=== PATIENT | female | born 1950 | race Caucasian/White ===

== ENCOUNTER 2023-10-10 12:36 | Outpatient (OUT) | payer OTHER, SELFPAY ==
[2023-10-10 15:50] LABS: Bilirubin Urine NEGATIVE (NEGATIVE); Blood Urine TRACE-I (NEGATIVE); Clarity Urine SL CLOUDY (CLEAR); Color Urine LT. YELLOW (YELLOW); Glucose Urine UA NEGATIVE (NEGATIVE); Ketones Urine NEGATIVE (NEGATIVE); Leukocyte Esterase Urine LARGE (NEGATIVE); Nitrite Urine NEGATIVE (NEGATIVE); Protein Urine NEGATIVE (NEG/TRACE); Urobilinogen Urine 0.2 EU/dL (0.2-1.0)
[2023-10-10 16:05] LABS: Bacteria Urine LARGE #/HPF (NONE SEEN); RBC Urine 0-2 #/HPF (0-2); WBC Urine >100 #/HPF (NONE SEEN)
[2023-10-10 16:06] LABS: Cast Seen? NONE SEEN #/LPF (NONE SEEN); Crystals Seen? None Seen #/HPF (None Seen); Mucus Urine NONE SEEN (NONE SEEN); Squamous Epithelial Cell Urine MODERATE #/LPF (NONE/RARE); Urine Culture Indicated ALREADY ORDERED
== END 2023-10-10 12:37 | disposition home or self-care (01) ==
LOC: LAB 12:44
PROVIDERS: PCP Nurse Practitioner Family; Visit Provider Nurse Practitioner Family
DX: R35.0 Frequency of micturition (principal)
CPT/HCPCS: 81001; 87086; 87150; 87186

== ENCOUNTER 2023-10-24 09:47 | Outpatient (OUT) | payer OTHER, SELFPAY ==
--- OUTSIDE RECORDS SUMMARY | 2023-10-24 10:01 | XMS_ITS | CCD ---
Author Organization [facility] Care Team Providers Care Funeral Home Attendant Name Role Phone RAYNA WEAVER Attending Unavailable OWEN, RAYNA Primary Care Unavailable DR ORTEGA HAHN Consulting Unavailable OWEN, RAYNA Admitting Unavailable OWEN, RAYNA Consulting Unavailable OWEN, RAYNA Admitting Unavailable OWEN, RAYNA Attending Unavailable DR ALEXANDRA MARIA V Consulting Unavailable OWEN, RAYNA Primary Care Unavailable OWEN, RAYNA Consulting Unavailable OWEN, RAYNA Attending Unavailable OWEN, RAYNA Consulting Unavailable OWEN, RAYNA Primary Care Unavailable OWEN, RAYNA Admitting Unavailable OWEN, RAYNA Attending Unavailable OWEN, RAYNA Consulting Unavailable OWEN, RAYNA Primary Care Unavailable OWEN, RAYNA Admitting Unavailable OWEN, RAYNA Attending Unavailable OWEN, RAYNA Consulting Unavailable OWEN, RAYNA Primary Care Unavailable OWEN, RAYNA Admitting Unavailable Yary Valladares Unavailable GERTRUDE Valladares Attending Provider Wyatt Mann Primary Care Unavailable Yary Valladares Admitting Unavailable Yary Valladares Attending Unavailable Rayna Muñoz Admitting Unavailable Rayna Muñoz Attending Unavailable Wyatt Mann Primary Care Unavailable Medications Current Medications Medication Drug Class(es) Dates Sig (Normalized) Sig (Original) alendronic acid 70 mg oral tablet (2 sources) Bisphosphonate Alendronate Sodium 70 MG 1 tablet 30 minutes before the first food, beverage or medicine of the day with plain water Orally once a week Active cephalexin 500 mg oral capsule (2 sources) Cephalosporin Antibacterial Start: 01-19-2023 take 1 capsule by mouth every eight hours Cephalexin 500 MG 1 capsule Orally every 8 hrs for 7 Jan, Active cetirizine hydrochloride 10 mg oral tablet (2 sources) Histamine-1 Receptor Antagonist Start: 01-19-2023 take 1 tablet by mouth every twenty-four hours Cetirizine HCl 10 MG 1 tablet Orally Once a day for 14 days Jan, Active diclofenac sodium 75 mg delayed release oral tablet (2 sources) Nonsteroidal Anti-inflammatory Drug take 1 tablet by mouth every twelve hours Diclofenac Sodium 75 MG 1 tablet as needed Orally Twice a day Active fluticasone propionate 0.05 mg/actuat metered dose nasal spray (2 sources) Corticosteroid Start: 01-19-2023 take 1 spray(s) nasal route once daily Flonase Allergy Relief 50 MCG/ACT 1 spray in each nostril Nasally Once a day for 14 day(s) Jan, Active pantoprazole 40 mg delayed release oral tablet (2 sources) Proton Pump Inhibitor take 1 tablet by mouth every twenty-four hours Pantoprazole Sodium 40 MG 1 tablet Orally Once a day Active sertraline 100 mg oral tablet (2 sources) Serotonin Reuptake Inhibitor take 1 tablet by mouth every twenty-four hours Sertraline HCl 100 MG 1 tablet Orally Once a day Active Completed/Discontinued Medications Medication Drug Class(es) Dates Sig (Normalized) Sig (Original) Ketorolac (2 sources) Nonsteroidal Anti-inflammatory Drug, Cyclooxygenase Inhibitor Start: 04-25-2019 Toradol per 15 mg Apr, 30 mg Triamcinolone (2 sources) Corticosteroid Start: 04-25-2019 KENALOG - 10 mg Apr, 40 mg Problems Active Problems Problem Classification Problem Date Documented Da te Episodic/Chronic Deficiency and other anemia (1 source) Anemia, unspecified; Translations: [ANEMIA UNSPECIFIED] Onset: 06-08-2022 Episodic Diabetes mellitus without complication (1 source) Other abnormal glucose; Translations: [OTHER ABNORMAL GLUCOSE] Onset: 06-08-2022 Episodic Disorders of lipid metabolism (4 sources) Hyperlipidemia, unspecified; Translations: [HYPERLIPIDEMIA UNSPECIFIED] Onset: 06-04-2022 Chronic Menopausal disorders (4 sources) Other primary ovarian failure; Translations: [OTHER PRIMARY OVARIAN FAILURE] Onset: 06-14-2022 Chronic Other bone disease and musculoskeletal deformities (1 source) Other specified disorders of bone density and structure, unspecified site; Translations: [OTH D/O BONE DEN STRUCT UNS SITE] Onset: 06-21-2022 Episodic Other nutritional; endocrine; and metabolic disorders (1 source) Overweight; Translations: [OVERWEIGHT] Onset: 06-08-2022 Episodic Other upper respiratory disease (2 sources) Allergic rhinitis due to pollen; Translations: [Allergic rhinitis due to pollen] Chronic Other upper respiratory disease (1 source) Allergic rhinitis due to pollen Chronic Other upper respiratory infections (1 source) Acute pharyngitis, unspecified Episodic Spondylosis; intervertebral disc disorders; other back problems (2 sources) Sciatica; Translations: [Sciatica, left side] Episodic Unclassified (1 source) COUGH, UNSPECIFIED; Translations: [COUGH, UNSPECIFIED] Onset: 12-02-2021 Viral infection (4 sources) COVID-19; Translations: [COVID-19] Onset: 11-27-2021 Past or Other Problems Problem Classification Problem Date Documented Da te Episodic/Chronic Genitourinary symptoms and ill-defined conditions (6 sources) Dysuria; Translations: [Dysuria] Onset: 01-10-2022 Episodic Other lower respiratory disease (1 source) Shortness of breath; Translations: [SHORTNESS OF BREATH] Onset: 12-02-2021 Episodic Urinary tract infections (4 sources) Urinary tract infection, site not specified; Translations: [UTI SITE NOT SPECIFIED] Onset: 12-24-2021 Episodic Results Test Name Value Interpretation Reference Range Facility Urine Cultureon 05-18-2023 Bacteria identified Cx Nom (U) ORGANISM: Escherichia coli (O:ESCCOL) Shelby Count >100,000 Aerobic NESHA Charge (NMIC56) ------ SUSCEPTIBILITY ----- ORGANISM: O:ESCCOL ANTIBIOTIC INTERPRETATION NESHA Amikacin S <16 Amoxacillin/K Clavulanate S <8 Ampicillin S <8 Ampicillin/Sulbacta m S <4 Aztreonam S <4 Cefazolin S <2 Cefepime S <2 Ceftazidime S <1 Ceftazidime/Avibact am S <4 Ceftolozane/Tazobac reyes S <2 Ceftriaxone S <1 Cefuroxime S <4 Ciprofloxacin R >2 Ertapenem S <0.5 Gentamicin S <2 Levofloxacin R >4 Meropenem S <1 Meropenem/Vaborbact am S <2 Nitrofurantoin S <32 Piperacillin/Tazoba ctam S <8 Tetracycline S <4 Tigecycline S <2 Tobramycin S <2 Trimethoprim/Sulfam ethoxazole S <0.5 S = SUSCEPTIBLE I = INTERMEDIATE R = RESISTANT BLANK = DATA NOT AVAILABLE, OR DRUG NOT ADVISABLE OR TESTED R* = RESISTANCE DUE TO EXTENDED SPECTRUM BETA-LACTAMASES ESBL = EXTENDED SPECTRUM BETA-LACTAMASE TFG = THYMIDINE-DEPENDENT STRAIN FLACO = BETA-LACTAMASE POSITIVE IB = INDUCIBLE BETA-LACTAMASE. APPEARS IN PLACE OF 'S' WITH SPECIES KNOWN TO POSSESS INDUCIBLE BETA-LACTAMASES. POTENTIALLY THEY MAY BECOME RESISTANT TO ALL B-LACTAM DRUGS. PERFORMED BY: [place] [address] PATHOLOGIST TERRY CLOTH CUTTER HAND DEYANIRA ARCE M.D. Normal [facility] Comment on above: Performed By: #### C UU #### [address] Quick [place] 01-19-2023 S. pyogenes Org specific cx Ql (Throat) Negative in2nite Other Urinalysis - AUTOMATEDon Appearance (U) CLEAR UTILICASE Other Bilirubin Ql (U) Negative [employer] Other Color (U) YELLOW in2nite Other Glucose Ql (U) Negative UTILICASE Other Hemoglobin Ql (U) Negative [employer] Other Ketones Ql (U) Negative UTILICASE Other Leukocyte esterase Test strip Ql (U) SMALL in2nite Other Nitrite Ql (U) Negative UTILICASE Other pH (U) 5.0 [pH] in2nite Other Protein Ql (U) TRACE UTILICASE Other Specific gravity (U) [Rel density] >=1.030 in2nite Other Urobilinogen (U) [Mass/Vol] 0.2 mg/dL in2nite Other Urinalysis - AUTOMATED in2nite Other Urine Cultureon 01-19-2023 Urine Culture >100,000 in2nite Other Bacteria identified Cx Nom (U) ORGANISM: Escherichia coli (O:ESCCOL) [place] Count >100,000 Aerobic NESHA Charge (NMIC56) ------ SUSCEPTIBILITY ----- ORGANISM: O:ESCCOL ANTIBIOTIC INTERPRETATION NESHA Amikacin S <16 Amoxacillin/K Clavulanate S <8 Ampicillin S <8 Ampicillin/Sulbacta m S <4 Aztreonam S <4 Cefazolin S <2 Cefepime S <2 Ceftazidime S <1 Ceftazidime/Avibact am S <4 Ceftolozane/Tazobac reyes S <2 Ceftriaxone S <1 Cefuroxime S <4 Ciprofloxacin R >2 Ertapenem S <0.5 Gentamicin S <2 Levofloxacin R >4 Meropenem S <1 Meropenem/Vaborbact am S <2 Nitrofurantoin S <32 Piperacillin/Tazoba ctam S <8 Tetracycline S <4 Tigecycline S <2 Tobramycin S <2 Trimethoprim/Sulfam ethoxazole S <0.5 S = SUSCEPTIBLE I = INTERMEDIATE R = RESISTANT BLANK = DATA NOT AVAILABLE, OR DRUG NOT ADVISABLE OR TESTED R* = RESISTANCE DUE TO EXTENDED SPECTRUM BETA-LACTAMASES ESBL = EXTENDED SPECTRUM BETA-LACTAMASE TFG = THYMIDINE-DEPENDENT STRAIN FLACO = BETA-LACTAMASE POSITIVE IB = INDUCIBLE BETA-LACTAMASE. APPEARS IN PLACE OF 'S' WITH SPECIES KNOWN TO POSSESS INDUCIBLE BETA-LACTAMASES. POTENTIALLY THEY MAY BECOME RESISTANT TO ALL B-LACTAM DRUGS. PERFORMED BY: [address] [place] [address] PATHOLOGIST TERRY CLOTH CUTTER HAND DEYANIRA ARCE M.D. Normal [facility] Comment on above: Performed By: #### C UU #### [facility] [address] XR DEXA BONE DENSITYon 06-14 XR DEXA BONE DENSITY EXAMINATION: XR DEXA BONE DENSITY, 06/14/2022 9:38 AM EDT HISTORY: Bone density finding COMPARISON: None. TECHNIQUE: Dual-energy X-ray absorptiometry (DEXA) bone density study performed for the axial skeleton. FINDINGS: Bone mineral density AP spine L1-L4 measures 1.143 g/sq cm. T score -0.3. WHO classification: Normal Lowest bone mineral density right femoral neck measures 0.772 g/sq cm. T score -1.9. WHO classification: Osteopenia IMPRESSION: Osteopenia. Moderate fracture risk Electronically authenticated by: ALEXANDRA MARIA Date: 2022-06-14 15:17 Normal [facility] INSULINon 06-05-2022 Insulin 13.1 uIU/mL Normal 2.6-24.9 [facility] Comment on above: Performed By: #### I NSULIN #### [facility] [address] [place] [address] Dr. Stephon Breaux CBC AUTO DIFFon 06-04-2022 BASO # 0.1 103/ul Normal 0.0-0.1 [facility] Comment on above: Performed By: #### C BC #### [facility] [address] [place] [address] Dr. Stephon Breaux Basophils/100 WBC (Bld) 1.3 % Normal 0.2-2.0 [facility] Comment on above: Performed By: #### C BC #### [facility] [address] [place] [address] Dr. Stephon Breaux EO # 0.2 103/ul Normal 0.0-0.7 [facility] Comment on above: Performed By: #### C BC #### [facility] [address] [place] [address] Dr. Stephon Breaux Eosinophils/100 WBC (Bld) 4.4 % Normal 0.9-7.0 [facility] Comment on above: Performed By: #### C BC #### [facility] [address] [place] [address] Dr. Stephon Breaux Erythrocyte distribution width (RBC) [Ratio] 13.3 % Normal 11.0-15.0 [facility] Comment on above: Performed By: #### C BC #### [facility] [address] [place] [address] Dr. Stephon Breaux Hematocrit (Bld) [Volume fraction] 37.9 % Normal 36.0-48.0 [facility] Comment on above: Performed By: #### C BC #### [facility] [address] [place] [address] Dr. Stephon Breaux Hemoglobin (Bld) [Mass/Vol] 12.5 g/dL Normal 12.0-16.0 [facility] Comment on above: Performed By: #### C BC #### [facility] [address] [place] [address] Dr. Stephon Breaux IG # 0.00 10e3/ul Normal 0.00-0.03 [facility] Comment on above: Performed By: #### C BC #### [facility] [address] [place] [address] Dr. Stephon Breaux IG % 0.0 % Normal 0.0-0.5 [facility] Comment on above: Performed By: #### C BC #### [facility] [address] [place] [address] Dr. Stephon Breaux LYMPH # 1.9 103/ul Normal 1.2-3.8 [facility] Comment on above: Performed By: #### C BC #### [facility] [address] [place] [address] Dr. Stephon Breaux Lymphocytes/100 WBC (Bld) 38.6 % Normal 20.5-60.0 [facility] Comment on above: Performed By: #### C BC #### [facility] [address] [place] [address] Dr. Stephon Breaux MANUAL DIFF REQ NO Normal [facility] Comment on above: Performed By: #### C BC #### [facility] [address] [place] [address] Dr. Stephon Breaux MCH (RBC) [Entitic mass] 31.7 pg Normal 26.7-34.0 [facility] Comment on above: Performed By: #### C BC #### [facility] [address] [place] [address] Dr. Stephon Breaux MCHC (RBC) [Mass/Vol] 33.0 g/dL Normal 29.9-35.2 [facility] Comment on above: Performed By: #### C BC #### [facility] [address] [place] [address] Dr. Stephon Breaux MCV (RBC) [Entitic vol] 96.2 fL Normal 81.0-99.0 [facility] Comment on above: Performed By: #### C BC #### [facility] [address] [place] [address] Dr. Stephon Breaux MONO # 0.4 103/ul Normal 0.3-0.8 [facility] Comment on above: Performed By: #### C BC #### [facility] [address] [place] [address] Dr. Stephon Breaux Monocytes/100 WBC (Bld) 7.5 % Normal 1.7-12.0 [facility] Comment on above: Performed By: #### C BC #### [facility] [address] [place] [address] Dr. Stephon Breaux NEUT # 2.3 103/ul Normal 1.4-6.5 [facility] Comment on above: Performed By: #### C BC #### [facility] [address] [place] [address] Dr. Stephon Breaux Neutrophils/100 WBC (Bld) 48.2 % Normal 43.0-75.0 [facility] Comment on above: Performed By: #### C BC #### [facility] [address] [place] [address] Dr. Stephon Breaux Platelet mean volume (Bld) [Entitic vol] 9.4 fL Critically low 9.5-13.5 [facility] Comment on above: Performed By: #### C BC #### [facility] [address] [place] [address] Dr. Stephon Breaux PLT 230 103/ul Normal 150-450 [facility] Comment on above: Performed By: #### C BC #### [facility] [address] [place] [address] Dr. Stephon Breaux RBC 3.94 106/ul Critically low 4.20-5.40 [facility] Comment on above: Performed By: #### C BC #### [facility] [address] [address] [address] Stephon Breaux WBC 4.8 103/ul Normal 4.0-11.0 [facility] Comment on above: Performed By: #### C BC #### [facility] [address] [place] [address] Dr. Stephon Breaux FREE THYROXINE INDEX T7on FTI 2.94 Normal 1.30-4.50 [facility] Comment on above: Performed By: #### T SH, LIPID, T7, CMP #### [facility] [address] [place] [address] Dr. Stephon Breaux T3U 35.0 % Normal 30.0-39.0 [facility] Comment on above: Performed By: #### T SH, LIPID, T7, CMP #### [facility] [address] [place] [address] Dr. Stephon Breaux T4 [Mass/Vol] 8.40 ug/dL Normal 4.80-13.[address] [facility] Comment on above: Performed By: #### T SH, LIPID, T7, CMP #### [facility] [address] [place] [address] Dr. Stephon Breaux GLYCOHEMOGLOBIN A1Con 2022 ADA RECOMMENDATION SEE BELOW Normal [facility] Comment on above: Result Comment: ADA RECOMMENDED LIMIT 4.0 - 6.0 ADA THERAPEUTIC TARGET < 7.0 ACTION SUGGESTED > 7.0 Performed By: #### A 1C #### [facility] [address] [place] [address] Dr. Stephon Breaux Glucose [Mass/Vol] 100 mg/dL Normal [facility] Comment on above: Performed By: #### A 1C #### [facility] [address] [place] [address] Dr. Stephon Breaux HbA1c (Bld) [Mass fraction] 5.1 % Normal 4.5-6.2 [facility] Comment on above: Performed By: #### A 1C #### [facility] [address] [place] [address] Dr. Stephon Breaux IRONon 06-04-2022 Iron [Mass/Vol] 89.0 ug/dL Normal 50.0-170.0 [facility] Comment on above: Performed By: #### I FANG #### [facility] [address] [place] [address] Dr. Stephon Breaux LIPID PROFILEon 06-04-2022 CHOL-HDL RATIO NORM SEE BELOW Normal [facility] Comment on above: Result Comment: 3.3 - 4.4 LOW RISK 4.4 - 7.1 AVERAGE RISK 7.1 - 11.0 MODERATE RISK >11.0 HIGH RISK Performed By: #### C BC #### [facility] [address] [place] [address] Dr. Stephon Breaux Cholesterol [Mass/Vol] 203 mg/dL Critically high <=200 [facility] Comment on above: Performed By: #### C BC #### [facility] [address] [place] [address] Dr. Stephon Breaux Cholesterol in HDL [Mass/Vol] 65 mg/dL Critically high 40-60 [facility] Comment on above: Performed By: #### C BC #### [facility] [address] [place] [address] Dr. Stephon Breaux Cholesterol in LDL [Mass/Vol] 112.6 mg/dL Normal [facility] Comment on above: Performed By: #### C BC #### [facility] [address] [place] [address] Dr. Stephon Breaux Cholesterol.total/Ch olesterol in HDL [Mass ratio] 3.1 {ratio} Normal [facility] Comment on above: Performed By: #### C BC #### [facility] [address] [place] [address] Dr. Stephon Breaux HDL NORMAL > or = 60 mg/dl - LOW CARDIOVASCULAR RISK <40 mg/dl - HIGH CARDIOVASCULAR RISK Normal [facility] Comment on above: Performed By: #### C BC #### [facility] [address] [place] [address] Dr. Stephon Breaux LDL CALC NORMAL SEE BELOW Normal [facility] Comment on above: Result Comment: <100 mg/dl OPTIMAL 100 - 129 mg/dl NEAR OR ABOVE OPTIMAL 130 - 159 mg/dl BORDERLINE HIGH 160 - 189 mg/dl HIGH >190 mg/dl VERY HIGH Performed By: #### C BC #### [facility] [address] [place] [address] Dr. Stephon Breaux Triglyceride [Mass/Vol] 127 mg/dL Normal <=150 [facility] Comment on above: Performed By: #### C BC #### [facility] [address] [place] [address] Dr. Stephon Breaux VLDL CALC 25.4 mg/dL Normal [facility] Comment on above: Performed By: #### C BC #### [facility] [address] [place] [address] Dr. Stephon Breaux PROF 14(COMP METB)on 023 Albumin [Mass/Vol] 3.4 g/dL Normal 3.4-5.0 [facility] Comment on above: Performed By: #### C BC #### [facility] [address] [place] [address] Dr. Stephon Breaux Albumin/Globulin [Mass ratio] 1.0 {ratio} Normal [facility] Comment on above: Performed By: #### C BC #### [facility] [address] [place] [address] Dr. Stephon Breaux ALP [Catalytic activity/Vol] 66 U/L Normal 46-116 [facility] Comment on above: Performed By: #### C BC #### [facility] [address] [place] [address] Dr. Stephon Breaux ALT [Catalytic activity/Vol] 17 U/L Normal 14-59 [facility] Comment on above: Performed By: #### C BC #### [facility] [address] [address] [address] Stephon Breaux Anion gap [Moles/Vol] 9.2 mmol/L Normal [facility] Comment on above: Performed By: #### C BC #### [facility] [address] [place] [address] Dr. Stephon Breaux AST [Catalytic activity/Vol] 17 U/L Normal 15-37 [facility] Comment on above: Performed By: #### C BC #### [facility] [address] [address] [address] Stephon Breaux Bilirubin [Mass/Vol] 0.4 mg/dL Normal 0.2-1.0 [facility] Comment on above: Performed By: #### C BC #### [facility] [address] [place] [address] Dr. Stephon Breaux Calcium [Mass/Vol] 9.1 mg/dL Normal 8.5-10.1 [facility] Comment on above: Performed By: #### C BC #### [facility] [address] [place] [address] Dr. Stephon Braeux Chloride [Moles/Vol] 108 mmol/L Critically high 98-107 [facility] Comment on above: Performed By: #### C BC #### [facility] [address] [place] [address] Dr. Stephon Breaux CO2 [Moles/Vol] 29.2 mmol/L Normal 21.0-32.0 [facility] Comment on above: Performed By: #### C BC #### [facility] [address] [place] [address] Dr. Stephon Breaux Creatinine [Mass/Vol] 0.84 mg/dL Normal 0.55-1.02 [facility] Comment on above: Performed By: #### C BC #### [facility] [address] [place] [address] Dr. Stephon Breaux EGFR-AF SERBIAN >60 Normal >=60 [facility] Comment on above: Performed By: #### C BC #### [facility] [address] [place] [address] Dr. Stephon Breaux EGFR-NON AF SERBIAN >60 Normal >=60 [facility] Comment on above: Performed By: #### C BC #### [facility] [address] [place] [address] Dr. Stephon Breaux Globulin (S) [Mass/Vol] 3.4 g/dL Normal [facility] Comment on above: Performed By: #### C BC #### [facility] [address] [address] [address] Stephon Breaux Glucose [Mass/Vol] 90 mg/dL Normal 74-106 [facility] Comment on above: Performed By: #### C BC #### [facility] [address] [place] [address] Dr. Stephon Breaux Potassium [Moles/Vol] 4.4 mmol/L Normal 3.5-5.1 [facility] Comment on above: Performed By: #### C BC #### [facility] [address] [place] [address] Dr. Stephon Breaux Protein [Mass/Vol] 6.8 g/dL Normal 6.4-8.2 [facility] Comment on above: Performed By: #### C BC #### [facility] [address] [place] [address] Dr. Stephon Braeux Sodium [Moles/Vol] 142 mmol/L Normal 136-145 [facility] Comment on above: Performed By: #### C BC #### [facility] [address] [place] [address] Dr. Stephon Breaux Urea nitrogen [Mass/Vol] 16.0 mg/dL Normal 7.0-18.0 [facility] Comment on above: Performed By: #### C BC #### [facility] [address] [place] [address] Dr. Stephon Breaux Urea nitrogen/Creatinine [Mass ratio] 19.0 mg/mg Normal [facility] Comment on above: Performed By: #### C BC #### [facility] [address] [place] [address] Dr. Stephon Breaux TSHon 06-04-2022 TSH 0.923 uIU/mL Normal 0.358-3.740 [facility] Comment on above: Performed By: #### C BC #### [facility] [address] [place] [address] Dr. Stephon Breaux CULTURE URINEon 01-10-2022 CULTURE URINE Culture Observations: LIGHT GROWTH OF MIXED GENITAL TIFFANIE. NO POTENTIAL PATHOGENS SEEN. Normal [facility] Comment on above: Performed By: #### U RCX #### [facility] [address] [place] [address] Dr. Stephon Breaux UA RANDOM W/MICROSCOPICon BACTERIA TRACE Abnormal NONE SEEN [facility] Comment on above: Performed By: #### U AMIC #### [facility] [address] [place] [address] Dr. Stephon Breaux Bilirubin Ql (U) Negative Normal NEGATIVE [facility] Comment on above: Performed By: #### U AMIC #### [facility] [address] [place] [address] Dr. Stephon Breaux CAST NONE SEEN Normal NONE SEEN [facility] Comment on above: Performed By: #### U AMIC #### [facility] [address] [place] [address] Dr. Stephon Breaux Clarity (U) CLEAR Normal CLEAR [facility] Comment on above: Performed By: #### U AMIC #### [facility] [address] [place] [address] Dr. Stephon Breaux Color (U) YELLOW Normal YELLOW [facility] Comment on above: Performed By: #### U AMIC #### [facility] [address] [place] [address] Dr. Stephon Breaux Crystals LM Nom (Urine sed) NONE SEEN Normal NONE SEEN [facility] Comment on above: Performed By: #### U AMIC #### [facility] [facility] [address] [place] [address] Dr. Stephon Breaux Epithelial cells LM Ql (Urine sed) FEW Abnormal NONE SEEN /RARE [facility] Comment on above: Performed By: #### U AMIC #### [facility] [address] [place] [address] Dr. Stephon Breaux Glucose Ql (U) Negative Normal NEGATIVE The [facility] Comment on above: Performed By: #### U AMIC #### [facility] [address] [address] [address] Stephon Breaux Hemoglobin Ql (U) Negative Normal NEGATIVE The [facility] Comment on above: Performed By: #### U AMIC #### [facility] [address] [address] [address] Stephon Breaux Ketones Ql (U) Negative Normal NEGATIVE [facility] Comment on above: Performed By: #### U AMIC #### [facility] [address] [address] [address] Stephon Breaux LEUKOCYTES TRACE Abnormal NEGATIVE [facility] Comment on above: Performed By: #### U AMIC #### [facility] [address] [address] [address] Stephon Breaux MUCOUS NONE SEEN Normal NONE SEEN [facility] Comment on above: Performed By: #### U AMIC #### [facility] [address] [address] [address] Stephon Breaux Nitrite Ql (U) Negative Normal NEGATIVE [facility] Comment on above: Performed By: #### U AMIC #### [facility] [address] [address] [address] Stephon Breaux pH (U) 5.5 [pH] Normal 5-9 [facility] Comment on above: Performed By: #### U AMIC #### [facility] [address] [address] [address] Stephon Breaux RBC NONE SEEN Abnormal 0-2 [facility] Comment on above: Performed By: #### U AMIC #### [facility] [address] [address] [address] Stephon Breaux SPEC GRAVITY >=1.030 Abnormal 1.005-<=1.025 The [facility] Comment on above: Performed By: #### U AMIC #### [facility] [address] [address] [address] Stephon Breaux UA PROTEIN Negative Normal NEGATIVE/ TRACE [facility] Comment on above: Performed By: #### U AMIC #### [facility] [address] [address] [address] Stephon Breaux Urobilinogen Qn (U) 0.2 {Billy'U}/dL Normal 0.2 - 1. 0 [facility] Comment on above: Performed By: #### U AMIC #### [facility] [address] [place] [address] Dr. Stephon Breaux WBC 2-5 Abnormal NONE SEEN [facility] Comment on above: Performed By: #### U AMIC #### [facility] [address] [place] [address] Dr. Stephon Breaux CULTURE URINEon 12-26-2021 CULTURE URINE Isolate 1 Escherichia coli 25,000 cfu/mL of ORGANISM 1 Escherichia coli ANTIBIOTIC M.I.C RX STATUS Ampicillin >=32 R F Ampicillin/Sulbacta m 4 S F Piperacillin/Tazoba ctam <=4 S F Cefazolin <=4 S F Ceftazidime <=1 S F Ceftriaxone <=1 S F Ertapenem <=0.5 S F Imipenem <=0.25 S F Amikacin <=2 S F Gentamicin <=1 S F Tobramycin <=1 S F Ciprofloxacin <=0.25 S F Levofloxacin 0.5 S F Nitrofurantoin <=16 S F Trimethoprim/Sulfam ethoxazole <=20 S F Normal [facility] Comment on above: Performed By: #### C BC #### [facility] [address] [place] [address] Dr. Stephon Breaux UA RANDOM W/MICROSCOPICon BACTERIA TRACE Abnormal NONE SEEN [facility] Comment on above: Performed By: #### U AMIC #### [facility] [address] [place] [address] Dr. Stephon Breaux Bilirubin Ql (U) Negative Normal NEGATIVE The [facility] Comment on above: Performed By: #### U AMIC #### [facility] [address] [place] [address] Dr. Stephon Breaux CAST NONE SEEN Normal NONE SEEN [facility] Comment on above: Performed By: #### U AMIC #### [facility] [address] [address] [address] Stephon Breaux Clarity (U) CLEAR Normal CLEAR [facility] Comment on above: Performed By: #### U AMIC #### [facility] [address] [address] [address] Stephon Breaux Color (U) DK. ORANGE Abnormal YELLOW [facility] Comment on above: Performed By: #### U AMIC #### [facility] [address] [address] [address] Stephon Breaux Crystals LM Nom (Urine sed) NONE SEEN Normal NONE SEEN [facility] Comment on above: Performed By: #### U AMIC #### [facility] [address] [place] [address] Dr. Stephon Breaux Epithelial cells LM Ql (Urine sed) FEW Abnormal NONE SEEN /RARE [facility] Comment on above: Performed By: #### U AMIC #### [facility] [address] [place] [address] Dr. Stephon Breaux Glucose Ql (U) Negative Normal NEGATIVE [facility] Comment on above: Performed By: #### U AMIC #### [facility] [address] [address] [address] Stephon Breaux Hemoglobin Ql (U) SMALL Abnormal NEGATIVE [facility] Comment on above: Performed By: #### U AMIC #### [facility] [address] [place] [address] Dr. Stephon Breaux Ketones Ql (U) Negative Normal NEGATIVE [facility] Comment on above: Performed By: #### U AMIC #### [facility] [address] [address] [address] Stephon Breaux LEUKOCYTES MODERATE Abnormal NEGATIVE [facility] Comment on above: Performed By: #### U AMIC #### [facility] [address] [address] [address] Stephon Breaux MUCOUS NONE SEEN Normal NONE SEEN [facility] Comment on above: Performed By: #### U AMIC #### [facility] [address] [place] [address] Dr. Stephon Breaux Nitrite Ql (U) Negative Normal NEGATIVE [facility] Comment on above: Performed By: #### U AMIC #### [facility] [address] [address] [address] Stephon Breaux pH (U) 6.0 [pH] Normal 5-9 [facility] Comment on above: Performed By: #### U AMIC #### [facility] [address] [address] [address] Stephon Breaux RBC 2-5 Abnormal 0-2 [facility] Comment on above: Performed By: #### U AMIC #### [facility] [address] [address] [address] Stephon Breaux SPEC GRAVITY >=1.030 Abnormal 1.005-<=1.025 [facility] Comment on above: Performed By: #### U AMIC #### [facility] [address] [place] [address] Dr. Stephon Breaux UA PROTEIN TRACE Normal NEGATIVE/ TRACE [facility] Comment on above: Performed By: #### U AMIC #### [facility] [address] [address] [address] Stephon Breaux Urobilinogen Qn (U) 0.2 {Billy'U}/dL Normal 0.2 - 1. 0 [facility] Comment on above: Performed By: #### U AMIC #### [facility] [address] [place] [address] Dr. Stephon Breaux WBC 20-50 Abnormal NONE SEEN [facility] Comment on above: Performed By: #### U AMIC #### [facility] [address] [place] [address] Dr. Stephon Breaux Physician Orderon 02-04-2020 Physician Order [id number] Normal [facility] Coding Summary.on 12-15-2019 Coding Summary. CODING DATE: 12/15/2019 FINAL [facility] STATUS: Home (Routine DC) PAYOR: Medicare ADMIT DX: REASON FOR VISIT DX: Z20.828 Contact with and (suspected) exposure to other viral communicable diseases FINAL DX: PRINCIPAL: Z20.828 Contact with and (suspected) exposure to other viral communicable diseases SECONDARY: PYMT PROC APC STAT DESCRIPTION DOCTOR NAME DATE NOTE: The code number assigned matches the documented diagnosis and / or procedure in the patient's chart. However, the narrative phrase printed from the coding software may appear abbreviated, or result in slightly different terminology. Coded By: Sim August Date Saved: 12/15/2019 04:59 pm Normal [facility] COVID-19 ([facility])on 11-19-2019 COVID FT Intrl QC Pass Normal Pass [facility] Comment on above: Performed By: #### 2 [id number] #### [facility] [address] [place] [address] COVID-19 ([facility]) Not Detected Normal Not Detected [facility] Comment on above: Result Comment: This test result should be correlated with clinical presentations and medical history by a healthcare provider to determine its clinical significance. This assay was performed by a reverse transcriptase real-time polymerase chain reaction (rt PCR) method on the [employer] system. This test has been authorized only for the detection of nucleic acid from SARS-CoV-2, not for any other viruses or pathogens. This test has not been FDA cleared or approved. This test has been authorized by FDA under an Emergency Use Authorization (EUA). This test is only authorized for the duration of time the declaration on that circumstances exist justifying the authorization emergency use of in vitro diagnostic tests for detection and/or diagnosis of COVID-19 infection under section 564 (b) (1) of the Act, 21 U.S.C. 360 bbb-3 (b) (1), unless authorization is terminated or revoked sooner. Performed By: #### 2 [id number] #### [facility] [address] [id number] Specimen source Nom (Unsp spec) Nasal Normal [facility] Comment on above: Performed By: #### 2 [id number] #### [facility] [address] [place] [address] Employed in Healthcare YES Normal [facility] Comment on above: Performed By: #### 2 [id number] #### [facility] [address] [place] [address] First Test Unknown Normal [facility] Comment on above: Performed By: #### 2 [id number] #### [facility] [address] [place] [address] Hospitalized? NO Normal [facility] Comment on above: Performed By: #### 2 [id number] #### [facility] [address] [place] [address] ICU NO Normal [facility] Comment on above: Performed By: #### 2 [id number] #### [facility] [address] [place] [address] ? NO Normal [facility] Comment on above: Performed By: #### 2 [id number] #### [facility] [address] [place] [address] Resides in a [facility] Care Setting NO Normal [facility] Comment on above: Performed By: #### 2 [id number] #### [facility] [address] [place] [address] Sympt[address] as defined by [facility] Unknown Normal [facility] Comment on above: Performed By: #### 2 [id number] #### [facility] [address] [place] [address] Vital Signs Date Time Vital Sign Value Performing Clinician Facility 01-19-2023 10:50-0500 Body height 170.18 cm Yary Valladares Other [facility] [employer] Other 01-19-2023 10:50-0500 Body mass index (BMI) [Ratio] 30.1 kg/m2 Yary Valladares Other [employer] Other 01-19-2023 10:50-0500 Body temperature 97.4 [degF] Yary Valladares Other [employer] Other 01-19-2023 10:50-0500 Body weight 87.18 kg Yary Valladares Other [employer] Other 01-19-2023 10:50-0500 Respiratory rate 18 /min Yary Valladares Other [employer] Other 01-19-2023 10:50-0500 SaO2% (BldA) [Mass fraction] 95 % Yary Valladares Other [employer] Other Encounters Encounter Date Encounter Type Care Provider Facility Start: 05-18-2023 End: 05-18-2023 ambulatory Rayna Muñoz Facility:[facility] Start: 01-23-2023 End: 01-23-2023 ambulatory Yary Valladares Other [employer] Other Start: 01-23-2023 Telephone encounter Yary Valladares [facility] [address] Start: 01-19-2023 Office outpatient vi sit 25 minutes Yary Valladares [facility] Start: 01-19-2023 End: 01-19-2023 ambulatory Wyatt Mann [facility] Work Phone: Start: 01-19-2023 End: 01-19-2023 Departed [employer] Yary Valladares Work Phone: [facility] [address] [place] Work Phone: Start: 06-14-2022 End: 06-15-2022 ambulatory RAYNA OWEN Facility:[facility] Start: 06-04-2022 End: 06-05-2022 ambulatory RAYNA OWEN Facility:[facility] Start: 01-10-2022 End: 01-11-2022 ambulatory RAYNA OWEN Facility:[facility] Start: 12-24-2021 End: 12-25-2021 ambulatory RAYNA OWEN Facility:[facility] Start: 11-27-2021 End: 11-28-2021 ambulatory RAYNACONRAD WEAVER Facility:[facility] Plan of Treatment Date Care Activity Detail Author Start: 01-19-2023 Bacteria identified in Urine by Culture Urine Culture [facility] Payers Date Payer Category Payer Unknown [id number] 2023 Self-pay [id number] 1957 Unknown [id number] 1950 Unknown [id number] 2.16.84 [id number] 1950 Unknown [id number] 2.16.84 [id number] 1950 Unknown [id number] 2.16.84 [id number] 1950 Unknown [id number] 2.16.84 [id number] 1950 Unknown [id number] 2.16.84 [id number] Unknown [id number] Unknown [id number] 2.16.8 [id number] Unknown [id number] 2.16.8 [id number] Social History Date Type Detail Facility Unknown if ever smoked [facility] Work Phone: Sex Assigned At Sex Assigned At [facility] [employer] Other Start: 1950 Sex Assigned At Female F [facility] Evaluation note 01-19-2023 Note Date & Type Note Facility 01-19-2023 Evaluation note Encounter Date Diagnosis Assessment Notes Jan, Dysuria (ICD-10 - R30.0) Discussed diagnosis and dipstick findings with patient. Will treat patient for UTI. Instructed patient to take antibiotic as prescribed, take with food, complete entire course of therapy even if feeling better. Allergies and recent antibiotic use were reviewed with patient. Advised patient culture was sent today and we will call with her results in 2-5 days. Patient instructed to push fluids. Patient symptoms should improve in the next 48 hours, if symptoms persist follow up with PCP or UC. Immediate eval by ER if back or flank pain, fever, chills, N/V, or any other concerning symptoms arise. Patient verbalizes understanding and is agreeable to treatment plan. Jan, Seasonal allergic rhinitis due to pollen (ICD-10 - J30.1) Advised patient that rapid Strep test was negative today in office. Discussed diagnosis with patient. Advised that physical exam is consistent with allergic rhinitis. Encouraged supportive care as directed, increase fluids and rest, Tylenol/Motrin as directed, rx of Cetirizine and Flonase, cool mist humidifier, throat lozenges. Patient to follow up with PCP if symptoms persist or worsen despite treatment. Immediate eval for SOB, difficulty breathing, chest pain, fevers that do not break with antipyretic or any other concerning symptoms as reviewed on patient education handout. Patient verbalizes understanding and is agreeable to treatment plan. Patient left in stable condition Jan, Sore throat (ICD-10 - J02.9) [employer] Other Clinical Note 11-27-2021 Note Date & Type Note Facility 11-27-2021 Note EXAMINATION: XR CHES T 2 V HISTORY: COVID-19 , cough, shortness of breath with exertion COMPARISON: No relevant comparison available. FINDINGS: LUNGS: No significant pulmonary parenchymal abnormalities. VASCULATURE: No increased pulmonary vasculature. PLEURA: No pneumothorax, effusion, or pleural thickening. CARDIAC: No cardiomegaly or cardiac silhouette abnormality. MEDIASTINUM: Large hiatal hernia. BONES: No fracture or visible bone lesion. OTHER: Negative. IMPRESSION: 1. No acute cardiopulmonary process. 2. Large hiatal hernia. Electronically authenticated by: ORTEGA HAHN Date: 2021-11-27 15:40 [facility] Evaluation note Note Date & Type Note Facility Evaluation note No assessment information [facility] Work Phone: Evaluation note Note Date & Type Note Facility Evaluation note No Information [facility] [employer] Other History general Narrative - Reported Note Date & Type Note Facility History general Narrative - Reported Type Medical History Depression Medical History Glaucoma Medical History Arthritis Medical History osteoporosis Surgical History vaginal [employer] Other Summary Purpose Family History No Family History Records FoundNo Family History Records FoundNo Family History Records Found Advance Directives No Advanced Directives Records Found Advance Directive Response Recorded Date/ Time Advance Directives No January 10:42am Additional Source Comments INFORMATION SOURCE (unrecogn ized section and content) DATE CREATED AUTHOR 02/05/2020 [facility] DATE CREATED AUTHOR AUTHOR'S ORGANIZ ATION 06/22/2022 [facility] DATE CREATED AUTHOR AUTHOR'S ORGANIZ ATION 05/22/2023 [facility] REASON FOR VISIT (unrecogniz ed section and content) DYSURIA, SORE THROATNo Infor mation Care Teams (unrecognized sec tion and content) Team Status: Inactive Member Role Status Dates Yary Valladares APRN Attending Provider Active Goals (unrecognized section and content) Goals may be documented in a n alternate section FOR RECORDS PERTAINING TO PATIENTS WHO ARE OR HAVE BEEN ENROLLED IN A CHEMICAL DEPENDENCY/SUBSTANCEABUSE PROGRAM, SOME INFORMATION MAY BE OMITTED. This clinical summary was aggregated from multiple sources. Caution should be exercised in using it in the provision of clinical care. This summary normalizes information from multiple sources, and as a consequence, information in this document may materially change the coding, format and clinical context of patient data. In addition, data may be omitted in some cases. CLINICAL DECISIONS SHOULD BE BASED ON THE PRIMARY CLINICAL RECORDS. [facility] [employer] provides no warranty or guarantee of the accuracy or completeness of information in this document.
[2023-10-24 10:18] LABS: Basophils Percent Auto 0.4 % (0.2-2.0); Eosinophils Absolute Auto 0.2 10^3/uL (0.0-0.7); Eosinophils Percent Auto 3.1 % (0.9-7.0); Hematocrit 36.9 % (36.0-48.0); Immature Granulocytes Abs Auto 0.02 10^3/uL (0.00-0.03); Immature Granulocytes Pct Auto 0.3 % (0.0-0.5); Lymphocytes Absolute Auto 1.6 10^3/uL (1.2-3.8); Lymphocytes Percent Auto 21.6 % (20.5-60.0); Mean Corpuscular HGB Conc 32.5 g/dL (29.9-35.2); Mean Corpuscular Hemoglobin 32.5 pg (26.7-34.0); Mean Platelet Volume 9.3 fL (9.5-13.5); Monocytes Absolute Auto 0.5 10^3/uL (0.3-0.8); Monocytes Percent Auto 6.3 % (1.7-12.0); Neutrophils Percent Auto 68.3 % (43.0-75.0); Platelet Count 176 10^3/uL (150-450); Red Blood Count 3.69 10^6/uL (4.20-5.40); Red Cell Distribution Width 13.3 % (11.0-15.0); White Blood Count 7.3 10^3/uL (4.0-11.0)
[2023-10-24 11:16] LABS: Estimated Average Glucose 108 mg/dL; Glycohemoglobin A1C 5.4 % (4.5-6.2)
[2023-10-24 11:51] LABS: Alanine Aminotransferase 23 U/L (14-59); Albumin Globulin Ratio 0.8; Alkaline Phosphatase 50 U/L (46-116); Anion Gap 10.8; Aspartate Amino Transferase 14 U/L (15-37); BUN Creatinine Ratio 17.9; Bilirubin Total 0.5 mg/dL (0.2-1.0); Calcium 9.4 mg/dL (8.5-10.1); Carbon Dioxide 29.5 mmol/L (21.0-32.0); Chloride 105 mmol/L (98-107); Chol HDL Ratio 3.1; Cholesterol 221 mg/dL (<=200); Estimated GFR (African America 58 (>=60); Estimated GFR (Non-African Ame 48 (>=60); Free T3 2.22 pg/mL (2.18-3.98); Globulin 3.7 g/dL; Glucose 89 mg/dL (74-106); HDL Cholesterol 71 mg/dL (40-60); Potassium 4.3 mmol/L (3.5-5.1); Sodium 141 mmol/L (136-145); Total Protein 6.7 g/dL (6.4-8.2); Triglycerides 109 mg/dL (<=150); VLDL CHOLESTEROL 21.8 mg/dL
[2023-10-26 12:07] LABS: Insulin 11.6 uIU/mL (2.6-24.9)
== END 2023-10-24 09:48 | disposition home or self-care (01) ==
LOC: LAB 09:50
PROVIDERS: PCP Nurse Practitioner Family; Visit Provider Nurse Practitioner Family
DX: K57.90 Diverticulosis of intestine, part unspecified, without perforation or abscess without bleeding (principal)
CPT/HCPCS: 36415; 80053; 80061; 83036; 83525; 84436; 84443; 84481; 85025

== ENCOUNTER 2023-11-03 11:12 | Outpatient (OUT) | payer OTHER, SELFPAY ==
[2023-11-03 12:47] LABS: Alanine Aminotransferase 19 U/L (14-59); Albumin Globulin Ratio 0.9; Alkaline Phosphatase 51 U/L (46-116); Anion Gap 10.8; Aspartate Amino Transferase 18 U/L (15-37); BUN Creatinine Ratio 12.7; Bilirubin Total 0.3 mg/dL (0.2-1.0); Calcium 8.9 mg/dL (8.5-10.1); Carbon Dioxide 27.5 mmol/L (21.0-32.0); Chloride 102 mmol/L (98-107); Estimated GFR (African America 59 (>=60); Estimated GFR (Non-African Ame 49 (>=60); Globulin 3.5 g/dL; Glucose 84 mg/dL (74-106); Potassium 4.3 mmol/L (3.5-5.1); Sodium 136 mmol/L (136-145); Total Protein 6.5 g/dL (6.4-8.2)
== END 2023-11-03 11:13 | disposition home or self-care (01) ==
LOC: LAB 11:15
PROVIDERS: PCP Nurse Practitioner Family; Visit Provider Nurse Practitioner Family
DX: R94.4 Abnormal results of kidney function studies (principal)
CPT/HCPCS: 36415; 80053

== ENCOUNTER 2023-11-07 10:02 | Outpatient (OUT) | payer OTHER, SELFPAY ==
[2023-11-07 12:13] LABS: Bilirubin Urine NEGATIVE (NEGATIVE); Blood Urine LARGE (NEGATIVE); Clarity Urine SL CLOUDY (CLEAR); Color Urine LT. YELLOW (YELLOW); Glucose Urine UA NEGATIVE (NEGATIVE); Ketones Urine NEGATIVE (NEGATIVE); Leukocyte Esterase Urine TRACE (NEGATIVE); Nitrite Urine NEGATIVE (NEGATIVE); Protein Urine NEGATIVE (NEG/TRACE); Urobilinogen Urine 0.2 EU/dL (0.2-1.0); pH Urine 6.5 (5.0-9.0)
[2023-11-07 13:31] LABS: Bacteria Urine LARGE #/HPF (NONE SEEN); Cast Seen? NONE SEEN #/LPF (NONE SEEN); Crystals Seen? None Seen #/HPF (None Seen); Mucus Urine NONE SEEN (NONE SEEN); RBC Urine 0-2 #/HPF (0-2); Squamous Epithelial Cell Urine FEW #/LPF (NONE/RARE); Transitional Epi Cells Urine RARE #/LPF (NONE SEEN); Urine Culture Indicated ALREADY ORDERED
== END 2023-11-07 10:03 | disposition home or self-care (01) ==
LOC: LAB 10:02
PROVIDERS: PCP Nurse Practitioner Family; Visit Provider Nurse Practitioner Family
DX: R30.0 Dysuria (principal)
CPT/HCPCS: 81001; 87086; 87186

== ENCOUNTER 2024-02-02 10:35 | Outpatient (OUT) | payer OTHER, SELFPAY ==
--- OUTSIDE RECORDS SUMMARY | 2024-02-02 10:53 | XMS_ITS | CCD ---
Author Organization [facility] Care Team Providers Care Rental Manager Name Role Phone RAYNA WEAVER Attending Unavailable [...] Yary Valladares Unavailable GERTRUDE Valladares Attending Provider [phone] [facility] Unavailable Yary Valladares [...] Cx Nom (U) ORGANISM: Escherichia coli (O:ESCCOL) [place] Count >100,000 Aerobic NESHA Charge (NMIC56) ------ [...] RESISTANT TO ALL B-LACTAM DRUGS. PERFORMED BY: [place] [address] PATHOLOGIST PROFESSOR OF PSYCHOLOGY DEYANIRA ARCE M.D. Normal [facility] Comment on above: Performed By: #### C UU #### [address] Quick Strepon 01-19-2023 S. pyogenes Org specific cx Ql (Throat) Negative PolySpot Other Urinalysis - AUTOMATEDon Appearance (U) CLEAR Cortrium Other Bilirubin Ql (U) Negative Atlas Powered Other Color (U) YELLOW [facility]Spot Other Glucose Ql (U) Negative Cortrium Other Hemoglobin Ql (U) Negative Greenlots Other Ketones Ql (U) Negative Cortrium Other Leukocyte esterase Test strip Ql (U) SMALL PolySpot Other Nitrite Ql (U) Negative Cortrium Other pH (U) 5.0 [pH] PolySpot Other Protein Ql (U) TRACE Cortrium Other Specific gravity (U) [Rel density] >=1.030 PolySpot Other Urobilinogen (U) [Mass/Vol] 0.2 mg/dL [facility]Spot Other Urinalysis - AUTOMATED PolySpot Other Urine Cultureon 01-19-2023 Urine Culture >100,000 [facility] Other Bacteria identified Cx Nom (U) ORGANISM: Escherichia coli (O:ESCCOL) [place] Count >100,000 Aerobic NESHA Charge (NMIC56) ------ [...] RESISTANT TO ALL B-LACTAM DRUGS. PERFORMED BY: [address] [place] [address] PATHOLOGIST PROFESSOR OF PSYCHOLOGY DEYANIRA ARCE M.D. Normal [facility] Comment on above: Performed By: #### C UU #### [facility] [address] XR DEXA BONE DENSITYon 06-14 XR [...] ALEXANDRA MARIA Date: 2022-06-14 15:17 Normal [facility] INSULINon 06-05-2022 Insulin 13.1 uIU/mL Normal 2.6-24.9 [facility] Comment on above: Performed By: #### I NSULIN #### [facility] [address] [place] [address] Dr. Stephon Breaux CBC AUTO DIFFon 06-04-2022 BASO # 0.1 103/ul Normal 0.0-0.1 [facility] Comment on above: Performed By: #### C BC #### [facility] [address] [place] [address] Dr. Stephon Breaux Basophils/100 WBC (Bld) 1.3 % Normal 0.2-2.0 [facility] Comment on above: Performed By: #### C BC #### [facility] [address] [place] [address] Dr. Stephon Breaux EO # 0.2 103/ul Normal 0.0-0.7 [facility] Comment on above: Performed By: #### C BC #### [facility] [address] [place] [address] Dr. Stephon Breaux Eosinophils/100 WBC (Bld) 4.4 % Normal 0.9-7.0 [facility] Comment on above: Performed By: #### C BC #### [facility] [address] [place] [address] Dr. Stephon Breaux Erythrocyte distribution width (RBC) [Ratio] 13.3 % Normal 11.0-15.0 [facility] Comment on above: Performed By: #### C BC #### [facility] [address] [place] [address] Dr. Stephon Breaux Hematocrit (Bld) [Volume fraction] 37.9 % Normal 36.0-48.0 [facility] Comment on above: Performed By: #### C BC #### [facility] [address] [place] [address] Dr. Stephon Breaux Hemoglobin (Bld) [Mass/Vol] 12.5 g/dL Normal 12.0-16.0 [facility] Comment on above: Performed By: #### C BC #### [facility] [address] [place] [address] Dr. Stephon Breaux IG # 0.00 10e3/ul Normal 0.00-0.03 [facility] Comment on above: Performed By: #### C BC #### [facility] [address] [place] [address] Dr. Stephon Breaux IG % 0.0 % Normal 0.0-0.5 [facility] Comment on above: Performed By: #### C BC #### [facility] [address] [place] [address] Dr. Stephon Breaux LYMPH # 1.9 103/ul Normal 1.2-3.8 [facility] Comment on above: Performed By: #### C BC #### [facility] [address] [place] [address] Dr. Stephon Breaux Lymphocytes/100 WBC (Bld) 38.6 % Normal 20.5-60.0 [facility] Comment on above: Performed By: #### C BC #### [facility] [address] [place] [address] Dr. Stephon Breaux MANUAL DIFF REQ NO Normal [facility] Comment on above: Performed By: #### C BC #### [facility] [address] [place] [address] Dr. Stephon Breaux MCH (RBC) [Entitic mass] 31.7 pg Normal 26.7-34.0 [facility] Comment on above: Performed By: #### C BC #### [facility] [address] [place] [address] Dr. Stephon Breaux MCHC (RBC) [Mass/Vol] 33.0 g/dL Normal 29.9-35.2 [facility] Comment on above: Performed By: #### C BC #### [facility] [address] [place] [address] Dr. Stephon Breaux MCV (RBC) [Entitic vol] 96.2 fL Normal 81.0-99.0 [facility] Comment on above: Performed By: #### C BC #### [facility] [address] [place] [address] Dr. Stephon Breaux MONO # 0.4 103/ul Normal 0.3-0.8 [facility] Comment on above: Performed By: #### C BC #### [facility] [address] [place] [address] Dr. Stephon Breaux Monocytes/100 WBC (Bld) 7.5 % Normal 1.7-12.0 [facility] Comment on above: Performed By: #### C BC #### [facility] [address] [place] [address] Dr. Stephon Breaux NEUT # 2.3 103/ul Normal 1.4-6.5 [facility] Comment on above: Performed By: #### C BC #### [facility] [address] [place] [address] Dr. Stephon Breaux Neutrophils/100 WBC (Bld) 48.2 % Normal 43.0-75.0 [facility] Comment on above: Performed By: #### C BC #### [facility] [address] [place] [address] Dr. Stephon Breaux Platelet mean volume (Bld) [Entitic vol] 9.4 fL Critically low 9.5-13.5 [facility] Comment on above: Performed By: #### C BC #### [facility] [address] [place] [address] Dr. Stehpon Breaux PLT 230 103/ul Normal 150-450 [facility] Comment on above: Performed By: #### C BC #### [facility] [address] [place] [address] Dr. Stephon Breaux RBC 3.94 106/ul Critically low 4.20-5.40 [facility] Comment on above: Performed By: #### C BC #### [facility] [address] [address] [address] Stephon Breaux WBC 4.8 103/ul Normal 4.0-11.0 [facility] Comment on above: Performed By: #### C BC #### [facility] [address] [place] [address] Dr. Stephon Breaux FREE THYROXINE INDEX T7on FTI 2.94 Normal 1.30-4.50 [facility] Comment on above: Performed By: #### T SH, LIPID, T7, CMP #### [facility] [address] [place] [address] Dr. Stephon Breaux T3U 35.0 % Normal 30.0-39.0 [facility] Comment on above: Performed By: #### T SH, LIPID, T7, CMP #### [facility] [address] [place] [address] Dr. Stephon Breaux T4 [Mass/Vol] 8.40 ug/dL Normal 4.80-13.90 [facility] Comment on above: Performed By: #### T SH, LIPID, T7, CMP #### [facility] [address] [place] [address] Dr. Stephon Breaux GLYCOHEMOGLOBIN A1Con 2022 ADA RECOMMENDATION SEE BELOW Normal [facility] Comment on above: Result Comment: ADA RECOMMENDED LIMIT 4.0 - 6.0 ADA THERAPEUTIC TARGET < 7.0 ACTION SUGGESTED > 7.0 Performed By: #### A 1C #### [facility] [address] [place] [address] Dr. Stephon Breaux Glucose [Mass/Vol] 100 mg/dL Normal [facility] Comment on above: Performed By: #### A 1C #### [facility] [address] [place] [address] Dr. Stephon Breaux HbA1c (Bld) [Mass fraction] 5.1 % Normal 4.5-6.2 [facility] Comment on above: Performed By: #### A 1C #### [facility] [address] [place] [address] Dr. Stephon Breaux IRONon 06-04-2022 Iron [Mass/Vol] 89.0 ug/dL Normal 50.0-170.0 [facility] Comment on above: Performed By: #### I FANG #### [facility] [address] [place] [address] Dr. Stephon Breaux LIPID PROFILEon 06-04-2022 CHOL-HDL RATIO NORM SEE BELOW Normal [facility] Comment on above: Result Comment: 3.3 - 4.4 LOW RISK 4.4 - 7.1 AVERAGE RISK 7.1 - 11.0 MODERATE RISK >11.0 HIGH RISK Performed By: #### C BC #### [facility] [address] [place] [address] Dr. Stephon Breaux Cholesterol [Mass/Vol] 203 mg/dL Critically high <=200 [facility] Comment on above: Performed By: #### C BC #### [facility] [address] [place] [address] Dr. Stephon Breaux Cholesterol in HDL [Mass/Vol] 65 mg/dL Critically high 40-60 [facility] Comment on above: Performed By: #### C BC #### [facility] [address] [place] [address] Dr. Stephon Breaux Cholesterol in LDL [Mass/Vol] 112.6 mg/dL Normal [facility] Comment on above: Performed By: #### C BC #### [facility] [address] [place] [address] Dr. Stephon Breaux Cholesterol.total/Ch olesterol in HDL [Mass ratio] 3.1 {ratio} Normal [facility] Comment on above: Performed By: #### C BC #### [facility] [address] [place] [address] Dr. Stephon Breaux HDL NORMAL > or = 60 mg/dl - LOW CARDIOVASCULAR RISK <40 mg/dl - HIGH CARDIOVASCULAR RISK Normal [facility] Comment on above: Performed By: #### C BC #### [facility] [address] [place] [address] Dr. Stephon Breaux LDL CALC NORMAL SEE BELOW Normal [facility] Comment on above: Result Comment: <100 mg/dl OPTIMAL 100 - 129 mg/dl NEAR OR ABOVE OPTIMAL 130 - 159 mg/dl BORDERLINE HIGH 160 - 189 mg/dl HIGH >190 mg/dl VERY HIGH Performed By: #### C BC #### [facility] [address] [place] [address] Dr. Stephon Breaux Triglyceride [Mass/Vol] 127 mg/dL Normal <=150 [facility] Comment on above: Performed By: #### C BC #### [facility] [address] [place] [address] Dr. Stephon Breaux VLDL CALC 25.4 mg/dL Normal [facility] Comment on above: Performed By: #### C BC #### [facility] [address] [place] [address] Dr. Stephon Breaux PROF 14(COMP METB)on 023 Albumin [Mass/Vol] 3.4 g/dL Normal 3.4-5.0 [facility] Comment on above: Performed By: #### C BC #### [facility] [address] [place] [address] Dr. Stephon Breaux Albumin/Globulin [Mass ratio] 1.0 {ratio} Normal [facility] Comment on above: Performed By: #### C BC #### [facility] [address] [place] [address] Dr. Stephon Breaux ALP [Catalytic activity/Vol] 66 U/L Normal 46-116 [facility] Comment on above: Performed By: #### C BC #### [facility] [address] [place] [address] Dr. Stephon Breaux ALT [Catalytic activity/Vol] 17 U/L Normal 14-59 [facility] Comment on above: Performed By: #### C BC #### [facility] [address] [address] [address] Stephon Breaux Anion gap [Moles/Vol] 9.2 mmol/L Normal [facility] Comment on above: Performed By: #### C BC #### [facility] [address] [place] [address] Dr. Stephon Breaux AST [Catalytic activity/Vol] 17 U/L Normal 15-37 [facility] Comment on above: Performed By: #### C BC #### [facility] [address] [address] [address] Stephon Breaux Bilirubin [Mass/Vol] 0.4 mg/dL Normal 0.2-1.0 [facility] Comment on above: Performed By: #### C BC #### [facility] [address] [place] [address] Dr. Stephon Breaux Calcium [Mass/Vol] 9.1 mg/dL Normal 8.5-10.1 [facility] Comment on above: Performed By: #### C BC #### [facility] [address] [place] [address] Dr. Stephon Breaux Chloride [Moles/Vol] 108 mmol/L Critically high 98-107 [facility] Comment on above: Performed By: #### C BC #### [facility] [address] [place] [address] Dr. Stephon Breaux CO2 [Moles/Vol] 29.2 mmol/L Normal 21.0-32.0 [facility] Comment on above: Performed By: #### C BC #### [facility] [address] [place] [address] Dr. Stephon Breaux Creatinine [Mass/Vol] 0.84 mg/dL Normal 0.55-1.02 [facility] Comment on above: Performed By: #### C BC #### [facility] [address] [place] [address] Dr. Stephon Breaux EGFR-AF GERMAN >60 Normal >=60 [facility] Comment on above: Performed By: #### C BC #### [facility] [address] [place] [address] Dr. Stephon Breaux EGFR-NON AF GERMAN >60 Normal >=60 [facility] Comment on above: Performed By: #### C BC #### [facility] [address] [place] [address] Dr. Stephon Breaux Globulin (S) [Mass/Vol] 3.4 g/dL Normal [facility] Comment on above: Performed By: #### C BC #### [facility] [address] [address] [address] Stephon Breaux Glucose [Mass/Vol] 90 mg/dL Normal 74-106 [facility] Comment on above: Performed By: #### C BC #### [facility] [address] [place] [address] Dr. Stephon Breaux Potassium [Moles/Vol] 4.4 mmol/L Normal 3.5-5.1 [facility] Comment on above: Performed By: #### C BC #### [facility] [address] [place] [address] Dr. Stephon Breaux Protein [Mass/Vol] 6.8 g/dL Normal 6.4-8.2 [facility] Comment on above: Performed By: #### C BC #### [facility] [address] [place] [address] Dr. Stephon Breaux Sodium [Moles/Vol] 142 mmol/L Normal 136-145 [facility] Comment on above: Performed By: #### C BC #### [facility] [address] [place] [address] Dr. Stephon Breaux Urea nitrogen [Mass/Vol] 16.0 mg/dL Normal 7.0-18.0 [facility] Comment on above: Performed By: #### C BC #### [facility] [address] [place] [address] Dr. Stephon Breaux Urea nitrogen/Creatinine [Mass ratio] 19.0 mg/mg Normal [facility] Comment on above: Performed By: #### C BC #### [facility] [address] [place] [address] Dr. Stephon Breaux TSHon 06-04-2022 TSH 0.923 uIU/mL Normal 0.358-3.740 [facility] Comment on above: Performed By: #### C BC #### [facility] [address] [place] [address] Dr. Stephon Breaux CULTURE URINEon 01-10-2022 CULTURE URINE Culture Observations: LIGHT GROWTH OF MIXED GENITAL TIFFANIE. NO POTENTIAL PATHOGENS SEEN. Normal [facility] Comment on above: Performed By: #### U RCX #### [facility] [address] [place] [address] Dr. Stephno Breaux UA RANDOM W/MICROSCOPICon BACTERIA TRACE Abnormal NONE SEEN [facility] Comment on above: Performed By: #### U AMIC #### [facility] [address] [place] [address] Dr. Stephon Breaux Bilirubin Ql (U) Negative Normal NEGATIVE [facility] Comment on above: Performed By: #### U AMIC #### [facility] [address] [place] [address] Dr. Stephon Breaux CAST NONE SEEN Normal NONE SEEN [facility] Comment on above: Performed By: #### U AMIC #### [facility] [address] [place] [address] Dr. Stephon Breaux Clarity (U) CLEAR Normal CLEAR [facility] Comment on above: Performed By: #### U AMIC #### [facility] [address] [place] [address] Dr. Stephon Breaux Color (U) YELLOW Normal YELLOW [facility] Comment on above: Performed By: #### U AMIC #### [facility] [address] [place] [address] Dr. Stephon Breaux Crystals LM Nom (Urine sed) NONE SEEN Normal NONE SEEN [facility] Comment on above: Performed By: #### U AMIC #### [facility] [address] [place] [address] Dr. Stephon Breaux Epithelial cells LM Ql (Urine sed) FEW Abnormal NONE SEEN /RARE [facility] Comment on above: Performed By: #### U AMIC #### [facility] [address] [place] [address] Dr. Stephon Breaux Glucose Ql (U) Negative Normal NEGATIVE [facility] Comment on above: Performed By: #### U AMIC #### [facility] [address] [address] [address] Stephon Breaux Hemoglobin Ql (U) Negative Normal NEGATIVE [facility] Comment on above: Performed By: #### U AMIC #### [facility] [address] [address] [address] Stephon Breaux Ketones Ql (U) Negative Normal NEGATIVE [facility] Comment on above: Performed By: #### U AMIC #### [facility] [address] [address] [address] Stephon Breaux LEUKOCYTES TRACE Abnormal NEGATIVE [facility] Comment on above: Performed By: #### U AMIC #### [facility] [address] [address] [address] Stephon Breaux MUCOUS NONE SEEN Normal NONE SEEN [facility] Comment on above: Performed By: #### U AMIC #### [facility] [address] [address] [address] Stephon Breaux Nitrite Ql (U) Negative Normal NEGATIVE [facility] Comment on above: Performed By: #### U AMIC #### [facility] [address] [address] [address] Stephon Breaux pH (U) 5.5 [pH] Normal 5-9 [facility] Comment on above: Performed By: #### U AMIC #### [facility] [address] [address] [address] Stephon Breaux RBC NONE SEEN Abnormal 0-2 [facility] Comment on above: Performed By: #### U AMIC #### [facility] [address] [address] [address] Stephon Breaux SPEC GRAVITY >=1.030 Abnormal 1.005-<=1.025 [facility] Comment on above: Performed By: #### U AMIC #### [facility] [address] [address] [address] Stephon Breaux UA PROTEIN Negative Normal NEGATIVE/ TRACE [facility] Comment on above: Performed By: #### U AMIC #### [facility] [address] [address] [address] Stephon Breaux Urobilinogen Qn (U) 0.2 {Billy'U}/dL Normal 0.2 - 1. 0 [facility] Comment on above: Performed By: #### U AMIC #### [facility] [address] [place] [address] Dr. Stephon Breaux WBC 2-5 Abnormal NONE SEEN [facility] Comment on above: Performed By: #### U AMIC #### [facility] [address] [place] [address] Dr. Stephon Breaux CULTURE URINEon 12-26-2021 CULTURE [...] Trimethoprim/Sulfam ethoxazole <=20 S F Normal [facility] Comment on above: Performed By: #### C BC #### [facility] [address] [place] [address] Dr. Stephon Breaux UA RANDOM W/MICROSCOPICon BACTERIA TRACE Abnormal NONE SEEN [facility] Comment on above: Performed By: #### U AMIC #### [facility] [address] [place] [address] Dr. Stephon Breaux Bilirubin Ql (U) Negative Normal NEGATIVE [facility] Comment on above: Performed By: #### U AMIC #### [facility] [facility] [address] [place] [address] Dr. Stephon Breaux CAST NONE SEEN Normal NONE SEEN [facility] Comment on above: Performed By: #### U AMIC #### [facility] [address] [address] [address] Stephon Breaux Clarity (U) CLEAR Normal CLEAR [facility] Comment on above: Performed By: #### U AMIC #### [facility] [address] [address] [address] Stephon Breaux Color (U) DK. ORANGE Abnormal YELLOW [facility] Comment on above: Performed By: #### U AMIC #### [facility] [address] [address] [address] Stephon Breaux Crystals LM Nom (Urine sed) NONE SEEN Normal NONE SEEN [facility] Comment on above: Performed By: #### U AMIC #### [facility] [address] [place] [address] Dr. Stephon Breaux Epithelial cells LM Ql (Urine sed) FEW Abnormal NONE SEEN /RARE [facility] Comment on above: Performed By: #### U AMIC #### [facility] [address] [place] [address] Dr. Stephon Breaux Glucose Ql (U) Negative Normal NEGATIVE [facility] Comment on above: Performed By: #### U AMIC #### [facility] [address] [address] [address] Stephon Breaux Hemoglobin Ql (U) SMALL Abnormal NEGATIVE The [facility] Comment on above: Performed By: #### U AMIC #### [facility] [address] [place] [address] Dr. Stephon Breaux Ketones Ql (U) Negative Normal NEGATIVE [facility] Comment on above: Performed By: #### U AMIC #### [facility] [address] [address] [address] Stephon Breaux LEUKOCYTES MODERATE Abnormal NEGATIVE [facility] Comment on above: Performed By: #### U AMIC #### [facility] [address] [address] [address] Stephon Breaux MUCOUS NONE SEEN Normal NONE SEEN [facility] Comment on above: Performed By: #### U AMIC #### [facility] [address] [place] [address] Dr. Stephon Breaux Nitrite Ql (U) Negative Normal NEGATIVE [facility] Comment on above: Performed By: #### U AMIC #### [facility] [address] [address] [address] Stephon Breaux pH (U) 6.0 [pH] Normal 5-9 [facility] Comment on above: Performed By: #### U AMIC #### [facility] [address] [address] [address] Stephon Breaux RBC 2-5 Abnormal 0-2 [facility] Comment on above: Performed By: #### U AMIC #### [facility] [address] [address] [address] Stephon Breaux SPEC GRAVITY >=1.030 Abnormal 1.005-<=1.025 [facility] Comment on above: Performed By: #### U AMIC #### [facility] [address] [place] [address] Dr. Stephon Breaux UA PROTEIN TRACE Normal NEGATIVE/ TRACE [facility] Comment on above: Performed By: #### U AMIC #### [facility] [address] [address] [address] Stephon Breaux Urobilinogen Qn (U) 0.2 {Billy'U}/dL Normal 0.2 - 1. 0 [facility] Comment on above: Performed By: #### U AMIC #### [facility] [address] [place] [address] Dr. Stephon Breaux WBC 20-50 Abnormal NONE SEEN [facility] Comment on above: Performed By: #### U AMIC #### [facility] [address] [place] [address] Dr. Stephon Breaux Physician Orderon 02-04-2020 Physician Order [id number] Normal [facility] Coding Summary.on 12-15-2019 Coding Summary. CODING DATE: 12/15/2019 FINAL [facility] STATUS: Home (Routine DC) PAYOR: Medicare ADMIT [...] August Date Saved: 12/15/2019 04:59 pm Normal [facility] COVID-19 ([facility])on 11-19-2019 COVID FT Intrl QC Pass Normal Pass [facility] Comment on above: Performed By: #### 2 [id number] #### [facility] [address] [place] [address] COVID-19 ([facility]) Not Detected Normal Not Detected [facility] Comment on above: Result Comment: This test result should be correlated with clinical presentations and medical history by a healthcare provider to determine its clinical significance. This assay was performed by a reverse transcriptase real-time polymerase chain reaction (rt PCR) method on the Made[employer] system. This test has been authorized only [...] or revoked sooner. Performed By: #### 2 [id number] #### [facility] [address] [id number] Specimen source Nom (Unsp spec) Nasal Normal [facility] Comment on above: Performed By: #### 2 [id number] #### [facility] [address] [place] [address] Employed in Healthcare YES Normal [facility] Comment on above: Performed By: #### 2 [id number] #### [facility] [address] [place] [address] First Test Unknown Normal [facility] Comment on above: Performed By: #### 2 [id number] #### [facility] [address] [place] [address] Hospitalized? NO Normal [facility] Comment on above: Performed By: #### 2 [id number] #### [facility] [address] [place] [address] ICU NO Normal [facility] Comment on above: Performed By: #### 2 [id number] #### [facility] [address] [place] [address] ? NO Normal [facility] Comment on above: Performed By: #### 2 [id number] #### [facility] [address] [place] [address] Resides in a [facility] Setting NO Normal [facility] Comment on above: Performed By: #### 2 [id number] #### [facility] [address] [place] [address] Symptomatic as defined by [facility] Unknown Normal [facility] Comment on above: Performed By: #### 2 [id number] #### [facility] [address] [place] [address] Vital Signs Date Time Vital Sign Value Performing Clinician Facility 01-19-2023 10:50-0500 Body height 170.18 cm Yary Valladares Other [facility] Other 01-19-2023 10:50-0500 Body mass index (BMI) [Ratio] 30.1 kg/m2 Yary Valladares Other [facility] Other 01-19-2023 10:50-0500 Body temperature 97.4 [degF] Yary Valladares Other [facility] Other 01-19-2023 10:50-0500 Body weight 87.18 kg Yary Valladares Other [facility] Other 01-19-2023 10:50-0500 Respiratory rate 18 /min Yary Valladares Other [facility] Other 01-19-2023 10:50-0500 SaO2% (BldA) [Mass fraction] 95 % Yary Valladares Other [facility] Other Encounters Encounter Date Encounter Type Care Provider Facility Start: 05-18-2023 End: 05-18-2023 ambulatory Rayna Muñoz Facility:[facility] Start: 01-23-2023 End: 01-23-2023 ambulatory Yary Valladares Other [facility] Other Start: 01-23-2023 Telephone encounter Yary Valladares [facility] [address] Start: 01-19-2023 Office outpatient vi sit 25 minutes Yary Valladares [facility] Start: 01-19-2023 End: 01-19-2023 ambulatory Wyatt Mann [facility] Work Phone: Start: 01-19-2023 End: 01-19-2023 Departed Referred [employer]ISH[employer] Yary Valladares Work Phone: [facility] [place] Work Phone: Start: 06-14-2022 End: 06-15-2022 ambulatory RAYNA OWEN Facility:[facility] Start: 06-04-2022 End: 06-05-2022 ambulatory RAYNA OWEN Facility:[facility] Start: 01-10-2022 End: 01-11-2022 ambulatory RAYNA OWEN Facility:[facility] Start: 12-24-2021 End: 12-25-2021 ambulatory RAYNA OWEN Facility:[facility] Start: 11-27-2021 End: 11-28-2021 ambulatory RAYNACONRAD WEAVER Facility:[facility] Plan of Treatment Date Care Activity Detail Author Start: 01-19-2023 Bacteria identified in Urine by Culture Urine Culture [facility] Payers Date Payer Category Payer Unknown [id number] 2023 Self-pay [id number] 1959 Unknown [id number] 1950 Unknown [id number] 2.16.84 [id number] 1950 Unknown [id number] 2.16.84 [id number] 1950 Unknown [id number] 2.16.84 [id number] 1950 Unknown [id number] 2.16.84 [id number] 1950 Unknown [id number] 2.16.84 [id number] Unknown [id number] Unknown [id number] 2.16.8 [id number] Unknown [id number] 2.16.8 [id number] Social History Date Type Detail Facility Unknown if ever smoked [facility] Work Phone: Sex Assigned At Sex Assigned At [facility] Other Start: 1950 Sex Assigned At Female F [facility] Evaluation note 01-19-2023 Note Date & Type [...] condition Jan, Sore throat (ICD-10 - J02.9) [facility] Other Clinical Note 11-27-2021 Note Date & [...] by: ORTEGA HAHN Date: 2021-11-27 15:40 [facility] Evaluation note Note Date & Type Note Facility Evaluation note No assessment information [facility] Work Phone: Evaluation note Note Date & Type Note Facility Evaluation note No Information [facility] [employer] Other History general Narrative - Reported Note Date & Type Note Facility History general Narrative - Reported Type Medical History Depression Medical History Glaucoma Medical History Arthritis Medical History osteoporosis Surgical History vaginal Floored Other Summary Purpose Family History No Family History Records FoundNo Family History Records FoundNo Family History Records Found Advance Directives No Advanced Directives Records Found Advance Directive Response Recorded Date/ Time Advance Directives No January 10:42am Additional Source Comments INFORMATION SOURCE (unrecogn ized section and content) DATE CREATED AUTHOR 02/05/2020 [facility] DATE CREATED AUTHOR AUTHOR'S ORGANIZ ATION 06/22/2022 [facility] DATE CREATED AUTHOR AUTHOR'S ORGANIZ ATION 05/22/2023 [facility] REASON FOR VISIT (unrecogniz ed section and [...] BE BASED ON THE PRIMARY CLINICAL RECORDS. [facility] [employer] [facility]. provides no warranty or guarantee of the accuracy or completeness of information in this document.
[2024-02-02 11:35] LABS: Alanine Aminotransferase 19 U/L (14-59); Albumin Globulin Ratio 0.9; Albumin Level 3.2 g/dL (3.4-5.0); Alkaline Phosphatase 53 U/L (46-116); Anion Gap 11.9; Aspartate Amino Transferase 15 U/L (15-37); BUN Creatinine Ratio 11.4; Bilirubin Total 0.3 mg/dL (0.2-1.0); Calcium 8.4 mg/dL (8.5-10.1); Carbon Dioxide 28.4 mmol/L (21.0-32.0); Chloride 107 mmol/L (98-107); Estimated GFR (African America 52 (>=60 mL/min/1.73m^2); Estimated GFR (Non-African Ame 43 (>=60 mL/min/1.73m^2); Globulin 3.4 g/dL; Glucose 83 mg/dL (74-106); Potassium 4.3 mmol/L (3.5-5.1); Sodium 143 mmol/L (136-145); Total Protein 6.6 g/dL (6.4-8.2)
== END 2024-02-02 10:36 | disposition home or self-care (01) ==
LOC: LAB 10:35
PROVIDERS: PCP Nurse Practitioner Family; Visit Provider Nurse Practitioner Family
DX: R94.4 Abnormal results of kidney function studies (principal)
CPT/HCPCS: 36415; 80053

== ENCOUNTER 2024-10-07 09:13 | Outpatient (OUT) | payer OTHER, SELFPAY ==
--- OUTSIDE RECORDS SUMMARY | 2024-10-04 06:19 | XMS_ITS ---
Author Organization [facility] [place] Address [address] [place] [address] Care Team Providers Care Motor Polarizer Name Role Phone Rayna Vasquez Primary Care Provider [phone] REASON FOR VISIT dexa scan Problems Problem Type SNOMED Code ICD Code Onset Dates Problem Status W/U Status Risk Notes Problem Senile osteoporosis (84936220) Senile osteoporosis (M81.0) Active confirmed Encounters Encounter Location Date Provider Diagnosis [facility] [address] [place] [address] 10/04/2024 Rayna Vasquez Senile osteoporosis M81.0 Assessments Encounter Date Diagnosis (ICD Code) Assessment Notes Treatment Notes Treatment Clinical Notes Section Notes 10/04/2024 Senile osteoporosis (ICD-10 - M81.0) Plan Of Treatment Pending Test Test Name Order Date XR DEXA BONE DENSITY 10/04/2024 Next Appt Details Provider Name:Rayna monroe, 10/12/2024 09:30:00 AM, [address] [place], [address], Progress Notes * Rochelle MONTANEZ SDOB:1950 (73 yo F)Acc No.[id number]:10/04/2024 Patient: [facility]LL[facility] Rochelle Augustina :1950 A ge:73 Y S ex:Female Address:[address], [place] [address] Subjective: * Chief Complaints: * D exa scan * Medical History: * Surgical History: * Hospitalization/Major Diagno stic Procedure: * Medications: Objective: * Vitals: * Physical Examination: Assessment: * Assessment: 1. S enze osteoporosis - M81.0 (Primary) Plan: * Treatment: * Procedure Codes: * true * Date: Generated for Mary Lou ackerman/Kim/Tova on: 0 10/07/2024 09:17 AM EDT
--- OUTSIDE RECORDS SUMMARY | 2024-10-04 10:09 | XMS_ITS ---
Author Organization [facility] in [place] Address [address] [place] [address] Care Team Providers Care Us Administrative Law Judge Name Role Phone Rayna Vasquez Primary Care Provider [phone] REASON FOR VISIT yearly labs Encounters Encounter Location Date Provider Diagnosis [facility] [address] [place] [address] 10/04/2024 Rayna Vasquez Wellness examination Z01.89 Assessments Encounter Date Diagnosis (ICD Code) Assessment Notes Treatment Notes Treatment Clinical Notes Section Notes 10/04/2024 Wellness examination (ICD-10 - Z01.89) Plan Of Treatment Pending Test Test Name Order Date FECAL OCCULT BLOOD 10/04/2024 CMP - Comprehensive Metabolic Panel 09/15 CBC AUTO DIFF 10/04/2024 GLYCOHEMOGLOBIN A1C 10/04/2024 LIPID PROFILE 10/04/2024 THYROID PANEL (T4/TSH/FREE T3) Next Appt Details Provider Name:Rayna monroe, 10/12/2024 09:30:00 AM, [address] [place], [address], Progress Notes * Rochelel MONTANEZ SDOB:1950 (73 yo F)Acc No.[id number]:10/04/2024 Patient: Rochelle CLINTON :1950 A ge:73 Y S ex:Female Address:[address] [place] [address] Subjective: * Chief Complaints: * Y early labs * Medical History: * Surgical History: * Hospitalization/Major Diagno stic Procedure: * Medications: Objective: * Vitals: * Physical Examination: Assessment: * Assessment: 1. W [facility] examination - Z01.89 (Primary) Plan: * Treatment: * Procedure Codes: * true * Date: Generated for Mary Lou ackerman/Kim/Tova on: 0 10/07/2024 09:18 AM EDT
--- OUTSIDE RECORDS SUMMARY | 2024-10-04 16:39 | XMS_ITS ---
Author Organization [facility] [place] Address [address] [place] [address] Care Team Providers Care Lime Spreader Name Role Phone Rayna Vasquez Primary Care Provider Encounters Encounter Location Date Provider Diagnosis [facility] [address] [place] [address] 10/04/2024 Rayna Vasquez Plan Of Treatment Next Appt Details Provider Name:Rayna monroe, 10/12/2024 09:30:00 AM, [address] [place], [address], Progress Notes * Rochelle MONTANEZ SDOB:1950 (74 yo F)Acc No.[id number]:10/04/2024 UNLOCKED PROGRESS NOTE Patient: Patrick CLINTONaneaaron Jackman :1950 A ge:73 Y S ex:Female Address[address] [place] [address] * * Date:
--- OUTSIDE RECORDS SUMMARY | 2024-10-07 09:02 | XMS_ITS | Clinical Summary ---
Author Organization [facility] Address [id number] [address] [place] [address] Care Team Providers Care User Interface Designer Name Role Phone Unavailable Primary Care Provider Unavailabl e Social History Tobacco Use Types Packs/Day Years Used Date Smoking Tobacco: Never Assessed Childcare Answer Date Recorded Childcare Unknown 08/24/2018 Employment Answer Date Recorded Employment Unknown 08/24/2018 Comments Unknown Sex and Gender Information Value Date Recorded Sex Assigned at Not on file Legal Sex Female 12:01 PM EDT Gender Identity Not on file Sexual Orientation Not on file Plan of Treatment Not on file Medical Devices Not on file
--- OUTSIDE RECORDS SUMMARY | 2024-10-07 09:02 | XMS_ITS | Clinical Summary ---
Author Organization [facility] Address [address], [address] [place] [address] Care Team Providers Care Pipelayer Name Role Phone Wyatt Mann MD Primary Care Provider [phone] Allergies No known active allergies Medications latanoprost (XALATAN) 0.005 % ophthalmic solution INSTILL 1 DROP INTO BOTH EYES EVERY DAY 03/03/2020 Active pantoprazole (PROTONIX) 40 MG tablet 01/13/2020 Active sertraline (ZOLOFT) 100 MG tablet 01/13/2020 Active diclofenac (VOLTAREN) 75 MG EC tablet TAKE 1 TABLET BY MOUTH TWICE A DAY 03/13/2020 Active alendronate (FOSAMAX) 70 MG tablet TAKE 1 TABLET BY MOUTH WEEKLY 02/25/2020 Active Family History Medical History Relation Name Comments Arthritis Father Heart Disease Father Arthritis Mother Stroke Mother Relation Name Status Comments Father Mother Social History Tobacco Use Types Packs/Day Years Used Date Smoking Tobacco: Never Smokeless Tobacco: Never Alcohol Use Standard Drinks/Week Comments Not Currently 0 (1 standard drink = 0.6 oz pur e alcohol) Comments Unknown Sex and Gender Information Value Date Recorded Sex Assigned at Not on file Legal Sex Female 5:49 PM EST Gender Identity Not on file Sexual Orientation Not on file Last Filed Vital Signs Vital Sign Reading Time Taken Comments Blood Pressure - - Pulse - - Temperature 36.1 C (96.9 F) 05/05/2020 11:13 AM EST Respiratory Rate - - Oxygen Saturation - - Inhaled Oxygen Concentration - - Weight 90.7 kg (200 lb) 05/05/2020 11:13 AM EST Height 162.6 cm (5' 4 ) 05/05/2020 11:13 AM EST Body Mass Index 34.33 05/05/2020 11:13 AM EST Plan of Treatment Not on file Insurance [facility] MEDICARE Care Teams Pipelayer Relationship Specialty Start Date End Date Wyatt Mann MD [address] [place] [address] PCP - General Family Medicine 03/31/20
--- OUTSIDE RECORDS SUMMARY | 2024-10-07 09:18 | XMS_ITS | Patient Health Record ---
Author Organization [facility] Address [address] [place] [address] Care Team Providers Care Senior Loan Officer Name Role Phone Rayna Vasquez Primary Care Provider Allergies No Known Allergies Results Component Value Reference Range Notes UA RANDOM W or MICROSCOPIC Reviewed date:10/14/2023 01:11:10 PM Interpretation: Performing Lab: Notes/Report: [facility] , Color Urine LT. YELLOW YELLOW Clarity Urine SL CLOUDY CLEAR Specific [place] Urine 1.010 1.005-1.025 pH Urine 6.0 5.0-9.0 Protein Urine NEGATIVE NEG/TRACE mg/dL Glucose Urine UA NEGATIVE NEGATIVE mg/dL Bilirubin Urine NEGATIVE NEGATIVE Ketones Urine NEGATIVE NEGATIVE mg/dL Blood Urine TRACE-I NEGATIVE Nitrite Urine NEGATIVE NEGATIVE Urobilinogen Urine 0.2 0.2-1.0 EU/dL Leukocyte Esterase Urine LARGE NEGATIVE WBC Urine >100 NONE SEEN #/HPF RBC Urine 0-2 0-2 #/HPF Bacteria Urine LARGE NONE SEEN #/HPF Mucus Urine NONE SEEN NONE SEEN Squamous Epithelial Cell Urine MODERATE NONE/RARE #/LPF Crystals Seen? None Seen None Seen #/HPF Cast Seen? NONE SEEN NONE SEEN #/LPF Urine Culture Indicated ALREADY ORDERED Performing Lab: see note ML - [facility] LB INSULIN Reviewed date:10/27/2023 04:07:58 PM Interpretation: Performing Lab: Notes/Report: [facility] , Insulin 11.6 2.6-24.9 uIU/mL Performed at: - [facility] [address] [id number] Dulser: Chalino Cristina PhD, Phone: [phone] Performing Lab: see note LC - [facility] LB PROF 14(COMP METB) Reviewed date:11/04/2023 02:29:36 PM Interpretation: Performing Lab: Notes/Report: [facility] , Sodium 136 136-145 mmol/L Potassium 4.3 3.5-5.1 mmol/L Chloride 102 98-107 mmol/L Carbon Dioxide 27.5 21.0-32.0 mmol/L Anion Gap 10.8 Glucose 84 74-106 mg/dL Blood Urea Nitrogen 14.0 7.0-18.0 mg/dL Creatinine 1.10 0.55-1.02 mg/dL Estimated GFR ( Tiffanie 59 >=60 Estimated GFR (Non- Leandra 49 >=60 BUN Creatinine Ratio 12.7 Calcium 8.9 8.5-10.1 mg/dL Bilirubin Total 0.3 0.2-1.0 mg/dL Aspartate Amino Transferase 18 15-37 U/L Alanine Aminotransferase 19 14-59 U/L Alkaline Phosphatase 51 46-116 U/L Total Protein 6.5 6.4-8.2 g/dL Albumin Level 3.0 3.4-5.0 g/dL Globulin 3.5 Albumin Globulin Ratio 0.9 Performing Lab: see note ML - [facility] LB PROF 14(COMP METB) Reviewed date:02/04/2024 12:11:10 PM Interpretation: Performing Lab: Notes/Report: [facility] , Sodium 143 136-145 mmol/L Potassium 4.3 3.5-5.1 mmol/L Chloride 107 98-107 mmol/L Carbon Dioxide 28.4 21.0-32.0 mmol/L Anion Gap 11.9 Glucose 83 74-106 mg/dL Blood Urea Nitrogen 14.0 7.0-18.0 mg/dL Creatinine 1.23 0.55-1.02 mg/dL Estimated GFR ( Tiffanie 52 >=60 mL/min/1.73m 2 Estimated GFR (Non- Leandra 43 >=60 mL/min/1.73m 2 BUN Creatinine Ratio 11.4 Calcium 8.4 8.5-10.1 mg/dL Bilirubin Total 0.3 0.2-1.0 mg/dL Aspartate Amino Transferase 15 15-37 U/L Alanine Aminotransferase 19 14-59 U/L Alkaline Phosphatase 53 46-116 U/L Total Protein 6.6 6.4-8.2 g/dL Albumin Level 3.2 3.4-5.0 g/dL Globulin 3.4 Albumin Globulin Ratio 0.9 Performing Lab: see note ML - [facility] LB TSH Reviewed date:10/24/2023 01:39:40 PM Interpretation: Performing Lab: Notes/Report: [facility] , Thyroid Stimulating Hormone 0.570 0.358-3.740 uIU/mL Performing Lab: see note ML - [facility] LB T4 Reviewed date:10/24/2023 01:39:40 PM Interpretation: Performing Lab: Notes/Report: [facility] , T4 Thyroxine 7.00 4.80-13.90 ug/dL Performing Lab: see note ML - [facility] LB PROF 14(COMP METB) Reviewed date:10/24/2023 01:39:40 PM Interpretation: Performing Lab: Notes/Report: [facility] , Sodium 141 136-145 mmol/L Potassium 4.3 3.5-5.1 mmol/L Chloride 105 98-107 mmol/L Carbon Dioxide 29.5 21.0-32.0 mmol/L Anion Gap 10.8 Glucose 89 74-106 mg/dL Blood Urea Nitrogen 20.0 7.0-18.0 mg/dL Creatinine 1.12 0.55-1.02 mg/dL Estimated GFR ( Tiffanie 58 >=60 Estimated GFR (Non- Leandra 48 >=60 BUN Creatinine Ratio 17.9 Calcium 9.4 8.5-10.1 mg/dL Bilirubin Total 0.5 0.2-1.0 mg/dL Aspartate Amino Transferase 14 15-37 U/L Alanine Aminotransferase 23 14-59 U/L Alkaline Phosphatase 50 46-116 U/L Total Protein 6.7 6.4-8.2 g/dL Albumin Level 3.0 3.4-5.0 g/dL Globulin 3.7 Albumin Globulin Ratio 0.8 Performing Lab: see note ML - [facility] LB LIPID PROFILE Reviewed date:10/24/2023 01:39:40 PM Interpretation: Performing Lab: Notes/Report: [facility] , Triglycerides 109 <=150 mg/dL Cholesterol 221 <=200 mg/dL HDL Cholesterol 71 40-60 mg/dL > or =60 mg/dl - LOW CARDIOVASCULAR RISK <40 mg/dl - HIGH CARDIOVASCULAR RISK LDL Cholesterol Calculated 129.0 <100 mg/dl OPTIMAL 100-129 mg/dl NEAR OR ABOVE OPTIMAL 130-159 mg/dl BORDERLINE HIGH 160-189 mg/dl HIGH >190 mg/dl VERY HIGH VLDL CHOLESTEROL 21.8 Chol HDL Ratio 3.1 3.3 - 4.4 LOW RISK 4.4 - 7.1 AVERAGE RISK 7.1 - 11.0 MODERATE RISK >11.0 HIGH RISK Performing Lab: see note - [facility] LB GLYCOHEMOGLOBIN A1C Reviewed date:10/24/2023 01:39:40 PM Interpretation: Performing Lab: Notes/Report: [facility] , Glycohemoglobin A1C 5.4 4.5-6.2 % ADA RECOMMENDED LIMIT 4.0 - 6.0 ADA THERAPEUTIC TARGET < 7.0 ACTION SUGGESTED > 7.0 Estimated Average Glucose 108 Performing Lab: see note [facility] LB FREE T3 Reviewed date:10/24/2023 01:39:40 PM Interpretation: Performing Lab: Notes/Report: [facility] , Free T3 2.22 2.18-3.98 pg/mL Performing Lab: see note - [facility] LB CBC AUTO DIFF Reviewed date:10/24/2023 01:39:40 PM Interpretation: Performing Lab: Notes/Report: [facility] , White Blood Count 7.3 4.0-11.0 10 3/uL Red Blood Count 3.69 4.20-5.40 10 6/uL Hemoglobin 12.0 12.0-16.0 g/dL Hematocrit 36.9 36.0-48.0 % Mean Corpuscular Volume 100.0 81.0-99.0 fL Mean Corpuscular Hemoglobin 32.5 26.7-34.0 pg Mean Corpuscular HGB Conc 32.5 29.9-35.2 g/dL Red Cell Distribution Width 13.3 11.0-15.0 % Platelet Count 176 150-450 10 3/uL Mean Platelet Volume 9.3 9.5-13.5 fL Neutrophils Percent Auto 68.3 43.0-75.0 % Lymphocytes Percent Auto 21.6 20.5-60.0 % Monocytes Percent Auto 6.3 1.7-12.0 % Eosinophils Percent Auto 3.1 0.9-7.0 % Basophils Percent Auto 0.4 0.2-2.0 % Immature Granulocytes Pct Auto 0.3 0.0-0.5 % Neutrophils Absolute Auto 5.0 1.4-6.5 10 3/uL Lymphocytes Absolute Auto 1.6 1.2-3.8 10 3/uL Monocytes Absolute Auto 0.5 0.3-0.8 10 3/uL Eosinophils Absolute Auto 0.2 0.0-0.7 10 3/uL Basophils Absolute Auto 0.0 0.0-0.1 10 3/uL Immature Granulocytes Abs Auto 0.02 0.00-0.03 10 3/uL Performing Lab: see note ML - [facility] Urine Culture, Routine Reviewed date:10/14/2023 01:09:15 PM Interpretation: Performing Lab: Notes/Report: [facility] , Urine Culture, Routine See Below For Report Urine Culture, Routine Organism: Gram negative piotr : O:ESCCOL Isolated O:GNR Isolated Organism: 1.1 Antibiotic Interpretation NESHA Status Urine Culture, Routine *ABNORMAL* Urine Culture, Routine Organism: Gram negative piotr : O:ESCCOL Isolated O:GNR Isolated Organism: 1.1 Antibiotic Interpretation NESHA Status Urine Culture, Routine Greater than 100, 000 colony forming units per mL Urine Culture, Routine Organism: Gram negative piotr : O:ESCCOL Isolated O:GNR Isolated Organism: 1.1 Antibiotic Interpretation NESHA Status Urine Culture, Routine Gram negative piotr Urine Culture, Routine Organism: Gram negative piotr : O:ESCCOL Isolated O:GNR Isolated Organism: 1.1 Antibiotic Interpretation NESHA Status Urine Culture, Routine Organism: Escheri vick coli : Urine Culture, Routine Organism: Gram negative piotr : O:ESCCOL Isolated O:GNR Isolated Organism: 1.1 Antibiotic Interpretation NESHA Status Urine Culture, Routine *ABNORMAL* Urine Culture, Routine Organism: Gram negative piotr : O:ESCCOL Isolated O:GNR Isolated Organism: 1.1 Antibiotic Interpretation NESHA Status Urine Culture, Routine Identified by an automated biochemical system. Urine Culture, Routine Organism: Gram negative piotr : O:ESCCOL Isolated O:GNR Isolated Organism: 1.1 Antibiotic Interpretation NESHA Status Urine Culture, Routine Greater than 100, 000 colony forming units per mL Urine Culture, Routine Organism: Gram negative piotr : O:ESCCOL Isolated O:GNR Isolated Organism: 1.1 Antibiotic Interpretation NESHA Status Urine Culture, Routine Cefazolin <=4 ug/mL Urine Culture, Routine Organism: Gram negative piotr : O:ESCCOL Isolated O:GNR Isolated Organism: 1.1 Antibiotic Interpretation NESHA Status Urine Culture, Routine Cefazolin with an NESHA <=16 predicts susceptibility Urine Culture, Routine Organism: Gram negative piotr : O:ESCCOL Isolated O:GNR Isolated Organism: 1.1 Antibiotic Interpretation NESHA Status Urine Culture, Routine to the oral agent s cefaclor, cefdinir, cefpodoxime, Urine Culture, Routine Organism: Gram negative piotr : O:ESCCOL Isolated O:GNR Isolated Organism: 1.1 Antibiotic Interpretation NESHA Status Urine Culture, Routine cefprozil, cefuro naya, cephalexin, and loracarbef when Urine Culture, Routine Organism: Gram negative piotr : O:ESCCOL Isolated O:GNR Isolated Organism: 1.1 Antibiotic Interpretation NESHA Status Urine Culture, Routine used for therapy of uncomplicated urinary tract Urine Culture, Routine Organism: Gram negative piotr : O:ESCCOL Isolated O:GNR Isolated Organism: 1.1 Antibiotic Interpretation NESHA Status Urine Culture, Routine infections due to E. coli, Klebsiella pneumoniae, and Urine Culture, Routine Organism: Gram negative piotr : O:ESCCOL Isolated O:GNR Isolated Organism: 1.1 Antibiotic Interpretation NESHA Status Urine Culture, Routine Proteus mirabilis. Urine Culture, Routine Organism: Gram negative piotr : O:ESCCOL Isolated O:GNR Isolated Organism: 1.1 Antibiotic Interpretation NESHA Status Urine Culture, Routine Escherichia coli Urine Culture, Routine Organism: Gram negative piotr : O:ESCCOL Isolated O:GNR Isolated Organism: 1.1 Antibiotic Interpretation NESHA Status Urine Culture, Routine See Below For Report Urine Culture, Routine Organism: Gram negative piotr : O:ESCCOL Isolated O:GNR Isolated Organism: 1.1 Antibiotic Interpretation NESHA Status Urine Culture, Routine See Below For Report Urine Culture, Routine Organism: Gram negative piotr : O:ESCCOL Isolated O:GNR Isolated Organism: 1.1 Antibiotic Interpretation NESHA Status Urine Culture, Routine Performed at: [facility] Urine Culture, Routine Organism: Gram negative piotr : O:ESCCOL Isolated O:GNR Isolated Organism: 1.1 Antibiotic Interpretation NESHA Status Urine Culture, Routine [address], [place] [id number] Urine Culture, Routine Organism: Gram negative piotr : O:ESCCOL Isolated O:GNR Isolated Organism: 1.1 Antibiotic Interpretation NESHA Status Urine Culture, Routine Dulser: Rafat Cristina PhD, Phone: [phone] Urine Culture, Routine Organism: Gram negative piotr : O:ESCCOL Isolated O:GNR Isolated Organism: 1.1 Antibiotic Interpretation NESHA Status Urine Culture, Routine See Below For Report Urine Culture, Routine Organism: Gram negative piotr : O:ESCCOL Isolated O:GNR Isolated Organism: 1.1 Antibiotic Interpretation NESHA Status Urine Culture, Routine AMOXICILLIN/CLAVU LANIC ACID S F Urine Culture, Routine Organism: Gram negative piotr : O:ESCCOL Isolated O:GNR Isolated Organism: 1.1 Antibiotic Interpretation NESHA Status Urine Culture, Routine Ampicillin S F Urine Culture, Routine Organism: Gram negative piotr : O:ESCCOL Isolated O:GNR Isolated Organism: 1.1 Antibiotic Interpretation NESHA Status Urine Culture, Routine Cefepime S F Urine Culture, Routine Organism: Gram negative piotr : O:ESCCOL Isolated O:GNR Isolated Organism: 1.1 Antibiotic Interpretation NESHA Status Urine Culture, Routine Ceftriaxone S F Urine Culture, Routine Organism: Gram negative piotr : O:ESCCOL Isolated O:GNR Isolated Organism: 1.1 Antibiotic Interpretation NESHA Status Urine Culture, Routine Cefuroxime S F Urine Culture, Routine Organism: Gram negative piotr : O:ESCCOL Isolated O:GNR Isolated Organism: 1.1 Antibiotic Interpretation NESHA Status Urine Culture, Routine Ciprofloxacin R F Urine Culture, Routine Organism: Gram negative piotr : O:ESCCOL Isolated O:GNR Isolated Organism: 1.1 Antibiotic Interpretation NESHA Status Urine Culture, Routine Ertapenem S F Urine Culture, Routine Organism: Gram negative piotr : O:ESCCOL Isolated O:GNR Isolated Organism: 1.1 Antibiotic Interpretation NESHA Status Urine Culture, Routine Gentamicin S F Urine Culture, Routine Organism: Gram negative piotr : O:ESCCOL Isolated O:GNR Isolated Organism: 1.1 Antibiotic Interpretation NESHA Status Urine Culture, Routine Imipenem S F Urine Culture, Routine Organism: Gram negative piotr : O:ESCCOL Isolated O:GNR Isolated Organism: 1.1 Antibiotic Interpretation NESHA Status Urine Culture, Routine Levofloxacin R F Urine Culture, Routine Organism: Gram negative piotr : O:ESCCOL Isolated O:GNR Isolated Organism: 1.1 Antibiotic Interpretation NESHA Status Urine Culture, Routine Meropenem S F Urine Culture, Routine Organism: Gram negative piotr : O:ESCCOL Isolated O:GNR Isolated Organism: 1.1 Antibiotic Interpretation NESHA Status Urine Culture, Routine Nitrofurantoin S F Urine Culture, Routine Organism: Gram negative piotr : O:ESCCOL Isolated O:GNR Isolated Organism: 1.1 Antibiotic Interpretation NESHA Status Urine Culture, Routine Tetracycline S F Urine Culture, Routine Organism: Gram negative piotr : O:ESCCOL Isolated O:GNR Isolated Organism: 1.1 Antibiotic Interpretation NESHA Status Urine Culture, Routine Tobramycin S F Urine Culture, Routine Organism: Gram negative piotr : O:ESCCOL Isolated O:GNR Isolated Organism: 1.1 Antibiotic Interpretation NESHA Status Urine Culture, Routine Trimethoprim/Sulf ameth oxazole S F Urine Culture, Routine Organism: Gram negative piotr : O:ESCCOL Isolated O:GNR Isolated Organism: 1.1 Antibiotic Interpretation NESHA Status Urine Culture, Routine Piperacillin/Tazo bacta m S F Urine Culture, Routine Organism: Gram negative piotr : O:ESCCOL Isolated O:GNR Isolated Organism: 1.1 Antibiotic Interpretation NESHA Status Performing Lab: see note LC - [facility] LB SEE REPORT - Framing Mechanic Id information not found for OBX-specific interactive producer legend Urine Culture, Routine Reviewed date:11/14/2023 01:31:38 PM Interpretation: Performing Lab: Notes/Report: [facility] , Urine Culture, Routine See Below For Report Urine Culture, Routine Organism: Gram negative piotr : O:ESCCOL Isolated O:GNR Isolated Organism: 1.1 Antibiotic Interpretation NESHA Status Urine Culture, Routine *ABNORMAL* Urine Culture, Routine Organism: Gram negative piotr : O:ESCCOL Isolated O:GNR Isolated Organism: 1.1 Antibiotic Interpretation NESHA Status Urine Culture, Routine 10,000-25,000 col oscar forming units per mL Urine Culture, Routine Organism: Gram negative piotr : O:ESCCOL Isolated O:GNR Isolated Organism: 1.1 Antibiotic Interpretation NESHA Status Urine Culture, Routine Gram negative piotr Urine Culture, Routine Organism: Gram negative piotr : O:ESCCOL Isolated O:GNR Isolated Organism: 1.1 Antibiotic Interpretation NESHA Status Urine Culture, Routine Organism: Escheri vick coli : Urine Culture, Routine Organism: Gram negative piotr : O:ESCCOL Isolated O:GNR Isolated Organism: 1.1 Antibiotic Interpretation NESHA Status Urine Culture, Routine *ABNORMAL* Urine Culture, Routine Organism: Gram negative piotr : O:ESCCOL Isolated O:GNR Isolated Organism: 1.1 Antibiotic Interpretation NESHA Status Urine Culture, Routine Identified by an automated biochemical system. Urine Culture, Routine Organism: Gram negative piotr : O:ESCCOL Isolated O:GNR Isolated Organism: 1.1 Antibiotic Interpretation NESHA Status Urine Culture, Routine 10,000-25,000 col oscar forming units per mL Urine Culture, Routine Organism: Gram negative piotr : O:ESCCOL Isolated O:GNR Isolated Organism: 1.1 Antibiotic Interpretation NESHA Status Urine Culture, Routine Cefazolin <=4 ug/mL Urine Culture, Routine Organism: Gram negative piotr : O:ESCCOL Isolated O:GNR Isolated Organism: 1.1 Antibiotic Interpretation NESHA Status Urine Culture, Routine Cefazolin with an NESHA <=16 predicts susceptibility Urine Culture, Routine Organism: Gram negative piotr : O:ESCCOL Isolated O:GNR Isolated Organism: 1.1 Antibiotic Interpretation NESHA Status Urine Culture, Routine to the oral agent s cefaclor, cefdinir, cefpodoxime, Urine Culture, Routine Organism: Gram negative piotr : O:ESCCOL Isolated O:GNR Isolated Organism: 1.1 Antibiotic Interpretation NESHA Status Urine Culture, Routine cefprozil, cefuro naya, cephalexin, and loracarbef when Urine Culture, Routine Organism: Gram negative piotr : O:ESCCOL Isolated O:GNR Isolated Organism: 1.1 Antibiotic Interpretation NESHA Status Urine Culture, Routine used for therapy of uncomplicated urinary tract Urine Culture, Routine Organism: Gram negative piotr : O:ESCCOL Isolated O:GNR Isolated Organism: 1.1 Antibiotic Interpretation NESHA Status Urine Culture, Routine infections due to E. coli, Klebsiella pneumoniae, and Urine Culture, Routine Organism: Gram negative piotr : O:ESCCOL Isolated O:GNR Isolated Organism: 1.1 Antibiotic Interpretation NESHA Status Urine Culture, Routine Proteus mirabilis. Urine Culture, Routine Organism: Gram negative piotr : O:ESCCOL Isolated O:GNR Isolated Organism: 1.1 Antibiotic Interpretation NESHA Status Urine Culture, Routine Escherichia coli Urine Culture, Routine Organism: Gram negative piotr : O:ESCCOL Isolated O:GNR Isolated Organism: 1.1 Antibiotic Interpretation NESHA Status Urine Culture, Routine See Below For Report Urine Culture, Routine Organism: Gram negative piotr : O:ESCCOL Isolated O:GNR Isolated Organism: 1.1 Antibiotic Interpretation NESHA Status Urine Culture, Routine See Below For Report Urine Culture, Routine Organism: Gram negative piotr : O:ESCCOL Isolated O:GNR Isolated Organism: 1.1 Antibiotic Interpretation NESHA Status Urine Culture, Routine [facility], Routine Organism: Gram negative piotr : O:ESCCOL Isolated O:GNR Isolated Organism: 1.1 Antibiotic Interpretation NESHA Status Urine Culture, Routine [address], [place] [id number] Urine Culture, Routine Organism: Gram negative piotr : O:ESCCOL Isolated O:GNR Isolated Organism: 1.1 Antibiotic Interpretation NESHA Status Urine Culture, Routine Dulser: Rafat Cristina PhD, Phone: [phone] Urine Culture, Routine Organism: Gram negative piotr : O:ESCCOL Isolated O:GNR Isolated Organism: 1.1 Antibiotic Interpretation NESHA Status Urine Culture, Routine See Below For Report Urine Culture, Routine Organism: Gram negative piotr : O:ESCCOL Isolated O:GNR Isolated Organism: 1.1 Antibiotic Interpretation NESHA Status Urine Culture, Routine AMOXICILLIN/CLAVU LANIC ACID S F Urine Culture, Routine Organism: Gram negative piotr : O:ESCCOL Isolated O:GNR Isolated Organism: 1.1 Antibiotic Interpretation NESHA Status Urine Culture, Routine Ampicillin S F Urine Culture, Routine Organism: Gram negative piotr : O:ESCCOL Isolated O:GNR Isolated Organism: 1.1 Antibiotic Interpretation NESHA Status Urine Culture, Routine Cefepime S F Urine Culture, Routine Organism: Gram negative piotr : O:ESCCOL Isolated O:GNR Isolated Organism: 1.1 Antibiotic Interpretation NESHA Status Urine Culture, Routine Ceftriaxone S F Urine Culture, Routine Organism: Gram negative piotr : O:ESCCOL Isolated O:GNR Isolated Organism: 1.1 Antibiotic Interpretation NESHA Status Urine Culture, Routine Cefuroxime S F Urine Culture, Routine Organism: Gram negative piotr : O:ESCCOL Isolated O:GNR Isolated Organism: 1.1 Antibiotic Interpretation NESHA Status Urine Culture, Routine Ciprofloxacin R F Urine Culture, Routine Organism: Gram negative piotr : O:ESCCOL Isolated O:GNR Isolated Organism: 1.1 Antibiotic Interpretation NESHA Status Urine Culture, Routine Ertapenem S F Urine Culture, Routine Organism: Gram negative piotr : O:ESCCOL Isolated O:GNR Isolated Organism: 1.1 Antibiotic Interpretation NESHA Status Urine Culture, Routine Gentamicin S F Urine Culture, Routine Organism: Gram negative piotr : O:ESCCOL Isolated O:GNR Isolated Organism: 1.1 Antibiotic Interpretation NESHA Status Urine Culture, Routine Imipenem S F Urine Culture, Routine Organism: Gram negative piotr : O:ESCCOL Isolated O:GNR Isolated Organism: 1.1 Antibiotic Interpretation NESHA Status Urine Culture, Routine Levofloxacin R F Urine Culture, Routine Organism: Gram negative piotr : O:ESCCOL Isolated O:GNR Isolated Organism: 1.1 Antibiotic Interpretation NESHA Status Urine Culture, Routine Meropenem S F Urine Culture, Routine Organism: Gram negative piotr : O:ESCCOL Isolated O:GNR Isolated Organism: 1.1 Antibiotic Interpretation NESHA Status Urine Culture, Routine Nitrofurantoin S F Urine Culture, Routine Organism: Gram negative piotr : O:ESCCOL Isolated O:GNR Isolated Organism: 1.1 Antibiotic Interpretation NESHA Status Urine Culture, Routine Tetracycline S F Urine Culture, Routine Organism: Gram negative piotr : O:ESCCOL Isolated O:GNR Isolated Organism: 1.1 Antibiotic Interpretation NESHA Status Urine Culture, Routine Tobramycin S F Urine Culture, Routine Organism: Gram negative piotr : O:ESCCOL Isolated O:GNR Isolated Organism: 1.1 Antibiotic Interpretation NESHA Status Urine Culture, Routine Trimethoprim/Sulf ameth oxazole S F Urine Culture, Routine Organism: Gram negative piotr : O:ESCCOL Isolated O:GNR Isolated Organism: 1.1 Antibiotic Interpretation NESHA Status Urine Culture, Routine Piperacillin/Tazo bacta m S F Urine Culture, Routine Organism: Gram negative piotr : O:ESCCOL Isolated O:GNR Isolated Organism: 1.1 Antibiotic Interpretation NESHA Status Performing Lab: see note LC - [facility] LB SEE REPORT - Framing Mechanic Id information not found for OBX-specific interactive producer legend UA RANDOM W or MICROSCOPIC Reviewed date:11/10/2023 01:43:42 PM Interpretation: Performing Lab: Notes/Report: [facility] , Color Urine LT. YELLOW YELLOW Clarity Urine SL CLOUDY CLEAR Specific [place] Urine 1.010 1.005-1.025 pH Urine 6.5 5.0-9.0 Protein Urine NEGATIVE NEG/TRACE mg/dL Glucose Urine UA NEGATIVE NEGATIVE mg/dL Bilirubin Urine NEGATIVE NEGATIVE Ketones Urine NEGATIVE NEGATIVE mg/dL Blood Urine LARGE NEGATIVE Nitrite Urine NEGATIVE NEGATIVE Urobilinogen Urine 0.2 0.2-1.0 EU/dL Leukocyte Esterase Urine TRACE NEGATIVE WBC Urine 2-5 NONE SEEN #/HPF RBC Urine 0-2 0-2 #/HPF Bacteria Urine LARGE NONE SEEN #/HPF Mucus Urine NONE SEEN NONE SEEN Squamous Epithelial Cell Urine FEW NONE/RARE #/LPF Transitional Epi Cells Urine RARE NONE SEEN #/LPF Crystals Seen? None Seen None Seen #/HPF Cast Seen? NONE SEEN NONE SEEN #/LPF Urine Culture Indicated ALREADY ORDERED Performing Lab: see note ML - [facility] Reason For Referral No Information Medications Medication SIG (Take, Route, Frequency, Duration) Notes Start Date End Date Status Alendronate Sodium 70 MG 1 TAB ORALLY ON CE A WEEK 30 MIN. BEFORE FIRST FOOD, DRINK OR MEDICINE OF DAY WITH WATER FOR 90 DAYS for 84 Active Cyclobenzaprine HCl 5 MG TAKE 1 TO 2 TAB LETS BY MOUTH EVERY DAY AT BEDTIME NEEDED FOR 30 DAYS for 30 Active Diclofenac Sodium 75 MG TAKE 1 TABLET BY MOUTH TWICE A DAY for 30 days Active Sertraline HCl 100 MG TAKE 1 TABLET BY M OUTH EVERY DAY FOR 90 DAYS for 90 Active Cefdinir 300 MG one capsule Orally B ID for 10 days 11/14/2023 Active Pantoprazole Sodium 40 MG TAKE 1 TABLET BY MOUTH EVERY DAY FOR 90 DAYS for 90 Active Social History Tobacco Use: Social History Observation Description Date Details (start date - stop date) Never Smoker NA - NA Tobacco Control (Standard) Question Answer Notes Tobacco use: Nonsmoker AUDIT-C (Standard) Question Answer Notes Did you have a drink containing alcohol in the p ast year? No Points 0 Interpretation Negative Problems Problem Type SNOMED Code ICD Code Onset Dates Problem Status W/U Status Risk Notes Problem Senile osteoporosis (04943245) Senile osteoporosis (M81.0) Active confirmed Problem Anxiety (60389669) Anxiety (F41.9) Active confirmed Problem Chronic kidney disease (433514384) CKD (chronic kidney disease) (N18.9) Active confirmed Problem Sciatica (29686647) Sciatica (M54.30) Active confirmed Problem Diverticular disease (441975297) Diverticular disease (K57.90) Active confirmed Vital Signs Blood pressure diastolic 72 mm Hg 11/07/2023 Height 66 in 11/07/2023 Blood pressure systolic 118 mm Hg 11/07/2023 Weight 211 lbs 11/07/2023 BMI 34.05 kg/m2 11/07/2023 Encounters Encounter Location Date Provider Diagnosis [facility] [address] [place] [address] 10/04/2024 Rayna Vasquez [facility] [address] [place] [address] 10/04/2024 Rayna Vasquez Wellness examination Z01.89 [facility] [address] [facility] [place] [address] 10/14/2023 Rayna Vasquez [facility] [address] [facility] [place] [address] 10/24/2023 Rayna Vasquez Kidney function test abnormal R94.4 [facility] [address] [place] [address] 11/04/2023 Rayna Vasquez Abnormal renal function N28.9 [facility] [address] [facility] [place] [address] 11/10/2023 Rayna Vasquez [facility] [address] [facility] [place] [address] 02/04/2024 Rayna Vasquez CKD (chronic kidney disease) N18.9 [facility] [address] [facility] [place] [address] 10/04/2024 Rayna Vasquez Senile osteoporosis M81.0 [facility] [address] [facility] [place] [address] 10/10/2023 Rayna Vasquez Sciatica M54.30 and Urinary frequency R35.0 [facility] [address] [facility] [place] [address] 10/13/2023 Rayna Vasquez [facility] [address] [place] [address] 11/07/2023 Rayna Vasquez Dysuria R30.0 and Decreased GFR R94.4 Assessments Encounter Date Diagnosis (ICD Code) Assessment Notes Treatment Notes Treatment Clinical Notes Section Notes 11/07/2023 Dysuria (ICD-10 - R30.0) US next step? fu urology? 11/07/2023 Decreased GFR (ICD-10 - R94.4) discussed CKD diclofenac is new over last few years takes daily hold , try tylenol repeat cmp 3 months defers renal referral at this time 10/10/2023 Sciatica (ICD-10 - M54.30) 10/24/2023 Kidney function test abnormal (ICD-10 - R94.4) 11/04/2023 Abnormal renal function (ICD-10 - N28.9) 02/04/2024 CKD (chronic kidney disease) (ICD-10 - N18.9) 10/04/2024 Senile osteoporosis (ICD-10 - M81.0) 10/04/2024 Wellness examination (ICD-10 - Z01.89) 10/10/2023 Urinary frequency (ICD-10 - R35.0) Plan Of Treatment Pending Test Test Name Order Date CMP (COMPLETE METABOLIC PANEL) CMP (COMPLETE METABOLIC PANEL) UA (URINALYSIS, COMPLETE) 11/07/2023 UA (URINALYSIS, COMPLETE) 10/10/2023 HEMOGLOBIN A1C (GLYCO) 09/29/2023 INSULIN, TOTAL 09/29/2023 LIPID PANEL (CHOL/TRIG/HDL/LDL) 09/29/19 CBC WITH DIFF 09/29/2023 Urine Culture 11/07/2023 FECAL OCCULT BLOOD 10/04/2024 CMP - Comprehensive Metabolic Panel 01/16 CMP - Comprehensive Metabolic Panel 09/15 CMP 10/24/2023 CBC AUTO DIFF 10/04/2024 GLYCOHEMOGLOBIN A1C 10/04/2024 LIPID PROFILE 10/04/2024 XR DEXA BONE DENSITY 10/04/2024 THYROID PANEL (T4/TSH/FREE T3) THYROID PANEL (T4/TSH/FREE T3) Next Appt Details Provider Name:Rayna monroe, 10/12/2024 09:30:00 AM, [address] [place], [address], Insurance Providers Payer Name Payer Address Payer Phone Subscriber Number Group Number Insured Name Patient Relationship to Insured Coverage Start Date Coverage End Date [employer] [address] [place] [phone] [id number] Rochelle Montanez Self - patient is the insured Medical (General) History Medical History History ICD Code Plantar fasciitis M72.2 Hiatal hernia K44.9 COVID-19 U07.1 Osteopenia M85.80 Urinary retention R33.9 Anxiety F41.9 Diverticular disease K57.90 Internal hemorrhoids K64.8
--- OUTSIDE RECORDS SUMMARY | 2024-10-07 09:18 | XMS_ITS | Clinical Summary ---
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 Social History Tobacco Use Types Packs/Day Years Used Date Smoking Tobacco: Never Tobacco Cessation:Counseling Given: Not Answered Comments Unknown Sex and Gender Information Value Date Recorded Sex Assigned at Not on file Legal Sex Female 8:33 PM EDT Gender Identity Not on file Sexual Orientation Not on file Last Filed Vital Signs Vital Sign Reading Time Taken Comments Blood Pressure 122/68 06/07/2022 12:00 PM EDT Pulse - - Temperature - - Respiratory Rate - - Oxygen Saturation - - Inhaled Oxygen Concentration - - Weight 90.7 kg (200 lb) 06/07/2022 12:00 PM EDT Height 170.2 cm (5' 7 ) 06/07/2022 12:00 PM EDT Body Mass Index 31.32 06/07/2022 12:00 PM EDT Plan of Treatment Health Maintenance Due Date Last Done Comments CT Colonography 1952 Colonoscopy 1952 Colorectal Cancer Screening 1952 FIT-DNA 1952 FIT 1952 FOBT 1952 Sigmoidoscopy 1952 Mammogram 1992 Influenza Vaccine (#1) 2024 2, 01/27/2021, 12/28/2020 Pneumococcal Vaccine: 65+ Years Completed 2, 08/26/2019 Insurance [facility]
--- OUTSIDE RECORDS SUMMARY | 2024-10-07 09:21 | XMS_ITS | CCD ---
Author Organization [facility] Care Team Providers Care Disposal Man Name Role Phone RAYNA WEAVER Attending Unavailable [...] Valladares Admitting Unavailable Yary Valladares Attending Unavailable Wanda Rayna Admitting Unavailable Rayna Muñoz Attending Unavailable Wyatt Mann Primary Care Unavailable RAYNA WEAVER Primary Care Physician YANE GUAMAN Attending Unavailable Ji GAGNON Referring Unavailable YANE GUAMAN Attending Unavailable YANE GUAMAN Attending Unavailable Ji GAGNON Referring Unavailable Ji GAGNON R Admitting Unavailable Ji GAGNON Attending Unavailable YANE GUAMAN Admitting Unavailable DENIZ, YANE Zepeda Attending Unavailable YANE GUAMAN Admitting Unavailable DENIZ, YANE E Attending Unavailable Allergies Allergy Classification Reported Allergen(s) Allergy Type Date of Onset Reaction(s) Facility (1 source) No Known Medication Allergies; Translations: [No Known Medication Allergies] Propensity to adverse reactions (disorder) [facility] Repository Medications Current Medications Medication Drug Class(es) Dates Sig (Normalized) Sig (Original) alendronic acid 70 mg oral tablet (6 sources) Bisphosphonate Start: 03-16-2024 take 1 tablet by mouth every week alendronate 70 mg Tab 70 mg = 1 tab(s), Oral, qWeek Start Date: 03/16/24 Status: Ordered Repeat number: 1 Alendronate Sodi um 70 MG 1 tablet 30 minutes before the first food, beverage or medicine of the day with plain water Orally once a week Active ascorbic acid 1000 mg oral tablet (4 sources) Vitamin C Start: 03-16-2024 take 1000 mg by mouth once daily Vitamin C 1,000 mg, Oral, Daily Start Date: 03/16/24 Status: Ordered Repeat number: 1 Calcium and Magnesium oral tablet (4 sources) Start: 10-29-2018 take 1 tablet by mouth once daily Calcium and Magnesium oral tablet 1 tab(s), Oral, Daily Start Date: 10/29/18 Status: Ordered Repeat number: 1 Start: 10-29-2018 take 1 tablet by vera th once daily Calcium and Magnesium oral tablet 1 tab(s), Oral, Daily Start Date: 10/29/18 Status: Ordered cephalexin 500 mg oral capsule (2 sources) [...] a day for 14 days Jan, Active ciprofloxacin 500 mg oral tablet (3 sources) Quinolone Antimicrobial Start: 03-16-2024 Cipro 500 mg Tab See Instructions, 1 tab po night prior to cysto. 1 tab po following cysto., # 2 tab(s), Refills(s) 0, Pharmacy: [facility]/pharmacy #[id number], 164, cm, 03/16/24 8:48:00 EST, Height/Length Dosing, 97.3, kg, 03/16/24 8:48:00 EST, Weight Dosing Start Date: 03/16/24 Status: Ordered Quantity: 2.0 Unit: tab(s) Repeat number: 1 Indications: Unspecified urethral stricture, female; Urinary tract infection, site not specified; D3 (4 sources) Start: 03-16-2024 take 25 ug by mouth once daily D3 25 mcg, Oral, Daily Start Date: 03/16/24 Status: Ordered Repeat number: 1 Start: 03-16-2024 take 25 ug by mouth once daily D3 25 mcg, Oral, Daily Start Date: 03/16/24 Status: Ordered diazePAM 5 mg oral tablet (4 sources) Benzodiazepine Start: 03-16-2024 take 1 tablet by mouth every hour Valium 5 mg Tab 5 mg = 1 tab(s), Oral, Once, 1 hr prior to procedure, # 1 tab(s), Refills(s) 0, Pharmacy: [facility]/pharmacy #[id number], 164, cm, 03/16/24 8:48:00 EST, Height/Length Dosing, 97.3, kg, 03/16/24 8:48:00 EST, Weight Dosing Start Date: 03/16/24 Status: Ordered Quantity: 1.0 Unit: tab(s) Repeat number: 1 Indications: Unspecified urethral stricture, female; Urinary tract infection, site not specified; diclofenac sodium 75 mg delayed release oral tablet (6 sources) Nonsteroidal Anti-inflammatory Drug Start: 03-16-2024 take 1 tablet by mouth once daily diclofenac sodium 75 mg Oral EC Tab 75 mg = 1 tab(s), Oral, Daily Start Date: 03/16/24 Status: Ordered Repeat number: 1 take 1 tablet by vera th every twelve hours Diclofenac Sodium 75 MG 1 tablet as need ed Orally Twice a day Active estradiol 0.1 mg/ml vaginal cream (4 sources) Estrogen Start: 03-16-2024 Estrace 0.1 mg /g Cream See Instructions, 42.5 gm, Refill(s) 6, apply a pea-sized amount vaginally and around the urethra nightly x 3 weeks, then 3x per week thereafter, [facility]/pharmacy #[id number], 164, cm, 03/16/24 8:48:00 EST, Height/Length Dosing, 97.3, kg, 03/16/24 8:48:00 EST, Weight Dosing Start Date: 03/16/24 Status: Ordered Quantity: 42.5 Unit: g Repeat number: 7 Indications: Unspecified urethral stricture, female; Urinary tract infection, site not specified; Eye Vitamin (4 sources) Start: 10-29-2018 Eye Vitamin Re fill(s) 0 Start Date: 10/29/18 Status: Ordered Repeat number: 1 Start: 10-29-2018 Eye Vitamin Re fill(s) 0 Start Date: 10/29/18 Status: Ordered fluticasone propionate 0.05 mg/actuat metered dose nasal spray (2 sources) Corticosteroid Start: 01-19-2023 take 1 spray(s) nasal route once daily Flonase Allergy Relief 50 MCG/ACT 1 spray in each nostril Nasally Once a day for 14 day(s) Jan, Active Multi Vitamin+ (4 sources) Start: 10-29-2018 Multi Vitamin+ Start Date: 10/29/18 Status: Ordered Repeat number: 1 Start: 10-29-2018 Multi Vitamin+ Start Date: 10/29/18 Status: Ordered pantoprazole 40 mg delayed release oral tablet (6 sources) Proton Pump Inhibitor Start: 10-29-2018 take 1 tablet by mouth once daily Pantoprazole [address] Tab 40 mg = 1 tab(s), Oral, Daily Start Date: 10/29/18 Status: Ordered Repeat number: 1 sertraline 100 mg oral tablet (6 sources) Serotonin Reuptake Inhibitor Start: 10-29-2018 take 1 mg by mouth once daily sertraline 100 mg Tab mg tab(s), Oral, Daily Start Date: 10/29/18 Status: Ordered Repeat number: 1 Completed/Discontinued Medications Medication Drug Class(es) Dates Sig (Normalized) Sig (Original) Ketorolac (2 sources) Nonsteroidal Anti-inflammatory Drug, Cyclooxygenase Inhibitor Start: 04-25-2019 Toradol per 15 mg Apr, 30 mg Triamcinolone (2 sources) Corticosteroid Start: 04-25-2019 KENALOG - 10 mg Apr, 40 mg Problems Active Problems Problem Classification Problem Date Documented Da te Episodic/Chronic Anxiety disorders (4 sources) Anxiety 10-29-2018 Chronic Deficiency and other anemia (1 source) Anemia, unspecified; Translations: [ANEMIA UNSPECIFIED] Onset: 06-08-2022 Episodic Diabetes mellitus without complication (1 source) Other abnormal glucose; Translations: [OTHER ABNORMAL GLUCOSE] Onset: 06-08-2022 Episodic Disorders of lipid metabolism (4 sources) Hyperlipidemia, unspecified; Translations: [HYPERLIPIDEMIA UNSPECIFIED] Onset: 06-04-2022 Chronic Glaucoma (4 sources) Glaucoma 10-29-2018 Chronic Menopausal disorders (4 sources) Other primary ovarian failure; Translations: [OTHER PRIMARY OVARIAN FAILURE] Onset: 06-14-2022 Chronic Mood disorders (4 sources) Depressive disorder 10-29-2018 Chronic Osteoarthritis (4 sources) Arthritis 10-29-2018 Chronic Other bone disease and musculoskeletal deformities (1 source) Other specified disorders of bone density and structure, unspecified site; Translations: [OTH D/O BONE DEN STRUCT UNS SITE] Onset: 06-21-2022 Episodic Other diseases of bladder and urethra (5 sources) Urethral stricture; Translations: [Unspecified urethral stricture, female] Onset: 03-16-2024 Episodic Other nutritional; endocrine; and metabolic disorders [...] COUGH, UNSPECIFIED; Translations: [COUGH, UNSPECIFIED] Onset: 12-02-2021 Urinary tract infections (10 sources) Urinary tract infection, site not specified; Translations: [Urinary tract infectious disease] Onset: 12-24-2021 Episodic Viral infection (4 sources) COVID-19; Translations: [COVID-19] Onset: 11-27-2021 Past or Other Problems Problem Classification Problem Date Documented Da te Episodic/Chronic Genitourinary symptoms and ill-defined conditions (6 sources) Dysuria; Translations: [Dysuria] Onset: 01-10-2022 Episodic Other lower respiratory disease (1 source) Shortness of breath; Translations: [SHORTNESS OF BREATH] Onset: 12-02-2021 Episodic Results Test Name Value Interpretation Reference Range Facility C Urineon 09-29-2024 Bacteria identified Cx Nom (U) Microbiology PROCEDURE: Urine Culture [R1] SOURCE: U CleanCatch BODY SITE: COLLECTED DATE/TIME: 09/27/2024 11:49 EDT RECEIVED DATE/TIME: 09/27/2024 17:27 EDT START DATE/TIME: 09/27/2024 17:27 EDT FREE TEXT SOURCE: DENIZ PATEL, YANE GUAMAN PA-C, YANE Zepeda FINAL REPORTS Final Report [] Verified Date/Time: 09/29/2024 08:45 EDT 15,000 cfu/ml Klebsiella pneumoniae SUSCEPTIBILITY RESULTS LEGEND: S=Susceptible, N/R=Not Reported, Blank=Data not available, or drug not advisable or tested, I=Intermediate, ESBL=Extended spectrum beta-lactamase, R=Resistant, TFG=Thymidine-depend ent strain, FLACO=Beta-lactamase positive, NESHA=mcg/m;(mg/L), S*=Predicted susceptible interp, R*=Predicted resistant interp Klepne Antibiotic NESHA Dilutn NESHA Interp Ampicillin >16 R Ampicillin/ <=8/4 S Sulbactam Cefazolin <=2 S Cefepime <=2 S Ceftazidime/ <=8 S Avibactam Ceftriaxone <=1 S Cefuroxime <=4 S Ciprofloxacin <=0.25 S Ertapenem <=0.5 S Gentamicin <=2 S Levofloxacin <=0.5 S Meropenem <=1 S Nitrofurantoin <=32 S Piperacillin/ <=8 S Tazobactam Tetracycline <=4 S Tobramycin <=2 S Trimethoprim/ <=2/38 S Sulfa Performing Locations R1: This test was performed at: [facility], [address] [place] [address], [phone] , [place], Normal [facility] Comment on above: Performed By: #### [id number] #### [facility] [address] [place] [id number] Ambulatory Visit Summaryon 0 09-27-2024 Ambulatory Visit Summary Ambulatory Visit Summary GAVI SANTOS :1950 Visit Date:09/27/2024 Ambulatory Visit Instructions Your Diagnosis Recurrent UTI Your Care Team Attending Physician - YANE GUAMAN PA-C Primary Care Physician - RAYNA WEAVER CNP This Is Your Medications List alendronate (alendronate 70 mg Tab) ascorbic acid (Vitamin C) cholecalciferol (D3) diazepam (Valium 5 mg Tab) diclofenac (diclofenac sodium 75 mg Oral EC Tab) estradiol topical (Estrace 0.1 mg/g Cream) multivitamin (Multi Vitamin+) multivitamin with minerals (Calcium and Magnesium oral tablet) multivitamin with minerals (Eye Vitamin) pantoprazole (Pantoprazole [address] Tab) sertraline (sertraline 100 mg Tab) Procedures Performed Colonoscopy, Laser on Cervix. Discharge Vitals Heart Rate (Peripheral) 80 Respiratory Rate 18 Blood Pressure 126/78 Height 164 cm Height 65 in Weight 100.4 kg Weight 221.344 lb BMI 37.33 Medications What How Much When Why Instructions Unchanged alendronate (alendronate 70 mg Tab) 1 Tablets By Mouth Every week Unchanged ascorbic acid (Vitamin C) 1,000 Milligram By Mouth Every day Unchanged cholecalciferol (D3) 25 Microgram By Mouth Every day Unchanged diazepam (Valium 5 mg Tab) 1 Tablets By Mouth Once Recurrent UTI Stricture of female urethra 1 hr prior to procedure Unchanged diclofenac (diclofenac sodium 75 mg Oral EC Tab) 1 Tablets By Mouth Every day Unchanged estradiol topical (Estrace 0.1 mg/ g Cream) See instructions Recurrent UTI Stricture of female urethra apply a pea-sized amount vaginally and around the urethra nightly x 3 weeks, then 3x per week thereafter Unchanged multivitamin (Multi Vitamin+) Unchanged multivitamin with minerals (Calcium and Magnesium oral tablet) 1 Tablets By Mouth Every day Unchanged multivitamin with minerals (Eye Vitamin) Unchanged pantoprazole (Pantoprazole [address] Tab) 1 Tablets By Mouth Every day Unchanged sertraline (sertraline 100 mg Tab) By Mouth Every day Allergies No Known Medication Allergies Problems Ongoing - Any problem that you are currently receiving treatment for. Anxiety Arthritis Depression Glaucoma Recurrent UTI Stricture of female urethra Patient Survey You may receive a survey via text or e-mail asking about your office visit. Please share your experience with us by completing your survey. We appreciate your feedback and thank you for choosing us for your care. Patient Portal You may access all of your results and other medical record information on our secure patient portal. If you are not signed up for this yet, please contact [employer] at [phone] to get signed up today. Language Information Language assistance services are available as needed. [facility] Urology Office/Clinic Noteon 09-27-2024 Urology Office/Clinic Note Urology Office/Clinic Note Chief Complaint Pt here with UIT symptoms HPI Staff pt is a 73 year old female here for with UTI symptoms Pt reports that she has taken OTC AZO with relief pt reports burning with urgency and burning since yesterday denies visible blood denies flank pain BBSQ:16 Review of Systems PHQ Score Initial Depression Screen Score: 0 SCORE No fever, chills, malaise, myalgia. No abdominal pain, flank pain, gross hematuria. Physical Exam Vitals & Measurements HR: 80(Peripheral) RR: 18 BP: 126/78 HT: 65 in HT: 164 cm WT: 100.4 kg WT: 221.344 lb BMI: 37.33 General: nontoxic, NAD Mouth: moist mucosa Lungs: normal respiratory effort Cardio: regular rate, good distal perfusion Abdomen: nondistended Neurologic: Grossly normal Skin: No rashes or suspicious lesions Assessment/Plan 1. Recurrent UTI (N39.0: Urinary tract infection, site not specified) Using estrogen cream. Cysto 05/04/24 showed tight urethra and mod AV. Dil to 30fr. Pt is non-toxic appearing, good vitals, tolerating fluids po, afebrile. Ok for outpt eval/tx. UA shows sm leuks only. +Sx. No empiric abx. If + will tx. If - will need repeat cysto to see if stricture has recurred already. Ordered: ciprofloxacin, See Instructions, 1 tab po night prior to cysto. 1 tab po following cysto., # 2 tab(s), Refills(s) 0, Pharmacy: [facility]/pharmacy #[id number], 164, cm, 03/16/24 8:48:00 EST, Height/Length Dosing, 97.3, kg, 03/16/24 8:48:00 EST, Weight Dosing Body Mass Index (BMI) documented 3008F Current tobacco non-user 1036F Depression Screening Negative 3352F E&M of Est. Patient Low 20-29 Min 04942 Influenza immunization status assessed 1030F Medication list documented in medical record 1159F Most recent diastolic blood pressure <80 mm Hg 3078F Patient screen for fall risk: no falls in last year or 1 fall with no injury in last year 1101F Review of all meds by a prescribing practitioner or clinical pharmacist documented in EHR 1160F Systolic BP <130 mm Hg (Most Recent) 3074F Urine Culture Urnls Dip Stick Auto w/o Microscopy POC [id number] Follow-up With When Contact Information YANE GUAMAN PA-C, URL [address] [facility] [place] [address] [facility] (1) Additional Instructions: pending results of imaging/testing, will call with next steps Patient Education Antibiotic Medicine, Adult Problem List/Past Medical History Ongoing Anxiety Arthritis Depression Glaucoma Recurrent UTI Stricture of female urethra Historical No qualifying data Procedure/Surgical History Colonoscopy, Laser on Cervix. Medications alendronate 70 mg Tab, 70 mg= 1 tab(s), Oral, qWeek Calcium and Magnesium oral tablet, 1 tab(s), Oral, Daily D3, 25 mcg, Oral, Daily diclofenac sodium 75 mg Oral EC Tab, 75 mg= 1 tab(s), Oral, Daily Estrace 0.1 mg/g Cream, See Instructions, 6 refills Eye Vitamin Multi Vitamin+ Pantoprazole [address] Tab, 40 mg= 1 tab(s), Oral, Daily sertraline 100 mg Tab, Oral, Daily Valium 5 mg Tab, 5 mg= 1 tab(s), Oral, Once Vitamin C, 1000 mg, Oral, Daily Allergies No Known Medication Allergies Social History Alcohol Current. 1-2 times per year., 03/16/2024 Substance Abuse Never., 03/16/2024 Tobacco Never (less than 100 in lifetime) Tobacco Use:. Never Smokeless Tobacco Use:., 09/27/2024 Family History Kidney stones: Father. Pancreatic cancer: Brother. Stroke: Mother. Immunizations Vaccine Date Status Comments influenza virus vaccine, inactivated 01/15/2023 Recorded influenza virus vaccine, inactivated 01/30/2022 Recorded pneumococcal 23-valent vaccine 05/10/2021 Recorded influenza, unspecified formulation 01/27/2021 Recorded SARS-CoV-2 (COVID-19) mRNA BNT-162b2 vax 01/27/2021 Recorded 2024-09-27: [id number] influenza virus vaccine, inactivated 12/28/2020 Recorded SARS-CoV-2 (COVID-19) mRNA BNT-162b2 vax 06/06/2020 Recorded SARS-CoV-2 (COVID-19) mRNA BNT-162b2 vax 05/15/2020 Recorded pneumococcal 13-valent vaccine 08/26/2019 Recorded Lab Results Ambulatory Point of Care Results Bilirubin Urine Dipstick: Negative (09/27/24 11:23:00) Blood Urine Dipstick: Negative (09/27/24 11:23:00) Glucose Urine Dipstick: Negative (09/27/24 11:23:00) Ketones Urine Dipstick: Negative (09/27/24 11:23:00) Leukocytes Urine Dipstick: 1+ Small (09/27/24 11:23:00) Nitrite Urine Dipstick: Negative (09/27/24 11:23:00) Protein Urine Dipstick: Negative (09/27/24 11:23:00) Urine Appearance Urine Dipstick: Clear (09/27/24 11:23:00) Urine Color Urine Dipstick: Light yellow (09/27/24 11:23:00) Urobilinogen Urine Dipstick: Normal 0.2-1 EU/dl (09/27/24 11:23:00) pH Urine Dipstick: 5.5 (09/27/24 11:23:00) Normal [facility] Comment on above: Result Comment: Elec tronically Signed By: YANE GUAMAN PA-C\.br\Date and Time Signed: 09/27/24 11:56 EDT Main OR Intraoperative Recor don 05-04-2024 Main OR Intraoperative Record Main OR Intraoperative Record IntraOp Document Type FTURO Summary Primary Physician: Ji GAGNON MD Finalized Date/Time: 05/04/24 10:52:00 Pt. Name: GAVI SANTOS Augustina Walker/Sex: 1950 Female Med Rec #: [id number] Physician: Ji GAGNON MD Financial #: [id number] Pt. Type: O Room/Bed: / Admit/Disch: 05/04/24 09:47:05 - Institution: Case Times FTURO Entry 1 Patient Times In Room 05/04/24 10:41:00 Out Room 05/04/24 10:51:00 Procedure Times Start 05/04/24 10:43:00 Stop 05/04/24 10:47:00 Anesthesia Times Last Modified By: Zoila Siddiqui 05/04/24 10:51:52 Case Attendance FTURO Entry 1 Entry 2 Entry 3 Case Attendee Ji GAGNON MD, Kelsie E Troike, Kendall R Role Performed Surgeon - Primary Bin Packer - Primary Scrub - Primary Time In 05/04/24 10:41:00 05/04/24 10:41:00 05/04/24 10:41:00 Time Out 05/04/24 10:51:00 05/04/24 10:51:00 05/04/24 10:51:00 Procedure CYSTOSCOPY LOCAL WITH CYSTOSCOPY LOCAL WITH CYSTOSCOPY LOCAL WITH URETHRAL DILATION(.) URETHRAL DILATION(.) URETHRAL DILATION(.) Comments Last Modified By: Zoila Siddiqui Kelsie E Burgderfer, Kelsie E 05/04/24 10:51:53 05/04/24 10:51:53 05/04/24 10:51:53 Surgical Procedures FTURO Entry 1 Procedure Description Procedure CYSTOSCOPY LOCAL WITH Modifiers . URETHRAL DILATION Surgeon Description CYSTOSCOPY LOCAL WITH URETHRAL DILATION Primary Procedure Yes Primary Surgeon Ji GAGNON MD Start 05/04/24 10:43:00 Stop 05/04/24 10:47:00 Anesthesia Type Local Surgical Service Urology Wound Class 2 - Clean-Contaminated Last Modified By: Zoila Siddiqui 05/04/24 10:47:46 General Case Data FTURO Pre-Care Text: Classifies surgical wound, implements aseptic technique, initiates traffic control Entry 1 Case Information OR URO 1 FT Case Level None Wound Class 2 - Clean-Contaminated Specialty Urology Preop Diagnosis RECURRENT UTI, URETHRAL Postop Same As Preop Yes STRICTURES Postop Diagnosis RECURRENT UTI, URETHRAL Outcomes Met? Yes STRICTURES Last Modified By: Zoila Siddiqui 05/04/24 10:43:24 Post-Care Text: The patient is free from signs and symptoms of infection EU IntraOp - FTURO Pre-Care Text: Implements protective measures prior to operative or invasive procedure, confirms identity before the operative or invasive procedure, verifies operative procedure, surgical site, and laterality Entry 1 EU Perioperative Protocols Procedure(s) CYSTOSCOPY LOCAL WITH Patient Identity Birthday, ID Band URETHRAL DILATION(.) Verified (select at Check, Patient least 2): Participation Consents / H and P H&P, Surgery/Procedure Operative Site N/A Verified Consent Marking Verified Surgical Site Yes Laterality Verified n/a Verified Procedure Verified Yes Correct Patient Yes Position Verified Availability Equipment, Medication Time Out CHELSI FUCHS, Ji Crian, Verified (If Participants Zoila Siddiqui, Applicable) Edilberto Pena Time Out Complete 05/04/24 10:42:00 Allergies Reviewed? Yes Allergies Reviewed Self/Patient With Body Position Frog Legged Prep Area DORY AREA Prep Agents Betadine Solution Skin. Condition Unable to Visualize Description N/A Additional None Specimens Comment N/A Specimens Collected Vitals - EU Blood Pressure 138/79 Pulse 72 bpm Respirations 18 br/min SPO2 97 % EBL 0 I&O - EU Total Intake 0 mL Total Output 0 mL Outcomes Met? Yes Last Modified By: Zoila Siddiqui 05/04/24 10:46:42 Post-Care Text: The patient is free from signs and symptoms of injury caused by extraneous objects Sign Out FTURO Entry 1 Before Patient Leaves OR Nurse verbally Yes Nurse verbally n/a confirms with the confirms with the team the name of team that the procedure(s) instrument, sponge, recorded and needle counts are correct (or N/A) Nurse verbally n/a Nurse verbally Yes confirms with the confirms with the team how the team whether there specimen is labeled are any equipment (including patient problems to be name), if applicable addressed Sign Out Complete 05/04/24 10:47:00 Last Modified By: Zoila Siddiqui 05/04/24 10:47:45 Case Comments Finalized By: Zoila Siddiqui Document Signatures Signed By: Zoila Siddiqui 05/04/24 10:51 Zoila Siddiqui 05/04/24 10:51 Zoila Siddiqui 05/04/24 10:52 Normal [facility] Main OR Preoperative Recordo n 05-04-2024 Main OR Preoperative Record Main OR Preoperative Record Holding Area Document Type FTURO Summary Primary Physician: Ji GAGNON MD Finalized Date/Time: 05/04/24 10:43:46 Pt. Name: GAVI SANTOS./Sex: 1950 Female Med Rec #: [id number] Physician: Ji GAGNON MD Financial #: [id number] Pt. Type: O Room/Bed: / Admit/Disch: 05/04/24 09:47:05 - Institution: Case Times Holding FTURO Pre-Care Text: Verifies consent for planned procedure, identifies individual values and wishes concerning care, includes family members in perioperative teaching Secures patient's records' belongings, and valuables, maintains patient's dignity and privacy, and maintains patient confidentiality Entry 1 In Holding 05/04/24 10:20:00 Outcomes Met? Yes Last Modified By: Oralia Mejia LPN 05/04/24 10:20:53 Post-Care Text: The patient participates in decisions affecting his or her perioperative plan of care The patient's right to privacy is maintained Surgery Checklist FTURO Entry 1 Patient Birthday, ID Band Procedure History and Physical, Identification: Check, Patient Verification: Surgical Consent, With Participation Patient NPO after Midnight: n/a Personal Items: Glasses, Jewelry Limitations: up ad ashley Complaints of Pain: No Skin Integrity Intact, [place], Warm, & Dry Vitals - EU Blood Pressure 138/79 Pulse 72 bpm Respirations 18 br/min SPO2 97 % Additional None RN Reviewed Yes Specimens Collected Last Modified By: Zoila Siddiqui 05/04/24 10:43:45 Finalized By: Zoila Siddiqui Document Signatures Signed By: Roberto MURDOCKOralia Tatum 05/04/24 10:24 Zoila Siddiqui 05/04/24 10:43 Normal [facility] Operative Reporton Operative Report Operative Report Patient: GAVI SANTOS Age: 73 years Sex: Female : 1950 Associated Diagnoses: None Author: Ji GAGNON MD Procedure Operative Information Details: Date/ Time: 05/04/2024 10:51:00. Pre-Op Dx: Hx of UTI's - Z87.440, Urethral Stricture - Other Post Infective Female - N35.12. Post-Op Dx: Same. Anesthesia Type: Local. Procedure: Local Cystoscopy with Urethral Dilation. Complications: None. Risks/Benefits/Infor med Consent: Surgical risks, benefits, details of the procedure have been explained to the patient, Full informed consent has been obtained. Intraoperative Information Prepped: Patient is brought back to the endoscopy suite, Patient is placed in modified dorso/lithotomy position, Patient prepped in the usual fashion with Betadine solution, 2% Xylocaine Jelly is placed per Urethra, After waiting several minutes the Cystoscope is introduced. The Urethra is: Tight. The Bladder is: Normal, No bladder tumors. No stress incontinence. Moderate atrophic vaginitis. No prolapse.. The ureteral orifices: Show efflux of clear urine. The Urethra was dilated to: 30 Estonian w/ sounds. Devices Implanted: None. Removal: Cystoscope is removed, The patient tolerated it well. Postoperative Information Discharge: Patient is discharged home with antibiotic coverage, Follow up arranged. She is strongly encouraged to be compliant with her estradiol cream.. Normal [facility] Comment on above: Result Comment: Elec tronically Signed By: Ji GAGNON MD\.br\Date and Time Signed: 05/04/24 10:53 EST Ambulatory Visit Summaryon 1 Ambulatory Visit Summary Ambulatory Visit Summary GAVI SANTOS :1950 Visit Date:03/16/2024 Ambulatory Visit Instructions Your Diagnosis Recurrent UTI Stricture of female urethra Your Care Team Attending Physician - YANE GUAMAN PA-C Primary Care Physician - RAYNA WEAVER CNP This Is Your Medications List ciprofloxacin (Cipro 500 mg Tab) diazepam (Valium 5 mg Tab) estradiol topical (Estrace 0.1 mg/g Cream) Contact prescribing physician if questions or concerns alendronate (alendronate 70 mg Tab) ascorbic acid (Vitamin C) cholecalciferol (D3) diclofenac (diclofenac sodium 75 mg Oral EC Tab) multivitamin (Multi Vitamin+) multivitamin with minerals (Calcium and Magnesium oral tablet) multivitamin with minerals (Eye Vitamin) pantoprazole (Pantoprazole [address] Tab) sertraline (sertraline 100 mg Tab) Procedures Performed Colonoscopy, Laser on Cervix. Discharge Vitals Temperature (Oral) 37 ???C Heart Rate (Peripheral) 87 Blood Pressure 122/82 Height 164 cm Height 65 in Weight 97.3 kg Weight 214.51 lb BMI 36.18 What to do next Scheduled Follow-Up Appointments Friday 11:00 AM EST Where: [facility] Friday 10:15 AM EST Where: [facility] You Need to Schedule the Following Appointments Follow Up with [facility] When: Comments: For procedure as scheduled. Where: Medications What How Much When Why Instructions New ciprofloxacin (Cipro 500 mg Tab) See instructions Recurrent UTI Stricture of female urethra 1 tab po night prior to cysto. 1 tab po following cysto. Pickup at [facility]/pharmacy #[id number] New diazepam (Valium 5 mg Tab) 1 Tablets By Mouth Once Recurrent UTI Stricture of female urethra 1 hr prior to procedure Pickup at [facility]/pharmacy #[id number] New estradiol topical (Estrace 0.1 mg/ g Cream) See instructions Recurrent UTI Stricture of female urethra Refills: 6 apply a pea-sized amount vaginally and around the urethra nightly x 3 weeks, then 3x per week thereafter Pickup at [facility]/pharmacy #[id number] Unchanged alendronate (alendronate 70 mg Tab) 1 Tablets By Mouth Every week Contact prescribing physician if questions or concerns Unchanged ascorbic acid (Vitamin C) 1,000 Milligram By Mouth Every day Contact prescribing physician if questions or concerns Unchanged cholecalciferol (D3) 25 Microgram By Mouth Every day Contact prescribing physician if questions or concerns Unchanged diclofenac (diclofenac sodium 75 mg Oral EC Tab) 1 Tablets By Mouth Every day Contact prescribing physician if questions or concerns Unchanged multivitamin (Multi Vitamin+) Contact prescribing physician if questions or concerns Unchanged multivitamin with minerals (Calcium and Magnesium oral tablet) 1 Tablets By Mouth Every day Contact prescribing physician if questions or concerns Unchanged multivitamin with minerals (Eye Vitamin) Contact prescribing physician if questions or concerns Unchanged pantoprazole (Pantoprazole [address] Tab) 1 Tablets By Mouth Every day Contact prescribing physician if questions or concerns Unchanged sertraline (sertraline 100 mg Tab) By Mouth Every day Contact prescribing physician if questions or concerns Pharmacy Information [facility]/pharmacy #[id number]: [address], [place] [id number] [phone] Allergies No Known Medication Allergies Problems Ongoing - Any problem that you are currently receiving treatment for. Anxiety Arthritis Depression Glaucoma Recurrent UTI Stricture of female urethra Patient Survey You may receive a survey via text or e-mail asking about your office visit. Please share your experience with us by completing your survey. We appreciate your feedback and thank you for choosing us for your care. Education Materials Urethral Stricture Urethral stricture is when the tube that drains pee (urine) from the bladder out of the body (urethra) becomes too narrow. The urethra can become narrow because of scar tissue, infection, surgery, or an injury. This can make it difficult to pee (urinate). In females, the urethra opens above the vaginal opening. In males, the urethra opens at the tip of the penis, and the urethra is much longer than it is in females. Because of the length of the male urethra, urethral stricture is much more common in males. What are the causes? In males and females, common causes of urethral stricture include: ??? Urinary tract infection (UTI). ??? Sexually transmitted infection (STI). ??? Using a soft tube in the urethra to drain pee from the bladder (urinary catheter). ??? Urinary tract surgery. In males, common causes of urethral stricture include: ??? A severe injury to the pelvis. ??? Prostate surgery. ??? Injury to the penis. In many cases, the cause of urethral stricture is not known. What increases the risk? (more content not included)... Normal [facility] Urology Office/Clinic Noteon 03-16-2024 Urology Office/Clinic Note Urology Office/Clinic Note Chief Complaint UTI HPI Staff 73yr old new pt here for chronic uti. Last OV in [address] Mera s/p Cysto/UD done 11/12/18 Previous Dx: Stricture of female urethra, UTI, Urinary retention, Nocturia, Urinary frequency, Urinary urgency Pt states has been having kidney testing every 6 months. Dysuria: denies Incomplete bladder emptying: not always, pt states stops and goes Hematuria: denies visual blood Frequency: every 4-5 hours a day Urgency: sometimes Nocturia: 1-2 x Stream: weak Leaking: denies Post void dripping:sometimes Wearing pads/ Depends: denies Urge incontinence: denies Stress incontinence: denies Incontinence without Sensory Awareness: denies Abdominal pain: left groin area pain that is intermittent but doesn't last long Flank pain: denies Sexual complaints: denies Pt did well for a few years after last UD. Was having no UTIs. Then in 2022 she had about 2-3 UTIs. This year she had about 5 (see below cx and she also had several treated empirically). 05/18/23 - 100k E Coli, reis-S 10/10/23 - 100k E Coli, R-FQ 11/11/23 - 10-25k E Coli, R-FQ 10/24/23 - A1c 5.4 02/02/24 - Installations Inspector 1.23 BUN 14 GFR 43 Review of Systems PHQ Score Initial Depression Screen Score: 0 SCORE no fever, chills, malaise, myalgia. no rash/lesions. no chest pain, palpitations, or SOB. no abdominal pain, nausea, vomiting. Physical Exam Vitals & Measurements T: 37 ???C(Oral) HR: 87(Peripheral) BP: 122/82 HT: 65 in HT: 164 cm WT: 97.3 kg WT: 214.51 lb BMI: 36.18 General: nontoxic, NAD Mouth: moist mucosa Lungs: normal respiratory effort Cardio: regular rate, good distal perfusion Abdomen: nondistended, no suprapubic distention or tenderness, no CVA tenderness Neurologic: Grossly normal Skin: No rashes or suspicious lesions Assessment/Plan 1. 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 Likely secondary to stricture. Pt has tried OTC preventives without success. Today we discussed the following methods to decrease frequency of UTIs: 1) Increase fluids. Aim for at least 2L daily. 2) We will start pt on topical estrogen cream. Reasoning, side effects, risks/benefits discussed. Rx sent to pharmacy. Pt advised to contact our office w all future UTI sx so we can monitor urine cx results, treat appropriately (may require extended course abx), and monitor frequency of infections. Pt advised if develops fever, severe flank pain, vomiting - needs to go to ER. Ordered: ciprofloxacin, See Instructions, 1 tab po night prior to cysto. 1 tab po following cysto., # 2 tab(s), Refills(s) 0, Pharmacy: [facility]/pharmacy #[id number], 164, cm, 03/16/24 8:48:00 EST, Height/Length Dosing, 97.3, kg, 03/16/24 8:48:00 EST, Weight Dosing diazepam, 5 mg = 1 tab(s), Oral, Once, 1 hr prior to procedure, # 1 tab(s), Refills(s) 0, Pharmacy: [facility]/pharmacy #[id number], 164, cm, 03/16/24 8:48:00 EST, Height/Length Dosing, 97.3, kg, 03/16/24 8:48:00 EST, Weight Dosing estradiol topical, See Instructions, 42.5 gm, Refill(s) 6, apply a pea-sized amount vaginally and around the urethra nightly x 3 weeks, then 3x per week thereafter, [facility]/pharmacy #[id number], 164, cm, 03/16/24 8:48:00 EST, Height/Length Dosing, 97.3, kg, 03/16/24 8:48:00 EST,... 10681 Measure Post Void residual urine and/or bladder capacity by US- non-imaging Body Mass Index (BMI) documented 3008F Current tobacco non-user 1036F Depression Screening Negative 3352F Influenza immunization status assessed 1030F Medication list documented in medical record 1159F Most recent diastolic blood pressure 80-89 mm Hg 3079F Patient screen for fall risk: no falls in last year or 1 fall with no injury in last year 1101F Review of all meds by a prescribing practitioner or clinical pharmacist documented in EHR 1160F Systolic BP <130 mm Hg (Most Recent) 3074F Urnls Dip Stick Auto w/o Microscopy POC 67758 2. Stricture of female urethra (N35.92: Unspecified urethral stricture, female) Sp cysto/UD w DLS in 2018. Marked improvement in urinary sx and UTI frequency until 2022. Will start estrogen cream and schedule cysto UD. Pt states last time was painful. Offered pre-procedure Valium. Risks/benefits discussed. Pt would like to do this. 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 The procedure risks, benefits, details, and treatment alternatives have been discussed with the patient. These include bleeding, infection, recurrent scar in over 50%, need for repeat dilation or other procedures, no sy (more content not included)... Normal [facility] Comment on above: Result Comment: Elec tronically Signed By: YANE GUAMAN PA-C\.robert\Date and Time Signed: 03/16/24 09:25 EST Urine Cultureon 05-18-2023 Bacteria identified Cx Nom (U) ORGANISM: Escherichia coli (O:ESCCOL) [place] Count >100,000 Aerobic NESHA Charge (NMIC56) ----- SUSCEPTIBILITY ---- ORGANISM: O:ESCCOL ANTIBIOTIC INTERPRETATION NESHA Amikacin S <16 Amoxacillin/K Clavulanate S <8 Ampicillin S <8 Ampicillin/Sulbactam S <4 Aztreonam S <4 Cefazolin S <2 Cefepime S <2 Ceftazidime S <1 Ceftazidime/Avibacta m S <4 Ceftolozane/Tazobact am S <2 Ceftriaxone S <1 Cefuroxime S <4 Ciprofloxacin R >2 Ertapenem S <0.5 Gentamicin S <2 Levofloxacin R >4 Meropenem S <1 Meropenem/Vaborbacta m S <2 Nitrofurantoin S <32 Piperacillin/Tazobac reyes S <8 Tetracycline S <4 Tigecycline S <2 Tobramycin S <2 Trimethoprim/Sulfame thoxazole S <0.5 S = SUSCEPTIBLE I = [...] RESISTANT TO ALL B-LACTAM DRUGS. PERFORMED BY: [place] [address] PATHOLOGIST NON DESTRUCTIVE EVALUATION TECHNICIAN DEYANIRA ARCE M.D. Normal [facility] Comment on above: Performed By: #### C UU #### [facility] [address] [place] [address] Quick Strepon 01-19-2023 S. pyogenes Org specific cx Ql (Throat) Negative [employer] Other Urinalysis - AUTOMATEDon Appearance (U) CLEAR [employer] Other Bilirubin Ql (U) Negative [employer] Other Color (U) YELLOW [employer] Other Glucose Ql (U) Negative [employer] Other Hemoglobin Ql (U) Negative [employer] Other Ketones Ql (U) Negative [employer] Other Leukocyte esterase Test strip Ql (U) SMALL [employer] Other Nitrite Ql (U) Negative [employer] Other pH (U) 5.0 [pH] [employer] Other Protein Ql (U) TRACE [place] [employer] Other Specific gravity (U) [Rel density] >=1.030 [employer] Other Urobilinogen (U) [Mass/Vol] 0.2 mg/dL [employer] Other Urinalysis - AUTOMATED [employer] Other Urine Cultureon 01-19-2023 Urine Culture >100,000 [employer] Other Bacteria identified Cx Nom (U) ORGANISM: Escherichia coli (O:ESCCOL) [place] Count >100,000 Aerobic NESHA Charge (NMIC56) ----- SUSCEPTIBILITY ---- ORGANISM: O:ESCCOL ANTIBIOTIC INTERPRETATION NESHA Amikacin S <16 Amoxacillin/K Clavulanate S <8 Ampicillin S <8 Ampicillin/Sulbactam S <4 Aztreonam S <4 Cefazolin S <2 Cefepime S <2 Ceftazidime S <1 Ceftazidime/Avibacta m S <4 Ceftolozane/Tazobact am S <2 Ceftriaxone S <1 Cefuroxime S <4 Ciprofloxacin R >2 Ertapenem S <0.5 Gentamicin S <2 Levofloxacin R >4 Meropenem S <1 Meropenem/Vaborbacta m S <2 Nitrofurantoin S <32 Piperacillin/Tazobac reyes S <8 Tetracycline S <4 Tigecycline S <2 Tobramycin S <2 Trimethoprim/Sulfame thoxazole S <0.5 S = SUSCEPTIBLE I = [...] RESISTANT TO ALL B-LACTAM DRUGS. PERFORMED BY: [place] [address] PATHOLOGIST NON DESTRUCTIVE EVALUATION TECHNICIAN DEYANIRA ARCE M.D. Normal [facility] Comment on above: Performed By: #### C UU #### [address] XR DEXA BONE DENSITYon 06-14 XR DEXA BONE DENSITY EXAMINATION: XR DEX A BONE DENSITY, 06/14/2022 9:38 AM EDT HISTORY: [...] ALEXANDRA MARIA Date: 2022-06-14 15:17 Normal [facility] INSULINon 06-05-2022 Insulin 13.1 uIU/mL Normal 2.6-24.9 [facility] Comment on above: Performed By: #### I NSULIN #### [facility] [address] [place] [address] Dr. Stephon Breaux CBC AUTO DIFFon 06-04-2022 BASO # 0.1 103/ul Normal 0.0-0.1 [facility] Comment on above: Performed By: #### C BC #### [facility] [address] [place] [address] Dr. Stephon Breaux Basophils/100 WBC (Bld) 1.3 % Normal 0.2-2.0 [facility] Comment on above: Performed By: #### C BC #### [facility] [address] [place] [address] Dr. Stephon Breaux EO # 0.2 103/ul Normal 0.0-0.7 [facility] Comment on above: Performed By: #### C BC #### [facility] [address] [place] [address] Dr. Stephon Breaux Eosinophils/100 WBC (Bld) 4.4 % Normal 0.9-7.0 [facility] Comment on above: Performed By: #### C BC #### [facility] [address] [place] [address] Dr. Stephon Breaux Erythrocyte distribution width (RBC) [Ratio] 13.3 % Normal 11.0-15.0 [facility] Comment on above: Performed By: #### C BC #### [facility] [address] [place] [address] Dr. Stephon Breaux Hematocrit (Bld) [Volume fraction] 37.9 % Normal 36.0-48.0 [facility] Comment on above: Performed By: #### C BC #### [facility] [address] [place] [address] Dr. Stephon Breaux Hemoglobin (Bld) [Mass/Vol] 12.5 g/dL Normal 12.0-16.0 [facility] Comment on above: Performed By: #### C BC #### [facility] [address] [place] [address] Dr. Stephon Breaux IG # 0.00 10e3/ul Normal 0.00-0.03 [facility] Comment on above: Performed By: #### C BC #### [facility] [address] [place] [address] Dr. Stephon Breaux IG % 0.0 % Normal 0.0-0.5 [facility] Comment on above: Performed By: #### C BC #### [facility] [address] [place] [address] Dr. Stephon Breaux LYMPH # 1.9 103/ul Normal 1.2-3.8 [facility] Comment on above: Performed By: #### C BC #### [facility] [address] [place] [address] Dr. Stephon Breaux Lymphocytes/100 WBC (Bld) 38.6 % Normal 20.5-60.0 [facility] Comment on above: Performed By: #### C BC #### [facility] [address] [place] [address] Dr. Stephon Breaux MANUAL DIFF REQ NO Normal [facility] Comment on above: Performed By: #### C BC #### [facility] [address] [place] [address] Dr. Stephon Breaux MCH (RBC) [Entitic mass] 31.7 pg Normal 26.7-34.0 [facility] Comment on above: Performed By: #### C BC #### [facility] [address] [place] [address] Dr. Stephon Breaux MCHC (RBC) [Mass/Vol] 33.0 g/dL Normal 29.9-35.2 [facility] Comment on above: Performed By: #### C BC #### [facility] [address] [place] [address] Dr. Stephon Breaux MCV (RBC) [Entitic vol] 96.2 fL Normal 81.0-99.0 [facility] Comment on above: Performed By: #### C BC #### [facility] [address] [place] [address] Dr. Stephon Breaux MONO # 0.4 103/ul Normal 0.3-0.8 [facility] Comment on above: Performed By: #### C BC #### [facility] [address] [place] [address] Dr. Stephon Breaux Monocytes/100 WBC (Bld) 7.5 % Normal 1.7-12.0 [facility] Comment on above: Performed By: #### C BC #### [facility] [address] [place] [address] Dr. Stephon Breaux NEUT # 2.3 103/ul Normal 1.4-6.5 [facility] Comment on above: Performed By: #### C BC #### [facility] [address] [place] [address] Dr. Stephon Breaux Neutrophils/100 WBC (Bld) 48.2 % Normal 43.0-75.0 [facility] Comment on above: Performed By: #### C BC #### [facility] [address] [address] [address] Stephon Breaux Platelet mean volume (Bld) [Entitic vol] 9.4 fL Critically low 9.5-13.5 [facility] Comment on above: Performed By: #### C BC #### [facility] [address] [address] [address] Stephon Breaux PLT 230 103/ul Normal 150-450 [facility] Comment on above: Performed By: #### C BC #### [facility] [address] [address] [address] Stephon Breaux RBC 3.94 106/ul Critically low 4.20-5.40 [facility] Comment on above: Performed By: #### C BC #### [facility] [address] [address] [address] Stephon Breaux WBC 4.8 103/ul Normal 4.0-11.0 [facility] Comment on above: Performed By: #### C BC #### [facility] [address] [address] [address] Stephon Breaux FREE THYROXINE INDEX T7on FTI 2.94 Normal 1.30-4.50 [facility] Comment on above: Performed By: #### T SH, LIPID, T7, CMP #### [facility] [address] [place] [address] Dr. Stephon Breaux T3U 35.0 % Normal 30.0-39.0 [facility] Comment on above: Performed By: #### T SH, LIPID, T7, CMP #### [facility] [address] [place] [address] Dr. Stephon Breaux T4 [Mass/Vol] 8.40 ug/dL Normal 4.80-13.90 [facility] Comment on above: Performed By: #### T SH, LIPID, T7, CMP #### [facility] [address] [place] [address] Dr. Stephon Breaux GLYCOHEMOGLOBIN A1Con 2022 ADA RECOMMENDATION SEE BELOW Normal [facility] Comment on above: Result Comment: ADA RECOMMENDED LIMIT 4.0 - 6.0 ADA THERAPEUTIC TARGET < 7.0 ACTION SUGGESTED > 7.0 Performed By: #### A 1C #### [facility] [address] [place] [address] Dr. Stephon Breaux Glucose [Mass/Vol] 100 mg/dL Normal [facility] Comment on above: Performed By: #### A 1C #### [facility] [address] [place] [address] Dr. Stephon Breaux HbA1c (Bld) [Mass fraction] 5.1 % Normal 4.5-6.2 [facility] Comment on above: Performed By: #### A 1C #### [facility] [address] [place] [address] Dr. Stephon Breaux IRONon 06-04-2022 Iron [Mass/Vol] 89.0 ug/dL Normal 50.0-170.0 [facility] Comment on above: Performed By: #### I FANG #### [facility] [address] [place] [address] Dr. Stephon Breaux LIPID PROFILEon 06-04-2022 CHOL-HDL RATIO NORM SEE BELOW Normal [facility] Comment on above: Result Comment: 3.3 - 4.4 LOW RISK 4.4 - 7.1 AVERAGE RISK 7.1 - 11.0 MODERATE RISK >11.0 HIGH RISK Performed By: #### C BC #### [facility] [address] [place] [address] Dr. Stephon Breaux Cholesterol [Mass/Vol] 203 mg/dL Critically high <=200 [facility] Comment on above: Performed By: #### C BC #### [facility] [address] [place] [address] Dr. Stephon Breaux Cholesterol in HDL [Mass/Vol] 65 mg/dL Critically high 40-60 [facility] Comment on above: Performed By: #### C BC #### [facility] [address] [place] [address] Dr. Stephon Breaux Cholesterol in LDL [Mass/Vol] 112.6 mg/dL Normal [facility] Comment on above: Performed By: #### C BC #### [facility] [address] [place] [address] Dr. Stephon Breaux Cholesterol.total/Ch olesterol in HDL [Mass ratio] 3.1 {ratio} Normal [facility] Comment on above: Performed By: #### C BC #### [facility] [address] [address] [address] Stephon Breaux HDL NORMAL > or = 60 mg/dl - LOW CARDIOVASCULAR RISK <40 mg/dl - HIGH CARDIOVASCULAR RISK Normal [facility] Comment on above: Performed By: #### C BC #### [facility] [address] [address] [address] Stephon Breaux LDL CALC NORMAL SEE BELOW Normal [facility] Comment on above: Result Comment: <100 mg/dl OPTIMAL 100 - 129 mg/dl NEAR OR ABOVE OPTIMAL 130 - 159 mg/dl BORDERLINE HIGH 160 - 189 mg/dl HIGH >190 mg/dl VERY HIGH Performed By: #### C BC #### [facility] [address] [address] [address] Stephon Breaux Triglyceride [Mass/Vol] 127 mg/dL Normal <=150 [facility] Comment on above: Performed By: #### C BC #### [facility] [address] [address] [address] Stephon Breaux VLDL CALC 25.4 mg/dL Normal [facility] Comment on above: Performed By: #### C BC #### [facility] [address] [address] [address] Stephon Breaux PROF 14(COMP METB)on 023 Albumin [Mass/Vol] 3.4 g/dL Normal 3.4-5.0 [facility] Comment on above: Performed By: #### C BC #### [facility] [address] [address] [address] Stephon Breaux Albumin/Globulin [Mass ratio] 1.0 {ratio} Normal [facility] Comment on above: Performed By: #### C BC #### [facility] [address] [address] [address] Stephon Breaux ALP [Catalytic activity/Vol] 66 U/L Normal 46-116 [facility] Comment on above: Performed By: #### C BC #### [facility] [address] [address] [address] Stephon Breaux ALT [Catalytic activity/Vol] 17 U/L Normal 14-59 [facility] Comment on above: Performed By: #### C BC #### [facility] [address] [address] [address] Stephon Breaux Anion gap [Moles/Vol] 9.2 mmol/L Normal [facility] Comment on above: Performed By: #### C BC #### [facility] [address] [address] [address] Stephon Breaux AST [Catalytic activity/Vol] 17 U/L Normal 15-37 [facility] Comment on above: Performed By: #### C BC #### [facility] [address] [place] [address] Dr. Stephon Breaux Bilirubin [Mass/Vol] 0.4 mg/dL Normal 0.2-1.0 [facility] Comment on above: Performed By: #### C BC #### [facility] [address] [place] [address] Dr. Stephon Breaux Calcium [Mass/Vol] 9.1 mg/dL Normal 8.5-10.1 [facility] Comment on above: Performed By: #### C BC #### [facility] [address] [place] [address] Dr. Stephon Breaux Chloride [Moles/Vol] 108 mmol/L Critically high 98-107 [facility] Comment on above: Performed By: #### C BC #### [facility] [address] [place] [address] Dr. Stephon Breaux CO2 [Moles/Vol] 29.2 mmol/L Normal 21.0-32.0 [facility] Comment on above: Performed By: #### C BC #### [facility] [address] [place] [address] Dr. Stephon Breaux Creatinine [Mass/Vol] 0.84 mg/dL Normal 0.55-1.02 [facility] Comment on above: Performed By: #### C BC #### [facility] [address] [address] [address] Stephon Breaux EGFR-AF SAMOAN >60 Normal >=60 [facility] Comment on above: Performed By: #### C BC #### [facility] [id number] Stephon Breaux EGFR-NON AF SAMOAN >60 Normal >=60 [facility] Comment on above: Performed By: #### C BC #### [facility] [address] [address] [address] Stephon Breaux Globulin (S) [Mass/Vol] 3.4 g/dL Normal [facility] Comment on above: Performed By: #### C BC #### [facility] [address] [address] [address] Stephon Breaux Glucose [Mass/Vol] 90 mg/dL Normal 74-106 [facility] Comment on above: Performed By: #### C BC #### [facility] [address] [address] [address] Stephon Breaux Potassium [Moles/Vol] 4.4 mmol/L Normal 3.5-5.1 [facility] Comment on above: Performed By: #### C BC #### [facility] [address] [place] [address] Dr. Stephon Breaux Protein [Mass/Vol] 6.8 g/dL Normal 6.4-8.2 [facility] Comment on above: Performed By: #### C BC #### [facility] [address] [address] [address] Stephon Breaux Sodium [Moles/Vol] 142 mmol/L Normal 136-145 [facility] Comment on above: Performed By: #### C BC #### [facility] [address] [place] [address] Dr. Stephon Breaux Urea nitrogen [Mass/Vol] 16.0 mg/dL Normal 7.0-18.0 [facility] Comment on above: Performed By: #### C BC #### [facility] [address] [place] [address] Dr. Stephon Breaux Urea nitrogen/Creatinine [Mass ratio] 19.0 mg/mg Normal [facility] Comment on above: Performed By: #### C BC #### [facility] [address] [place] [address] Dr. Stephon Breaux TSHon 06-04-2022 TSH 0.923 uIU/mL Normal 0.358-3.740 [facility] Comment on above: Performed By: #### C BC #### [facility] [address] [place] [address] Dr. Stephon Breaux CULTURE URINEon 01-10-2022 CULTURE URINE Culture Observations: LIGHT GROWTH OF MIXED GENITAL TIFFANIE. NO POTENTIAL PATHOGENS SEEN. Normal [facility] Comment on above: Performed By: #### U RCX #### [facility] [address] [place] [address] Dr. Stephon Breaux UA RANDOM W/MICROSCOPICon BACTERIA TRACE Abnormal NONE SEEN [facility] Comment on above: Performed By: #### U AMIC #### [facility] [address] [place] [address] Dr. Stephon Breaux Bilirubin Ql (U) Negative Normal NEGATIVE [facility] Comment on above: Performed By: #### U AMIC #### [facility] [address] [place] [address] Dr. Stephon Breaux CAST NONE SEEN Normal NONE SEEN [facility] Comment on above: Performed By: #### U AMIC #### [facility] [address] [place] [address] Dr. Stephon Breaux Clarity (U) CLEAR Normal CLEAR [facility] Comment on above: Performed By: #### U AMIC #### [facility] [address] [place] [address] Dr. Stephon Breaux Color (U) YELLOW Normal YELLOW [facility] Comment on above: Performed By: #### U AMIC #### [facility] [address] [place] [address] Dr. Stephon Breaux Crystals LM Nom (Urine sed) NONE SEEN Normal NONE SEEN [facility] Comment on above: Performed By: #### U AMIC #### [facility] [address] [address] [address] Stephon Breaux Epithelial cells LM Ql (Urine sed) FEW Abnormal NONE SEEN /RARE [facility] Comment on above: Performed By: #### U AMIC #### [facility] [address] [place] [address] Dr. Stephon Breaux Glucose Ql (U) Negative Normal NEGATIVE [facility] Comment on above: Performed By: #### U AMIC #### [facility] [address] [place] [address] Dr. Stephon Breaux Hemoglobin Ql (U) Negative Normal NEGATIVE [facility] Comment on above: Performed By: #### U AMIC #### [facility] [address] [place] [address] Dr. Stephon Breaux Ketones Ql (U) Negative Normal NEGATIVE [facility] Comment on above: Performed By: #### U AMIC #### [facility] [address] [place] [address] Dr. Stephon Breaux LEUKOCYTES TRACE Abnormal NEGATIVE [facility] Comment on above: Performed By: #### U AMIC #### [facility] [address] [place] [address] Dr. Stephon Breaux MUCOUS NONE SEEN Normal NONE SEEN [facility] Comment on above: Performed By: #### U AMIC #### [facility] [address] [place] [address] Dr. Stephon Breaux Nitrite Ql (U) Negative Normal NEGATIVE [facility] Comment on above: Performed By: #### U AMIC #### [facility] [address] [place] [address] Dr. Stephon Breaux pH (U) 5.5 [pH] Normal 5-9 [facility] Comment on above: Performed By: #### U AMIC #### [facility] [address] [place] [address] Dr. Stephon Breaux RBC NONE SEEN Abnormal 0-2 [facility] Comment on above: Performed By: #### U AMIC #### [facility] [address] [place] [address] Dr. Stephon Breaux SPEC GRAVITY >=1.030 Abnormal 1.005-<=1.025 [facility] Comment on above: Performed By: #### U AMIC #### [facility] [address] [place] [address] Dr. Stephon Breaux UA PROTEIN Negative Normal NEGATIVE/ TRACE [facility] Comment on above: Performed By: #### U AMIC #### [facility] [address] [place] [address] Dr. Stephon Breaux Urobilinogen Qn (U) 0.2 {Billy'U}/dL Normal 0.2 - 1. 0 [facility] Comment on above: Performed By: #### U AMIC #### [facility] [address] [place] [address] Dr. Stephon Breaux WBC 2-5 Abnormal NONE SEEN [facility] Comment on above: Performed By: #### U AMIC #### [facility] [address] [place] [address] Dr. Stephon Breaux CULTURE URINEon 12-26-2021 CULTURE URINE Isolate 1 Escherichia coli 25,000 cfu/mL of ORGANISM 1 Escherichia coli ANTIBIOTIC M.I.C RX STATUS Ampicillin >=32 R F Ampicillin/Sulbactam 4 S F Piperacillin/Tazobac reyes <=4 S F Cefazolin <=4 S F Ceftazidime <=1 S F Ceftriaxone <=1 S F Ertapenem <=0.5 S F Imipenem <=0.25 S F Amikacin <=2 S F Gentamicin <=1 S F Tobramycin <=1 S F Ciprofloxacin <=0.25 S F Levofloxacin 0.5 S F Nitrofurantoin <=16 S F Trimethoprim/Sulfame thoxazole <=20 S F Normal [facility] Comment on above: Performed By: #### C BC #### [facility] [address] [place] [address] Dr. Stephon Breaux UA RANDOM W/MICROSCOPICon BACTERIA TRACE Abnormal NONE SEEN [facility] Comment on above: Performed By: #### U AMIC #### [facility] [address] [place] [address] Dr. Stephon Breaux Bilirubin Ql (U) Negative Normal NEGATIVE [facility] Comment on above: Performed By: #### U AMIC #### [facility] [address] [address] [address] Stephon Breaux CAST NONE SEEN Normal NONE SEEN [facility] Comment on above: Performed By: #### U AMIC #### [facility] [address] [address] [address] Stephon Breaux Clarity (U) CLEAR Normal CLEAR [facility] Comment on above: Performed By: #### U AMIC #### [facility] [address] [address] [address] Stephon Breaux Color (U) DK. ORANGE Abnormal YELLOW [facility] Comment on above: Performed By: #### U AMIC #### [facility] [address] [address] [address] Stephon Breaux Crystals LM Nom (Urine sed) NONE SEEN Normal NONE SEEN [facility] Comment on above: Performed By: #### U AMIC #### [facility] [address] [address] [address] Stephon Breaux Epithelial cells LM Ql (Urine sed) FEW Abnormal NONE SEEN /RARE [facility] Comment on above: Performed By: #### U AMIC #### [facility] [address] [address] [address] Stephon Breaux Glucose Ql (U) Negative Normal NEGATIVE [facility] Comment on above: Performed By: #### U AMIC #### [facility] [address] [address] [address] Stephon Breaux Hemoglobin Ql (U) SMALL Abnormal NEGATIVE [facility] Comment on above: Performed By: #### U AMIC #### [facility] [address] [address] [address] Stephon Breaux Ketones Ql (U) Negative Normal NEGATIVE [facility] Comment on above: Performed By: #### U AMIC #### [facility] [address] [address] [address] Stephon Breaux LEUKOCYTES MODERATE Abnormal NEGATIVE [facility] Comment on above: Performed By: #### U AMIC #### [facility] [address] [address] [address] Stephon Breaux MUCOUS NONE SEEN Normal NONE SEEN [facility] Comment on above: Performed By: #### U AMIC #### [facility] [address] [address] [address] Stephon Breaux Nitrite Ql (U) Negative Normal NEGATIVE [facility] Comment on above: Performed By: #### U AMIC #### [facility] [address] [address] [address] Stephon Breaux pH (U) 6.0 [pH] Normal 5-9 [facility] Comment on above: Performed By: #### U AMIC #### [facility] [address] [place] [address] Dr. Stephon Breaux RBC 2-5 Abnormal 0-2 [facility] Comment on above: Performed By: #### U AMIC #### [facility] [address] [place] [address] Dr. Stephon Breaux SPEC GRAVITY >=1.030 Abnormal 1.005-<=1.025 [facility] Comment on above: Performed By: #### U AMIC #### [facility] [address] [address] [address] Stephon Breaux UA PROTEIN TRACE Normal NEGATIVE/ TRACE [facility] Comment on above: Performed By: #### U AMIC #### [facility] [address] [place] [address] Dr. Stephon Breaux Urobilinogen Qn (U) 0.2 {Billy'U}/dL Normal 0.2 - 1. 0 [facility] Comment on above: Performed By: #### U AMIC #### [facility] [address] [address] [address] Stephon Breaux WBC 20-50 Abnormal NONE SEEN [facility] Comment on above: Performed By: #### U AMIC #### [facility] [address] [place] [address] Dr. Stephon Breaux Vital Signs Date Time Vital Sign Value Performing Clinician Facility 03-16-2024 08:40-0500 Blood Pressure Location YANETERESA GUAMAN [facility] 03-16-2024 08:40-0500 Body temperature 98.6 [degF] YANE GUAMAN [facility] 03-16-2024 08:40-0500 Diastolic blood pressure 82 mm[Hg] YANE DENIZ [facility] 03-16-2024 08:40-0500 Heart rate 87 /min YANE GUAMAN [facility] 03-16-2024 08:40-0500 Systolic blood pressure 122 mm[Hg] YANE GUAMAN [facility] 01-19-2023 10:50-0500 Body height 170.18 cm Yary Valladares Other [facility] Other 01-19-2023 10:50-0500 Body mass index (BMI) [Ratio] 30.1 kg/m2 Yary Valladares Other [facility] Other 01-19-2023 10:50-0500 Body temperature 97.4 [degF] Yary Valladares Other [facility] Other 01-19-2023 10:50-0500 Body weight 87.18 kg Yary Valladares Other [facility] Other 01-19-2023 10:50-0500 Respiratory rate 18 /min Yary Valladares Other [facility] Other 01-19-2023 10:50-0500 SaO2% (BldA) [Mass fraction] 95 % Yary Valladares Other [facility] Other Encounters Encounter Date Encounter Type Care Provider Facility Start: 09-27-2024 End: 09-27-2024 ambulatory YANE GUAMAN Facility:[facility] Start: 09-27-2024 End: 09-27-2024 Patient encounter procedure YANE GUAMAN [facility] Start: 08-30-2024 End: 08-30-2024 ambulatory YANE GUAMAN Facility:[facility] Start: 08-30-2024 End: 08-30-2024 Patient encounter procedure YANE GUAMAN [facility] Start: 05-04-2024 End: 05-04-2024 ambulatory Ji GAGNON Facility:[facility] Start: 05-04-2024 End: 05-04-2024 Patient encounter procedure Ji R CHELSI [facility] Start: 03-16-2024 End: 03-16-2024 ambulatory YANE GUAMAN Facility:[facility] Start: 03-16-2024 End: 03-16-2024 Patient encounter procedure YANE GUAMAN [facility] Start: 05-18-2023 End: 05-18-2023 ambulatory Rayna Muñoz Facility:[facility] Start: 01-23-2023 End: 01-23-2023 ambulatory Yary Valladares Other [facility] Other Start: 01-23-2023 Telephone encounter Yary Valladares [facility] Start: 01-19-2023 Office outpatient vi sit 25 minutes Yary Valladares [facility] Start: 01-19-2023 End: 01-19-2023 ambulatory Wyatt Mann [facility] Work Phone: Start: 01-19-2023 End: 01-19-2023 Departed Referred [employer] Yary Valladares Work Phone: [facility] Work Phone: Start: 06-14-2022 End: 06-15-2022 ambulatory RAYNACONRAD NAJERAMER Facility:[facility] Start: 06-04-2022 End: 06-05-2022 ambulatory RAYNA OWEN Facility:[facility] Start: 01-10-2022 End: 01-11-2022 ambulatory RAYNA OWEN Facility:[facility] Start: 12-24-2021 End: 12-25-2021 ambulatory RAYNA OWEN Facility:[facility] Start: 11-27-2021 End: 11-28-2021 ambulatory RAYNACONRAD NAJERAMER Facility:[facility] Procedures Date Procedure Procedure Detail Performing Clinician Colonoscopy YANE GUAMAN Laser on Cervix YANE HAGEN Plan of Treatment Date Care Activity Detail Author Start: 01-19-2023 Bacteria identified in Urine by Culture Urine Culture [facility] Immunizations Immunization Date Immunization Notes Care Provider Fa gena 01-15-2023 influenza virus vacc ine, unspecified formulation YANE GUAMAN [facility] 01-30-2022 influenza virus vacc ine, unspecified formulation YANE GUAMAN [facility] 05-10-2021 pneumococcal polysaccharide vaccine, 23 valent YANE GUAMAN [facility] 01-27-2021 influenza, unspecifi ed formulation YANE GUAMAN [facility] 01-27-2021 SARS-CoV-2 (COVID-19 ) mRNA BNT-162b2 vax YANE GUAMAN [facility] Comment on above: Result Comment: 2024: [id number] 12-28-2020 influenza virus vacc ine, unspecified formulation YANE GUAMAN [facility] 06-06-2020 SARS-CoV-2 (COVID-19 ) mRNA BNT-162b2 vax YANE GUMAAN [facility] 05-15-2020 SARS-CoV-2 (COVID-19 ) mRNA BNT-162b2 vax YANE GUAMAN [facility] 08-26-2019 pneumococcal conjuga te vaccine, 13 valent YANE GUAMAN [facility] Payers Date Payer Category Payer Medicare [id number] 2023 Unknown [id number] 2023 Self-pay [id number] 1959 Unknown [id number] 1950 Unknown [id number] 2.16.84 [id number] 1950 Unknown [id number] 2.16.84 [id number] 1950 Unknown [id number] 2.16.84 [id number] 1952 Unknown [id number] 2.16.84 [id number] 1952 Unknown [id number] 2.16.84 [id number] 1950 Unknown [id number] 2.16.8 [id number] 1950 Unknown [id number] 2.16.8 [id number] 1952 Unknown [id number] 2.16.8 [id number] 1952 Unknown [id number] 2.16.8 [id number] 1952 Unknown [id number] 2.16.8 [id number] 1952 Unknown [id number] 2.16.8 [id number] Unknown [id number] Unknown [id number] 2.16.8 [id number] Unknown [id number] 2.16.8 [id number] Social History Date Type Detail Facility Unknown if ever smoked [facility] Work Phone: Sex Assigned At [facility] Start: 1950 Sex Assigned At Female F [facility] Start: 03-16-2024 End: 09-27-2024 Tobacco smoking status Never smoked tobacco (finding) [facility] Tobacco smoking status Never [facility] Sexual Orientation [facility] Start: 10-15-2013 Sex Female (finding) [facility] Functional Status Date Assessment Result Facility 05-04-2024 Functional Status N/A [facility] 03-16-2024 Functional Status N/A [facility] Clinical Notes 11-27-2021 to 09-27-2024 Note Date & Type Note Facility 09-27-2024 Hospital Discharg e instructions Patient Education 09/27/2024 11:55:28 Antibiotic Medicine, Adult Antibiotic Medicine, Adult Antibiotic medicines are used to treat infections caused by bacteria. These medicines do not work for illnesses caused by viruses. Antibiotics work by killing the bacteria that are making you sick, but they can also have serious side effects. Antibiotics must be used safely and only when needed. When do I need to take antibiotics? You may need antibiotics for: A urinary tract infection (UTI). Strep throat. Bacterial sinus infection. Meningitis. Serious lung infections. Your health care provider may start you on antibiotics while you are waiting for test results. Tests may include a culture of the throat, urine, blood, or mucus. Your health care provider may change or stop your antibiotic depending on your test results. When are antibiotics not needed? You do not need antibiotics for most common illnesses. These illnesses may be caused by a virus, not by bacteria. You do not need antibiotics for: The common cold. The flu (influenza). Sore throat. Discolored mucus. Bronchitis. Antibiotics are not always needed for all infections caused by bacteria. Many of these infections clear up on their own. Do not take antibiotics when they are not needed. How long should I take my antibiotic? You must take the entire amount prescribed to you. Take your antibiotics as told by your health care provider. Do not stop taking your antibiotics even if you start to feel better. If you stop taking them too soon: You may feel sick again. Your infection may get harder to treat. Each course of antibiotics needs a different length of time to work. The length of time may vary from a few days to a few weeks. What if I miss a dose? Try not to miss any doses of medicine. If you miss a dose, call your health care provider or pharmacist for help. Sometimes, it is okay to take the missed dose as soon as possible. Do not take double or extra doses. What are the risks of taking antibiotics? Antibiotics can cause: Allergic reactions. Nausea. Yeast infections. Liver problems. Antibiotics can also cause an infection called Clostridioides difficile (C. difficile or C. diff), which causes severe diarrhea. This infection happens when the antibiotics kill the healthy bacteria in your intestines. This allows C. diff to grow. C. diff needs to be treated right away. Let your health care provider know if: You have diarrhea while taking an antibiotic. You have diarrhea after you stop taking an antibiotic. C. diff infection can start weeks after stopping the antibiotic. Taking an antibiotic also puts you at risk for getting sick in the future with bacteria that do not respond to medicine (antibiotic-resistant infection). Antibiotics can cause bacteria to change so that if the antibiotic is taken again, the medicine cannot kill the bacteria. These infections can be more serious because they are hard, or sometimes impossible, to treat. Do antibiotics affect control? control pills may not work while you are taking antibiotics. If you are taking control pills: Keep taking them as usual. Use a second form of control, such as a condom, to avoid unwanted . Do this for as long as told by your health care provider. What else should I know about taking antibiotics? Take antibiotics exactly as told. Take the correct amount of medicine at the same time each day. Ask your health care provider: ?How long to wait between doses. ?If you should take your antibiotic with food or water. ?If you should avoid certain foods, drinks, or medicines while taking your antibiotics. ?If you need to watch for any side effects. Use only the antibiotics prescribed to you by your health care provider. Do not use antibiotics prescribed for someone else. Drink a large glass of water when taking your antibiotics unless told otherwise. Drink enough fluid to keep your urine pale yellow. Ask your pharmacist for a dosage syringe, cup, or spoon that correctly measures your antibiotics. Ask your pharmacist or health care provider how to safely get rid of leftover medicine. Follow these instructions at home: Take your antibiotics as told by your health care provider. Do not stop taking your antibiotics even if you start to feel better. Return to your normal activities as told by your health care provider. Ask your health care provider what activities are safe for you. Contact a health care provider if: Your symptoms get worse. You have new joint pain or muscle aches that begin after starting your antibiotic. You have side effects from your antibiotic, such as: ?Stomach pain. ?Diarrhea. ?Nausea. ?White patches in your mouth or throat. Get help right away if: You have signs of a severe allergic reaction to antibiotics. If you have any of these signs, stop taking the antibiotic right away. Signs may include: ?Raised, itchy, red bumps on your skin (hives). ?Skin rash. ?Trouble breathing. ?High-pitched whistling sounds when you breathe, most often when you breathe out (wheezing). ?Swelling anywhere on your body. ?Feeling dizzy. ?Vomiting. You have signs of liver problems, such as: ?Dark or blood-colored urine. ?Yellow color to your skin. ?Bruising or bleeding easily. You have severe diarrhea, bloody diarrhea, or stomach cramps. You have a severe headache. These symptoms may be an emergency. Get help right away. Call 911. Do not wait to see if the symptoms will go away. Do not drive yourself to the hospital. This information is not intended to replace advice given to you by your health care provider. Make sure you discuss any questions you have with your health care provider. Document Revised: 10/01/2022 Document Reviewed: 10/01/2022 [employer] Patient Education 2023 [employer]. Follow Up Care 09/27/2024 10:39:38 With:DENIZ PATEL, YANE Zepeda, URL Address: [address] [place] [address] [facility] [place] [address] Business (1) When: Unknown Comments:pending results of imaging/testing, will call with next steps [facility] 09-27-2024 Note Patient Education Caregiving Antibiotic Medicine, Adult Antibiotic medicines are used to treat infections caused by bacteria. These medicines do not work for illnesses caused by viruses. Antibiotics work by killing the bacteria that are making you sick, but they can also have serious side effects. Antibiotics must be used safely and only when needed. When do I need to take antibiotics? You may need antibiotics for: ??? A urinary tract infection (UTI). ??? Strep throat. ??? Bacterial sinus infection. ??? Meningitis. ??? Serious lung infections. Your health care provider may start you on antibiotics while you are waiting for test results. Tests may include a culture of the throat, urine, blood, or mucus. Your health care provider may change or stop your antibiotic depending on your test results. When are antibiotics not needed? You do not need antibiotics for most common illnesses. These illnesses may be caused by a virus, not by bacteria. You do not need antibiotics for: ??? The common cold. ??? The flu (influenza). ??? Sore throat. ??? Discolored mucus. ??? Bronchitis. Antibiotics are not always needed for all infections caused by bacteria. Many of these infections clear up on their own. Do not take antibiotics when they are not needed. How long should I take my antibiotic? You must take the entire amount prescribed to you. Take your antibiotics as told by your health care provider. Do not stop taking your antibiotics even if you start to feel better. If you stop taking them too soon: ??? You may feel sick again. ??? Your infection may get harder to treat. Each course of antibiotics needs a different length of time to work. The length of time may vary from a few days to a few weeks. What if I miss a dose? Try not to miss any doses of medicine. If you miss a dose, call your health care provider or pharmacist for help. Sometimes, it is okay to take the missed dose as soon as possible. Do not take double or extra doses. What are the risks of taking antibiotics? Antibiotics can cause: ??? Allergic reactions. ??? Nausea. ??? Yeast infections. ??? Liver problems. Antibiotics can also cause an infection called Clostridioides difficile (C. difficile or C. diff), which causes severe diarrhea. This infection happens when the antibiotics kill the healthy bacteria in your intestines. This allows C. diff to grow. C. diff needs to be treated right away. Let your health care provider know if: ??? You have diarrhea while taking an antibiotic. ??? You have diarrhea after you stop taking an antibiotic. C. diff infection can start weeks after stopping the antibiotic. Taking an antibiotic also puts you at risk for getting sick in the future with bacteria that do not respond to medicine (antibiotic-resistant infection). Antibiotics can cause bacteria to change so that if the antibiotic is taken again, the medicine cannot kill the bacteria. These infections can be more serious because they are hard, or sometimes impossible, to treat. Do antibiotics affect control? control pills may not work while you are taking antibiotics. If you are taking control pills: ??? Keep taking them as usual. ??? Use a second form of control, such as a condom, to avoid unwanted . Do this for as long as told by your health care provider. What else should I know about taking antibiotics? Take antibiotics exactly as told. ??? Take the correct amount of medicine at the same time each day. ??? Ask your health care provider: ? How long to wait between doses. ? If you should take your antibiotic with food or water. ? If you should avoid certain foods, drinks, or medicines while taking your antibiotics. ? If you need to watch for any side effects. ??? Use only the antibiotics prescribed to you by your health care provider. Do not use antibiotics prescribed for someone else. ??? Drink a large glass of water when taking your antibiotics unless told otherwise. Drink enough fluid to keep your urine pale yellow. ??? Ask your pharmacist for a dosage syringe, cup, or spoon that correctly measures your antibiotics. ??? Ask your pharmacist or health care provider how to safely get rid of leftover medicine. Follow these instructions at home: ??? Take your antibiotics as told by your health care provider. Do not stop taking your antibiotics even if you start to feel better. ??? Return to your normal activities as told by your health care provider. Ask your health care provider what activities are safe for you. Contact a health care provider if: ??? Your symptoms get worse. ??? You have new joint pain or muscle aches that begin after starting your antibiotic. ??? You have side effects from your antibiotic, such as: ? Stomach pain. ? Diarrhea. ? Nausea. ? White patches in your mouth or throat. Get help right away if: ??? You have sig (more content not included)... [facility] 05-04-2024 Hospital Discharg e instructions Patient Education 05/04/2024 10:49:35 EU - Cystoscopy with Urethral Dilation Discharge Instructions (CUSTOM) Cystoscopy with Urethral Dilation Voiding after the procedure: there may be some pain, urethral bleeding, burning, urgency, frequency and blood tinged urine following the procedure. These symptoms usually resolve within 2-5 days. Drink the amount of fluid it takes to keep the urine pink to yellow or clear in color. Drinking enough water and fluids will help to ease any discomfort after your procedure. If you are having problems that seem out of the ordinary, please call. If unable to contact your physician and you feel it is an emergency, go to the nearest emergency room or call 911 Diet you may resume your normal diet. Activity you may resume your normal activities Call if you have a fever over 100 degrees [facility] 03/16/2024 09:32:57 With:Ji CHELSI Address: [address] [place] [id number] Business (1) When:09/01/2024 10:49:14 Comments:With Lurdes Guaman [facility] 05-04-2024 Note Patient Education Custom Cystoscopy with Urethral Dilation ??? Voiding after the procedure: there may be some pain, urethral bleeding, burning, urgency, frequency and blood tinged urine following the procedure. These symptoms usually resolve within 2-5 days. Drink the amount of fluid it takes to keep the urine pink to yellow or clear in color. Drinking enough water and fluids will help to ease any discomfort after your procedure. ??? If you are having problems that seem out of the ordinary, please call. ??? If unable to contact your physician and you feel it is an emergency, go to the nearest emergency room or call 911 ??? Diet ??? you may resume your normal diet. ??? Activity ??? you may resume your normal activities ??? Call if you have a fever over 100 degrees [facility] 03-16-2024 Hospital Discharg e instructions Patient Education 03/16/2024 09:24:13 Urethral Stricture Urethral Stricture Urethral stricture is when the tube that drains pee (urine) from the bladder out of the body (urethra) becomes too narrow. The urethra can become narrow because of scar tissue, infection, surgery, or an injury. This can make it difficult to pee (urinate). In females, the urethra opens above the vaginal opening. In males, the urethra opens at the tip of the penis, and the urethra is much longer than it is in females. Because of the length of the male urethra, urethral stricture is much more common in males. What are the causes? In males and females, common causes of urethral stricture include: Urinary tract infection (UTI). Sexually transmitted infection (STI). Using a soft tube in the urethra to drain pee from the bladder (urinary catheter). Urinary tract surgery. In males, common causes of urethral stricture include: A severe injury to the pelvis. Prostate surgery. Injury to the penis. In many cases, the cause of urethral stricture is not known. What increases the risk? You are more likely to develop this condition if you: Are male. Males who have had prostate surgery are at risk of developing this condition. Use a urinary catheter. Have had urinary tract surgery. What are the signs or symptoms? The main symptom of this condition is trouble peeing. This may cause decreased pee flow, dribbling, or spraying of pee. Other symptom of this condition may include: Frequent UTIs. Blood in the pee. Pain when peeing. Swelling of the penis in males. Not being able to pee. How is this diagnosed? This condition may be diagnosed based on: Your medical history and a physical exam. Tests of your pee to check for infection or bleeding. X-rays. Ultrasound. Retrograde urethrogram. With this test, a dye is injected into the urethra and then an X-ray is taken. Urethroscopy. This is when a thin tube with a light and camera on the end (urethroscope) is used to look at the urethra. A CT scan or MRI. How is this treated? This condition is treated with surgery or other procedures. The type of surgery that you have depends on the severity of your condition. You may have: Urethral dilation. In this procedure, the narrow part of the urethra is stretched open (dilated) with dilating instruments or a small balloon. Urethrotomy. In this procedure, a urethroscope is placed into the urethra, and the narrow part of the urethra is cut open with a surgical blade or laser inserted through the urethroscope. Urethroplasty. In this procedure, an incision is made in the urethra and the narrow part is removed. Then, the urethra is reconstructed. Follow these instructions at home: Take etpv-cnw-wekayru and prescription medicines only as told by your health care provider. If you were prescribed antibiotics, take them as told by your provider. Do not stop using the antibiotic even if you start to feel better. Drink enough fluid to keep your pee pale yellow. Keep all follow-up visits. Your provider will check your healing and adjust your treatment plan as needed. Contact a health care provider if: You have frequent peeing or you are only peeing small amounts often. You feel the need to pee urgently. You have pain or burning when you pee. Your pee smells bad or unusual. Your pee is bloody or cloudy. You have pain in your lower abdomen or back. Your genital area is swollen, bruised, or discolored. This includes: ?The penis, scrotum, and inner thighs for males. ?The outer genital organs (vulva) and inner thighs for females. You have a fever. You develop swelling in your legs. Get help right away if: You cannot pee. You have trouble breathing. These symptoms may be an emergency. Get help right away. Call 911. Do not wait to see if the symptoms will go away. Do not drive yourself to the hospital. This information is not intended to replace advice given to you by your health care provider. Make sure you discuss any questions you have with your health care provider. Document Revised: 12/26/2022 Document Reviewed: 12/26/2022 [employer] Patient Education 2023 [employer]. [facility] 02/17/2024 09:52:45 With:[facility] Address: When: Unknown Comments:For procedure as scheduled. [facility] [place] 03-16-2024 Note Patient Education Urology Urethral Stricture Urethral stricture is when the tube that drains pee (urine) from the bladder out of the body (urethra) becomes too narrow. The urethra can become narrow because of scar tissue, infection, surgery, or an injury. This can make it difficult to pee (urinate). In females, the urethra opens above the vaginal opening. In males, the urethra opens at the tip of the penis, and the urethra is much longer than it is in females. Because of the length of the male urethra, urethral stricture is much more common in males. What are the causes? In males and females, common causes of urethral stricture include: ??? Urinary tract infection (UTI). ??? Sexually transmitted infection (STI). ??? Using a soft tube in the urethra to drain pee from the bladder (urinary catheter). ??? Urinary tract surgery. In males, common causes of urethral stricture include: ??? A severe injury to the pelvis. ??? Prostate surgery. ??? Injury to the penis. In many cases, the cause of urethral stricture is not known. What increases the risk? You are more likely to develop this condition if you: ??? Are male. Males who have had prostate surgery are at risk of developing this condition. ??? Use a urinary catheter. ??? Have had urinary tract surgery. What are the signs or symptoms? The main symptom of this condition is trouble peeing. This may cause decreased pee flow, dribbling, or spraying of pee. Other symptom of this condition may include: ??? Frequent UTIs. ??? Blood in the pee. ??? Pain when peeing. ??? Swelling of the penis in males. ??? Not being able to pee. How is this diagnosed? This condition may be diagnosed based on: ??? Your medical history and a physical exam. ??? Tests of your pee to check for infection or bleeding. ??? X-rays. ??? Ultrasound. ??? Retrograde urethrogram. With this test, a dye is injected into the urethra and then an X-ray is taken. ??? Urethroscopy. This is when a thin tube with a light and camera on the end (urethroscope) is used to look at the urethra. ??? A CT scan or MRI. How is this treated? This condition is treated with surgery or other procedures. The type of surgery that you have depends on the severity of your condition. You may have: ??? Urethral dilation. In this procedure, the narrow part of the urethra is stretched open (dilated) with dilating instruments or a small balloon. ??? Urethrotomy. In this procedure, a urethroscope is placed into the urethra, and the narrow part of the urethra is cut open with a surgical blade or laser inserted through the urethroscope. ??? Urethroplasty. In this procedure, an incision is made in the urethra and the narrow part is removed. Then, the urethra is reconstructed. Follow these instructions at home: ??? Take dcev-vvf-vwcvzfy and prescription medicines only as told by your health care provider. ??? If you were prescribed antibiotics, take them as told by your provider. Do not stop using the antibiotic even if you start to feel better. ??? Drink enough fluid to keep your pee pale yellow. ??? Keep all follow-up visits. Your provider will check your healing and adjust your treatment plan as needed. Contact a health care provider if: ??? You have frequent peeing or you are only peeing small amounts often. ??? You feel the need to pee urgently. ??? You have pain or burning when you pee. ??? Your pee smells bad or unusual. ??? Your pee is bloody or cloudy. ??? You have pain in your lower abdomen or back. ??? Your genital area is swollen, bruised, or discolored. This includes: ? The penis, scrotum, and inner thighs for males. ? The outer genital organs (vulva) and inner thighs for females. ??? You have a fever. ??? You develop swelling in your legs. Get help right away if: ??? You cannot pee. ??? You have trouble breathing. These symptoms may be an emergency. Get help right away. Call 911. ??? Do not wait to see if the symptoms will go away. ??? Do not drive yourself to the hospital. This information is not intended to replace advice given to you by your health care provider. Make sure you discuss any questions you have with your health care provider. Document Revised: 12/26/2022 Document Reviewed: 12/26/2022 [employer] Patient Education ? 2023 [employer]. [facility] 01-19-2023 Evaluation note Encounter Date Diagnosis Assessment [...] condition Jan, Sore throat (ICD-10 - J02.9) [facility] Other 09-13-2022 NoteEXAMINATION: XR CHEST 2 V HISTORY: COVID-19 , cough, shortness [...] Electronically authenticated by: ORTEGA HAHN Date: 2021-11-27 [facility] Appointment Date:05/03/2024 11:00:00 AM Scheduled Provider: Location:[facility] Appointment Type:Urology CALL PAT FT Appointment Date:05/04/2024 10:15:00 AM Scheduled Provider: Location:[facility] Appointment Type:Urology FT [facility] evaluation + Plan note Future Appointments Appointment Date:08/30/2024 09:40:00 AM Scheduled Provider:YANE GUAMAN PA-C Location:[facility] Appointment Type:URO Office Visit [facility] Evaluation noteNo assessment information available [facility] Work Phone: [facility]ha noteNo InformationNortDepartment of [facility] Other History general Narrative - Reported* Type Description Date Medical History Depression Medical History Glaucoma Medical History Arthritis Medical History osteoporosis [facility] Hospital course Narrative No data available for this section [facility] Hospital Discharge instructions No data available for this section [facility] progress note No data available for this section [facility] Summary Purpose Family History No Family History Records FoundNo Family History Records Found No data available for this section No data available for this section No data available for this section No data available for this section No Family History Records FoundNo Family History Records FoundNo Family History Records Found Advance Directives No Advanced Directives Records Found Advance Directive Response Recorded Date/ Time Advance Directives No January 10:42am Additional Source Comments INFORMATION SOURCE (unrecogn ized section and content) DATE CREATED AUTHOR 06/22/2022 [facility] DATE CREATED AUTHOR AUTHOR'S ORGANIZ ATION 05/22/2023 [facility] DATE CREATED AUTHOR AUTHOR'S ORGANIZ ATION 10/03/2024 [facility] DATE CREATED AUTHOR AUTHOR'S ORGANIZ ATION 10/07/2024 [facility] REASON FOR VISIT (unrecogniz ed section and [...] BE BASED ON THE PRIMARY CLINICAL RECORDS. [facility] [employer] [facility]. provides no warranty or guarantee of the accuracy or completeness of information in this document.
[2024-10-07 09:53] LABS: Alanine Aminotransferase 27 U/L (14-59); Albumin Globulin Ratio 0.8; Albumin Level 3.3 g/dL (3.4-5.0); Alkaline Phosphatase 68 U/L (46-116); Anion Gap 12.8; Aspartate Amino Transferase 17 U/L (15-37); Blood Urea Nitrogen 35.0 mg/dL (7.0-18.0); Calcium 9.2 mg/dL (8.5-10.1); Carbon Dioxide 29.7 mmol/L (21.0-32.0); Chloride 103 mmol/L (98-107); Estimated GFR (African America 48 (>=60 mL/min/1.73m^2); Estimated GFR (Non-African Ame 40 (>=60 mL/min/1.73m^2); Globulin 4.1 g/dL; Glucose 89 mg/dL (74-106); Potassium 4.5 mmol/L (3.5-5.1); Sodium 141 mmol/L (136-145); Total Protein 7.4 g/dL (6.4-8.2)
== END 2024-10-07 09:14 | disposition home or self-care (01) ==
LOC: RAD 09:13 → LAB 09:16
PROVIDERS: PCP Nurse Practitioner Family; Visit Provider Nurse Practitioner Family
DX: M81.0 Age-related osteoporosis without current pathological fracture (principal); N18.9 Chronic kidney disease, unspecified
CPT/HCPCS: 36415; 80053

== ENCOUNTER 2024-10-08 11:00 | Outpatient (OUT) | payer OTHER, SELFPAY ==
--- OUTSIDE RECORDS SUMMARY | 2024-10-08 11:03 | XMS_ITS | CCD ---
Author Organization [facility] Care Team Providers Care Film Loader Name Role Phone RAYNA WEAVER Attending Unavailable [...] Medication Allergies] Propensity to adverse reactions (disorder) [facility] Repository Medications Current Medications Medication Drug Class(es) [...] cysto., # 2 tab(s), Refills(s) 0, Pharmacy: [facility]/pharmacy #[id number], 164, cm, 03/16/24 8:48:00 EST, [...] procedure, # 1 tab(s), Refills(s) 0, Pharmacy: [facility]/pharmacy #[id number], 164, cm, 03/16/24 8:48:00 EST, [...] 3 weeks, then 3x per week thereafter, [facility]/pharmacy #[id number], 164, cm, 03/16/24 8:48:00 EST, [...] Locations R1: This test was performed at: [facility], [address] [place] [address], [phone] , [place], Normal [facility] Comment on above: Performed By: #### 2 [id number] #### [facility] [address] [place] [id number] Ambulatory Visit Summaryon 0 09-27-2024 Ambulatory Visit [...] signed up for this yet, please contact [employer] at [phone] to get signed up today. Language Information Language assistance services are available as needed. Normal [facility] Urology Office/Clinic Noteon 09-27-2024 Urology Office/Clinic Note [...] cysto., # 2 tab(s), Refills(s) 0, Pharmacy: [facility]/pharmacy #[id number], 164, cm, 03/16/24 8:48:00 EST, Height/Length Dosing, 97.3, kg, 03/16/24 8:48:00 EST, Weight Dosing Body Mass Index (BMI) documented 3008F Current tobacco non-user 1036F Depression Screening Negative 3352F E&M of Est. Patient Low 20-29 Min 48000 Influenza immunization status assessed 1030F Medication list [...] Urnls Dip Stick Auto w/o Microscopy POC 45377 Follow-up With When Contact Information YANE GUAMAN PA-C, URL [address] [facility] [address] [facility] (1) Additional Instructions: pending results of [...] pH Urine Dipstick: 5.5 (09/27/24 11:23:00) Normal [facility] Comment on above: Result Comment: Elec tronically Signed By: YANE GUAMAN PA-C\.br\Date and Time Signed: 09/27/24 11:56 EDT Main OR Intraoperative Recor don 05-04-2024 Main OR Intraoperative Record Main OR Intraoperative Record IntraOp Document Type FTURO Summary Primary Physician: Ji GAGNON MD Finalized Date/Time: 05/04/24 10:52:00 Pt. Name: GAVI SANTOS Augustina Walker/Sex: 1950 Female Med Rec #: [id number] Physician: Ji GAGNON MD Financial #: [id number] Pt. Type: O Room/Bed: / Admit/Disch: 05/04/24 [...] Kendall R Role Performed Surgeon - Primary Posting Machine Operator - Primary Scrub - Primary Time In [...] Equipment, Medication Time Out CHELSI FUCHS, Ji Crain, Verified (If Participants Zoila Siddiqui, Applicable) Edilberto [...] 05/04/24 10:51 Zoila Siddiqui 05/04/24 10:52 Normal [facility] Main OR Preoperative Recordo n 05-04-2024 Main OR Preoperative Record Main OR Preoperative Record Holding Area Document Type FTURO Summary Primary Physician: Ji GAGNON MD Finalized Date/Time: 05/04/24 10:43:46 Pt. Name: GAVI SANTOS./Sex: 1950 Female Med Rec #: [id number] Physician: Ji GAGNON MD Financial #: [id number] Pt. Type: O Room/Bed: / Admit/Disch: 05/04/24 [...] Complaints of Pain: No Skin Integrity Intact, [place], Warm, & Dry Vitals - EU Blood Pressure 138/79 Pulse 72 bpm Respirations 18 br/min SPO2 97 % Additional None RN Reviewed Yes Specimens Collected Last Modified By: Zoila Siddiqui 05/04/24 10:43:45 Finalized By: Zoila Siddiqui Document Signatures Signed By: Roberto MURDOCKOralia Tatum 05/04/24 10:24 Zoila Siddiqui 05/04/24 10:43 Normal [facility] Operative Reporton Operative Report Operative Report Patient: [...] urine. The Urethra was dilated to: 30 Tristanian w/ sounds. Devices Implanted: None. Removal: Cystoscope is removed, The patient tolerated it well. Postoperative Information Discharge: Patient is discharged home with antibiotic coverage, Follow up arranged. She is strongly encouraged to be compliant with her estradiol cream.. Normal [facility] Comment on above: Result Comment: Elec tronically [...] Follow-Up Appointments Friday 11:00 AM EST Where: [facility] Friday 10:15 AM EST Where: [facility] You Need to Schedule the Following Appointments Follow Up with [facility] When: Comments: For procedure as scheduled. Where: Medications What How Much When Why Instructions New ciprofloxacin (Cipro 500 mg Tab) See instructions Recurrent UTI Stricture of female urethra 1 tab po night prior to cysto. 1 tab po following cysto. 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 (more content not included)... Normal [facility] Urology Office/Clinic Noteon 03-16-2024 Urology Office/Clinic Note [...] R-FQ 10/24/23 - A1c 5.4 02/02/24 - Mesh Cutter 1.23 BUN 14 GFR 43 Review of [...] yes; avoids baths/hot tubs: yes; avoids scented LINE ERECTOR products: yes PVR 0ml. Likely secondary to [...] cysto., # 2 tab(s), Refills(s) 0, Pharmacy: [facility]/pharmacy #[id number], 164, cm, 03/16/24 8:48:00 EST, Height/Length Dosing, 97.3, kg, 03/16/24 8:48:00 EST, Weight Dosing diazepam, 5 mg = 1 tab(s), Oral, Once, 1 hr prior to procedure, # 1 tab(s), Refills(s) 0, Pharmacy: [facility]/pharmacy #[id number], 164, cm, 03/16/24 8:48:00 EST, Height/Length Dosing, 97.3, kg, 03/16/24 8:48:00 EST, Weight Dosing estradiol topical, See Instructions, 42.5 gm, Refill(s) 6, apply a pea-sized amount vaginally and around the urethra nightly x 3 weeks, then 3x per week thereafter, [facility]/pharmacy #[id number], 164, cm, 03/16/24 8:48:00 EST, Height/Length Dosing, 97.3, kg, 03/16/24 8:48:00 EST,... [address] Measure Post Void residual urine and/or bladder [...] Urnls Dip Stick Auto w/o Microscopy POC 19436 2. Stricture of female urethra (N35.92: Unspecified urethral stricture, female) Sp cysto/UD w DLS in 2018. Marked improvement in urinary sx and UTI frequency until 2022. Will start estrogen cream and schedule cysto UD. Pt states last time was painful. Offered pre-procedure Valium. Risks/benefits discussed. Pt would like to do this. 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 The procedure risks, benefits, details, and treatment alternatives have been discussed with the patient. These include bleeding, infection, recurrent scar in over 50%, need for repeat dilation or other procedures, no sy (more content not included)... Normal [facility] Comment on above: Result Comment: Elec tronically Signed By: YANE GUAMAN PA-C\.robert\Date and Time Signed: 03/16/24 09:25 EST Urine Cultureon 05-18-2023 Bacteria identified Cx Nom (U) ORGANISM: Escherichia coli (O:ESCCOL) [place] Count >100,000 Aerobic NESHA Charge (NMIC56) ----- [...] RESISTANT TO ALL B-LACTAM DRUGS. PERFORMED BY: [place] [address] PATHOLOGIST FIELD COLLECTOR DEYANIRA ARCE M.D. Normal [facility] Comment on above: Performed By: #### C UU #### [facility] [address] [place] [address] Quick Strepon 01-19-2023 S. pyogenes Org specific cx Ql (Throat) Negative [employer] Other Urinalysis - AUTOMATEDon Appearance (U) CLEAR [employer] Other Bilirubin Ql (U) Negative [employer] Other Color (U) YELLOW [employer] Other Glucose Ql (U) Negative [employer] Other Hemoglobin Ql (U) Negative DA [employer] Other Ketones Ql (U) Negative [employer] Other Leukocyte esterase Test strip Ql (U) SMALL [employer] Other Nitrite Ql (U) Negative [employer] Other pH (U) 5.0 [pH] [employer] Other Protein Ql (U) TRACE [place] [employer] Other Specific gravity (U) [Rel density] >=1.030 [employer] Other Urobilinogen (U) [Mass/Vol] 0.2 mg/dL [employer] Other Urinalysis - AUTOMATED [employer] Other Urine Cultureon 01-19-2023 Urine Culture >100,000 [employer] Other Bacteria identified Cx Nom (U) ORGANISM: Escherichia coli (O:ESCCOL) [place] Count >100,000 Aerobic NESHA Charge (NMIC56) ----- [...] RESISTANT TO ALL B-LACTAM DRUGS. PERFORMED BY: [place] [address] PATHOLOGIST FIELD COLLECTOR DEYANIRA ARCE M.D. Normal [facility] Comment on above: Performed By: #### C UU #### [address] XR DEXA BONE DENSITYon 06-14 XR [...] ALEXANDRA MARIA Date: 2022-06-14 15:17 Normal [facility] INSULINon 06-05-2022 Insulin 13.1 uIU/mL Normal 2.6-24.9 [facility] Comment on above: Performed By: #### I NSULIN #### [facility] [address] [place] [address] Dr. Stephon Breaux CBC AUTO DIFFon 06-04-2022 BASO # 0.1 103/ul Normal 0.0-0.1 [facility] Comment on above: Performed By: #### C BC #### [facility] [address] [place] [address] Dr. Stephon Breaux Basophils/100 WBC (Bld) 1.3 % Normal 0.2-2.0 [facility] Comment on above: Performed By: #### C BC #### [facility] [address] [place] [address] Dr. Stephon Breaux EO # 0.2 103/ul Normal 0.0-0.7 [facility] Comment on above: Performed By: #### C BC #### [facility] [address] [place] [address] Dr. Stephon Breaux Eosinophils/100 WBC (Bld) 4.4 % Normal 0.9-7.0 [facility] Comment on above: Performed By: #### C BC #### [facility] [address] [place] [address] Dr. Stephon Breaux Erythrocyte distribution width (RBC) [Ratio] 13.3 % Normal 11.0-15.0 [facility] Comment on above: Performed By: #### C BC #### [facility] [address] [place] [address] Dr. Stephon Breaux Hematocrit (Bld) [Volume fraction] 37.9 % Normal 36.0-48.0 [facility] Comment on above: Performed By: #### C BC #### [facility] [address] [place] [address] Dr. Stephon Breaux Hemoglobin (Bld) [Mass/Vol] 12.5 g/dL Normal 12.0-16.0 [facility] Comment on above: Performed By: #### C BC #### [facility] [address] [place] [address] Dr. Stephon Breaux IG # 0.00 10e3/ul Normal 0.00-0.03 [facility] Comment on above: Performed By: #### C BC #### [facility] [address] [place] [address] Dr. Stephon Breaux IG % 0.0 % Normal 0.0-0.5 [facility] Comment on above: Performed By: #### C BC #### [facility] [address] [place] [address] Dr. Stephon Breaux LYMPH # 1.9 103/ul Normal 1.2-3.8 [facility] Comment on above: Performed By: #### C BC #### [facility] [address] [place] [address] Dr. Stephon Breaux Lymphocytes/100 WBC (Bld) 38.6 % Normal 20.5-60.0 [facility] Comment on above: Performed By: #### C BC #### [facility] [address] [place] [address] Dr. Stephon Breaux MANUAL DIFF REQ NO Normal [facility] Comment on above: Performed By: #### C BC #### [facility] [address] [place] [address] Dr. Stephon Breaux MCH (RBC) [Entitic mass] 31.7 pg Normal 26.7-34.0 [facility] Comment on above: Performed By: #### C BC #### [facility] [address] [place] [address] Dr. Stephon Breaux MCHC (RBC) [Mass/Vol] 33.0 g/dL Normal 29.9-35.2 [facility] Comment on above: Performed By: #### C BC #### [facility] [address] [place] [address] Dr. Stephon Breaux MCV (RBC) [Entitic vol] 96.2 fL Normal 81.0-99.0 [facility] Comment on above: Performed By: #### C BC #### [facility] [address] [place] [address] Dr. Stephon Breaux MONO # 0.4 103/ul Normal 0.3-0.8 [facility] Comment on above: Performed By: #### C BC #### [facility] [address] [place] [address] Dr. Stephon Breaux Monocytes/100 WBC (Bld) 7.5 % Normal 1.7-12.0 [facility] Comment on above: Performed By: #### C BC #### [facility] [address] [place] [address] Dr. Stephon Breaux NEUT # 2.3 103/ul Normal 1.4-6.5 [facility] Comment on above: Performed By: #### C BC #### [facility] [address] [place] [address] Dr. Stephon Breaux Neutrophils/100 WBC (Bld) 48.2 % Normal 43.0-75.0 [facility] Comment on above: Performed By: #### C BC #### [facility] [address] [address] [address] Stephon Breaux Platelet mean volume (Bld) [Entitic vol] 9.4 fL Critically low 9.5-13.5 [facility] Comment on above: Performed By: #### C BC #### [facility] [address] [address] [address] Stephon Breaux PLT 230 103/ul Normal 150-450 [facility] Comment on above: Performed By: #### C BC #### [facility] [address] [address] [address] Stephon Breaux RBC 3.94 106/ul Critically low 4.20-5.40 [facility] Comment on above: Performed By: #### C BC #### [facility] [address] [address] [address] Stephon Breaux WBC 4.8 103/ul Normal 4.0-11.0 [facility] Comment on above: Performed By: #### C BC #### [facility] [address] [address] [address] Stephon Breaux FREE THYROXINE INDEX T7on FTI 2.94 Normal 1.30-4.50 [facility] Comment on above: Performed By: #### T SH, LIPID, T7, CMP #### [facility] [address] [place] [address] Dr. Stephon Breaux T3U 35.0 % Normal 30.0-39.0 [facility] Comment on above: Performed By: #### T SH, LIPID, T7, CMP #### [facility] [address] [place] [address] Dr. Stephon Breaux T4 [Mass/Vol] 8.40 ug/dL Normal 4.80-13.90 [facility] Comment on above: Performed By: #### T SH, LIPID, T7, CMP #### [facility] [address] [place] [address] Dr. Stephon Breaux GLYCOHEMOGLOBIN A1Con 2022 ADA RECOMMENDATION SEE BELOW Normal [facility] Comment on above: Result Comment: ADA RECOMMENDED LIMIT 4.0 - 6.0 ADA THERAPEUTIC TARGET < 7.0 ACTION SUGGESTED > 7.0 Performed By: #### A 1C #### [facility] [address] [place] [address] Dr. Stephon Breaux Glucose [Mass/Vol] 100 mg/dL Normal [facility] Comment on above: Performed By: #### A 1C #### [facility] [address] [place] [address] Dr. Stephon Breaux HbA1c (Bld) [Mass fraction] 5.1 % Normal 4.5-6.2 [facility] Comment on above: Performed By: #### A 1C #### [facility] [address] [place] [address] Dr. Stephon Breaux IRONon 06-04-2022 Iron [Mass/Vol] 89.0 ug/dL Normal 50.0-170.0 [facility] Comment on above: Performed By: #### I FANG #### [facility] [address] [place] [address] Dr. Stephon Breaux LIPID PROFILEon 06-04-2022 CHOL-HDL RATIO NORM SEE BELOW Normal [facility] Comment on above: Result Comment: 3.3 - 4.4 LOW RISK 4.4 - 7.1 AVERAGE RISK 7.1 - 11.0 MODERATE RISK >11.0 HIGH RISK Performed By: #### C BC #### [facility] [address] [place] [address] Dr. Stephon Breaux Cholesterol [Mass/Vol] 203 mg/dL Critically high <=200 [facility] Comment on above: Performed By: #### C BC #### [facility] [address] [place] [address] Dr. Stephon Breaux Cholesterol in HDL [Mass/Vol] 65 mg/dL Critically high 40-60 [facility] Comment on above: Performed By: #### C BC #### [facility] [address] [place] [address] Dr. Stephon Breaux Cholesterol in LDL [Mass/Vol] 112.6 mg/dL Normal [facility] Comment on above: Performed By: #### C BC #### [facility] [address] [place] [address] Dr. Stephon Breaux Cholesterol.total/Ch olesterol in HDL [Mass ratio] 3.1 {ratio} Normal [facility] Comment on above: Performed By: #### C BC #### [facility] [address] [address] [address] Stephon Breaux HDL NORMAL > or = 60 mg/dl - LOW CARDIOVASCULAR RISK <40 mg/dl - HIGH CARDIOVASCULAR RISK Normal [facility] Comment on above: Performed By: #### C BC #### [facility] [address] [address] [address] Stephon Breaux LDL CALC NORMAL SEE BELOW Normal [facility] Comment on above: Result Comment: <100 mg/dl OPTIMAL 100 - 129 mg/dl NEAR OR ABOVE OPTIMAL 130 - 159 mg/dl BORDERLINE HIGH 160 - 189 mg/dl HIGH >190 mg/dl VERY HIGH Performed By: #### C BC #### [facility] [address] [address] [address] Stephon Breaux Triglyceride [Mass/Vol] 127 mg/dL Normal <=150 [facility] Comment on above: Performed By: #### C BC #### [facility] [address] [address] [address] Stephon Breaux VLDL CALC 25.4 mg/dL Normal [facility] Comment on above: Performed By: #### C BC #### [facility] [address] [address] [address] Stephon Breaux PROF 14(COMP METB)on 023 Albumin [Mass/Vol] 3.4 g/dL Normal 3.4-5.0 [facility] Comment on above: Performed By: #### C BC #### [facility] [address] [address] [address] Stephon Breaux Albumin/Globulin [Mass ratio] 1.0 {ratio} Normal [facility] Comment on above: Performed By: #### C BC #### [facility] [address] [address] [address] Stephon Breaux ALP [Catalytic activity/Vol] 66 U/L Normal 46-116 [facility] Comment on above: Performed By: #### C BC #### [facility] [address] [address] [address] Stephon Breaux ALT [Catalytic activity/Vol] 17 U/L Normal 14-59 [facility] Comment on above: Performed By: #### C BC #### [facility] [address] [address] [address] Stephon Breaux Anion gap [Moles/Vol] 9.2 mmol/L Normal [facility] Comment on above: Performed By: #### C BC #### [facility] [address] [address] [address] Stephon Breaux AST [Catalytic activity/Vol] 17 U/L Normal 15-37 [facility] Comment on above: Performed By: #### C BC #### [facility] [address] [place] [address] Dr. Stephon Breaux Bilirubin [Mass/Vol] 0.4 mg/dL Normal 0.2-1.0 [facility] Comment on above: Performed By: #### C BC #### [facility] [address] [place] [address] Dr. Stephon Breaux Calcium [Mass/Vol] 9.1 mg/dL Normal 8.5-10.1 [facility] Comment on above: Performed By: #### C BC #### [facility] [address] [place] [address] Dr. Stephon Breaux Chloride [Moles/Vol] 108 mmol/L Critically high 98-107 [facility] Comment on above: Performed By: #### C BC #### [facility] [address] [place] [address] Dr. Stephon Breaux CO2 [Moles/Vol] 29.2 mmol/L Normal 21.0-32.0 [facility] Comment on above: Performed By: #### C BC #### [facility] [address] [place] [address] Dr. Stephon Breaux Creatinine [Mass/Vol] 0.84 mg/dL Normal 0.55-1.02 [facility] Comment on above: Performed By: #### C BC #### [facility] [address] [address] [address] Stephon Breaux EGFR-AF STATELESS >60 Normal >=60 [facility] Comment on above: Performed By: #### C BC #### [facility] [address] [id number] Stephon Breaux EGFR-NON AF STATELESS >60 Normal >=60 [facility] Comment on above: Performed By: #### C BC #### [facility] [address] [address] [address] Stephon Breaux Globulin (S) [Mass/Vol] 3.4 g/dL Normal [facility] Comment on above: Performed By: #### C BC #### [facility] [address] [address] [address] Stephon Breaux Glucose [Mass/Vol] 90 mg/dL Normal 74-106 [facility] Comment on above: Performed By: #### C BC #### [facility] [address] [address] [address] Stephon Breaux Potassium [Moles/Vol] 4.4 mmol/L Normal 3.5-5.1 [facility] Comment on above: Performed By: #### C BC #### [facility] [address] [place] [address] Dr. Stephon Breaux Protein [Mass/Vol] 6.8 g/dL Normal 6.4-8.2 [facility] Comment on above: Performed By: #### C BC #### [facility] [address] [address] [address] Stephon Breaux Sodium [Moles/Vol] 142 mmol/L Normal 136-145 [facility] Comment on above: Performed By: #### C BC #### [facility] [address] [place] [address] Dr. Stephon Breaux Urea nitrogen [Mass/Vol] 16.0 mg/dL Normal 7.0-18.0 [facility] Comment on above: Performed By: #### C BC #### [facility] [address] [place] [address] Dr. Stephno Breaux Urea nitrogen/Creatinine [Mass ratio] 19.0 mg/mg Normal [facility] Comment on above: Performed By: #### C BC #### [facility] [address] [place] [address] Dr. Stephon Breaux TSHon 06-04-2022 TSH 0.923 uIU/mL Normal 0.358-3.740 [facility] Comment on above: Performed By: #### C BC #### [facility] [address] [place] [address] Dr. Stephon Breaux CULTURE URINEon 01-10-2022 CULTURE URINE Culture Observations: LIGHT GROWTH OF MIXED GENITAL TIFFANIE. NO POTENTIAL PATHOGENS SEEN. Normal [facility] Comment on above: Performed By: #### U RCX #### [facility] [address] [place] [address] Dr. Stephon Breaux UA RANDOM W/MICROSCOPICon BACTERIA TRACE Abnormal NONE SEEN [facility] Comment on above: Performed By: #### U AMIC #### [facility] [address] [place] [address] Dr. Stephon Breaux Bilirubin Ql (U) Negative Normal NEGATIVE [facility] Comment on above: Performed By: #### U AMIC #### [facility] [address] [place] [address] Dr. Stephon Breaux CAST NONE SEEN Normal NONE SEEN [facility] Comment on above: Performed By: #### U AMIC #### [facility] [address] [place] [address] Dr. Stephon Breaux Clarity (U) CLEAR Normal CLEAR [facility] Comment on above: Performed By: #### U AMIC #### [facility] [address] [place] [address] Dr. Stephon Breaux Color (U) YELLOW Normal YELLOW [facility] Comment on above: Performed By: #### U AMIC #### [facility] [address] [place] [address] Dr. Stephon Breaux Crystals LM Nom (Urine sed) NONE SEEN Normal NONE SEEN [facility] Comment on above: Performed By: #### U AMIC #### [facility] [address] [address] [address] Stephon Breaux Epithelial cells LM Ql (Urine sed) FEW Abnormal NONE SEEN /RARE [facility] Comment on above: Performed By: #### U AMIC #### [facility] [address] [place] [address] Dr. Stephon Breaux Glucose Ql (U) Negative Normal NEGATIVE The [facility] Comment on above: Performed By: #### U AMIC #### [facility] [address] [place] [address] Dr. Stephon Breaux Hemoglobin Ql (U) Negative Normal NEGATIVE The [facility] Comment on above: Performed By: #### U AMIC #### [facility] [address] [place] [address] Dr. Stephon Breaux Ketones Ql (U) Negative Normal NEGATIVE The [facility] Comment on above: Performed By: #### U AMIC #### [facility] [address] [place] [address] Dr. Stephon Breaux LEUKOCYTES TRACE Abnormal NEGATIVE [facility] Comment on above: Performed By: #### U AMIC #### [facility] [address] [place] [address] Dr. Stephon Breaux MUCOUS NONE SEEN Normal NONE SEEN [facility] Comment on above: Performed By: #### U AMIC #### [facility] [address] [place] [address] Dr. Stephon Breaux Nitrite Ql (U) Negative Normal NEGATIVE The [facility] Comment on above: Performed By: #### U AMIC #### [facility] [address] [place] [address] Dr. Stephon Breaux pH (U) 5.5 [pH] Normal 5-9 [facility] Comment on above: Performed By: #### U AMIC #### [facility] [address] [place] [address] Dr. Stephon Breaux RBC NONE SEEN Abnormal 0-2 [facility] Comment on above: Performed By: #### U AMIC #### [facility] [address] [place] [address] Dr. Stephon Breaux SPEC GRAVITY >=1.030 Abnormal 1.005-<=1.025 The [facility] Comment on above: Performed By: #### U AMIC #### [facility] [address] [place] [address] Dr. Stephon Breaux UA PROTEIN Negative Normal NEGATIVE/ TRACE [facility] Comment on above: Performed By: #### U AMIC #### [facility] [address] [place] [address] Dr. Stephon Breaux Urobilinogen Qn (U) 0.2 {Billy'U}/dL Normal 0.2 - 1. 0 [facility] Comment on above: Performed By: #### U AMIC #### [facility] [address] [place] [address] Dr. Stephon Breaux WBC 2-5 Abnormal NONE SEEN [facility] Comment on above: Performed By: #### U AMIC #### [facility] [address] [place] [address] Dr. Stephon Breaux CULTURE URINEon 12-26-2021 CULTURE [...] Trimethoprim/Sulfame thoxazole <=20 S F Normal [facility] Comment on above: Performed By: #### C BC #### [facility] [address] [place] [address] Dr. Stephon Breaux UA RANDOM W/MICROSCOPICon BACTERIA TRACE Abnormal NONE SEEN [facility] Comment on above: Performed By: #### U AMIC #### [facility] [address] [place] [address] Dr. Stephon Breaux Bilirubin Ql (U) Negative Normal NEGATIVE [facility] Comment on above: Performed By: #### U AMIC #### [facility] [address] [address] [address] Stephon Breaux CAST NONE SEEN Normal NONE SEEN [facility] Comment on above: Performed By: #### U AMIC #### [facility] [address] [address] [address] Stephon Breaux Clarity (U) CLEAR Normal CLEAR [facility] Comment on above: Performed By: #### U AMIC #### [facility] [address] [address] [address] Stephon Breaux Color (U) DK. ORANGE Abnormal YELLOW [facility] Comment on above: Performed By: #### U AMIC #### [facility] [address] [address] [address] Stephon Breaux Crystals LM Nom (Urine sed) NONE SEEN Normal NONE SEEN [facility] Comment on above: Performed By: #### U AMIC #### [facility] [address] [address] [address] Stephon Breaux Epithelial cells LM Ql (Urine sed) FEW Abnormal NONE SEEN /RARE [facility] Comment on above: Performed By: #### U AMIC #### [facility] [address] [address] [address] Stephon Breaux Glucose Ql (U) Negative Normal NEGATIVE [facility] Comment on above: Performed By: #### U AMIC #### [facility] [address] [address] [address] Stephon Breaux Hemoglobin Ql (U) SMALL Abnormal NEGATIVE [facility] Comment on above: Performed By: #### U AMIC #### [facility] [address] [address] [address] Stephon Breaux Ketones Ql (U) Negative Normal NEGATIVE [facility] Comment on above: Performed By: #### U AMIC #### [facility] [address] [address] [address] Stephon Breaux LEUKOCYTES MODERATE Abnormal NEGATIVE [facility] Comment on above: Performed By: #### U AMIC #### [facility] [address] [address] [address] Stephon Breaux MUCOUS NONE SEEN Normal NONE SEEN [facility] Comment on above: Performed By: #### U AMIC #### [facility] [address] [address] [address] Stephon Breaux Nitrite Ql (U) Negative Normal NEGATIVE [facility] Comment on above: Performed By: #### U AMIC #### [facility] [address] [address] [address] Stephon Breaux pH (U) 6.0 [pH] Normal 5-9 [facility] Comment on above: Performed By: #### U AMIC #### [facility] [address] [place] [address] Dr. Stephon Breaux RBC 2-5 Abnormal 0-2 [facility] Comment on above: Performed By: #### U AMIC #### [facility] [address] [place] [address] Dr. Stephon Breaux SPEC GRAVITY >=1.030 Abnormal 1.005-<=1.025 [facility] Comment on above: Performed By: #### U AMIC #### [facility] [address] [address] [address] Stephon Breaux UA PROTEIN TRACE Normal NEGATIVE/ TRACE [facility] Comment on above: Performed By: #### U AMIC #### [facility] [address] [place] [address] Dr. Stephon Breaux Urobilinogen Qn (U) 0.2 {Billy'U}/dL Normal 0.2 - 1. 0 [facility] Comment on above: Performed By: #### U AMIC #### [facility] [address] [address] [address] Stephon Breaxu WBC 20-50 Abnormal NONE SEEN [facility] Comment on above: Performed By: #### U AMIC #### [facility] [address] [place] [address] Dr. Stephon Breaux Vital Signs Date Time Vital Sign Value Performing Clinician Facility 03-16-2024 08:40-0500 Blood Pressure Location YANETERESA GUAMAN [facility] 03-16-2024 08:40-0500 Body temperature 98.6 [degF] YANE GUAMAN [facility] 03-16-2024 08:40-0500 Diastolic blood pressure 82 mm[Hg] YANE DENIZ [facility] 03-16-2024 08:40-0500 Heart rate 87 /min YANE GUAMAN [facility] 03-16-2024 08:40-0500 Systolic blood pressure 122 mm[Hg] YANE GUAMAN [facility] 01-19-2023 10:50-0500 Body height 170.18 cm aYry Valladares Other [employer] Other 01-19-2023 10:50-0500 Body mass index (BMI) [Ratio] 30.1 kg/m2 Yary Valladares Other [employer] Other 01-19-2023 10:50-0500 Body temperature 97.4 [degF] Yary Valladares Other [employer] Other 01-19-2023 10:50-0500 Body weight 87.18 kg Yary Valladares Other [employer] Other 01-19-2023 10:50-0500 Respiratory rate 18 /min Yary Valladares Other [employer] Other 01-19-2023 10:50-0500 SaO2% (BldA) [Mass fraction] 95 % Yary Valladares Other [employer] Other Encounters Encounter Date Encounter Type Care Provider Facility Start: 09-27-2024 End: 09-27-2024 ambulatory YANE GUAMAN [place] Start: 09-27-2024 End: 09-27-2024 Patient encounter procedure YANE GUAMAN [facility] Start: 08-30-2024 End: 08-30-2024 ambulatory YANE GUAMAN Facility:[facility] Start: 08-30-2024 End: 08-30-2024 Patient encounter procedure YANE GUAMAN [facility] Start: 05-04-2024 End: 05-04-2024 ambulatory Ji GAGNON Facility[place] Start: 05-04-2024 End: 05-04-2024 Patient encounter procedure Ji R CHELSI [facility] Start: 03-16-2024 End: 03-16-2024 ambulatory YANE GUAMAN Facility:[facility] Start: 03-16-2024 End: 03-16-2024 Patient encounter procedure YANE GUAMAN [facility] Start: 05-18-2023 End: 05-18-2023 ambulatory Rayna Muñoz Facility:[facility] Start: 01-23-2023 End: 01-23-2023 ambulatory Yary Valladares Other [employer] Other Start: 01-23-2023 Telephone encounter Yary Valladares [facility] [address] Start: 01-19-2023 Office outpatient vi sit 25 minutes Yary Valladares [facility] Start: 01-19-2023 End: 01-19-2023 ambulatory Wyatt Mann [facility] Work Phone: Start: 01-19-2023 End: 01-19-2023 Departed [employer]ISS[employer] Yary Valladares Work Phone: [facility] [place] Work Phone: Start: 06-14-2022 End: 06-15-2022 ambulatory [...] identified in Urine by Culture Urine Culture [facility] Immunizations Immunization Date Immunization Notes Care Provider Fa gena 01-15-2023 influenza virus vacc ine, unspecified formulation YANE GUAMAN [facility] 01-30-2022 influenza virus vacc ine, unspecified formulation YANE GUAMAN [facility] 05-10-2021 pneumococcal polysaccharide vaccine, 23 valent YANE GUAMAN [facility] 01-27-2021 influenza, unspecifi ed formulation YANE GUAMAN [facility] 01-27-2021 SARS-CoV-2 (COVID-19 ) mRNA BNT-162b2 vax YANE GUAMAN [facility] Comment on above: Result Comment: 2024: [id number] 12-28-2020 influenza virus vacc ine, unspecified formulation YANE GUAMAN [facility] 06-06-2020 SARS-CoV-2 (COVID-19 ) mRNA BNT-162b2 vax YANE GUAMAN [facility] 05-15-2020 SARS-CoV-2 (COVID-19 ) mRNA BNT-162b2 vax YANE GUAMAN [facility] 08-26-2019 pneumococcal conjuga te vaccine, 13 valent YANE GUAMAN [facility] Payers Date Payer Category Payer Medicare [id number] 2023 Unknown [id number] 2023 Self-pay [id number] 1959 Unknown [id number] 1950 Unknown [id number] 2.16.84 [id number] 1950 Unknown [id number] 2.16.84 0.1.450825.3.579.2.593 1950 Unknown [id number] 2.16.84 0.1.474259.3.579.2.593 1950 Unknown [id number] 2.16.84 0.1.290375.3.579.2.593 1950 Unknown [id number] 2.16.84 0.1.210373.3.579.2.593 1950 Unknown [id number] 2.16.8 40.1.163992.3.579.2.727 1950 Unknown [id number] 2.16.8 40.1.017568.3.579.2.727 1950 Unknown [id number] 2.16.8 40.1.123807.3.579.2.727 1950 Unknown [id number] 2.16.8 40.1.410570.3.579.2.727 1950 Unknown [id number] 2.16.8 40.1.202167.3.579.2.727 1950 Unknown [id number] 2.16.8 40.1.405023.3.579.2.727 Unknown [id number] Unknown [id number] 2.16.8 40.1.382216.3.579.2.531 Unknown [id number] 2.16.8 40.1.367735.3.579.2.531 Social History Date Type Detail Facility Unknown if ever smoked [facility] Work Phone: Sex Assigned At [facility] Start: 1950 Sex Assigned At Female F [facility] Start: 03-16-2024 End: 09-27-2024 Tobacco smoking status Never smoked tobacco (finding) [facility] Tobacco smoking status Never [facility] Sexual Orientation [facility] Start: 10-15-2013 Sex Female (finding) [facility] Functional Status Date Assessment Result Facility 05-04-2024 Functional Status N/A [facility] 03-16-2024 Functional Status N/A [facility] Clinical Notes 11-27-2021 to 09-27-2024 Note Date [...] provider. Document Revised: 10/01/2022 Document Reviewed: 10/01/2022 [employer] Patient Education 2023 [employer]. Follow Up Care 09/27/2024 10:39:38 With:DENIZ PATEL, YANE Zepeda, URL Address: [address] [place] [address] [facility] [address] Business (1) When: Unknown Comments:pending results of imaging/testing, will call with next steps [facility] 09-27-2024 Note Patient Education Caregiving Antibiotic Medicine, [...] You have sig (more content not included)... [facility] 05-04-2024 Hospital Discharg e instructions Patient Education [...] Up Care 03/16/2024 09:32:57 With:Ji CHELSI Address: [address] [place] [id number] Business (1) When:09/01/2024 10:49:14 Comments:With Lurdes Guaman [facility] 05-04-2024 Note Patient Education Custom Cystoscopy with [...] you have a fever over 100 degrees [facility] 03-16-2024 Hospital Discharg e instructions Patient Education [...] reconstructed. Follow these instructions at home: Take hlwb-jrl-zjxcjvi and prescription medicines only as told by [...] provider. Document Revised: 12/26/2022 Document Reviewed: 12/26/2022 [employer] Patient Education 2023 [employer]. Follow Up Care 02/17/2024 09:52:45 With:[facility] Address: When: Unknown Comments:For procedure as scheduled. [facility] 03-16-2024 Note Patient Education Urology Urethral Stricture [...] Follow these instructions at home: ??? Take ktgg-fgx-lvfgkrc and prescription medicines only as told by [...] provider. Document Revised: 12/26/2022 Document Reviewed: 12/26/2022 [employer] Patient Education ? 2023 [employer]. [facility] 01-19-2023 Evaluation note Encounter Date Diagnosis Assessment [...] condition Jan, Sore throat (ICD-10 - J02.9) [place] [employer] Other 09-13-2022 NoteEXAMINATION: XR CHEST 2 V [...] authenticated by: ORTEGA HAHN Date: 2021-11-27 15:40[facility] Future Appointments Appointment Date:05/03/2024 11:00:00 AM Scheduled Provider: Location:[facility] Appointment Type:Urology CALL PAT FT Appointment Date:05/04/2024 10:15:00 AM Scheduled Provider: Location:[facility] Appointment Type:Urology FT [facility] evaluation + Plan note Future Appointments Appointment Date:08/30/2024 09:40:00 AM Scheduled Provider:YANE GUAMAN PA-C Location:[facility] Appointment Type:URO Office Visit [facility] Evaluation noteNo assessment information available [facility] Work Phone: Evaluvihio noteNo InformationNortWay[facility] [employer]-[facility] - [employer] Other History general Narrative - Reported* Type Description Date Medical History Depression Medical History Glaucoma Medical History Arthritis Medical History osteoporosis Surgical History [facility] [employer] Other Hospital course Narrative No data available for this section [facility] Hospital Discharge instructions No data available for this section [facility] progress note No data available for this section [facility] Summary Purpose Family History No Family History [...] and content) DATE CREATED AUTHOR 06/22/[address] [facility] DATE CREATED AUTHOR AUTHOR'S ORGANIZ ATION 05/22/2023 [facility] DATE CREATED AUTHOR AUTHOR'S ORGANIZ ATION 10/03/2024 [facility] DATE CREATED AUTHOR AUTHOR'S ORGANIZ ATION 10/07/2024 [facility] REASON FOR VISIT (unrecogniz ed [...] PRIMARY CLINICAL RECORDS. [facility] [employer] [facility]. provides no warranty or guarantee of the accuracy or completeness of information in this document.
== END 2024-10-08 11:01 | disposition home or self-care (01) ==
LOC: RAD 11:00
PROVIDERS: PCP Nurse Practitioner Family; Visit Provider Nurse Practitioner Family
DX: M85.80 Other specified disorders of bone density and structure, unspecified site (principal); M81.0 Age-related osteoporosis without current pathological fracture
CPT/HCPCS: 77080

== ENCOUNTER 2024-10-19 14:21 | Emergency (ER) | payer OTHER, SELFPAY ==
--- OUTSIDE RECORDS SUMMARY | 2024-10-14 10:06 | XMS_ITS ---
Author Organization The [facility] in [place] Address [address] [place] [address] Care Team Providers Care Animal Services Officer Name Role Phone Rayna Vasquez Primary Care Provider [phone] REASON FOR VISIT duplicate message Encounters Encounter Location Date Provider Diagnosis [facility] [address] [facility] [place] [address] 10/14/2024 Rayna Vasquez Plan Of Treatment No Information Progress Notes * Rochelle MONTANEZ SDOB:1950 (74 yo F)Acc No.[id number]:10/14/2024 Patient: Madison CARRILLO Rochelle Augustina :1950 A ge:74 Y S ex:Female Address:[place] [address] * true * Date: Generated for Mary Lou ackerman/Kim/eTransmitting on: 0 10/19/2024 02:32 PM EDT
--- OUTSIDE RECORDS SUMMARY | 2024-10-17 16:54 | XMS_ITS ---
Author Organization The [facility] in [place] Address [address] [place] [address] Care Team Providers Care Tile Edger Name Role Phone Rayna Vasquez Primary Care Provider [phone] Uriah Mann [phone] REASON FOR VISIT dexa Encounters Encounter Location Date Provider Diagnosis [facility] [address] [facility] [place] [address] 10/17/2024 Uriah Mann Plan Of Treatment No Information Progress Notes * Rochelle MONTANEZ SDOB:1950 (74 yo F)Acc No.[id number]:10/17/2024 Patient: Rochelle CLINTON :1950 A ge:74 Y S ex:Female Address:[place] [address] Subjective: * Chief Complaints: * D exa * Medical History: * Surgical History: * Hospitalization/Major Diagno stic Procedure: * Medications: Objective: * Vitals: * Physical Examination: Assessment: Plan: * Treatment: * Procedure Codes: * true * Date: Generated for Printi ng/Faxing/eTransmitting on: 0 10/19/2024 02:32 PM EDT
--- OUTSIDE RECORDS SUMMARY | 2024-10-19 14:32 | XMS_ITS | Clinical Summary ---
Author Organization [facility] Address [address], [address] [place] [address] Care Team Providers Care Lime Burner Name Role Phone Wyatt Mann MD Primary Care Provider [phone] Allergies No known active allergies Medications latanoprost [...] Plan of Treatment Not on file Insurance [facility] MEDICARE Care Teams Lime Burner Relationship Specialty Start Date End Date Wyatt Mann MD [address] [place] [address] PCP - General Family Medicine 03/31/20
--- OUTSIDE RECORDS SUMMARY | 2024-10-19 14:32 | XMS_ITS | Clinical Summary ---
[facility] Address [id number] [address] [place] [address] Care Team Providers Care Access Control Officer Name Role Phone Unavailable Primary Care Provider [...]
--- OUTSIDE RECORDS SUMMARY | 2024-10-19 14:32 | XMS_ITS | Patient Health Record ---
Author Organization [facility] in [place] Address [address] [place] [address] Care Team Providers Care Willower Name Role Phone Rayna Vasquez Primary Care Provider Waldemarward Uriah Unavailable [phone] Allergies No Known Allergies Results Component Value Reference Range Notes FREE T3 Reviewed date:10/24/2023 01:39:40 PM Interpretation: Performing Lab: Notes/Report: [facility] , Free T3 2.22 2.18-3.98 pg/mL Performing Lab: see note ML - [facility] LB GLYCOHEMOGLOBIN A1C Reviewed date:10/24/2023 01:39:40 PM Interpretation: Performing Lab: Notes/Report: [facility] , Glycohemoglobin A1C 5.4 4.5-6.2 % ADA RECOMMENDED LIMIT 4.0 - 6.0 > 7.0 ADA THERAPEUTIC TARGET < 7.0 ACTION SUGGESTED Estimated Average Glucose 108 Performing Lab: see note ML - [facility] LB LIPID PROFILE Reviewed date:10/24/2023 01:39:40 PM Interpretation: Performing Lab: Notes/Report: [facility] , Triglycerides 109 <=150 mg/dL Cholesterol 221 <=200 mg/dL HDL Cholesterol 71 40-60 mg/dL > or =60 mg/dl - LOW CARDIOVASCULAR RISK <40 mg/dl - HIGH CARDIOVASCULAR RISK LDL Cholesterol Calculated 129.0 >190 mg/dl VERY HIGH <100 mg/dl OPTIMAL 160-189 mg/dl HIGH 100-129 mg/dl NEAR OR ABOVE OPTIMAL 130-159 mg/dl BORDERLINE HIGH VLDL CHOLESTEROL 21.8 Chol HDL Ratio 3.1 >11.0 HIGH RISK 3.3 - 4.4 LOW RISK 4.4 - 7.1 AVERAGE RISK 7.1 - 11.0 MODERATE RISK Performing Lab: see note ML - [facility] LB PROF 14(COMP METB) Reviewed date:10/24/2023 01:39:40 PM Interpretation: Performing Lab: Notes/Report: [facility] , Sodium 141 136-145 mmol/L Potassium 4.3 [...] 0.8 Performing Lab: see note ML - [facility] LB T4 Reviewed date:10/24/2023 01:39:40 PM Interpretation: Performing Lab: Notes/Report: [facility] , T4 Thyroxine 7.00 4.80-13.90 ug/dL Performing Lab: see note ML - [facility] LB TSH Reviewed date:10/24/2023 01:39:40 PM Interpretation: Performing Lab: Notes/Report: [facility] , Thyroid Stimulating Hormone 0.570 0.358-3.740 uIU/mL Performing Lab: see note ML - [facility] LB PROF 14(COMP METB) Reviewed date:11/04/2023 02:29:36 PM Interpretation: Performing Lab: Notes/Report: [facility] , Sodium 136 136-145 mmol/L Potassium 4.3 [...] 0.9 Performing Lab: see note ML - [facility] LB UA RANDOM W or MICROSCOPIC Reviewed date:11/10/2023 01:43:42 PM Interpretation: Performing Lab: Notes/Report: [facility] , Color Urine LT. YELLOW YELLOW Clarity Urine SL CLOUDY CLEAR Specific Gilbert Urine 1.010 1.005-1.025 pH Urine 6.5 5.0-9.0 [...] ORDERED Performing Lab: see note ML - [facility] LB PROF 14(COMP METB) Reviewed date:10/08/2024 01:35:15 PM Interpretation: Performing Lab: Notes/Report: [facility] , Sodium 141 136-145 mmol/L Potassium 4.5 3.5-5.1 mmol/L Chloride 103 98-107 mmol/L Carbon Dioxide 29.7 21.0-32.0 mmol/L Anion Gap 12.8 Glucose 89 74-106 mg/dL Blood Urea Nitrogen 35.0 7.0-18.0 mg/dL Creatinine 1.31 0.55-1.02 mg/dL Estimated GFR ( Tiffanie 48 >=60 mL/min/1.73m 2 Estimated GFR (Non- Leandra 40 >=60 mL/min/1.73m 2 BUN Creatinine Ratio 26.7 Calcium 9.2 8.5-10.1 mg/dL Bilirubin Total 0.4 0.2-1.0 mg/dL Aspartate Amino Transferase 17 15-37 U/L Alanine Aminotransferase 27 14-59 U/L Alkaline Phosphatase 68 46-116 U/L Total Protein 7.4 6.4-8.2 g/dL Albumin Level 3.3 3.4-5.0 g/dL Globulin 4.1 Albumin Globulin Ratio 0.8 Performing Lab: see note ML - [facility] LB CBC AUTO DIFF Reviewed date:10/24/2023 01:39:40 PM Interpretation: Performing Lab: Notes/Report: [facility] , White Blood Count 7.3 4.0-11.0 10 [...] 0.00-0.03 10 3/uL Performing Lab: see note - [facility] LB PROF 14(COMP METB) Reviewed date:02/04/2024 12:11:10 PM Interpretation: Performing Lab: Notes/Report: [facility] , Sodium 143 136-145 mmol/L Potassium 4.3 [...] 0.9 Performing Lab: see note ML - [facility] Urine Culture, Routine Reviewed date:11/14/2023 01:31:38 PM Interpretation: Performing Lab: Notes/Report: [facility] , Urine Culture, Routine See Below For Report Isolated Organism: Gram negative piotr : Antibiotic Interpretation NESHA Status Isolated O:ESCCOL O:GNR Urine Culture, Routine Organism: 1.1 Urine Culture, Routine *ABNORMAL* Isolated Organism: Gram negative piotr : Antibiotic Interpretation NESHA Status Isolated O:ESCCOL O:GNR Urine Culture, Routine Organism: 1.1 Urine Culture, Routine 10,000-25,000 col oscar forming units per mL Isolated Organism: Gram negative piotr : Antibiotic Interpretation NESHA Status Isolated O:ESCCOL O:GNR Urine Culture, Routine Organism: 1.1 Urine Culture, Routine Gram negative piotr Isolated Organism: Gram negative piotr : Antibiotic Interpretation NESHA Status Isolated O:ESCCOL O:GNR Urine Culture, Routine Organism: 1.1 Urine Culture, Routine Organism: Escheri vick coli : Isolated Organism: Gram negative piotr : Antibiotic Interpretation NESHA Status Isolated O:ESCCOL O:GNR Urine Culture, Routine Organism: 1.1 Urine Culture, Routine *ABNORMAL* Isolated Organism: Gram negative piotr : Antibiotic Interpretation NESHA Status Isolated O:ESCCOL O:GNR Urine Culture, Routine Organism: 1.1 Urine Culture, Routine Identified by an automated biochemical system. Isolated Organism: Gram negative piotr : Antibiotic Interpretation NESHA Status Isolated O:ESCCOL O:GNR Urine Culture, Routine Organism: 1.1 Urine Culture, Routine 10,000-25,000 col oscar forming units per mL Isolated Organism: Gram negative piotr : Antibiotic Interpretation NESHA Status Isolated O:ESCCOL O:GNR Urine Culture, Routine Organism: 1.1 Urine Culture, Routine Cefazolin <=4 ug/mL Isolated Organism: Gram negative piotr : Antibiotic Interpretation NESHA Status Isolated O:ESCCOL O:GNR Urine Culture, Routine Organism: 1.1 Urine Culture, Routine Cefazolin with an NESHA <=16 predicts susceptibility Isolated Organism: Gram negative piotr : Antibiotic Interpretation NESHA Status Isolated O:ESCCOL O:GNR Urine Culture, Routine Organism: 1.1 Urine Culture, Routine to the oral agent s cefaclor, cefdinir, cefpodoxime, Isolated Organism: Gram negative piotr : Antibiotic Interpretation NESHA Status Isolated O:ESCCOL O:GNR Urine Culture, Routine Organism: 1.1 Urine Culture, Routine cefprozil, cefuro naya, cephalexin, and loracarbef when Isolated Organism: Gram negative piotr : Antibiotic Interpretation NESHA Status Isolated O:ESCCOL O:GNR Urine Culture, Routine Organism: 1.1 Urine Culture, Routine used for therapy of uncomplicated urinary tract Isolated Organism: Gram negative piotr : Antibiotic Interpretation NESHA Status Isolated O:ESCCOL O:GNR Urine Culture, Routine Organism: 1.1 Urine Culture, Routine infections due to E. coli, Klebsiella pneumoniae, and Isolated Organism: Gram negative piotr : Antibiotic Interpretation NESHA Status Isolated O:ESCCOL O:GNR Urine Culture, Routine Organism: 1.1 Urine Culture, Routine Proteus mirabilis. Isolated Organism: Gram negative piotr : Antibiotic Interpretation NESHA Status Isolated O:ESCCOL O:GNR Urine Culture, Routine Organism: 1.1 Urine Culture, Routine Escherichia coli Isolated Organism: Gram negative piotr : Antibiotic Interpretation NESHA Status Isolated O:ESCCOL O:GNR Urine Culture, Routine Organism: 1.1 Urine Culture, Routine See Below For Report Isolated Organism: Gram negative piotr : Antibiotic Interpretation NESHA Status Isolated O:ESCCOL O:GNR Urine Culture, Routine Organism: 1.1 Urine Culture, Routine See Below For Report Isolated Organism: Gram negative piotr : Antibiotic Interpretation NESHA Status Isolated O:ESCCOL O:GNR Urine Culture, Routine Organism: 1.1 Urine Culture, Routine Performed at: [facility] Isolated Organism: Gram negative piotr : Antibiotic Interpretation NESHA Status Isolated O:ESCCOL O:GNR Urine Culture, Routine Organism: 1.1 Urine Culture, Routine [address], [place] [id number] Isolated Organism: Gram negative piotr : Antibiotic Interpretation NESHA Status Isolated O:ESCCOL O:GNR Urine Culture, Routine Organism: 1.1 Urine Culture, Routine Manager Vehicle: Rafat Cristina PhD, Phone: [phone] Isolated Organism: Gram negative piotr : Antibiotic Interpretation ENSHA Status Isolated O:ESCCOL O:GNR Urine Culture, Routine Organism: 1.1 Urine Culture, Routine See Below For Report Isolated Organism: Gram negative piotr : Antibiotic Interpretation NESHA Status Isolated O:ESCCOL O:GNR Urine Culture, Routine Organism: 1.1 Urine Culture, Routine AMOXICILLIN/CLAVU LANIC ACID S F Isolated Organism: Gram negative piotr : Antibiotic Interpretation NESHA Status Isolated O:ESCCOL O:GNR Urine Culture, Routine Organism: 1.1 Urine Culture, Routine Ampicillin S F Isolated Organism: Gram negative piotr : Antibiotic Interpretation NESHA Status Isolated O:ESCCOL O:GNR Urine Culture, Routine Organism: 1.1 Urine Culture, Routine Cefepime S F Isolated Organism: Gram negative piotr : Antibiotic Interpretation NESHA Status Isolated O:ESCCOL O:GNR Urine Culture, Routine Organism: 1.1 Urine Culture, Routine Ceftriaxone S F Isolated Organism: Gram negative piotr : Antibiotic Interpretation NESHA Status Isolated O:ESCCOL O:GNR Urine Culture, Routine Organism: 1.1 Urine Culture, Routine Cefuroxime S F Isolated Organism: Gram negative piotr : Antibiotic Interpretation NESHA Status Isolated O:ESCCOL O:GNR Urine Culture, Routine Organism: 1.1 Urine Culture, Routine Ciprofloxacin R F Isolated Organism: Gram negative piotr : Antibiotic Interpretation NESHA Status Isolated O:ESCCOL O:GNR Urine Culture, Routine Organism: 1.1 Urine Culture, Routine Ertapenem S F Isolated Organism: Gram negative piotr : Antibiotic Interpretation NESHA Status Isolated O:ESCCOL O:GNR Urine Culture, Routine Organism: 1.1 Urine Culture, Routine Gentamicin S F Isolated Organism: Gram negative piotr : Antibiotic Interpretation NESHA Status Isolated O:ESCCOL O:GNR Urine Culture, Routine Organism: 1.1 Urine Culture, Routine Imipenem S F Isolated Organism: Gram negative piotr : Antibiotic Interpretation NESHA Status Isolated O:ESCCOL O:GNR Urine Culture, Routine Organism: 1.1 Urine Culture, Routine Levofloxacin R F Isolated Organism: Gram negative piotr : Antibiotic Interpretation NESHA Status Isolated O:ESCCOL O:GNR Urine Culture, Routine Organism: 1.1 Urine Culture, Routine Meropenem S F Isolated Organism: Gram negative piotr : Antibiotic Interpretation NESHA Status Isolated O:ESCCOL O:GNR Urine Culture, Routine Organism: 1.1 Urine Culture, Routine Nitrofurantoin S F Isolated Organism: Gram negative piotr : Antibiotic Interpretation NESHA Status Isolated O:ESCCOL O:GNR Urine Culture, Routine Organism: 1.1 Urine Culture, Routine Tetracycline S F Isolated Organism: Gram negative piotr : Antibiotic Interpretation NESHA Status Isolated O:ESCCOL O:GNR Urine Culture, Routine Organism: 1.1 Urine Culture, Routine Tobramycin S F Isolated Organism: Gram negative piotr : Antibiotic Interpretation NESHA Status Isolated O:ESCCOL O:GNR Urine Culture, Routine Organism: 1.1 Urine Culture, Routine Trimethoprim/Sulf ameth oxazole S F Isolated Organism: Gram negative piotr : Antibiotic Interpretation NESHA Status Isolated O:ESCCOL O:GNR Urine Culture, Routine Organism: 1.1 Urine Culture, Routine Piperacillin/Tazo bacta m S F Isolated Organism: Gram negative piotr : Antibiotic Interpretation NESHA Status Isolated O:ESCCOL O:GNR Urine Culture, Routine Organism: 1.1 Performing Lab: see note - [facility] LB SEE REPORT - Manager Workers Compensation Id information 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 found 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 INSULIN Reviewed date:10/27/2023 04:07:58 PM Interpretation: Performing Lab: Notes/Report: [facility] , Insulin 11.6 2.6-24.9 uIU/mL [address], [place] [id number] Performed at: [facility] Director: Chalino Cristina PhD, Phone: [phone] Performing Lab: see note LC - [facility] LB Reason For Referral Diagnosis 1 CKD (chronic kidney disease) (N18.9) Referral Organization [facility] Referring Provider First Name Rayna Referring Provider Last Name hCristina [facility] Referred Provider Tomeka Friedman Referred Provider Specialty Nephrology Referral Priority Routine Medications Medication SIG (Take, Route, Frequency, Duration) Notes Start Date End Date Status Cyclobenzaprine HCl 5 MG TAKE 1 TO 2 TAB LETS BY MOUTH EVERY DAY AT BEDTIME NEEDED FOR 30 DAYS for 30 Active Calcium & Magnesium Carbonates Active Alendronate Sodium 70 MG 1 TAB ORALLY ON CE A WEEK 30 MIN. BEFORE FIRST FOOD, DRINK OR MEDICINE OF DAY WITH WATER FOR 90 DAYS for 84 Active Potassium 99 MG 1 tablet Orally Once a day Active Pantoprazole Sodium 40 MG TAKE 1 TABLET BY MOUTH EVERY DAY for 90 Active Multi Vitamin Active Diclofenac Sodium 75 MG 1 tablet Orally daily for 30 days Active Sertraline HCl 100 MG TAKE 1 TABLET BY M OUTH EVERY DAY for 90 Active Vitamin D3 50 MCG (1999) 1 capsule Or ally Once a day Active Social History Tobacco Use: Social History [...] W/U Status Risk Notes Problem Senile osteoporosis (M81.0) Active confirmed Problem Anxiety (88316419) Anxiety (F41.9) Active confirmed Problem Chronic kidney disease (587944957) CKD (chronic kidney disease) (N18.9) Active confirmed Problem Sciatica (68800399) Sciatica (M54.30) Active confirmed Problem Diverticular disease (454430664) Diverticular disease (K57.90) Active confirmed Vital Signs Blood pressure diastolic 72 mm Hg 10/12/2024 Height 66 in 10/12/2024 Blood pressure systolic 128 mm Hg 10/12/2024 Weight 220 lbs 10/12/2024 BMI 35.51 kg/m2 10/12/2024 Encounters Encounter Location Date Provider Diagnosis [facility] [address] [place] [address] 11/07/2023 Rayna Vasquez Dysuria R30.[address].4 [facility] [address] [place] [address] 10/12/2024 Rayna Vasquez Sciatica M54.30 ; CK D (chronic kidney disease) N18.9 and Senile osteoporosis M81.0 [facility] [address] [place] [address] 10/24/2023 Rayna Vasquez Kidney function test abnormal R94.4 [facility] [address] [place] [address] 11/04/2023 Rayna Vasquez Abnormal renal function N28.9 [facility] [address] [place] [address] 11/10/[address] [facility] [address] [place] [address] 02/04/2024 Rayna Vasquez CKD (chronic kidney disease) N18.9 [facility] [address] [place] [address] 10/04/2024 Rayna Vasquez Senile osteoporosis M81.0 [facility] [address] [place] [address] 10/04/2024 Rayna Vasquez Wellness examination Z01.89 [facility] [address] [place] [address] 10/04/[address] [facility] [address] [place] [address] 10/08/[address] [facility] [address] [place] [address] 10/12/[address] [facility] [address] [place] [place] [address] 10/12/2024 Rayna Vasquez CKD (chronic kidney disease) N18.9 [facility] [address] [place] [address] 10/14/2024 Rayna Vasquez [facility] [address] [place] [address] 10/17/2024 Uriah Mann Assessments Encounter Date Diagnosis (ICD Code) Assessment Notes Treatment Notes Treatment Clinical Notes Section Notes 11/07/2023 Dysuria (ICD-10 - R30.0) US next step? fu urology? 11/07/2023 Decreased GFR (ICD-10 - R94.4) discussed CKD diclofenac is new over last few years takes daily hold , try tylenol repeat cmp 3 months defers renal referral at this time 10/12/2024 Sciatica (ICD-10 - M54.30) continue tens unit, tylenol, takes 1 diclofenac daily encouraged PT, defers for now does not want to consider surgery not interested in pain man at this time 10/24/2023 Kidney function test abnormal (ICD-10 - R94.4) 11/04/2023 Abnormal renal function (ICD-10 - N28.9) 02/04/2024 CKD (chronic kidney disease) (ICD-10 - N18.9) 10/04/2024 Senile osteoporosis (ICD-10 - M81.0) 10/04/2024 Wellness examination (ICD-10 - Z01.89) 10/12/2024 CKD (chronic kidney disease) (ICD-10 - N18.9) 10/12/2024 CKD (chronic kidney disease) (ICD-10 - N18.9) check on referral 10/12/2024 Senile osteoporosis (ICD-10 - M81.0) check on dexa results not read yet Plan Of Treatment Pending Test Test Name [...] BONE DENSITY 10/04/2024 THYROID PANEL (T4/TSH/FREE T3) 5 THYROID PANEL (T4/TSH/FREE T3) 4 Insurance Providers Payer Name Payer Address Payer Phone Subscriber Number Group Number Insured Name Patient Relationship to Insured Coverage Start Date Coverage End Date [employer] [id number] [place] [phone] [id number] Rochelle Montanez Self - patient is the insured Medical (General) History Medical History History ICD Code Plantar fasciitis M72.2 Hiatal hernia K44.9 COVID-19 U07.1 Osteopenia M85.80 Urinary retention R33.9 Anxiety F41.9 Diverticular disease K57.90 Internal hemorrhoids K64.8 Surgical History Surgery Date(Month/Year) urethra stretched
--- OUTSIDE RECORDS SUMMARY | 2024-10-19 14:32 | XMS_ITS | Clinical Summary ---
Author Organization [facility] Address [address] [place] [address] Care Team Providers Care Vacuum Cleaner Assembler Name Role Phone Unavailable Primary Care Provider [...] Vaccine: 65+ Years Completed 2, 08/26/2019 Insurance [facility] MEDICARE ADVANTAGE
[2024-10-19 14:33] VITALS: BP 132/88; PULSE 87; TEMP 36.7; O2SAT 95; BMI 33.3
[2024-10-19] MEDS: LIDOCAINE HCL 1% 100 MG/10 ML MDV INJ (15:41)
--- NOTE | 2024-10-19 16:08 | ED_ITS ---
HPI - Wound/Laceration General Chief Complaint: Wound/Laceration Stated Complaint: LACERATION L HAND Time Seen by Provider: 10/19/24 14:35 Source: patient Mode of arrival: walk-in History of Present Illness HPI narrative: The patient is coming to the ER after she sustained his laceration to her left hand index finger. She was using a hedge stall and apparently her left finger ,the patient last tetanus was more than 5 years ago Related Data Home Medications ?Medication ?Instructions ?Recorded ?Confirmed alendronate 70 mg tablet mg PO 10/19/24 diclofenac sodium 75 mg mg PO 10/19/24 tablet,delayed release estradiol 0.01% (0.1 mg/gram) vaginal 10/19/24 vaginal cream pantoprazole 40 mg tablet,delayed mg PO 10/19/24 release sertraline 100 mg tablet mg 10/19/24 Previous Rx's ?Medication ?Instructions ?Recorded cephalexin 500 mg capsule 500 mg PO Q8H 7 days #21 cap s 10/19/24 Allergies Allergy/AdvReac Type Severity Reaction Status Date / Time No Known Drug Allergies Allergy Verified 10/19/24 14:33 Review of Systems ROS Status of ROS 10 or more systems reviewed and unremark able except as noted in history and below PFSH PFSH Social History Little interest or pleasure in doing things: not at all Feeling down, depressed, or hopeless: not at all Exam Narrative Exam Narrative: Nurses notes and vital signs reviewed and patient is not hypoxic. General: Well-appearing and in no apparent distress. Skin: Warm, dry, no pallor noted. Left hand examination: The patient have a laceration to the index finger mostly at the proximal phalanx at the palmar aspect it is irregular in shape almost like and it is showing macerated edges and the patient have no exposure of the underlying structures and there is no tendon involvement of the patient is able to have full range of movement in that finger, the patient laceration just going through the epidermis no involvement of the dermis Constitutional Vital Signs, click to edit/add: Last Vital Signs Temp 98.1 F 10/19/24 14:33 Pulse 87 10/19/24 14:33 Resp 16 10/19/24 14:33 BP 132/88 10/19/24 14:33 Pulse Ox 95 10/19/24 14:33 O2 Del Method Room Air 10/19/24 14:33 Course Vital Signs Vital signs: Vital Signs Temperature 98.1 F 10/19/24 14:33 Pulse Rate 87 10/19/24 14:33 Respiratory Rate 16 10/19/24 14:33 Blood Pressure 132/88 10/19/24 14:33 Pulse Oximetry 95 10/19/24 14:33 Oxygen Delivery Method Room Air 10/19/24 14:33 Temperature 98.1 F 10/19/24 14:33 Pulse Rate 87 10/19/24 14:33 Respiratory Rate 16 10/19/24 14:33 Blood Pressure 132/88 10/19/24 14:33 Pulse Oximetry 95 10/19/24 14:33 Oxygen Delivery Method Room Air 10/19/24 14:33 MDM - Wound/Laceration MDM Narrative Medical decision making narrative: After cleaning the finger thoroughly the patient had a finger block at the second metacarpal phalangeal joint space with infiltration of almost 2 cc of 1% lidocaine with no epi Then the wound was able to be explored fully there was no involvement of the underlying structures or tendons or bone There was no foreign body in laceration was sutured with 7 stitches of 5-0 Prolene Patient instructed about proper care of the stitches and monitoring symptoms at home she also was provided with Keflex for prophylaxis Patient provided with a Boostrix tetanus booster The sutures to be removed after 5 to 7 days The patient is to follow up with primary care physician in next 2-3 days or to return to the emergency department should any of the signs or symptoms worsen or new symptoms develop. The patient agrees with the following Diagnosis and Treatment plan and the patient will be discharged home. Discharge Plan Discharge Chief Complaint: Wound/Laceration Clinical Impression: Laceration Patient Disposition: Home, Self-Care Time of Disposition Decision: 15:54 Condition: Good Prescriptions / Home Meds: New cephalexin 500 mg capsule 500 mg PO Q8H 7 Days Qty: 21 0RF No Action alendronate 70 mg tablet PO sertraline 100 mg tablet pantoprazole 40 mg tablet,delayed release (DR/EC) PO diclofenac sodium 75 mg tablet,delayed release (DR/EC) PO estradiol 0.01 % (0.1 mg/gram) cream VAGINAL Print Language: Ugandan Instructions: Care For Your Stitches (DC), Laceration (DC) Referrals: GLORIA WEAVER [Primary Care Provider, Family Practice] - 1 week
[2024-10-19] MEDS: DIPHTH,PERTUSS(ACELL),TET VAC 0.5 ML SYRINGE IM (16:20)
== END 2024-10-19 16:31 | disposition home or self-care (01) ==
PROVIDERS: Emergency Provider Emergency Medicine; PCP Nurse Practitioner Family
DX: S61.211A Laceration without foreign body of left index finger without damage to nail, initial encounter (principal); W29.3XXA Contact with powered garden and outdoor hand tools and machinery, initial encounter; Y93.H2 Activity, gardening and landscaping; Z23 Encounter for immunization
CPT/HCPCS: 12001; 90471; 99284

== ENCOUNTER 2024-10-26 10:05 | Outpatient (OUT) | payer OTHER, SELFPAY ==
--- OUTSIDE RECORDS SUMMARY | 2024-10-14 10:06 | XMS_ITS ---
Author Organization The [facility] in [place] Address [address] [place] [address] Care Team Providers Care Laboratory Sample Carrier Name Role Phone Rayna Vasquez Primary Care Provider REASON FOR VISIT duplicate message Encounters Encounter Location Date Provider Diagnosis [address] [address] 10/14/2024 Rayna Vasquez Plan Of Treatment Next Appt Details Provider Name:Rayna monroe, 10/26/2024 11:00:00 AM, [address] [place], [address], Progress Notes * Rochelle MONTANEZ SDOB:1950 (74 yo F)Acc No.[id number]:10/14/2024 Patient: Rochelle CLINTON :1950 A ge:74 Y S ex:Female Address:[address] [place] [address] * true * Date: Generated for Printi ng/Faxing/eTransmitting on: 0 10/26/2024 10:07 AM EDT
--- OUTSIDE RECORDS SUMMARY | 2024-10-17 16:54 | XMS_ITS ---
Author Organization The [facility] in [place] Address [address] [place] [address] Care Team Providers Care Car Head Liner Installer Name Role Phone Rayna Vasquez Primary Care Provider [phone] Uriah Erwin [phone] REASON FOR VISIT dexa Encounters Encounter Location Date Provider Diagnosis [facility] [address] [place] [address] 10/17/2024 Uriah Mann Plan Of Treatment Next Appt Details Provider Name:Rayna monroe, 10/26/2024 11:00:00 AM, [address] [place], [address], Progress Notes * Rochelle MONTANEZ SDOB:1950 (74 yo F)Acc No.[id number]:10/17/2024 Patient: Madison CARRILLO Rochelle Augustina :1950 A ge:74 Y S ex:Female Address:[place] [address] Subjective: * Chief Complaints: * D exa * Medical History: * Surgical History: * Hospitalization/Major Diagno stic Procedure: * Medications: Objective: * Vitals: * Physical Examination: Assessment: Plan: * Treatment: * Procedure Codes: * true * Date: Generated for Printi ng/Faxing/eTransmitting on: 0 10/26/2024 10:07 AM EDT
--- OUTSIDE RECORDS SUMMARY | 2024-10-26 07:00 | XMS_ITS ---
Author Organization [facility] [place] Address [address] [place] [address] Care Team Providers Care Dough Molder Hand Name Role Phone Rayna Vasquez Primary Care Provider REASON FOR VISIT suture removal--left hand Encounters Encounter Location Date Provider Diagnosis [facility] [address] [place] [phone] 10/26/2024 Rayna Vasquez Plan Of Treatment Next Appt Details Provider Name:Rayna monroe, 10/26/2024 11:00:00 AM, [address] [place], [address], Progress Notes * TOMRochelle SDOB:1950 (74 yo F)Acc No.[id number]:10/26/2024 UNLOCKED PROGRESS NOTE Progress Note Patient: Rochelle CLINTON Provider: Mando Vasquez ([facility]), SHIPPING SUPERVISOR :1950 A ge:74 Y S ex:Female Date:10/26/2024 [address] [id number] Subjective: * Chief Complaints: * 1 . Suture removal--left hand. * Medical History: Objective: * Vitals: Assessment: Plan: * Treatment: * * Electronic signature of Hailey Lucas , DESTINEY, DISTRICT DIRECTOR.SHIPPING SUPERVISOR.[id number] on 10/26/2024 at 10:07 AM EDT Sign off status: Pending Visit Status: C ONFPHONE (Voice) * Provider: Mando Vasquez ([facility]), SHIPPING SUPERVISOR Date: 0 10/26/2024 Generated for Mary Lou ackerman/Kim/Bobitting on: 0 10/26/2024 10:07 AM EDT
--- OUTSIDE RECORDS SUMMARY | 2024-10-26 10:08 | XMS_ITS | Clinical Summary ---
Author Organization [facility] Address [address] [place] [address] Care Team Providers Care Finance Assistant Name Role Phone Unavailable Primary Care Provider [...] Vaccine: 65+ Years Completed 2, 08/26/2019 Insurance [facility] MEDICARE ADVANTAGE
--- OUTSIDE RECORDS SUMMARY | 2024-10-26 10:08 | XMS_ITS | Clinical Summary ---
Author Organization [facility] Address [address], [address] [place] [address] Care Team Providers Care Engraver Tire Mold Name Role Phone Wyatt Mann MD Primary Care Provider [phone] Allergies No known active allergies Medications latanoprost [...] Plan of Treatment Not on file Insurance [facility] MEDICARE Care Teams Engraver Tire Mold Relationship Specialty Start Date End Date Wyatt Mann MD [address] [place] [address] PCP - General Family Medicine 03/31/20
--- OUTSIDE RECORDS SUMMARY | 2024-10-26 10:08 | XMS_ITS | Clinical Summary ---
[facility] Address [id number] [place] [address] Care Team Providers Care Advisory Software Engineer Name Role Phone Unavailable Primary Care [...]
[2024-10-26 10:45] LABS: Hematocrit 35.1 % (36.0-48.0); Hemoglobin 12.0 g/dL (12.0-16.0); Immature Granulocytes Abs Auto 0.01 10^3/uL (0.00-0.03); Immature Granulocytes Pct Auto 0.2 % (0.0-0.5); Lymphocytes Absolute Auto 1.6 10^3/uL (1.2-3.8); Mean Corpuscular HGB Conc 34.2 g/dL (29.9-35.2); Mean Corpuscular Hemoglobin 33.7 pg (26.7-34.0); Mean Corpuscular Volume 98.6 fL (81.0-99.0); Platelet Count 237 10^3/uL (150-450); Red Blood Count 3.56 10^6/uL (4.20-5.40); White Blood Count 5.2 10^3/uL (4.0-11.0)
[2024-10-26 12:10] LABS: Alanine Aminotransferase 20 U/L (14-59); Albumin Globulin Ratio 0.8; Albumin Level 3.3 g/dL (3.4-5.0); Alkaline Phosphatase 55 U/L (46-116); Anion Gap 12.1; Aspartate Amino Transferase 18 U/L (15-37); Blood Urea Nitrogen 23.0 mg/dL (7.0-18.0); Calcium 9.3 mg/dL (8.5-10.1); Carbon Dioxide 29.2 mmol/L (21.0-32.0); Chloride 104 mmol/L (98-107); Cholesterol 208 mg/dL (<=200); Estimated GFR (African America >60 (>=60 mL/min/1.73m^2); Estimated GFR (Non-African Ame 57 (>=60 mL/min/1.73m^2); Free T3 1.88 pg/mL (2.18-3.98); Globulin 3.9 g/dL; Glucose 92 mg/dL (74-106); HDL Cholesterol 63 mg/dL (40-60); Potassium 4.3 mmol/L (3.5-5.1); Sodium 141 mmol/L (136-145); Thyroid Stimulating Hormone 0.778 uIU/mL (0.358-3.740); Total Protein 7.2 g/dL (6.4-8.2); Triglycerides 133 mg/dL (<=150); VLDL CHOLESTEROL 26.6 mg/dL
== END 2024-10-26 10:06 | disposition home or self-care (01) ==
LOC: LAB 10:05
PROVIDERS: PCP Nurse Practitioner Family; Visit Provider Nurse Practitioner Family
DX: E78.5 Hyperlipidemia, unspecified (principal); R73.09 Other abnormal glucose; R53.83 Other fatigue; Z12.12 Encounter for screening for malignant neoplasm of rectum; I10 Essential (primary) hypertension
CPT/HCPCS: 36415; 80053; 80061; 83036; 84436; 84443; 84481; 85025

== ENCOUNTER 2024-11-26 11:56 | Outpatient (OUT) | payer OTHER, SELFPAY ==
--- OUTSIDE RECORDS SUMMARY | 2024-11-26 11:59 | XMS_ITS | Clinical Summary ---
Author Organization [facility] Address [address] [place] [address] Care Team Providers Care Health Therapist Name Role Phone Unavailable Primary Care Provider [...] Vaccine: 65+ Years Completed 2, 08/26/2019 Insurance [facility] MEDICARE ADVANTAGE
--- OUTSIDE RECORDS SUMMARY | 2024-11-26 11:59 | XMS_ITS | Clinical Summary ---
Author Organization [facility] Address [address], [address] [place] [address] Care Team Providers Care Informaticist Name Role Phone Wyatt Mann MD Primary Care Provider [phone] Allergies No known active allergies Medications latanoprost [...] Plan of Treatment Not on file Insurance [facility] MEDICARE Care Teams Informaticist Relationship Specialty Start Date End Date Wyatt Mann MD [address] [place] [address] PCP - General Family Medicine 03/31/20
--- OUTSIDE RECORDS SUMMARY | 2024-11-26 11:59 | XMS_ITS | Clinical Summary ---
Author Organization [facility] Address [id number] [place] [address] Care Team Providers Care Charge Authorizer Name Role Phone Unavailable Primary Care Provider [...]
--- OUTSIDE RECORDS SUMMARY | 2024-11-26 12:05 | XMS_ITS | CCD ---
Author Organization [facility] Care Team Providers Care Disability Manager Name Role Phone OWEN, RAYNA Attending Unavailable OWEN, RAYNA Primary Care Unavailable [...] Valladares Admitting Unavailable Yary Valladares Attending Unavailable Wanda, Rayna Admitting Unavailable Wanda, Rayna Attending Unavailable Wyatt Mann Primary Care Unavailable OWEN, RAYNA Jackman Primary Care Physician YANE GUAMAN Attending Unavailable Ji GAGNON Referring Unavailable YANE GUAMAN Attending Unavailable YANE GUAMAN Attending Unavailable Ji GAGNON Referring Unavailable Ji GAGNON Admitting Unavailable Ji GAGNON Attending Unavailable YANE GUAMAN Admitting Unavailable YANE GUAMAN Attending Unavailable YANE GUAMAN Admitting Unavailable YANE GUAMAN Attending Unavailable Wyatt Mann MD Primary Care Provider Giana Aragon APRN Attending Provider [phone] Diana Calderon Attending Unavailable Allergies Allergy Classification Reported Allergen(s) Allergy Type Date of Onset Reaction(s) Facility (2 sources) No Known Medication Allergies; Translations: [No Known Medication Allergies] Propensity to adverse reactions (disorder) [facility] Repository Medications Current Medications Medication Drug Class(es) Dates Sig (Normalized) Sig (Original) alendronic acid 70 mg oral tablet (7 sources) Bisphosphonate Start: 05-18-2023 take 1 tablet by mouth every week [...] Oral, Daily Start Date: 10/29/18 Status: Ordered cefpodoxime 200 mg oral tablet (1 source) Cephalosporin Antibacterial Start: 11-06-2024 take 1 tablet by mouth twice daily Cefpodoxime 200 mg tablet Active 200 MG PO Twice daily November 06, 2024 12:00am Complies with drug therapy cetirizine hydrochloride 10 mg oral tablet (2 [...] cysto., # 2 tab(s), Refills(s) 0, Pharmacy: [facility]/pharmacy #[id number], 164, cm, 03/16/24 8:48:00 EST, Height/Length Dosing, 97.3, kg, 03/16/24 8:48:00 EST, Weight Dosing Start Date: 03/16/24 Status: Ordered Quantity: 2.0 Unit: tab(s) Repeat number: 1 Indications: Unspecified urethral stricture, female; Urinary tract infection, site not specified; cyclobenzaprine hydrochloride 10 mg oral tablet (1 source) Muscle Relaxant Start: 11-06-2024 take 1 tablet by mouth three times daily as needed for muscle spasms Cyclobenzaprine 10 mg tablet Active 10 MG PO Three times daily as needed for muscle spasm 7 3 November 06, 2024 12:00am Complies with drug therapy D3 (4 sources) Start: 03-16-2024 take 25 [...] procedure, # 1 tab(s), Refills(s) 0, Pharmacy: [facility]/pharmacy #[id number], 164, cm, 03/16/24 8:48:00 EST, Height/Length Dosing, 97.3, kg, 03/16/24 8:48:00 EST, Weight Dosing Start Date: 03/16/24 Status: Ordered Quantity: 1.0 Unit: tab(s) Repeat number: 1 Indications: Unspecified urethral stricture, female; Urinary tract infection, site not specified; diclofenac sodium 75 mg delayed release oral tablet (7 sources) Nonsteroidal Anti-inflammatory Drug Start: 11-06-2024 take 1 tablet by mouth once daily Diclofenac Sodium 75 mg tablet,delayed release (DR/EC) Active 75 MG PO Daily November 06, 2024 12:00am Complies with drug therapy Start: 03-16-2024 take 1 tablet by vera once daily diclofenac sodium 75 mg Oral EC Tab 75 mg = 1 tab(s), Oral, Daily Start Date: 03/16/24 Status: Ordered Repeat number: 1 take 1 tablet by vera th every twelve hours Diclofenac Sodium 75 MG 1 tablet as needed Orally Twice a day Active estradiol 0.1 mg/ml vaginal cream (4 sources) Estrogen Start: 03-16-2024 Estrace 0.1 mg /g Cream See Instructions, 42.5 gm, Refill(s) 6, apply a pea-sized amount vaginally and around the urethra nightly x 3 weeks, then 3x per week thereafter, [facility]/pharmacy #[id number], 164, cm, 03/16/24 8:48:00 EST, [...] a day for 14 day(s) Jan, Active lidocaine 0.05 mg/mg medicated patch (1 source) Antiarrhythmic, Amide Local Anesthetic Start: 11-06-2024 apply 1 dose topically once daily as needed for pain Lidocaine 5 % adhesive patch,medicated Active 1 PATCH TOPICAL Daily as needed for pain November 06, 2024 12:00am leave on most painful area for up to 12 hrs Complies with drug therapy Multi Vitamin+ (4 sources) Start: 10-29-2018 Multi Vitamin+ Start Date: 10/29/18 Status: Ordered Repeat number: 1 Start: 10-29-2018 Multi Vitamin+ Start Date: 10/29/18 Status: Ordered pantoprazole 40 mg delayed release oral tablet (7 sources) Proton Pump Inhibitor Start: 10-29-2018 Pantoprazole 40 mg tablet,delayed release (DR/EC) Active MG PO May 18, 2023 1:00am Complies with drug therapy predniSONE 50 mg oral tablet (1 source) Start: 11-06-2024 take 1 tablet by mouth once daily Prednisone 50 mg tablet Active 50 MG PO Daily 5 November 06, 2024 12:00am Complies with drug therapy sertraline 100 mg oral tablet (7 sources) Serotonin Reuptake Inhibitor Start: 10-29-2018 Sertraline 100 mg tablet Active MG PO May 18, 2023 1:00am Complies with drug therapy Completed/Discontinued Medications Medication Drug Class(es) Dates Sig (Normalized) Sig (Original) cephalexin 500 mg oral capsule (3 sources) Cephalosporin Antibacterial Start: 05-18-2023 End: 11-06-2024 take 1 capsule by mouth three times daily Cephalexin 500 mg capsule Discontinued 500 MG PO Three times daily 15 May 18, 2023 1:00am November 06, 2024 11:40am Start: 01-19-2023 take 1 capsule by mo ut every eight hours Cephalexin 500 MG 1 capsule Orally every 8 hrs for 7 Jan, Active Ketorolac (2 sources) Nonsteroidal Anti-inflammatory Drug, Cyclooxygenase Inhibitor Start: 04-25-2019 Toradol per 15 mg Apr, 30 mg phenazopyridine hydrochloride 200 mg oral tablet (1 source) Start: 05-18-2023 End: 11-06-2024 take 1 tablet by mouth every eight hours Phenazopyridine (Pyridium) 200 mg tablet Discontinued 200 MG PO Every 8 hours 6 2 May 18, 2023 1:00am November 06, 2024 11:40am Triamcinolone (2 sources) Corticosteroid Start: 04-25-2019 KENALOG [...] unspecified; Translations: [HYPERLIPIDEMIA UNSPECIFIED] Onset: 06-04-2022 Chronic Genitourinary symptoms and ill-defined conditions (7 sources) Dysuria; Translations: [Dysuria] Onset: 01-10-2022 Episodic Glaucoma (4 sources) Glaucoma 10-29-2018 Chronic Menopausal [...] Spondylosis; intervertebral disc disorders; other back problems (5 sources) Sciatica; Translations: [Sciatica, left side] 11-06-2024 Episodic Unclassified (1 source) COUGH, UNSPECIFIED; Translations: [COUGH, UNSPECIFIED] Onset: 12-02-2021 Urinary tract infections (10 sources) Urinary tract infection, site not specified; Translations: [Urinary tract infectious disease] Onset: 12-24-2021 Episodic Viral infection (4 sources) COVID-19; Translations: [COVID-19] Onset: 11-27-2021 Past or Other Problems Problem Classification Problem Date Documented Da te Episodic/Chronic Other lower respiratory disease (1 source) Shortness [...] Locations R1: This test was performed at: [facility], [address] [place] [address], [id number] , [place], Normal [facility] Comment on above: Performed By: #### 2 [id number] #### [facility] [address] [place] [id number] Ambulatory Visit Summaryon 0 09-27-2024 Ambulatory Visit Summary Ambulatory Visit Summary GAVI MONTANEZ :1950 Visit Date:09/27/2024 Ambulatory Visit Instructions Your [...] signed up for this yet, please contact Burt at [phone] to get signed up today. Language Information Language assistance services are available as needed. Normal [facility] Urology Office/Clinic Noteon 09-27-2024 Urology Office/Clinic [...] cysto., # 2 tab(s), Refills(s) 0, Pharmacy: [facility]/pharmacy #[id number], 164, cm, 03/16/24 8:48:00 EST, Height/Length Dosing, 97.3, kg, 03/16/24 8:48:00 EST, Weight Dosing Body Mass Index (BMI) documented 3008F Current tobacco non-user 1036F Depression Screening Negative 3352F E&M of Est. Patient Low 20-29 Min 10221 Influenza immunization status assessed 1030F Medication list [...] Urnls Dip Stick Auto w/o Microscopy POC 73286 Follow-up With When Contact Information YANE GUAMAN PA-C, URL [address] [place] [address] [facility] (1) Additional Instructions: pending results of imaging/testing, [...] pH Urine Dipstick: 5.5 (09/27/24 11:23:00) Normal [facility] Comment on above: Result Comment: Elec tronically Signed By: DENIZ PATEL, YANE Zepeda\.br\Date and Time Signed: 09/27/24 11:56 EDT Main OR Intraoperative Recor don 05-04-2024 Main OR Intraoperative Record Main OR Intraoperative Record IntraOp Document Type FTURO Summary Primary Physician: Ji GAGNON MD Finalized Date/Time: 05/04/24 10:52:00 Pt. Name: GAVI MONTANEZ /Sex: 1950 Female Med Rec #: [id number] Physician: Ji GAGNON MD Financial #: [id number] Pt. Type: O Room/Bed: / Admit/Disch: 05/04/24 [...] Kendall R Role Performed Surgeon - Primary Radiologic Technologist - Primary Scrub - Primary Time In [...] URETHRAL DILATION Primary Procedure Yes Primary Surgeon iJ GAGNON MD Start 05/04/24 10:43:00 Stop 05/04/24 [...] 05/04/24 10:51 Zoila Siddiqui 05/04/24 10:52 Normal [facility] Main OR Preoperative Recordo n 05-04-2024 Main OR Preoperative Record Main OR Preoperative Record Holding Area Document Type FTURO Summary Primary Physician: Ji GAGNON MD Finalized Date/Time: 05/04/24 10:43:46 Pt. Name: FATMATA MONTANEZANETTDuane Amado./Sex: 1950 Female Med Rec #: [id number] Physician: Ji GAGNON MD Financial #: [id number] Pt. Type: O Room/Bed: / Admit/Disch: 05/04/24 [...] Complaints of Pain: No Skin Integrity Intact, [place], Warm, & Dry Vitals - EU Blood Pressure 138/79 Pulse 72 bpm Respirations 18 br/min SPO2 97 % Additional None RN Reviewed Yes Specimens Collected Last Modified By: Zoila Siddiqui 05/04/24 10:43:45 Finalized By: Zoila Siddiqui Document Signatures Signed By: Roberto MURDOCKTeresaOralia D 05/04/24 10:24 Zoila Siddiqui 05/04/24 10:43 Normal [facility] Operative Reporton Operative Report Operative Report Patient: GAVI MONTANEZ Age: 73 years Sex: Female : 1950 [...] urine. The Urethra was dilated to: 30 Bel[place]ian w/ sounds. Devices Implanted: None. Removal: Cystoscope is removed, The patient tolerated it well. Postoperative Information Discharge: Patient is discharged home with antibiotic coverage, Follow up arranged. She is strongly encouraged to be compliant with her estradiol cream.. Normal [facility] Comment on above: Result Comment: Elec tronically Signed By: Ji GAGNON MD\.br\Date and Time Signed: 05/04/24 10:53 EST Ambulatory Visit Summaryon 1 Ambulatory Visit Summary Ambulatory Visit Summary GAVI MONTANEZ :1950 Visit Date:03/16/2024 Ambulatory Visit Instructions Your [...] Follow-Up Appointments Friday 11:00 AM EST Where: [facility] Friday 10:15 AM EST Where: [facility] You Need to Schedule the Following Appointments Follow Up with [facility] When: Comments: For procedure as scheduled. Where: Medications What How Much When Why Instructions New ciprofloxacin (Cipro 500 mg Tab) See instructions Recurrent UTI Stricture of female urethra 1 tab po night prior to cysto. 1 tab po following cysto. Pickup at [facility]/pharmacy #[id number] New diazepam (Valium 5 mg Tab) 1 Tablets By Mouth Once Recurrent UTI Stricture of female urethra 1 hr prior to procedure Pickup at [facility]/pharmacy #[id number] New estradiol topical (Estrace 0.1 mg/ g Cream) See instructions Recurrent UTI Stricture of female urethra Refills: 6 apply a pea-sized amount vaginally and around the urethra nightly x 3 weeks, then 3x per week thereafter Pickup at [facility]/pharmacy #[id number] Unchanged alendronate (alendronate 70 mg Tab) 1 [...] physician if questions or concerns Pharmacy Information [facility]/pharmacy #[id number]: [address] [place], [place] [id number] [phone] Allergies No Known Medication Allergies Problems Ongoing [...] the risk? (more content not included)... 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 Likely secondary to [...] cysto., # 2 tab(s), Refills(s) 0, Pharmacy: [facility]/pharmacy #[id number], 164, cm, 03/16/24 8:48:00 EST, Height/Length Dosing, 97.3, kg, 03/16/24 8:48:00 EST, Weight Dosing diazepam, 5 mg = 1 tab(s), Oral, Once, 1 hr prior to procedure, # 1 tab(s), Refills(s) 0, Pharmacy: No [facility]/pharmacy #[id number], 164, cm, 03/16/24 8:48:00 EST, Height/Length Dosing, 97.3, kg, 03/16/24 8:48:00 EST, Weight Dosing estradiol topical, See Instructions, 42.5 gm, Refill(s) 6, apply a pea-sized amount vaginally and around the urethra nightly x 3 weeks, then 3x per week thereafter, No [facility]/pharmacy #[id number], 164, cm, 03/16/24 8:48:00 EST, Height/Length Dosing, 97.3, kg, 03/16/24 8:48:00 EST,... [address] Measure Post Void residual urine and/or bladder [...] Urnls Dip Stick Auto w/o Microscopy POC 37206 2. Stricture of female urethra (N35.92: Unspecified urethral stricture, female) Sp cysto/UD w DLS in 2019. Marked improvement in urinary sx and UTI frequency until 2022. Will start estrogen cream and schedule cysto UD. Pt states last time was painful. Offered pre-procedure Valium. Risks/benefits discussed. Pt would like to do this. 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 The procedure risks, benefits, details, and treatment alternatives have been discussed with the patient. These include bleeding, infection, recurrent scar in over 50%, need for repeat dilation or other procedures, no sy (more content not included)... Normal [facility] Comment on above: Result Comment: Elec tronically Signed By: YANE GUAMAN PA-C\.robert\Date and Time Signed: 03/16/24 09:25 EST Urine Cultureon 05-18-2023 Bacteria identified Cx Nom (U) ORGANISM: Escherichia coli (O:ESCCOL) Wheatley Count >100,000 Aerobic NESHA Charge (NMIC56) ----- [...] RESISTANT TO ALL B-LACTAM DRUGS. PERFORMED BY: [place] [address] PATHOLOGIST WELT RANDER DEYANIRA ARCE M.D. [facility] Comment on above: Performed By: #### C UU #### [address] Quick Strepon 01-19-2023 S. pyogenes Org specific cx Ql (Throat) Negative [employer] Other Urinalysis - AUTOMATEDon Appearance (U) CLEAR RF Arrays Other Bilirubin Ql (U) Negative [employer] Other Color (U) YELLOW [employer] Other Glucose Ql (U) Negative RF Arrays Other Hemoglobin Ql (U) Negative Merfac Other Ketones Ql (U) Negative [employer]rays Other Leukocyte esterase Test strip Ql (U) SMALL [employer] Other Nitrite Ql (U) Negative [employer] Other pH (U) 5.0 [pH] [employer] Other Protein Ql (U) TRACE [employer] Arrays Other Specific gravity (U) [Rel density] >=1.030 [employer] Other Urobilinogen (U) [Mass/Vol] 0.2 mg/dL [employer] Other Urinalysis - AUTOMATED [employer] Other Urine Cultureon 01-19-2023 Urine Culture >100,000 [employer] Other Bacteria identified Cx Nom (U) ORGANISM: Escherichia coli (O:ESCCOL) Wheatley Count >100,000 Aerobic NESHA Charge (NMIC56) ----- [...] RESISTANT TO ALL B-LACTAM DRUGS. PERFORMED BY: [place] [address] PATHOLOGIST WELT RANDER DEYANIRA ARCE M.D. Normal [facility] Comment on above: Performed By: #### C UU #### [address] XR DEXA BONE DENSITYon 06-14 XR [...] by: ALEXANDRA MARIA Date: 2022-06-14 15:17 Normal [facility] INSULINon 06-05-2022 Insulin 13.1 uIU/mL Normal 2.6-24.9 [facility] Comment on above: Performed By: #### I NSULIN #### [facility] [address] [place] [address] Dr. Stephon Breaux CBC AUTO DIFFon 06-04-2022 BASO # 0.1 103/ul Normal 0.0-0.1 [facility] Comment on above: Performed By: #### C BC #### [facility] [address] [place] [address] Dr. Stephon Breaux Basophils/100 WBC (Bld) 1.3 % Normal 0.2-2.0 [facility] Comment on above: Performed By: #### C BC #### [facility] [address] [place] [address] Dr. Stephon Breaux EO # 0.2 103/ul Normal 0.0-0.7 [facility] Comment on above: Performed By: #### C BC #### [facility] [address] [place] [address] Dr. Stephon Breaux Eosinophils/100 WBC (Bld) 4.4 % Normal 0.9-7.0 [facility] Comment on above: Performed By: #### C BC #### [facility] [address] [place] [address] Dr. Stephon Breaux Erythrocyte distribution width (RBC) [Ratio] 13.3 % Normal 11.0-15.0 [facility] Comment on above: Performed By: #### C BC #### [facility] [address] [place] [address] Dr. Stephon Breaux Hematocrit (Bld) [Volume fraction] 37.9 % Normal 36.0-48.[address] [facility] Comment on above: Performed By: #### C BC #### [facility] [address] [place] [address] Dr. Stephon Breaux Hemoglobin (Bld) [Mass/Vol] 12.5 g/dL Normal 12.0-16.[address] [facility] Comment on above: Performed By: #### C BC #### [facility] [address] [place] [address] Dr. Stephon Breaux IG # 0.00 10e3/ul Normal 0.00-0.[address] [facility] Comment on above: Performed By: #### C BC #### [facility] [address] [place] [address] Dr. Stephon Breaux IG % 0.0 % Normal 0.0-0.[address] [facility] Comment on above: Performed By: #### C BC #### [facility] [address] [place] [address] Dr. Stephon Breaux LYMPH # 1.9 103/ul Normal 1.2-3.[address] [facility] Comment on above: Performed By: #### C BC #### [facility] [address] [place] [address] Dr. Stephon Breaux Lymphocytes/100 WBC (Bld) 38.6 % Normal 20.5-60.[address] [facility] Comment on above: Performed By: #### C BC #### [facility] [address] [place] [address] Dr. Stephon Breaux MANUAL DIFF REQ NO Normal [facility] Comment on above: Performed By: #### C BC #### [facility] [address] [place] [address] Dr. Stephon Breaux MCH (RBC) [Entitic mass] 31.7 pg Normal 26.7-34.0 [facility] Comment on above: Performed By: #### C BC #### [facility] [address] [place] [address] Dr. Stephon Breaux MCHC (RBC) [Mass/Vol] 33.0 g/dL Normal 29.9-35.2 [facility] Comment on above: Performed By: #### C BC #### [facility] [address] [place] [address] Dr. Stephon Breaux MCV (RBC) [Entitic vol] 96.2 fL Normal 81.0-99.0 [facility] Comment on above: Performed By: #### C BC #### [facility] [address] [place] [address] Dr. Stephon Breaux MONO # 0.4 103/ul Normal 0.3-0.8 [facility] Comment on above: Performed By: #### C BC #### [facility] [address] [place] [address] Dr. Stephon Breaux Monocytes/100 WBC (Bld) 7.5 % Normal 1.7-12.0 [facility] Comment on above: Performed By: #### C BC #### [facility] [address] [place] [address] Dr. Stephon Breaux NEUT # 2.3 103/ul Normal 1.4-6.[address] [facility] Comment on above: Performed By: #### C BC #### [facility] [address] [place] [address] Dr. Stephon Breaux Neutrophils/100 WBC (Bld) 48.2 % Normal 43.0-75.0 [facility] Comment on above: Performed By: #### C BC #### [facility] [address] [place] [address] Dr. Stephon Breaux Platelet mean volume (Bld) [Entitic vol] 9.4 fL Critically low 9.5-13.5 [facility] Comment on above: Performed By: #### C BC #### [facility] [address] [place] [address] Dr. Stephon Breaux PLT 230 103/ul Normal 150-450 [facility] Comment on above: Performed By: #### C BC #### [facility] [address] [place] [address] Dr. Stephon Breaux RBC 3.94 106/ul Critically low 4.20-5.40 [facility] Comment on above: Performed By: #### C BC #### [facility] [address] [place] [address] Dr. Stephon Breaux WBC 4.8 103/ul Normal 4.0-11.0 [facility] Comment on above: Performed By: #### C BC #### [facility] [address] [place] [address] Dr. Stephon Breaux FREE THYROXINE INDEX T7on FTI 2.94 Normal 1.30-4.50 [facility] Comment on above: Performed By: #### T SH, LIPID, T7, CMP #### [facility] [address] [place] [address] Dr. Stephon Breaux T3U 35.0 % Normal 30.0-39.0 [facility] Comment on above: Performed By: #### T SH, LIPID, T7, CMP #### [facility] [address] [place] [address] Dr. Stephon Breaux T4 [Mass/Vol] 8.40 ug/dL Normal 4.80-13.90 [facility] Comment on above: Performed By: #### T SH, LIPID, T7, CMP #### [facility] [address] [place] [address] Dr. Stephon Breaux GLYCOHEMOGLOBIN A1Con 2022 ADA RECOMMENDATION SEE BELOW Normal [facility] Comment on above: Result Comment: ADA RECOMMENDED LIMIT 4.0 - 6.0 ADA THERAPEUTIC TARGET < 7.0 ACTION SUGGESTED > 7.0 Performed By: #### A 1C #### [facility] [address] [address] [address] Stephon Breaux Glucose [Mass/Vol] 100 mg/dL Normal [facility] Comment on above: Performed By: #### A 1C #### [facility] [address] [place] [address] Dr. Stephon Breaux HbA1c (Bld) [Mass fraction] 5.1 % Normal 4.5-6.2 [facility] Comment on above: Performed By: #### A 1C #### [facility] [address] [place] [address] Dr. Stephon Breaux IRONon 06-04-2022 Iron [Mass/Vol] 89.0 ug/dL Normal 50.0-170.0 [facility] Comment on above: Performed By: #### I FANG #### [facility] [address] [place] [address] Dr. Stephon Breaux LIPID PROFILEon 06-04-2022 CHOL-HDL RATIO NORM SEE BELOW Normal [facility] Comment on above: Result Comment: 3.3 - 4.4 LOW RISK 4.4 - 7.1 AVERAGE RISK 7.1 - 11.0 MODERATE RISK >11.0 HIGH RISK Performed By: #### C BC #### [facility] [address] [place] [address] Dr. Stephon Breaux Cholesterol [Mass/Vol] 203 mg/dL Critically high <=200 [facility] Comment on above: Performed By: #### C BC #### [facility] [address] [place] [address] Dr. Stephon Braeux Cholesterol in HDL [Mass/Vol] 65 mg/dL Critically high 40-60 [facility] Comment on above: Performed By: #### C BC #### [facility] [address] [place] [address] Dr. Stephon Breaux Cholesterol in LDL [Mass/Vol] 112.6 mg/dL Normal [facility] Comment on above: Performed By: #### C BC #### [facility] [address] [place] [address] Dr. Stephon Breaux Cholesterol.total/Ch olesterol in HDL [Mass ratio] 3.1 {ratio} Normal [facility] Comment on above: Performed By: #### C BC #### [facility] [address] [place] [address] Dr. Stephon Breaux HDL NORMAL > or = 60 mg/dl - LOW CARDIOVASCULAR RISK <40 mg/dl - HIGH CARDIOVASCULAR RISK Normal [facility] Comment on above: Performed By: #### C BC #### [facility] [address] [place] [address] Dr. Stephon Breaux LDL CALC NORMAL SEE BELOW Normal [facility] Comment on above: Result Comment: <100 mg/dl OPTIMAL 100 - 129 mg/dl NEAR OR ABOVE OPTIMAL 130 - 159 mg/dl BORDERLINE HIGH 160 - 189 mg/dl HIGH >190 mg/dl VERY HIGH Performed By: #### C BC #### [facility] [facility] [address] [place] [address] Dr. Stephon Breaux Triglyceride [Mass/Vol] 127 mg/dL Normal <=150 [facility] Comment on above: Performed By: #### C BC #### [facility] [address] [place] [address] Dr. Stephon Breaux VLDL CALC 25.4 mg/dL Normal [facility] Comment on above: Performed By: #### C BC #### [facility] [address] [place] [address] Dr. Stephon Breaux PROF 14(COMP METB)on 023 Albumin [Mass/Vol] 3.4 g/dL Normal 3.4-5.0 [facility] Comment on above: Performed By: #### C BC #### [facility] [address] [place] [address] Dr. Stephon Breaux Albumin/Globulin [Mass ratio] 1.0 {ratio} Normal [facility] Comment on above: Performed By: #### C BC #### [facility] [address] [place] [address] Dr. Stephon Breaux ALP [Catalytic activity/Vol] 66 U/L Normal 46-116 [facility] Comment on above: Performed By: #### C BC #### [facility] [address] [address] [address] Stephon Breaux ALT [Catalytic activity/Vol] 17 U/L Normal 14-59 [facility] Comment on above: Performed By: #### C BC #### [facility] [address] [place] [address] Dr. Stephon Breaux Anion gap [Moles/Vol] 9.2 mmol/L Normal [facility] Comment on above: Performed By: #### C BC #### [facility] [address] [address] [address] Stephon Breaux AST [Catalytic activity/Vol] 17 U/L Normal 15-37 [facility] Comment on above: Performed By: #### C BC #### [facility] [address] [place] [address] Dr. Stephon Breaux Bilirubin [Mass/Vol] 0.4 mg/dL Normal 0.2-1.0 [facility] Comment on above: Performed By: #### C BC #### [facility] [address] [place] [address] Dr. Stephon Breaxu Calcium [Mass/Vol] 9.1 mg/dL Normal 8.5-10.1 [facility] Comment on above: Performed By: #### C BC #### [facility] [address] [place] [address] Dr. Stephon Breaux Chloride [Moles/Vol] 108 mmol/L Critically high 98-[address] [facility] Comment on above: Performed By: #### C BC #### [facility] [address] [place] [address] Dr. Stephon Breaux CO2 [Moles/Vol] 29.2 mmol/L Normal 21.0-32.0 [facility] [place] Comment on above: Performed By: #### C BC #### [facility] [address] [place] [address] Dr. Stephon Breaux Creatinine [Mass/Vol] 0.84 mg/dL Normal 0.55-1.02 [facility] Comment on above: Performed By: #### C BC #### [facility] [address] [place] [address] Dr. Stephon Breaux EGFR-AF SCOTTISH >60 Normal >=60 [facility] Comment on above: Performed By: #### C BC #### [facility] [address] [address] [address] Stephon Breaux EGFR-NON AF SCOTTISH >60 Normal >=60 [facility] Comment on above: Performed By: #### C BC #### [facility] [address] [address] [address] Stephon Breaux Globulin (S) [Mass/Vol] 3.4 g/dL Normal [facility] Comment on above: Performed By: #### C BC #### [facility] [address] [address] [address] Stephon Breaux Glucose [Mass/Vol] 90 mg/dL Normal 74-106 [facility] Comment on above: Performed By: #### C BC #### [facility] [address] [place] [address] Dr. Stephon Breaux Potassium [Moles/Vol] 4.4 mmol/L Normal 3.5-5.1 [facility] Comment on above: Performed By: #### C BC #### [facility] [address] [place] [address] Dr. Stephon Breaux Protein [Mass/Vol] 6.8 g/dL Normal 6.4-8.2 [facility] Comment on above: Performed By: #### C BC #### [facility] [address] [address] [address] Stephon Breaux Sodium [Moles/Vol] 142 mmol/L Normal 136-145 [facility] Comment on above: Performed By: #### C BC #### [facility] [address] [address] [address] Stephon Breaux Urea nitrogen [Mass/Vol] 16.0 mg/dL Normal 7.0-18.0 [facility] Comment on above: Performed By: #### C BC #### [facility] [address] [address] [address] Stephon Breaux Urea nitrogen/Creatinine [Mass ratio] 19.0 mg/mg Normal [facility] Comment on above: Performed By: #### C BC #### [facility] [address] [place] [address] Dr. Stephon Breaux TSHon 06-04-2022 TSH 0.923 uIU/mL Normal 0.358-3.740 [facility] Comment on above: Performed By: #### C BC #### [facility] [address] [place] [address] Dr. Stephon Breaux CULTURE URINEon 01-10-2022 CULTURE URINE Culture Observations: LIGHT GROWTH OF MIXED GENITAL TIFFANIE. NO POTENTIAL PATHOGENS SEEN. Normal [facility] Comment on above: Performed By: #### U RCX #### [facility] [address] [place] [address] Dr. Stephon Breaux UA RANDOM W/MICROSCOPICon BACTERIA TRACE Abnormal NONE SEEN [facility] Comment on above: Performed By: #### U AMIC #### [facility] [address] [place] [address] Dr. Stephon Breaux Bilirubin Ql (U) Negative Normal NEGATIVE [facility] [place] Comment on above: Performed By: #### U AMIC #### [facility] [address] [place] [address] Dr. Stephon Breaux CAST NONE SEEN Normal NONE SEEN [facility] Comment on above: Performed By: #### U AMIC #### [facility] [address] [place] [address] Dr. Stephon Breaux Clarity (U) CLEAR Normal CLEAR [facility] Comment on above: Performed By: #### U AMIC #### [facility] [address] [place] [address] Dr. Stephon Breaux Color (U) YELLOW Normal YELLOW [facility] Comment on above: Performed By: #### U AMIC #### [facility] [address] [place] [address] Dr. Stephon Breaux Crystals LM Nom (Urine sed) NONE SEEN Normal NONE SEEN [facility] Comment on above: Performed By: #### U AMIC #### [facility] [address] [place] [address] Dr. Stephon Breaux Epithelial cells LM Ql (Urine sed) FEW Abnormal NONE SEEN /RARE [facility] Comment on above: Performed By: #### U AMIC #### [facility] [address] [address] [address] Stephon Breaux Glucose Ql (U) Negative Normal NEGATIVE [facility] Comment on above: Performed By: #### U AMIC #### [facility] [address] [address] [address] Stephon Breaux Hemoglobin Ql (U) Negative Normal NEGATIVE [facility] Comment on above: Performed By: #### U AMIC #### [facility] [address] [address] [address] Stephon Breaux Ketones Ql (U) Negative Normal NEGATIVE [facility] Comment on above: Performed By: #### U AMIC #### [facility] [address] [place] [address] Dr. Stephon Breaux LEUKOCYTES TRACE Abnormal NEGATIVE [facility] Comment on above: Performed By: #### U AMIC #### [facility] [address] [address] [address] Stephon Breaux MUCOUS NONE SEEN Normal NONE SEEN [facility] Comment on above: Performed By: #### U AMIC #### [facility] [address] [address] [address] Stephon Breaux Nitrite Ql (U) Negative Normal NEGATIVE [facility] Comment on above: Performed By: #### U AMIC #### [facility] [address] [address] [address] Stephon Breaux pH (U) 5.5 [pH] Normal 5-[address] [facility] Comment on above: Performed By: #### U AMIC #### [facility] [address] [address] [address] Stephon Breaux RBC NONE SEEN Abnormal 0-[address] [facility] Comment on above: Performed By: #### U AMIC #### [facility] [address] [place] [address] Dr. Stephon Breaux SPEC GRAVITY >=1.030 Abnormal 1.005-<=1.025 [facility] Comment on above: Performed By: #### U AMIC #### [facility] [address] [address] [address] Stephon Breaux UA PROTEIN Negative Normal NEGATIVE/ TRACE [facility] Comment on above: Performed By: #### U AMIC #### [facility] [address] [address] [address] Stephon Breaux Urobilinogen Qn (U) 0.2 {Billy'U}/dL Normal 0.2 - 1. 0 [facility] Comment on above: Performed By: #### U AMIC #### [facility] [address] [place] [address] Dr. Stephon Breaux WBC 2-5 Abnormal NONE SEEN [facility] Comment on above: Performed By: #### U AMIC #### [facility] [address] [place] [address] Dr. Stephon Breaux CULTURE URINEon 12-26-2021 CULTURE [...] Trimethoprim/Sulfame thoxazole <=20 S F Normal [facility] Comment on above: Performed By: #### C BC #### [facility] [address] [place] [address] Dr. Stephon Breaux UA RANDOM W/MICROSCOPICon BACTERIA TRACE Abnormal NONE SEEN [facility] Comment on above: Performed By: #### U AMIC #### [facility] [address] [place] [address] Dr. Stephon Breaux Bilirubin Ql (U) Negative Normal NEGATIVE [facility] [place] Comment on above: Performed By: #### U AMIC #### [facility] [address] [address] [address] Stephon Breaux CAST NONE SEEN Normal NONE SEEN [facility] Comment on above: Performed By: #### U AMIC #### [facility] [address] [address] [address] Stephon Breaux Clarity (U) CLEAR Normal CLEAR [facility] Comment on above: Performed By: #### U AMIC #### [facility] [address] [address] [address] Stephon Breaux Color (U) DK. ORANGE Abnormal YELLOW [facility] Comment on above: Performed By: #### U AMIC #### [facility] [address] [address] [address] Stephon Breaux Crystals LM Nom (Urine sed) NONE SEEN Normal NONE SEEN [facility] Comment on above: Performed By: #### U AMIC #### [facility] [address] [place] [address] Dr. Stephon Breaux Epithelial cells LM Ql (Urine sed) FEW Abnormal NONE SEEN /RARE [facility] Comment on above: Performed By: #### U AMIC #### [facility] [address] [address] [address] Stephon Breaux Glucose Ql (U) Negative Normal NEGATIVE [facility] Comment on above: Performed By: #### U AMIC #### [facility] [address] [address] [address] Stephon Breaux Hemoglobin Ql (U) SMALL Abnormal NEGATIVE [facility] Comment on above: Performed By: #### U AMIC #### [facility] [address] [address] [address] Stephon Breaux Ketones Ql (U) Negative Normal NEGATIVE [facility] Comment on above: Performed By: #### U AMIC #### [facility] [address] [address] [address] Stephon Breaux LEUKOCYTES MODERATE Abnormal NEGATIVE [facility] Comment on above: Performed By: #### U AMIC #### [facility] [address] [address] [address] Stephon Breaux MUCOUS NONE SEEN Normal NONE SEEN [facility] Comment on above: Performed By: #### U AMIC #### [facility] [address] [address] [address] Stephon Breaux Nitrite Ql (U) Negative Normal NEGATIVE [facility] Comment on above: Performed By: #### U AMIC #### [facility] [address] [address] [address] Stephon Breaux pH (U) 6.0 [pH] Normal 5-[address] [facility] Comment on above: Performed By: #### U AMIC #### [facility] [address] [address] [address] Stephon Breaux RBC 2-5 Abnormal 0-2 [facility] Comment on above: Performed By: #### U AMIC #### [facility] [address] [place] [address] Dr. Stephon Breaux SPEC GRAVITY >=1.030 Abnormal 1.005-<=1.025 [facility] Comment on above: Performed By: #### U AMIC #### [facility] [address] [address] [address] Stephon Breaux UA PROTEIN TRACE Normal NEGATIVE/ TRACE [facility] Comment on above: Performed By: #### U AMIC #### [facility] [address] [address] [address] Stephon Breaux Urobilinogen Qn (U) 0.2 {Billy'U}/dL Normal 0.2 - 1. 0 [facility] Comment on above: Performed By: #### U AMIC #### [facility] [address] [address] [address] Stephon Breaux WBC 20-50 Abnormal NONE SEEN [facility] Comment on above: Performed By: #### U AMIC #### [facility] [address] [address] [address] Stephon Breaux Vital Signs Date Time Vital Sign Value Performing Clinician Facility 11-06-2024 11:53-0400 Body height 170.18 cm Wyatt Mann MD Work Phone: [facility] 11-06-2024 11:53-0400 Body mass index (BMI) [Ratio] 33.8 kg/m2 Wyatt Mann MD Work Phone: [facility] 11-06-2024 11:53-0400 Body temperature 96.8 [degF] Wyatt Mann MD Work Phone: [facility] 11-06-2024 11:53-0400 Body weight 97.97 kg Wyatt Mann MD Work Phone: [facility] 11-06-2024 11:53-0400 Diastolic blood pressure 63 mm[Hg] Wyatt Mann MD Work Phone: [facility] 11-06-2024 11:53-0400 Heart rate 71 /min Wyatt Mann MD Work Phone: [facility] 11-06-2024 11:53-0400 Respiratory rate 18 /min Wyatt Mann MD Work Phone: [facility] 11-06-2024 11:53-0400 SaO2% (BldA) [Mass fraction] 100 % Wyatt Mann MD Work Phone: [facility] 11-06-2024 11:53-0400 Systolic blood pressure 118 mm[Hg] Wyatt Mann MD Work Phone: [facility] 03-16-2024 08:40-0500 Blood Pressure Location YANE GUAMAN [facility] 03-16-2024 08:40-0500 Body temperature 98.6 [degF] YANE GUAMAN [facility] 03-16-2024 08:40-0500 Diastolic blood pressure 82 mm[Hg] YANE GUAMAN [facility] 03-16-2024 08:40-0500 Heart rate 87 /min YANE GUAMAN [facility] 03-16-2024 08:40-0500 Systolic blood pressure 122 mm[Hg] YANE GUAMAN [facility] 01-19-2023 10:50-0500 Body height 170.18 cm Yary Valladares Other [facility] Other 01-19-2023 10:50-0500 Body mass index (BMI) [Ratio] 30.1 kg/m2 Yary Valladares Other [facility] Other 01-19-2023 10:50-0500 Body temperature 97.4 [degF] Yary Valladares Other [facility] Other 01-19-2023 10:50-0500 Body weight 87.18 kg Yary Valladares Other [facility] Other 01-19-2023 10:50-0500 Respiratory rate 18 /min Yary Valladares Other [facility] Other 01-19-2023 10:50-0500 SaO2% (BldA) [Mass fraction] 95 % Yary Valladares Other [facility] Other Encounters Encounter Date Encounter Type Care Provider Facility Start: 11-06-2024 End: 11-06-2024 ambulatory Wyatt Mann MD Work Phone: [facility] Work Phone: Start: 11-06-2024 End: 11-06-2024 Patient encounter procedure Giana Carnes [facility] Work Phone: Start: 11-04-2024 ambulatory Diana Calderon Facility :[facility] Start: 09-27-2024 End: 09-27-2024 ambulatory YANE GUAMAN [facility] Start: 09-27-2024 End: 09-27-2024 Patient encounter procedure YANE GUAMAN [facility] Start: 08-30-2024 End: 08-30-2024 ambulatory YANE GUAMAN Facility:[facility] Start: 08-30-2024 End: 08-30-2024 Patient encounter procedure YANE GUAMAN [facility] Start: 05-04-2024 End: 05-04-2024 ambulatory Ji R CHELSI Facility:[facility] Start: 05-04-2024 End: 05-04-2024 Patient encounter procedure Ji R CHELSI [facility] Start: 03-16-2024 End: 03-16-2024 ambulatory YANE GUAMAN Facility:[facility] Start: 03-16-2024 End: 03-16-2024 Patient encounter procedure [facility] Start: 05-18-2023 End: 05-18-2023 ambulatory Rayna Muñoz Facility:[facility] Start: 01-23-2023 End: 01-23-2023 ambulatory Yary Valladares Other [facility] Other Start: 01-23-2023 Telephone encounter Yary Valladares [facility] Start: 01-19-2023 Office outpatient vi sit 25 minutes Yary Valladares [facility] Start: 01-19-2023 End: 01-19-[address] [facility] Work Phone: Start: 01-19-2023 End: 01-19-2023 Departed [employer] Yary Valladares Work Phone: [facility] [place] Work Phone: Start: 06-14-2022 End: 06-15-2022 ambulatory RAYNA WEAVER Facility:[facility] Start: 06-04-2022 End: 06-05-2022 ambulatory RAYNA WEAVER Facility:[facility] Start: 01-10-2022 End: 01-11-2022 ambulatory RAYNA WEAVER Facility:[facility] Start: 12-24-2021 End: 12-25-2021 ambulatory RAYNA WEAVER Facility:[facility] Start: 11-27-2021 End: 11-28-2021 ambulatory RAYNA WEAVER Facility:[facility] Procedures Date Procedure Procedure Detail Performing Clinician Colonoscopy YANE GUAMAN Laser on Cervix YANE HAGEN Plan of Treatment Date Care Activity Detail Author Start: 01-19-2023 Bacteria identified in Urine by Culture Urine Culture [facility] Patient Education Low back pain in adults [facility] Work Phone: [facility] Immunizations Immunization Date Immunization Notes Care Provider Fa cility 01-15-2023 influenza virus vacc ine, unspecified formulation YANE GUAMAN [facility] 01-30-2022 influenza virus vacc ine, unspecified formulation YANE GUAMAN [facility] 05-10-2021 pneumococcal polysaccharide vaccine, 23 valent YANE GUAMAN [facility] 01-27-2021 influenza, unspecifi ed formulation YANE GUAMAN [facility] 01-27-2021 SARS-CoV-2 (COVID-19 ) mRNA BNT-162b2 vax YANE GUAMAN [facility] Comment on above: Result Comment: 2024: [id number] 12-28-2020 influenza virus vacc ine, unspecified formulation YANE GUAMAN [facility] 06-06-2020 SARS-CoV-2 (COVID-19 ) mRNA BNT-162b2 vax YANE GUAMAN [facility] 05-15-2020 SARS-CoV-2 (COVID-19 ) mRNA BNT-162b2 vax YANE GUAMAN [facility] 08-26-2019 pneumococcal conjuga te vaccine, 13 valent YANE GUAMAN [facility] Payers Date Payer Category Payer Medicare [id number] 2023 Unknown [id number] 2023 Self-pay [id number] 1959 Unknown [id number] 1952 Unknown [id number] 2.16.84 [id number] 1952 Unknown [id number] 2.16.84 [id number] 1952 Unknown [id number] 2.16.84 [id number] 1952 Unknown [id number] 2.16.84 [id number] 1952 Unknown [id number] 2.16.84 [id number] 1952 Unknown [id number] 2.16.8 [id number] 1952 Unknown [id number] 2.16.8 [id number] 1952 Unknown [id number] 2.16.8 [id number] 1952 Unknown [id number] 2.16.8 40.1.832144.3.579.2.727 1952 Unknown [id number] 2.16.8 [id number] 1952 Unknown [id number] 2.16.8 [id number] 1952 Unknown [id number] 2.16.8 [id number] Unknown [id number] Unknown [id number] 2.16.8 [id number] Unknown [id number] 2.16.8 [id number] Social History Date Type Detail Facility Unknown if ever smoked [facility] Work Phone: Sex Assigned At [facility] Start: 1950 Sex Assigned At Female [facility] Start: 03-07-2018 End: 03-16-2024 Tobacco smoking status Never smoked tobacco (finding) [facility] Tobacco smoking status Never [facility] Sexual Orientation [facility] Start: 10-15-2013 Sex Female (finding) [facility] Functional Status Date Assessment Result Facility 05-04-2024 Functional Status N/A [facility] 03-16-2024 Functional Status N/A [facility] Clinical Notes 11-27-2021 to 07-14-2025 Note Date & Type Note Facility 09-27-2024 [...] provider. Document Revised: 10/01/2022 Document Reviewed: 10/01/2022 [employer] Patient Education 2023 [employer]. Follow Up Care 09/27/2024 10:39:38 With:DENIZ PATEL, YANE Zepeda, URL Address: [address] [place], [place] [address] [address] Business (1) When: Unknown Comments:pending results of imaging/testing, will call with next steps [facility] 09-27-2024 Note Patient Education Caregiving [...] You have sig (more content not included)... [facility] 05-04-2024 Hospital Discharg e instructions Patient Education [...] degrees Follow Up Care 03/16/2024 09:32:57 With:Ji GAGNON Address: [address] [place] [address] [place] [address]- Business (1) When:09/01/2024 10:49:14 Comments:With Lurdes Guaman [facility] 05-04-2024 Note Patient Education Custom Cystoscopy [...] you have a fever over 100 degrees [facility] 03-16-2024 Hospital Discharg e instructions Patient Education [...] reconstructed. Follow these instructions at home: Take rnjl-ihf-gdfalgl and prescription medicines only as told by [...] provider. Document Revised: 12/26/2022 Document Reviewed: 12/26/2022 [employer] Patient Education 2023 [employer]. Follow Up Care 02/17/2024 09:52:45 With:[facility] Address: When: Unknown Comments:For procedure as scheduled. [facility] 03-16-2024 Note Patient Education Urology Urethral Stricture [...] Follow these instructions at home: ??? Take eypb-tub-rrsstwm and prescription medicines only as told by [...] provider. Document Revised: 12/26/2022 Document Reviewed: 12/26/2022 [employer] Patient Education ? 2023 [employer]. [facility] 01-19-2023 Evaluation note Encounter Date Diagnosis Assessment [...] condition Jan, Sore throat (ICD-10 - J02.9) [facility] Other 09-13-2022 NoteEXAMINATION: XR CHEST 2 V [...] authenticated by: ORTEGA HAHN Date: 2021-11-27 15:[facility] App[facility]ments Appointment Date:05/03/2024 11:00:00 AM Scheduled Provider: Location:[facility] Appointment Type:Urology CALL PAT FT Appointment Date:05/04/2024 10:15:00 AM Scheduled Provider: Location:[facility] Appointment Type:Urology FT [facility] evaluation + Plan note Future Appointments Appointment Date:08/30/2024 09:40:00 AM Scheduled Provider:YANE GUAMAN PA-C Location:[facility] Appointment Type:URO Office Visit [facility] Evaluation noteNo assessment information available [facility] Work Phone: [facility] Other Evaluation note* Diagnosis Onset Date Resolution Status Admit Date Low back pain acute October 11:42am [facility] Work Phone: History general Narrative - Reported* Type Description Date Medical History Depression Medical History Glaucoma Medical History Arthritis Medical History osteoporosis Surgical History vaginal lazering [facility] Other Hospital course Narrative No data available for this section [facility] Hospital Discharge instructions No data available for this section [facility] [facility] progress note No data available for this section [facility] reason for referral (narrative)No reason for referral [facility] Work Phone: Summary Purpose Family History No Family History Records Found Relationship Condition Age at Onset Recorded Date/T brittany brother History of stroke Unknown Unknown Family history of other condition Unknown Malignant neoplasm Unknown father Aneurysm Unknown Heart disease Unknown family member Unknown mother History of stroke Unknown Advance Directives No Advanced Directives Records Found Advance Directive Response Recorded Date/ Time Advance Directives No January 10:42am Advance Directive Response Recorded Date/ Time Advance Directives No May 17 12:02pm Chief Complaint and Reason for Visit Chief Complaint Admit Date low back pain November 06, 2024 11 :42am Reason for Visit Admit Date Low back pain November 06, 2024 11 :42am Additional Source Comments INFORMATION SOURCE (unrecogn ized section and content) DATE CREATED AUTHOR 06/22/2022 [facility] DATE CREATED AUTHOR AUTHOR'S ORGANIZ ATION 05/22/2023 [facility] DATE CREATED AUTHOR AUTHOR'S ORGANIZ ATION 10/03/2024 [facility] DATE CREATED AUTHOR AUTHOR'S ORGANIZ ATION 10/16/2024 [facility] DATE CREATED AUTHOR AUTHOR'S ORGANIZ ATION 11/06/2024 [facility] REASON FOR VISIT (unrecogniz ed section and content) DYSURIA, SORE THROATNo Infor mation Care Teams (unrecognized sec tion and content) Team Status: Inactive Member Role Status Dates Yary Valladares APRN Attending Provider Active Team Status: Active Member Role Status Dates Wyatt Mann MD Primary Care Provider Active Team Status: Inactive Member Role Status Dates Wyatt Mann MD Primary Care Provider Active Start: November 06, 2024 End: November 06, 2024 Giana Aragon APRN Attending Provider Active S tart: November 06, 2024 End: November 06, 2024 Goals (unrecognized section and content) Goals may [...] BE BASED ON THE PRIMARY CLINICAL RECORDS. [facility]. provides no warranty or guarantee of the accuracy or completeness of information in this document.
[2024-11-26 14:46] LABS: Free T3 1.45 pg/mL (2.18-3.98)
== END 2024-11-26 11:57 | disposition home or self-care (01) ==
LOC: LAB 11:57
PROVIDERS: PCP Nurse Practitioner Family; Visit Provider Nurse Practitioner Family
DX: F41.9 Anxiety disorder, unspecified (principal)
CPT/HCPCS: 36415; 84436; 84443; 84481

== ENCOUNTER 2024-11-29 13:24 | Outpatient (OUT) | payer OTHER, SELFPAY ==
--- NOTE | 2024-11-29 13:28 | XR_ITS ---
The [address] [address] Patient Name: GAVI SANTOS MRN: [id number] date: 1950 Sex: F Assigned Patient Location: [facility] Current Patient Location: Accession/Order Number: [id number] Exam Date: 11/29/2024 13:49 Report Date: 11/30/2024 00:20 At the request of: GLORIA WEAVER Procedure: XR lumbar spine min 4V XR lumbar spine min 4V 11/29/2024 1:53 PM SIGNS AND SYMPTOMS: ^Low Back Pain PROTOCOLS: Frontal, lateral, and oblique radiographs of the lumbar spine COMPARISON: 03/16/2020 FINDINGS: There is 4 mm of retrolisthesis of L2 upon L3 which is new compared prior exam. There is a slight levoconvex curvature. The bones are in anatomic alignment otherwise. There is no fracture or destructive lesion. There is severe disc height loss at L4-5. There is mild disc height loss throughout otherwise. There is anterior osteophyte formation which is greatest at T12-L1 and L1-L2. Facet hypertrophy is present throughout.. The sacrum and sacroiliac joints are normal. Atherosclerotic changes are present in the abdominal aorta. XR/XR lumbar spine min 4V IMPRESSION: There is 4 mm of retrolisthesis of L2 upon L3 which is new compared prior exam. There is a slight levoconvex curvature. Degenerative changes are noted greatest at L4-5 similar to the prior exam. Impression dictated by: Kenny Morrison M.D. 11/30/2024 12:20 AM Dictation Location: [place] [address] Electronically authenticated by: [id number] Y Date: 11/30/2024 00:20
--- OUTSIDE RECORDS SUMMARY | 2024-11-29 17:46 | XMS_ITS | CCD ---
Author Organization [facility] Care Team Providers Care Body And Fender Mechanic Name Role Phone OWEN, RAYNA Attending Unavailable [...] Yary Valladares Unavailable GERTRUDE Valladares Attending Provider [phone] Wyatt Mann Primary Care Unavailable Yary Valladares Admitting Unavailable Yary Valladares Attending Unavailable Wanda, Rayna Admitting Unavailable Wanda, Rayna Attending Unavailable Wyatt Mann Primary Care Unavailable OWEN, RAYNA Jackman Primary Care Physician [phone] YANE GUAMAN Attending Unavailable Ji GAGNON Referring Unavailable YANE GUAMAN Attending Unavailable YANE GUAMAN Attending Unavailable Ji GAGNON Referring Unavailable Ji GAGNON Admitting Unavailable Ji GAGNON Attending Unavailable YANE GUAMAN Admitting Unavailable YANE GUAMAN Attending Unavailable YANE GUAMAN Admitting Unavailable YANE GUAMAN Attending Unavailable Wyatt Mann MD Primary Care Provider Giana Aragon APRN Attending Provider Diana Calderon Attending Unavailable Allergies Allergy Classification Reported Allergen(s) Allergy Type Date of Onset Reaction(s) Facility (2 sources) No Known Medication Allergies; Translations: [No Known Medication Allergies] Propensity to adverse reactions (disorder) [facility] Repository Medications Current Medications Medication Drug Class(es) [...] cysto., # 2 tab(s), Refills(s) 0, Pharmacy: [facility]/pharmacy #[id number], 164, cm, 03/16/24 8:48:00 EST, Height/Length [...] procedure, # 1 tab(s), Refills(s) 0, Pharmacy: [facility]/pharmacy #[id number], 164, cm, 03/16/24 8:48:00 EST, Height/Length [...] 3 weeks, then 3x per week thereafter, [facility]/pharmacy #[id number], 164, cm, 03/16/24 8:48:00 EST, Height/Length [...] Locations R1: This test was performed at: [facility], [address] [place] [address], [id number]- , [place], Normal [facility] Comment on above: Performed By: #### 2 [id number] #### [facility] [address] [place] [id number] Ambulatory Visit Summaryon 0 09-27-2024 Ambulatory Visit [...] signed up for this yet, please contact [employer] at [phone] to get signed up today. Language Information Language assistance services are available as needed. Normal [facility] Urology Office/Clinic Noteon 09-27-2024 Urology Office/Clinic Note [...] cysto., # 2 tab(s), Refills(s) 0, Pharmacy: [facility]/pharmacy #[id number], 164, cm, 03/16/24 8:48:00 EST, Height/Length Dosing, 97.3, kg, 03/16/24 8:48:00 EST, Weight Dosing Body Mass Index (BMI) documented 3008F Current tobacco non-user 1036F Depression Screening Negative 3352F E&M of Est. Patient Low 20-29 Min 14383 Influenza immunization status assessed 1030F Medication list [...] Urnls Dip Stick Auto w/o Microscopy POC 94416 Follow-up With When Contact Information YANE GUAMAN PA-C, URL [address] [place] [address] [facility] (1) Additional Instructions: pending results of [...] pH Urine Dipstick: 5.5 (09/27/24 11:23:00) Normal [facility] Comment on above: Result Comment: Elec tronically Signed By: DENIZ PATEL, YANE Zepeda\.br\Date and Time Signed: 09/27/24 11:56 EDT Main OR Intraoperative Recor don 05-04-2024 Main OR Intraoperative Record Main OR Intraoperative Record IntraOp Document Type FTURO Summary Primary Physician: Ji GAGNON MD Finalized Date/Time: 05/04/24 10:52:00 Pt. Name: GAVI MONTANEZ /Sex: 1950 Female Med Rec #: [id number] Physician: Ji GAGNON MD Financial #: [id number] Pt. Type: O Room/Bed: / Admit/Disch: 05/04/24 [...] Kendall R Role Performed Surgeon - Primary Physical Metallurgist - Primary Scrub - Primary Time In [...] 05/04/24 10:51 Zoila Siddiqui 05/04/24 10:52 Normal [facility] Main OR Preoperative Recordo n 05-04-2024 Main OR Preoperative Record Main OR Preoperative Record Holding Area Document Type FTURO Summary Primary Physician: Ji GAGNON MD Finalized Date/Time: 05/04/24 10:43:46 Pt. Name: FATMATA MONTANEZANETTDuane Amado./Sex: 1950 Female Med Rec #: [id number] Physician: Ji GAGNON MD Financial #: [id number] Pt. Type: O Room/Bed: / Admit/Disch: 05/04/24 [...] Complaints of Pain: No Skin Integrity Intact, Redgranite, Warm, & Dry Vitals - EU Blood Pressure 138/79 Pulse 72 bpm Respirations 18 br/min SPO2 97 % Additional None RN Reviewed Yes Specimens Collected Last Modified By: Zoila Siddiqui 05/04/24 10:43:45 Finalized By: Zoila Siddiqui Document Signatures Signed By: Roberto MURDOCKTeresaOralia D 05/04/24 10:24 Zoila Siddiqui 05/04/24 10:43 Normal [facility] Operative Reporton Operative Report Operative Report Patient: [...] urine. The Urethra was dilated to: 30 Albanian w/ sounds. Devices Implanted: None. Removal: Cystoscope is removed, The patient tolerated it well. Postoperative Information Discharge: Patient is discharged home with antibiotic coverage, Follow up arranged. She is strongly encouraged to be compliant with her estradiol cream.. Normal [facility] Comment on above: Result Comment: Elec tronically [...] Follow-Up Appointments Friday 11:00 AM EST Where: [facility] Friday 10:15 AM EST Where: [facility] You Need to Schedule the Following Appointments Follow Up with [facility] When: Comments: For procedure as scheduled. Where: Medications What How Much When Why Instructions New ciprofloxacin (Cipro 500 mg Tab) See instructions Recurrent UTI Stricture of female urethra 1 tab po night prior to cysto. 1 tab po following cysto. Pickup at [facility]/pharmacy #[id number] New diazepam (Valium 5 mg Tab) 1 Tablets By Mouth Once Recurrent UTI Stricture of female urethra 1 hr prior to procedure Pickup at [facility]/pharmacy #[id number] New estradiol topical (Estrace 0.1 mg/ g Cream) See instructions Recurrent UTI Stricture of female urethra Refills: 6 apply a pea-sized amount vaginally and around the urethra nightly x 3 weeks, then 3x per week thereafter Pickup at [facility]/pharmacy #[id number] Unchanged alendronate (alendronate 70 mg Tab) [...] physician if questions or concerns Pharmacy Information [facility]/pharmacy #[id number]: [address] [place], [place] [id number] [phone] Allergies No Known Medication Allergies Problems Ongoing [...] the risk? (more content not included)... Normal [facility] Urology Office/Clinic Noteon 12-31-2024 Urology Office/Clinic Note [...] R-FQ 10/24/23 - A1c 5.4 02/02/24 - Lockstitch Zipper Setter 1.23 BUN 14 GFR 43 Review of [...] yes; avoids baths/hot tubs: yes; avoids scented DIRECT MARKETING COORDINATOR products: yes PVR 0ml. Likely secondary to [...] cysto., # 2 tab(s), Refills(s) 0, Pharmacy: [facility]/pharmacy #[id number], 164, cm, 03/16/24 8:48:00 EST, Height/Length Dosing, 97.3, kg, 03/16/24 8:48:00 EST, Weight Dosing diazepam, 5 mg = 1 tab(s), Oral, Once, 1 hr prior to procedure, # 1 tab(s), Refills(s) 0, Pharmacy: [facility]/pharmacy #[id number], 164, cm, 03/16/24 8:48:00 EST, Height/Length Dosing, 97.3, kg, 03/16/24 8:48:00 EST, Weight Dosing estradiol topical, See Instructions, 42.5 gm, Refill(s) 6, apply a pea-sized amount vaginally and around the urethra nightly x 3 weeks, then 3x per week thereafter, [facility]/pharmacy #[id number], 164, cm, 03/16/24 8:48:00 EST, Height/Length Dosing, 97.3, kg, 03/16/24 8:48:00 EST,... 07899 Measure Post Void residual urine and/or bladder [...] Urnls Dip Stick Auto w/o Microscopy POC 68041 2. Stricture of female urethra (N35.92: Unspecified urethral stricture, female) Sp cysto/UD w DLS in 2019. Marked improvement in urinary sx and UTI frequency until 2022. Will start estrogen cream and schedule cysto UD. Pt states last time was painful. Offered pre-procedure Valium. Risks/benefits discussed. Pt would like to do this. 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 The procedure risks, benefits, details, and treatment alternatives have been discussed with the patient. These include bleeding, infection, recurrent scar in over 50%, need for repeat dilation or other procedures, no sy (more content not included)... Normal [facility] Comment on above: Result Comment: Elec tronically Signed By: YANE GUAMAN PA-C\.robert\Date and Time Signed: 03/16/24 09:25 EST Urine Cultureon 05-18-2023 Bacteria identified Cx Nom (U) ORGANISM: Escherichia coli (O:ESCCOL) Chester Count >100,000 Aerobic NESHA Charge (NMIC56) ----- [...] RESISTANT TO ALL B-LACTAM DRUGS. PERFORMED BY: [place] [address] PATHOLOGIST CHIEF ORDER DISPATCHER DEYANIRA ARCE M.D. [facility] Comment on above: Performed By: #### C UU #### [address] Quick Strepon 01-19-2023 S. pyogenes Org specific cx Ql (Throat) Negative [employer] Other Urinalysis - AUTOMATEDon Appearance (U) CLEAR [employer] Other Bilirubin Ql (U) Negative [employer] Other Color (U) YELLOW [employer] Other Glucose Ql (U) Negative [employer] Other Hemoglobin Ql (U) Negative [employer] Other Ketones Ql (U) Negative [employer] Other Leukocyte esterase Test strip Ql (U) SMALL [employer] Other Nitrite Ql (U) Negative [employer] Other pH (U) 5.0 [pH] [employer] Other Protein Ql (U) TRACE [employer] Other Specific gravity (U) [Rel density] >=1.030 [employer] Other Urobilinogen (U) [Mass/Vol] 0.2 mg/dL [employer] Other Urinalysis - AUTOMATED [employer] Other Urine Cultureon 01-19-2023 Urine Culture >100,000 [employer] Other Bacteria identified Cx Nom (U) ORGANISM: Escherichia coli (O:ESCCOL) Chester Count >100,000 Aerobic NESHA Charge (NMIC56) ----- [...] RESISTANT TO ALL B-LACTAM DRUGS. PERFORMED BY: [place] [address] PATHOLOGIST CHIEF ORDER DISPATCHER DEYANIRA ARCE M.D. Normal [facility] Comment on above: Performed By: #### C UU #### [address] XR DEXA BONE DENSITYon 06-14 XR [...] by: ALEXANDRA MARIA Date: 2022-06-14 15:17 Normal [facility] INSULINon 06-05-2022 Insulin 13.1 uIU/mL Normal 2.6-24.9 [facility] Comment on above: Performed By: #### I NSULIN #### [facility] [address] [place] [address] Dr. Stephon Breaux CBC AUTO DIFFon 06-04-2022 BASO # 0.1 103/ul Normal 0.0-0.1 [facility] Comment on above: Performed By: #### C BC #### [facility] [address] [place] [address] Dr. Stephon Breaux Basophils/100 WBC (Bld) 1.3 % Normal 0.2-2.0 [facility] Comment on above: Performed By: #### C BC #### [facility] [address] [place] [address] Dr. Stephon Breaux EO # 0.2 103/ul Normal 0.0-0.7 [facility] Comment on above: Performed By: #### C BC #### [facility] [address] [place] [address] Dr. Stephon Breaux Eosinophils/100 WBC (Bld) 4.4 % Normal 0.9-7.0 [facility] Comment on above: Performed By: #### C BC #### [facility] [address] [place] [address] Dr. Stephon Breaux Erythrocyte distribution width (RBC) [Ratio] 13.3 % Normal 11.0-15.0 [facility] Comment on above: Performed By: #### C BC #### [facility] [address] [place] [address] Dr. Stephon Breaux Hematocrit (Bld) [Volume fraction] 37.9 % Normal 36.0-48.0 [facility] Comment on above: Performed By: #### C BC #### [facility] [address] [place] [address] Dr. Stephon Breaux Hemoglobin (Bld) [Mass/Vol] 12.5 g/dL Normal 12.0-16.0 [facility] Comment on above: Performed By: #### C BC #### [facility] [address] [place] [address] Dr. Stephon Breaux IG # 0.00 10e3/ul Normal 0.00-0.03 [facility] Comment on above: Performed By: #### C BC #### [facility] [address] [place] [address] Dr. Stephon Breaux IG % 0.0 % Normal 0.0-0.5 [facility] Comment on above: Performed By: #### C BC #### [facility] [address] [place] [address] Dr. Stephon Breaux LYMPH # 1.9 103/ul Normal 1.2-3.8 [facility] Comment on above: Performed By: #### C BC #### [facility] [address] [place] [address] Dr. Stephon Breaux Lymphocytes/100 WBC (Bld) 38.6 % Normal 20.5-60.0 [facility] Comment on above: Performed By: #### C BC #### [facility] [address] [place] [address] Dr. Stephon Breaux MANUAL DIFF REQ NO Normal [facility] Comment on above: Performed By: #### C BC #### [facility] [address] [place] [address] Dr. Stephon Breaux MCH (RBC) [Entitic mass] 31.7 pg Normal 26.7-34.0 [facility] Comment on above: Performed By: #### C BC #### [facility] [address] [place] [address] Dr. Stephon Breaux MCHC (RBC) [Mass/Vol] 33.0 g/dL Normal 29.9-35.2 [facility] Comment on above: Performed By: #### C BC #### [facility] [address] [place] [address] Dr. Stephon Breaux MCV (RBC) [Entitic vol] 96.2 fL Normal 81.0-99.0 [facility] Comment on above: Performed By: #### C BC #### [facility] [address] [place] [address] Dr. Stephon Breaux MONO # 0.4 103/ul Normal 0.3-0.8 [facility] Comment on above: Performed By: #### C BC #### [facility] [address] [place] [address] Dr. Stephon Breaux Monocytes/100 WBC (Bld) 7.5 % Normal 1.7-12.0 [facility] Comment on above: Performed By: #### C BC #### [facility] [address] [place] [address] Dr. Stephon Breaux NEUT # 2.3 103/ul Normal 1.4-6.5 [facility] Comment on above: Performed By: #### C BC #### [facility] [address] [place] [address] Dr. Stephon Breaux Neutrophils/100 WBC (Bld) 48.2 % Normal 43.0-75.0 [facility] Comment on above: Performed By: #### C BC #### [facility] [address] [place] [address] Dr. Stephon Breaux Platelet mean volume (Bld) [Entitic vol] 9.4 fL Critically low 9.5-13.5 [facility] Comment on above: Performed By: #### C BC #### [facility] [address] [place] [address] Dr. Stephon Breaux PLT 230 103/ul Normal 150-450 [facility] Comment on above: Performed By: #### C BC #### [facility] [address] [place] [address] Dr. Stephon Breaux RBC 3.94 106/ul Critically low 4.20-5.40 [facility] Comment on above: Performed By: #### C BC #### [facility] [address] [place] [address] Dr. Stephon Breaux WBC 4.8 103/ul Normal 4.0-11.0 [facility] Comment on above: Performed By: #### C BC #### [facility] [address] [place] [address] Dr. Stephon Breaux FREE THYROXINE INDEX T7on FTI 2.94 Normal 1.30-4.50 [facility] Comment on above: Performed By: #### T SH, LIPID, T7, CMP #### [facility] [address] [place] [address] Dr. Stephon Breaux T3U 35.0 % Normal 30.0-39.0 [facility] Comment on above: Performed By: #### T SH, LIPID, T7, CMP #### [facility] [address] [place] [address] Dr. Stephon Breaux T4 [Mass/Vol] 8.40 ug/dL Normal 4.80-13.90 [facility] Comment on above: Performed By: #### T SH, LIPID, T7, CMP #### [facility] [address] [place] [address] Dr. Stephon Breaux GLYCOHEMOGLOBIN A1Con 2022 ADA RECOMMENDATION SEE BELOW Normal [facility] Comment on above: Result Comment: ADA RECOMMENDED LIMIT 4.0 - 6.0 ADA THERAPEUTIC TARGET < 7.0 ACTION SUGGESTED > 7.0 Performed By: #### A 1C #### [facility] [address] [address] [address] Stephon Breaux Glucose [Mass/Vol] 100 mg/dL Normal [facility] Comment on above: Performed By: #### A 1C #### [facility] [address] [place] [address] Dr. Stephon Breaux HbA1c (Bld) [Mass fraction] 5.1 % Normal 4.5-6.2 [facility] Comment on above: Performed By: #### A 1C #### [facility] [address] [place] [address] Dr. Stephon Breaux IRONon 06-04-2022 Iron [Mass/Vol] 89.0 ug/dL Normal 50.0-170.0 [facility] Comment on above: Performed By: #### I FANG #### [facility] [address] [place] [address] Dr. Stephon Breaux LIPID PROFILEon 06-04-2022 CHOL-HDL RATIO NORM SEE BELOW Normal [facility] Comment on above: Result Comment: 3.3 - 4.4 LOW RISK 4.4 - 7.1 AVERAGE RISK 7.1 - 11.0 MODERATE RISK >11.0 HIGH RISK Performed By: #### C BC #### [facility] [address] [place] [address] Dr. Stephon Breaux Cholesterol [Mass/Vol] 203 mg/dL Critically high <=200 [facility] Comment on above: Performed By: #### C BC #### [facility] [address] [place] [address] Dr. Stephon Breaux Cholesterol in HDL [Mass/Vol] 65 mg/dL Critically high 40-60 [facility] Comment on above: Performed By: #### C BC #### [facility] [address] [place] [address] Dr. Stephon Breaux Cholesterol in LDL [Mass/Vol] 112.6 mg/dL Normal [facility] Comment on above: Performed By: #### C BC #### [facility] [address] [place] [address] Dr. Stephon Breaux Cholesterol.total/Ch olesterol in HDL [Mass ratio] 3.1 {ratio} Normal [facility] Comment on above: Performed By: #### C BC #### [facility] [address] [place] [address] Dr. Stephon Breaux HDL NORMAL > or = 60 mg/dl - LOW CARDIOVASCULAR RISK <40 mg/dl - HIGH CARDIOVASCULAR RISK Normal [facility] Comment on above: Performed By: #### C BC #### [facility] [address] [place] [address] Dr. Stephon Breaux LDL CALC NORMAL SEE BELOW Normal [facility] Comment on above: Result Comment: <100 mg/dl OPTIMAL 100 - 129 mg/dl NEAR OR ABOVE OPTIMAL 130 - 159 mg/dl BORDERLINE HIGH 160 - 189 mg/dl HIGH >190 mg/dl VERY HIGH Performed By: #### C BC #### [facility] [address] [place] [address] Dr. Stephon Breaux Triglyceride [Mass/Vol] 127 mg/dL Normal <=150 [facility] Comment on above: Performed By: #### C BC #### [facility] [address] [place] [address] Dr. Stephon Breaux VLDL CALC 25.4 mg/dL Normal [facility] Comment on above: Performed By: #### C BC #### [facility] [address] [place] [address] Dr. Stephon Breaux PROF 14(COMP METB)on 023 Albumin [Mass/Vol] 3.4 g/dL Normal 3.4-5.0 [facility] Comment on above: Performed By: #### C BC #### [facility] [address] [place] [address] Dr. Stephon Breaux Albumin/Globulin [Mass ratio] 1.0 {ratio} Normal [facility] Comment on above: Performed By: #### C BC #### [facility] [address] [place] [address] Dr. Stephon Breaux ALP [Catalytic activity/Vol] 66 U/L Normal 46-116 [facility] Comment on above: Performed By: #### C BC #### [facility] [address] [address] [address] Stephon Breaux ALT [Catalytic activity/Vol] 17 U/L Normal 14-59 [facility] Comment on above: Performed By: #### C BC #### [facility] [address] [place] [address] Dr. Stephon Breaux Anion gap [Moles/Vol] 9.2 mmol/L Normal [facility] Comment on above: Performed By: #### C BC #### [facility] [address] [address] [address] Stephon Breaux AST [Catalytic activity/Vol] 17 U/L Normal 15-37 [facility] Comment on above: Performed By: #### C BC #### [facility] [address] [place] [address] Dr. Stephon Breaux Bilirubin [Mass/Vol] 0.4 mg/dL Normal 0.2-1.0 [facility] Comment on above: Performed By: #### C BC #### [facility] [address] [place] [address] Dr. Stephon Breaux Calcium [Mass/Vol] 9.1 mg/dL Normal 8.5-10.1 [facility] Comment on above: Performed By: #### C BC #### [facility] [address] [place] [address] Dr. Stephon Breaux Chloride [Moles/Vol] 108 mmol/L Critically high 98-107 [facility] Comment on above: Performed By: #### C BC #### [facility] [address] [place] [address] Dr. Stephon Breaux CO2 [Moles/Vol] 29.2 mmol/L Normal 21.0-32.0 [facility] Comment on above: Performed By: #### C BC #### [facility] [address] [place] [address] Dr. Stephon Breaux Creatinine [Mass/Vol] 0.84 mg/dL Normal 0.55-1.02 [facility] Comment on above: Performed By: #### C BC #### [facility] [address] [place] [address] Dr. Stephon Breaux EGFR-AF ITALIAN >60 Normal >=60 [facility] Comment on above: Performed By: #### C BC #### [facility] [address] [address] [address] Stephon Breaux EGFR-NON AF ITALIAN >60 Normal >=60 [facility] Comment on above: Performed By: #### C BC #### [facility] [address] [address] [address] Stephon Breaux Globulin (S) [Mass/Vol] 3.4 g/dL Normal [facility] Comment on above: Performed By: #### C BC #### [facility] [address] [address] [address] Stephon Breaux Glucose [Mass/Vol] 90 mg/dL Normal 74-106 [facility] Comment on above: Performed By: #### C BC #### [facility] [address] [place] [address] Dr. Stephon Breaux Potassium [Moles/Vol] 4.4 mmol/L Normal 3.5-5.1 [facility] Comment on above: Performed By: #### C BC #### [facility] [address] [place] [address] Dr. Stephon Breaux Protein [Mass/Vol] 6.8 g/dL Normal 6.4-8.2 [facility] Comment on above: Performed By: #### C BC #### [facility] [address] [address] [address] Stephon Breaux Sodium [Moles/Vol] 142 mmol/L Normal 136-145 [facility] Comment on above: Performed By: #### C BC #### [facility] [address] [address] [address] Stephon Breaux Urea nitrogen [Mass/Vol] 16.0 mg/dL Normal 7.0-18.0 [facility] Comment on above: Performed By: #### C BC #### [facility] [address] [address] [address] Stephon Breaux Urea nitrogen/Creatinine [Mass ratio] 19.0 mg/mg Normal [facility] Comment on above: Performed By: #### C BC #### [facility] [address] [place] [address] Dr. Stephon Breaux TSHon 06-04-2022 TSH 0.923 uIU/mL Normal 0.358-3.740 [facility] Comment on above: Performed By: #### C BC #### [facility] [address] [place] [address] Dr. Stephon Breaux CULTURE URINEon 01-10-2022 CULTURE URINE Culture Observations: LIGHT GROWTH OF MIXED GENITAL TIFFANIE. NO POTENTIAL PATHOGENS SEEN. Normal [facility] Comment on above: Performed By: #### U RCX #### [facility] [address] [place] [address] Dr. Stephon Breaux UA RANDOM W/MICROSCOPICon BACTERIA TRACE Abnormal NONE SEEN [facility] Comment on above: Performed By: #### U AMIC #### [facility] [address] [place] [address] Dr. Stephon Breaux Bilirubin Ql (U) Negative Normal NEGATIVE [facility] Comment on above: Performed By: #### U AMIC #### [facility] [address] [place] [address] Dr. Stephon Breaux CAST NONE SEEN Normal NONE SEEN [facility] Comment on above: Performed By: #### U AMIC #### [facility] [address] [place] [address] Dr. Stephon Breaux Clarity (U) CLEAR Normal CLEAR [facility] Comment on above: Performed By: #### U AMIC #### [facility] [address] [place] [address] Dr. Stephon Breaux Color (U) YELLOW Normal YELLOW [facility] Comment on above: Performed By: #### U AMIC #### [facility] [address] [place] [address] Dr. Stephon Breaux Crystals LM Nom (Urine sed) NONE SEEN Normal NONE SEEN [facility] Comment on above: Performed By: #### U AMIC #### [facility] [address] [place] [address] Dr. Stephon Breaux Epithelial cells LM Ql (Urine sed) FEW Abnormal NONE SEEN /RARE [facility] Comment on above: Performed By: #### U AMIC #### [facility] [address] [address] [address] Stephon Breaux Glucose Ql (U) Negative Normal NEGATIVE The [facility] Comment on above: Performed By: #### U AMIC #### [facility] [address] [address] [address] Stephon Breaux Hemoglobin Ql (U) Negative Normal NEGATIVE The [facility] Comment on above: Performed By: #### U AMIC #### [facility] [address] [address] [address] Stephon Breaux Ketones Ql (U) Negative Normal NEGATIVE The [facility] Comment on above: Performed By: #### U AMIC #### [facility] [address] [place] [address] Dr. Stephon Breaux LEUKOCYTES TRACE Abnormal NEGATIVE [facility] Comment on above: Performed By: #### U AMIC #### [facility] [address] [address] [address] Stephon Breaux MUCOUS NONE SEEN Normal NONE SEEN [facility] Comment on above: Performed By: #### U AMIC #### [facility] [address] [address] [address] Stephon Breaux Nitrite Ql (U) Negative Normal NEGATIVE The [facility] Comment on above: Performed By: #### U AMIC #### [facility] [address] [address] [address] Stephon Breaux pH (U) 5.5 [pH] Normal 5-9 [facility] Comment on above: Performed By: #### U AMIC #### [facility] [address] [address] [address] Stephon Breaux RBC NONE SEEN Abnormal 0-2 [facility] Comment on above: Performed By: #### U AMIC #### [facility] [address] [place] [address] Dr. Stephon Breaux SPEC GRAVITY >=1.030 Abnormal 1.005-<=1.025 [facility] Comment on above: Performed By: #### U AMIC #### [facility] [address] [address] [address] Stephon Breaux UA PROTEIN Negative Normal NEGATIVE/ TRACE [facility] Comment on above: Performed By: #### U AMIC #### [facility] [address] [address] [address] Stephon Breaux Urobilinogen Qn (U) 0.2 {Billy'U}/dL Normal 0.2 - 1. 0 [facility] Comment on above: Performed By: #### U AMIC #### [facility] [address] [place] [address] Dr. Stephon Breaux WBC 2-5 Abnormal NONE SEEN [facility] Comment on above: Performed By: #### U AMIC #### [facility] [address] [place] [address] Dr. Stephon Breaux CULTURE URINEon 12-26-2021 CULTURE [...] #### C BC #### [facility] [address] [place] [address] Dr. Stephon Breaux UA RANDOM W/MICROSCOPICon BACTERIA TRACE Abnormal NONE SEEN [facility] Comment on above: Performed By: #### U AMIC #### [facility] [address] [place] [address] Dr. Stephon Breaux Bilirubin Ql (U) Negative Normal NEGATIVE The [facility] Comment on above: Performed By: #### U AMIC #### [facility] [address] [address] [address] Stephon Breaux CAST NONE SEEN Normal NONE SEEN [facility] Comment on above: Performed By: #### U AMIC #### [facility] [address] [address] [address] Stephon Breaux Clarity (U) CLEAR Normal CLEAR [facility] Comment on above: Performed By: #### U AMIC #### [facility] [address] [address] [address] Stephon Breaux Color (U) DK. ORANGE Abnormal YELLOW [facility] Comment on above: Performed By: #### U AMIC #### [facility] [address] [address] [address] Stephon Breaux Crystals LM Nom (Urine sed) NONE SEEN Normal NONE SEEN [facility] Comment on above: Performed By: #### U AMIC #### [facility] [address] [place] [address] Dr. Stephon Breaux Epithelial cells LM Ql (Urine sed) FEW Abnormal NONE SEEN /RARE [facility] Comment on above: Performed By: #### U AMIC #### [facility] [address] [address] [address] Stephon Breaux Glucose Ql (U) Negative Normal NEGATIVE The [facility] Comment on above: Performed By: #### U AMIC #### [facility] [address] [address] [address] Stephon Breaux Hemoglobin Ql (U) SMALL Abnormal NEGATIVE [facility] Comment on above: Performed By: #### U AMIC #### [facility] [address] [address] [address] Stephon Breaux Ketones Ql (U) Negative Normal NEGATIVE The [facility] Comment on above: Performed By: #### U AMIC #### [facility] [address] [address] [address] Stephon Breaux LEUKOCYTES MODERATE Abnormal NEGATIVE [facility] Comment on above: Performed By: #### U AMIC #### [facility] [address] [address] [address] Stephon Breaux MUCOUS NONE SEEN Normal NONE SEEN [facility] Comment on above: Performed By: #### U AMIC #### [facility] [address] [address] [address] Stephon Breaux Nitrite Ql (U) Negative Normal NEGATIVE The [facility] Comment on above: Performed By: #### U AMIC #### [facility] [address] [address] [address] Stephon Breaux pH (U) 6.0 [pH] Normal 5-9 [facility] Comment on above: Performed By: #### U AMIC #### [facility] [address] [address] [address] Stephon Breaux RBC 2-5 Abnormal 0-2 [facility] Comment on above: Performed By: #### U AMIC #### [facility] [address] [place] [address] Dr. Stephon Breaux SPEC GRAVITY >=1.030 Abnormal 1.005-<=1.025 [facility] Comment on above: Performed By: #### U AMIC #### [facility] [address] [address] [address] Stephon Breaux UA PROTEIN TRACE Normal NEGATIVE/ TRACE [facility] Comment on above: Performed By: #### U AMIC #### [facility] [address] [address] [address] Stephon Breaux Urobilinogen Qn (U) 0.2 {Billy'U}/dL Normal 0.2 - 1. 0 [facility] Comment on above: Performed By: #### U AMIC #### [facility] [address] [address] [address] Stephon Breaux WBC 20-50 Abnormal NONE SEEN [facility] Comment on above: Performed By: #### U AMIC #### [facility] [address] [address] [address] Stephon Breaux Vital Signs Date Time Vital Sign Value Performing Clinician Facility 11-06-2024 11:53-0400 Body height 170.18 cm Wyatt Mann MD Work Phone: [facility] 11-06-2024 11:53-0400 Body mass index (BMI) [Ratio] 33.8 kg/m2 Wyatt Mann MD Work Phone: [facility] 11-06-2024 11:53-0400 Body temperature 96.8 [degF] Wyatt Mann MD Work Phone: [facility] 11-06-2024 11:53-0400 Body weight 97.97 kg Wyatt Mann MD Work Phone: [facility] 11-06-2024 11:53-0400 Diastolic blood pressure 63 mm[Hg] Wyatt Mann MD Work Phone: [facility] 11-06-2024 11:53-0400 Heart rate 71 /min Wyatt Mann MD Work Phone: [facility] 11-06-2024 11:53-0400 Respiratory rate 18 /min Wyatt Mann MD Work Phone: [facility] 11-06-2024 11:53-0400 SaO2% (BldA) [Mass fraction] 100 % Wyatt Mann MD Work Phone: [facility] 11-06-2024 11:53-0400 Systolic blood pressure 118 mm[Hg] Wyatt Mann MD Work Phone: [facility] 03-16-2024 08:40-0500 Blood Pressure Location YANE GUAMAN [facility] 03-16-2024 08:40-0500 Body temperature 98.6 [degF] YANE GUAMAN [facility] 03-16-2024 08:40-0500 Diastolic blood pressure 82 mm[Hg] YANE GUAMAN [facility] 03-16-2024 08:40-0500 Heart rate 87 /min YANE GUAMAN [facility] 03-16-2024 08:40-0500 Systolic blood pressure 122 mm[Hg] YANE GUAMAN [facility] 01-19-2023 10:50-0500 Body height 170.18 cm Yary Valladares Other [employer] Other 01-19-2023 10:50-0500 Body mass index (BMI) [Ratio] 30.1 kg/m2 Yary Valladares Other [employer] Other 01-19-2023 10:50-0500 Body temperature 97.4 [degF] Yary Valladares Other [employer] Other 01-19-2023 10:50-0500 Body weight 87.18 kg Yary Valladares Other [employer] Other 01-19-2023 10:50-0500 Respiratory rate 18 /min Yary Valladares Other [employer] Other 01-19-2023 10:50-0500 SaO2% (BldA) [Mass fraction] 95 % Yary Valladares Other [employer] Other Encounters Encounter Date Encounter Type Care Provider Facility Start: 11-06-2024 End: 11-06-2024 ambulatory Wyatt Mann MD Work Phone: 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 -[facility] Work Phone: Start: 11-04-2024 ambulatory Diana Calderon Facility :[facility] Start: 09-27-2024 End: 09-27-2024 ambulatory YANE GUAMAN [facility] Start: 09-27-2024 End: 09-27-2024 Patient encounter procedure YANE GUAMAN [facility] Start: 08-30-2024 End: 08-30-2024 ambulatory YANE GUAMAN Facility:[facility] Start: 08-30-2024 End: 08-30-2024 Patient encounter procedure YANE GUAMAN [facility] Start: 05-04-2024 End: 05-04-2024 ambulatory Ji R CHELSI Facility[facility] Start: 05-04-2024 End: 05-04-2024 Patient encounter procedure Ji R CHELSI [facility] Start: 03-16-2024 End: 03-16-2024 ambulatory YANE GUAMAN Facility:[facility] Start: 03-16-2024 End: 03-16-2024 Patient encounter procedure [facility] GUAMAN [facility] Start: 05-18-2023 End: 05-18-2023 ambulatory Rayna Muñoz Facility:[facility] Start: 01-23-2023 End: 01-23-2023 ambulatory Yary Valladares Other [employer] Other Start: 01-23-2023 Telephone encounter Yary Valladares [facility] Start: 01-19-2023 Office outpatient vi sit 25 minutes Yary Valladares [facility] Start: 01-19-2023 End: 01-19-2023 ambulatory Wyatt Mann [facility] Work Phone: Start: 01-19-2023 End: 01-19-2023 Departed [employer] FLAT LOCK OPERATOR Yary Valladares Work Phone: [facility] [place] Work Phone: Start: 06-14-2022 End: 06-15-2022 ambulatory [...] identified in Urine by Culture Urine Culture [facility] Patient Education Low back pain in adults [facility] Work Phone: [facility] Immunizations Immunization Date Immunization Notes Care Provider Fa cility 01-15-2023 influenza virus vacc ine, unspecified formulation YANE GUAMAN [facility] 01-30-2022 influenza virus vacc ine, unspecified formulation YANE GUAMAN [facility] 05-10-2021 pneumococcal polysaccharide vaccine, 23 valent YANE GUAMAN [facility] 01-27-2021 influenza, unspecifi ed formulation YANE GUAMAN [facility] 01-27-2021 SARS-CoV-2 (COVID-19 ) mRNA BNT-162b2 vax YANE GUAMAN [facility] Comment on above: Result Comment: 2024: [id number] 12-28-2020 influenza virus vacc ine, unspecified formulation YANE GUAMAN [facility] 06-06-2020 SARS-CoV-2 (COVID-19 ) mRNA BNT-162b2 vax YANE GUAMAN [facility] 05-15-2020 SARS-CoV-2 (COVID-19 ) mRNA BNT-162b2 vax YANE GUAMAN [facility] 08-26-2019 pneumococcal conjuga te vaccine, 13 valent YANE GUAMAN [facility] Payers Date Payer Category Payer Medicare [id number] 2023 Unknown [id number] 2023 Self-pay [id number] 1959 Unknown [id number] 1950 Unknown [id number] 2.16.84 [id number] 1950 Unknown [id number] 2.16.84 [id number] 1950 Unknown [id number] 2.16.84 0.1.466010.3.579.2.593 1950 Unknown [id number] 2.16.84 [id number] 1950 Unknown [id number] 2.16.84 0.1.750955.3.579.2.593 1950 Unknown [id number] 2.16.8 40.1.112964.3.579.2.727 1950 Unknown [id number] 2.16.8 40.1.423273.3.579.2.727 1950 Unknown [id number] 2.16.8 40.1.754014.3.579.2.727 1950 Unknown [id number] 2.16.8 40.1.516405.3.579.2.727 1952 Unknown [id number] 2.16.8 40.1.863289.3.579.2.727 1950 Unknown [id number] 2.16.8 40.1.893835.3.579.2.727 1950 Unknown [id number] 2.16.8 40.1.254714.3.579.2.727 Unknown [id number] Unknown [id number] 2.16.8 [id number] Unknown [id number] 2.16.8 [id number] Social History Date Type Detail Facility Unknown if ever smoked [facility] Work Phone: Sex Assigned At [facility] Start: 1950 Sex Assigned At Female [facility] Start: 03-07-2018 End: 03-16-2024 Tobacco smoking status Never smoked tobacco (finding) [facility] Tobacco smoking status Never [facility] Sexual Orientation [facility] Start: 10-15-2013 Sex Female (finding) [facility] Functional Status Date Assessment Result Facility 05-04-2024 Functional Status N/A [facility] 03-16-2024 Functional Status N/A [facility] Clinical Notes 11-27-2021 to 07-14-2025 Note Date [...] provider. Document Revised: 10/01/2022 Document Reviewed: 10/01/2022 [employer] Patient Education 2023 [employer]. Follow Up Care 09/27/2024 10:39:38 With:DENIZ PATEL, YANE Zepeda, URL Address: [address] [place], [place] [address] [address] Business (1) When: Unknown Comments:pending results of imaging/testing, will call with next steps [facility] 09-27-2024 Note Patient Education Caregiving Antibiotic [...] You have sig (more content not included)... [facility] 05-04-2024 Hospital Discharg e instructions Patient Education [...] Up Care 03/16/2024 09:32:57 With:Ji GAGNON Address: [address] [place] [address] [place] [address]- Business (1) When:09/01/2024 10:49:14 Comments:With Lurdes Guaman [facility] 05-04-2024 Note Patient Education Custom Cystoscopy [...] you have a fever over 100 degrees [facility] 03-16-2024 Hospital Discharg e instructions Patient Education [...] reconstructed. Follow these instructions at home: Take gclg-gjp-snbextb and prescription medicines only as told by [...] provider. Document Revised: 12/26/2022 Document Reviewed: 12/26/2022 [employer] Patient Education 2023 [employer]. Follow Up Care 02/17/2024 09:52:45 With:[facility] Address: When: Unknown Comments:For procedure as scheduled. [facility] 03-16-2024 Note Patient Education Urology [...] Follow these instructions at home: ??? Take ndjr-yqa-gqkfoel and prescription medicines only as told by [...] provider. Document Revised: 12/26/2022 Document Reviewed: 12/26/2022 [employer] Patient Education ? 2023 [employer]. [facility] 01-19-2023 Evaluation note Encounter Date Diagnosis Assessment [...] condition Jan, Sore throat (ICD-10 - J02.9) [employer] Other 09-13-2022 NoteEXAMINATION: XR CHEST 2 V [...] Appointments Appointment Date:05/03/2024 11:00:00 AM Scheduled Provider: Location:[facility] Appointment Type:Urology CALL PAT FT Appointment Date:05/04/2024 10:15:00 AM Scheduled Provider: Location:[facility] Appointment Type:Urology FT [facility] evaluation + Plan note Future Appointments Appointment Date:08/30/2024 09:40:00 AM Scheduled Provider:YANE GUAMAN PA-C Location:[facility] Appointment Type:URO Office Visit [facility] Evaluation noteNo assessment information available [facility] Work Phone: [facility] [employer] Other Evaluation note* Diagnosis Onset Date Resolution Status Admit Date Low back pain acute October 11:42am [facility] Work Phone: History general Narrative - Reported* Type Description Date Medical History Depression Medical History Glaucoma Medical History Arthritis Medical History osteoporosis Surgical History vaginal lazering [facility] [employer] Other Hospital course Narrative No data available for this section [facility] Hospital Discharge instructions No data available for this section [facility] progress note No data available for this section [facility] reason for referral (narrative)No reason for referral information [facility] Work Phone: Summary Purpose Family History [...] CREATED AUTHOR 06/22/[address] [facility] DATE CREATED AUTHOR AUTHOR'S ORGANIZ ATION 05/22/2023 [facility] DATE CREATED AUTHOR AUTHOR'S ORGANIZ ATION 10/03/[address] [facility] DATE CREATED AUTHOR AUTHOR'S ORGANIZ ATION 10/16/[address] [facility] DATE CREATED AUTHOR AUTHOR'S ORGANIZ ATION 11/06/2024 [facility] REASON FOR VISIT (unrecogniz ed section [...] BE BASED ON THE PRIMARY CLINICAL RECORDS. [facility] [employer] [facility]. provides no warranty or guarantee of the accuracy or completeness of information in this document.
== END 2024-11-29 13:25 | disposition home or self-care (01) ==
LOC: RAD 13:25
PROVIDERS: Visit Provider Nurse Practitioner Family
DX: M54.50 Low back pain, unspecified (principal)
CPT/HCPCS: 72110

== ENCOUNTER 2024-12-07 13:51 | Outpatient (RCR) | payer OTHER, SELFPAY | END 2024-12-29 13:14 | disposition home or self-care (01) | LOC: PT 13:51 | PROVIDERS: PCP Nurse Practitioner Family; Visit Provider Nurse Practitioner Family | DX: M54.16 Radiculopathy, lumbar region (principal) | CPT/HCPCS: 97012; 97110; 97113; 97140; 97163 ==

== ENCOUNTER 2024-12-08 09:49 | Outpatient (OUT) | payer OTHER, SELFPAY ==
--- OUTSIDE RECORDS SUMMARY | 2024-11-26 07:15 | XMS_ITS ---
Author Organization [facility] in [place] Address [address] [place] [address] Care Team Providers Care Braid Maker Name Role Phone Rayna Vasquez Primary Care Provider Uriah Mann Unavailable [phone] Allergies No Known Allergies REASON FOR VISIT Presents to office alone for back pain not better. Seen Ling 3 weeks ago, Has been doing heat, ice, stretching, tens unit, muscle relaxer, tylenol and Diclofenac Medications Medication SIG (Take, Route, Frequency, Duration) Notes Start Date End Date Status Wegovy 0.25 MG/0.5ML 0.5 mL Subcutaneous weekly; Duration: 30 days 10/26/2024 Active Sertraline HCl 100 MG TAKE 1 TABLET BY M OUTH EVERY DAY; Duration: 90 Active Vitamin D3 50 MCG (1999) 1 capsule Orally Once a day Active tiZANidine HCl 4 MG 2 tabs Orally qhs; Duration: 30 days 11/26/2024 Active Potassium 99 MG 1 tablet Orally Once a day Active Diclofenac Sodium 75 MG 1 tablet Orally daily; Duration: 30 days Active Calcium & Magnesium Carbonates Active Multi Vitamin Active Pantoprazole Sodium 40 MG TAKE 1 TABLET BY MOUTH EVERY DAY; Duration: 90 Active Alendronate Sodium 70 MG 1 TAB ORALLY ON CE A WEEK 30 MIN. BEFORE FIRST FOOD, DRINK OR MEDICINE OF DAY WITH WATER FOR 90 DAYS; Duration: 84 Active Social History Tobacco Use: Social History [...] Problem Status W/U Status Risk Notes Problem Lumbar radiculopathy ([id number]) Lumbar radiculopathy (M54.16) Active confirmed Vital Signs Weight 209 lbs 11/26/2024 Height 66 in 11/26/2024 Blood pressure systolic 132 mm Hg 11/27/19 25 Blood pressure diastolic 80 mm Hg 025 BMI 33.73 kg/m2 11/26/2024 Encounters Encounter Location Date Provider Diagnosis [facility] [address] [place] [address] 11/26/2024 Uriah Howard Sciatica M54.30 and Lumbar radiculopathy M54.16 Assessments Encounter Date Diagnosis (ICD Code) Assessment Notes Treatment Notes Treatment Clinical Notes Section Notes 11/26/2024 Sciatica (ICD-10 - M54.30) 11/26/2024 Lumbar radiculopathy (ICD-10 - M54.16) PT if not better Plan Of Treatment Medication Medication Name Sig Start Date Stop Date Notes tiZANidine HCl 4 MG 2 tabs Orally qhs; D uration: 30 days 11/26/2024 Cyclobenzaprine HCl 5 MG TAKE 1 TO 2 TAB LETS BY MOUTH EVERY DAY AT BEDTIME NEEDED FOR 30 DAYS Treatment Notes Assessment Notes Lumbar radiculopathy PT if not better Medications Administered Medication Instructions Date of Administration Dosage Notes Orphenadrine Citrate 11/26/2024 60 mg Ketorolac Tromethamine 11/26/2024 60 mg Progress Notes * TOMRochelle SDOB:1950 (74 yo F)Acc No.[id number]:11/26/2024 Progress Note Patient: Rochelle CLINTON Provider: Tatum Mann ([facility])MD :1950 A ge:74 Y S ex:Female Date:11/26/2024 Address:[facility] [address] [id number] Pcp:Rayna Vasquez Check In:11:07 AM ESTCheck O ut:11:49 AM EST Subjective: * Chief Complaints: * P resents to office alone for back pain not better. Seen Ling 3 weeks agoHas been doing heat, ice, stretching, tens unit, muscle relaxer, tylenol and Diclofenac * HPI: G eneral: INjetion - not much help thi time worse in the mornings. * ROS: E ENT: hearing changes d enies. v isual changes d enies.?non-healing mouth sores d enies. s wollen glands or neck lumps d enies. h oarseness d enies. s ore throat d enies. d ifficulty swallowing d enies. n ose bleeds d enies. n dana congestion d enies. e ar ache d enies. e ar discharge?denies. r inging in ears d enies. l ight sensitivity d enies. e ye pain d enies. b lurring d enies. e ye irritation d enies. d ouble vision d enies.?vision loss d enies. G eneral/Constitutional: Sweats: D enies. F atigue d enies. S leep problems d enies. A norexia d enies. M alaise d enies. W eight loss d enies.?Fatigue or Weakness d enies. F ever or Chills d enies. C ardiovascular: Shortness of Breath w/lying flat d enies. L ightheadedness/dizziness d enies. C hest tightness/ heavy pressure d enies. S welling of legs, ankles, or feet d enies. W aking up with shortness of breath d enies. C hest pain denies. P alpitations d enies. W eight gain d enies. R espiratory: Chronic or frequent cough d enies. C oughing up blood?denies. D ifficulty breathing d enies. P roductive cough d enies. S noring?denies. S hortness of breath that awakens from sleep (PND) d enies. C hest pain d enies. S putum production d enies. W heezing d enies. M usculoskeletal: Joint pain d enies. J oint Fluid d enies. B ack pain d enies. K nee pain d enies. N gillian pain d enies. J oint Stiffness d enies. M uscle cramps d enies. W eakness of muscles d enies. A rthritis d enies. M uscle aches d enies. P ain in shoulder(s) d enies. S wollen joints d enies. * Active Problem List F41.9 Anxiety Modified On:09/29/2023U Status:confirmed K57.90 Diverticular disease Modified On:09/29/2023U Status:confirmed M54.30 Sciatica Modified On:09/29/2023U Status:confirmed N18.9 CKD (chronic kidney disease) Modified On:02/04/2024/U Status:confirmed M81.0 Senile osteoporosis Modified On:10/04/2024/U Status:confirmed E66.9 Class 2 obesity Modified On:10/26/2024U Status:confirmed M54.16 Lumbar radiculopathy Modified On:11/26/2024 Status:confirmed * Medical History: * Surgical History: u rethra stretched * Hospitalization/Major Diagno stic Procedure: * Family History: F ather: , Aortic issues- intestinal infectionkidney stones. M other: , Stroke. B rother(s): , Dementia, strokes, Pancreatic Cancer. S on(s): alive. 4 brother(s) . 1 son(s) - healthy. . Oldest killed in accident. * Social History: T obacco Use: T obacco Control (Standard) T obacco use: N onsmoker D rug/Alcohol: A CELESTINA-C (Standard) D id you have a drink containing alcohol in the past year? N o P oints 0 I nterpretation N egative * Medications: T akingAlendronate Sodium 70 MG Tablet 1 TAB ORALLY ONCE A WEEK 30 MIN. BEFORE FIRST FOOD, DRINK OR MEDICINE OF DAY WITH WATER FOR 90 DAYS Calcium & Magnesium Carbonates Cyclobenzaprine HCl 5 MG Tablet TAKE 1 TO 2 TABLETS BY MOUTH EVERY DAY AT BEDTIME NEEDED FOR 30 DAYS Diclofenac Sodium 75 MG Tablet Delayed Release 1 tablet Orally daily Multi Vitamin Pantoprazole Sodium 40 MG Tablet Delayed Release TAKE 1 TABLET BY MOUTH EVERY DAY Potassium 99 MG Tablet 1 tablet Orally Once a day Sertraline HCl 100 MG Tablet TAKE 1 TABLET BY MOUTH EVERY DAY Vitamin D3 50 MCG (1999 UT) Capsule 1 capsule Orally Once a day Wegovy(Semaglutide-Weight Management) 0.25 MG/0.5ML Solution Auto-injector 0.5 mL Subcutaneous weekly Taking Alendronate Sodium 70 MG Tablet 1 TAB ORALLY ONCE A WEEK 30 MIN. BEFORE FIRST FOOD, DRINK OR MEDICINE OF DAY WITH WATER FOR 90 DAYS Taking Calcium & Magnesium Carbonates Taking Cyclobenzaprine HCl 5 MG Tablet TAKE 1 TO 2 TABLETS BY MOUTH EVERY DAY AT BEDTIME NEEDED FOR 30 DAYS Taking Diclofenac Sodium 75 MG Tablet Delayed Release 1 tablet Orally daily Taking Multi Vitamin Taking Pantoprazole Sodium 40 MG Tablet Delayed Release TAKE 1 TABLET BY MOUTH EVERY DAY Taking Potassium 99 MG Tablet 1 tablet Orally Once a day Taking Sertraline HCl 100 MG Tablet TAKE 1 TABLET BY MOUTH EVERY DAY Taking Vitamin D3 50 MCG (1999 UT) Capsule 1 capsule Orally Once a day Taking Wegovy(Semaglutide-Weight Management) 0.25 MG/0.5ML Solution Auto-injector 0.5 mL Subcutaneous weekly DiscontinuedCyclobenzaprine HCl 10 MG Tablet 1 tablet Orally TID Medication List reviewed and reconciled with the patientDiscontinued Cyclobenzaprine HCl 10 MG Tablet 1 tablet Orally TID Medication List reviewed and reconciled with the patient * Allergies: N .K.D.A.no[Allergies Verified] Objective: * Vitals: W t:209lbs, Ht: 66 in, BP:132/80mm Hg, BMI:33.73Index, Ht-cm: 167.64 cm, Wt-k.8 kg. * Examination: P hysical Exam: GENERAL: w ell developed, well nourished, in no acute distress. HEAD: n ormocephalic/atraumatic. EYES: p upils equal, round and reactive to light, conjunctivae and sclerae normal. EARS: n o deformity or lesion of external ear, canals and TM appear normal bilaterally, TM's intact, not inflamed with normal light reflex, hearing grossly normal to conversational speech. NOSE: n o deformity, discharge, inflammation, or lesions.? MOUTH: m ucous membranes moist, normal oropharynx and posterior pharynx without lesions or exudates, tongue normal, dentition normal. NECK: n gillian supple, no masses or palpable cervical nodes, trachea midline, thyroid without nodules, masses, tenderness, or enlargement. CHEST: n o chest wall deformity, no chest wall tenderness.? LUNGS: n ormal respiratory effort and clear to auscultation, no wheezes, rales, or rhonchi, good air exchange. CARDIO: r egular rate and rhythm, normal S1 and S2, nor murmur, rub, or gallop. PULSES: n ormal capillary refill. ABDOMEN: s oft, non-distended, non-tender, no masses. MUSCULOSKELETAL: n o deformity or scoliosis noted, normal range of motion, joints normal, no erythema, edema, effusion, or ecchymosis. EXTREMITY: n o clubbing, cyanosis, edema, or deformity with normal ROM in both upper and lower bilateral extremities. NEUROLOGIC: g rossly normal. SKIN: n o rashes, ulcerations, or suspicious lesions. LYMPH NODES: n o cervical adenopathy, nodes normal. MENTAL STATUS: a lert and oriented x3, normal mood and affect. Assessment: * Assessment: 1. S ciatica - M54.30 (Primary) 2 . L umbar radiculopathy - M54.16 ? Plan: * Treatment: * Therapeutic Injections: Ketorolac Tromethamine : 60 mg (Route: Intramuscular) given by JESSIE Patel on left gluteus (Lumbar radiculopathy) Orphenadrine Citrate : 60 mg (Route: Intramuscular) given by JESSIE Patel on right gluteus (Lumbar radiculopathy) * Procedure Codes: 9 6372 THERAP.INJ. OF MED. INTRAMUSCULAR OR [id number] TORADOL, PER 15 MG, Units: 4.00 , Modifiers: KASSANDRA J2360 NORFLEX,UP TO 60MG. * Preventive Medicine: Screenings/Counseling: B [facility] ACTION PLAN Above Normal BMI Follow-up D ietary management education, guidance, and counseling See treatment section of progress note for complete details of management plan. F ALL RISK SCREENING Fall Risk Assessment: N o falls in the past year * * Sign off status: Completed Visit Status: C HK (Check Out) true * Provider: Tatum Mann ([facility])MD Date: 0 11/26/2024 Generated for Printi ng/Faxing/eTransmitting on: 0 12/08/2024 09:52 AM EDT History and Physical Notes * HPI (History of Present Illness) Category Sub-Category Detail Notes Category Not es General INjetion - not much help thi time worse in the mornings Examination Category Sub-Category Detail Notes Category Not es Physical Exam GENERAL: well developed, well nourished, in no acute distress HEAD: normocephalic/atraum atic EYES: pupils equal, round and reactive to light, conjunctivae and sclerae normal EARS: no deformity or lesi on of external ear, canals and TM appear normal bilaterally, TM's intact, not inflamed with normal light reflex, hearing grossly normal to conversational speech NOSE: no deformity, discha rge, inflammation, or lesions MOUTH: mucous membranes mehdi st, normal oropharynx and posterior pharynx without lesions or exudates, tongue normal, dentition normal NECK: neck supple, no mass es or palpable cervical nodes, trachea midline, thyroid without nodules, masses, tenderness, or enlargement CHEST: no chest wall deform ity, no chest wall tenderness LUNGS: normal respiratory e ffort and clear to auscultation, no wheezes, rales, or rhonchi, good air exchange CARDIO: regular rate and rhy thm, normal S1 and S2, nor murmur, rub, or gallop PULSES: normal capillary ref ill ABDOMEN: soft, non-distended, non-tender, no masses RECTAL: MUSCULOSKELETAL: no deformity or scol iosis noted, normal range of motion, joints normal, no erythema, edema, effusion, or ecchymosis EXTREMITY: no clubbing, cyanosi s, edema, or deformity with normal ROM in both upper and lower bilateral extremities NEUROLOGIC: grossly normal SKIN: no rashes, ulceratio ns, or suspicious lesions LYMPH NODES: no cervical adenopat hy, nodes normal MENTAL STATUS: alert and oriented x 3, normal mood and affect
--- OUTSIDE RECORDS SUMMARY | 2024-11-29 05:18 | XMS_ITS ---
Author Organization [facility] in [place] Address [address] [place] [address] Care Team Providers Care President [employer] Name Role Phone Rayna Vasquez Primary Care Provider [phone] REASON FOR VISIT back pain Encounters Encounter Location Date Provider Diagnosis [facility] [address] [place] [address] 11/29/2024 Rayna Vasquez Low back pain at multiple sites M54.50 Assessments Encounter Date Diagnosis (ICD Code) Assessment Notes Treatment Notes Treatment Clinical Notes Section Notes 11/29/2024 Low back pain at multiple sites (ICD-10 - M54.50) Plan Of Treatment Pending Test Test Name Order Date XR LSPINE MIN 4 VIEWS 11/29/2024 Progress Notes * Rochelle MONTANEZ SDOB:1950 (74 yo F)Acc No.[id number]:11/29/2024 Patient: Rochelle CLINTON :1950 A ge:74 Y S ex:Female Address:[place] [address] Subjective: * Chief Complaints: * B ack pain * Medical History: * Surgical History: * Hospitalization/Major Diagno stic Procedure: * Medications: Objective: * Vitals: * Physical Examination: Assessment: * Assessment: 1. L ow back pain at multiple sites - M54.50 (Primary) Plan: * Treatment: * Procedure Codes: * true * Date: Generated for Printi ng/Faxing/eTransmitting on: 0 12/08/2024 09:51 AM EDT
--- OUTSIDE RECORDS SUMMARY | 2024-11-30 08:19 | XMS_ITS ---
Author Organization [facility] [place] Address [address] [place] [address] Care Team Providers Care Sewing Machine Operator Semiautomatic Name Role Phone Rayna Vasquez Primary Care Provider REASON FOR VISIT Xray results Encounters Encounter Location Date Provider Diagnosis [facility] [address] [place] [address] 11/30/2024 Rayna Vasquez Lumbar radiculopathy M54.16 Assessments Encounter Date Diagnosis (ICD Code) Assessment Notes Treatment Notes Treatment Clinical Notes Section Notes 11/30/2024 Lumbar radiculopathy (ICD-10 - M54.16) Plan Of Treatment Pending Test Test Name Order Date MRI LSPINE WO CON 11/30/2024 Progress Notes * Rochelle MONTANEZ SDOB:1950 (74 yo F)Acc No.[id number]:11/30/2024 Patient: Madison CARRILLO Rochelle S :1950 A ge:74 Y S ex:Female Address:[place] [address] Subjective: * Chief Complaints: * X ray results * Medical History: * Surgical History: * Hospitalization/Major Diagno stic Procedure: * Medications: Objective: * Vitals: * Physical Examination: Assessment: * Assessment: 1. L umbar radiculopathy - M54.16 (Primary) Plan: * Treatment: * Procedure Codes: * true * Date: Generated for Printi ng/Faxing/eTransmitting on: 0 12/08/2024 09:52 AM EDT
--- OUTSIDE RECORDS SUMMARY | 2024-12-01 09:24 | XMS_ITS ---
Author Organization [facility] [place] Address [address] [place] [address] Care Team Providers Care Truck Repair Supervisor Name Role Phone Rayna Vasquez Primary Care Provider Reason For Referral Diagnosis 1 Lumbar radiculopathy (M54.16) Referral Organization [facility] Referring Provider First Name Rayna Referring Provider Last Name Christina Referring Provider Speciality Family Med icine Referred Provider TB, Physical Therap y Referred Provider Specialty Physical The rapist Referral Priority Routine REASON FOR VISIT PT order Encounters Encounter Location Date Provider Diagnosis [facility] [address] [place] [address] 12/01/2024 Rayna Vasquez Lumbar radiculopathy M54.16 Assessments Encounter Date Diagnosis (ICD Code) Assessment Notes Treatment Notes Treatment Clinical Notes Section Notes 12/01/2024 Lumbar radiculopathy (ICD-10 - M54.16) Plan Of Treatment Referrals Referral Date Details 12/02/2024 12/02/2024, Physical Therapy [facility] Progress Notes * Rochelle MONTANEZ SDOB:1950 (74 yo F)Acc No.[id number]:12/01/2024 Patient: Patrick CLINTONaneaaron Jackman :1950 A ge:74 Y S ex:Female [address] [address] Subjective: * Chief Complaints: * P T order * Medical History: * Surgical History: * Hospitalization/Major Diagno stic Procedure: * Medications: Objective: * Vitals: * Physical Examination: Assessment: * Assessment: 1. L umbar radiculopathy - M54.16 (Primary) Plan: * Treatment: * Procedure Codes: * true * Date: Generated for Mary Lou ackerman/Kim/Tova on: 0 12/08/2024 09:51 AM EDT Consultation Request Notes Referral Date Referring Provider Referred Provider Not es 12/02/2024 Rayna Vasquez [facility], Physical Therapy
--- OUTSIDE RECORDS SUMMARY | 2024-12-03 05:58 | XMS_ITS ---
Author Organization [facility] [place] Address [address] [place] [address] Care Team Providers Care Cnc Router Operator Name Role Phone Rayna Vasquez Primary Care Provider [phone] REASON FOR VISIT back pain Medications Medication SIG (Take, Route, Fr equency, Duration) Notes Start Date End Date Status predniSONE 20 MG 2 tablet Orally Once a day; Duration: 5 days 12/03/2024 Active Encounters Encounter Location Date Provider Diagnosis [id number] [place] [address] 12/03/2024 Rayna Vasquez Plan Of Treatment Medication Medication Name Sig Start Date Stop Date Notes predniSONE 20 MG 2 tablet Orally Once a day; Duration: 5 days 12/03/2024 Progress Notes * Marjorie MONTANEZtte SDOB:1950 (74 yo F)Acc No.[id number]:12/03/2024 Patient: Rochelle CLINTON :1950 A ge:74 Y S ex:Female Address:[place] [address] * Refills Start predniSONE Tablet, 20 MG, Orally, 10 Tablet, 2 tablet, Once a day, 5 days, Refills=0 Subjective: * Chief Complaints: * B ack pain * Medical History: * Surgical History: * Hospitalization/Major Diagno stic Procedure: * Medications: Objective: * Vitals: * Physical Examination: Assessment: Plan: * Treatment: * Procedure Codes: * true * Date: Generated for Printi ng/Faxing/eTransmitting on: 0 12/08/2024 09:51 AM EDT
--- OUTSIDE RECORDS SUMMARY | 2024-12-08 09:51 | XMS_ITS | Clinical Summary ---
Author Organization [facility] Address [address] [place] [address] Care Team Providers Care El Teacher Name Role Phone Unavailable Primary Care Provider [...] Vaccine: 65+ Years Completed 2, 08/26/2019 Insurance [facility] MEDICARE ADVANTAGE
--- NOTE | 2024-12-08 09:52 | MR_ITS ---
[address] [address] Patient Name: GAVI SANTOS MRN: [id number] date: 1950 Sex: F Assigned Patient Location: MRI Current Patient Location: MRI Accession/Order Number: [id number] Exam Date: 12/08/2024 10:00 Report Date: 12/08/2024 16:17 At the request of: GLORIA WEAVER Procedure: MR lumbar spine wo con MRI lumbar spine performed without contrast INDICATION: Lumbar radiculopathy COMPARISON: 11/29/2024 lumbar spine x-rays FINDINGS: Mild to moderate levocurvature. Otherwise lumbar vertebral heights and alignment maintained. Mild retrolisthesis L3 on L4 measuring 3 mm minimal retrolisthesis L2 on L3 2 mm. Moderate intervertebral space narrowing L1-L3 and L4-5. Mild intervertebral space narrowing L3-4. Moderate severe intervertebral space narrowing T12-L1. Multilevel facet arthropathy. Conus medullaris terminates normally mid L1. Paraspinal soft tissues are unremarkable. T12-L1: Broad-based disc bulge and moderate facet arthropathy. There is suggestion of a right subarticular zone extrusion which extends cranially and into the right foramen. Otherwise moderate right and mild left from narrowing. Canal is patent. L1-2: Broad-based disc bulge with facet arthropathy. Mild right neural foraminal mild to moderate foraminal narrowing. Canal is patent. L2-3: Broad-based disc bulge with moderate severe facet arthropathy. There is moderate central canal narrowing with mild encroachment both subarticular zones. There is moderate left neural foraminal narrowing and mild right neural foraminal narrowing identified. L3-4: Circumferential disc bulge with superimposed central protrusion and moderate facet arthropathy. There is moderate severe central canal stenosis with moderate crowding of the subarticular zones. There is moderate right neural foraminal narrowing and [id number] left neural foraminal narrowing. L4-5: Circumferential disc osteophyte complex with moderate severe facet arthropathy and the right and moderate left-sided facet arthropathy. There is low signal extending to the right foraminal zone unclear if this arises from the disc versus the facet joint. Favor an extruded disc fragment. There is severe effacement right foramen, correlate with right L4 radiculopathy. L5-S1: Circumferential disc bulge asymmetric towards the left with moderate right moderate severe left-sided facet arthropathy. Facet joint spurring greatest on the left extending to left foraminal zone. Mild right foraminal narrowing and moderate to severe left neural foraminal narrowing identified. There is left-sided subarticular recess encroachment at least moderate, correlate with possible left S1 radiculopathy. MR/MR lumbar spine wo con IMPRESSION: Multilevel degenerative changes greatest on the right at L4-5 with severe right foraminal narrowing possibly related to a disc extrusion. Correlate with right L4 to cooperate. Please see body report for additional level by level details. Impression dictated by: Adria Oseguera M.D. 12/08/2024 4:17 PM Dictation Location: [place] [address] Electronically authenticated by: [id number] Y Date: 12/08/2024 16:17
--- OUTSIDE RECORDS SUMMARY | 2024-12-08 09:52 | XMS_ITS | Clinical Summary ---
Author Organization [facility] Address [address], [address] [place] [address] Care Team Providers Care Skidder Driver Name Role Phone Wyatt Mann MD Primary Care Provider [phone] Allergies No known active allergies Medications latanoprost [...] Plan of Treatment Not on file Insurance [facility] MEDICARE Care Teams Skidder Driver Relationship Specialty Start Date End Date Wyatt Mann MD [address] [place] [address] PCP - General Family Medicine 03/31/20
--- OUTSIDE RECORDS SUMMARY | 2024-12-08 09:52 | XMS_ITS | Clinical Summary ---
[facility] Address [id number] [address] [place] [address] Care Team Providers Care Vehicle Service Attendant Name Role Phone Unavailable Primary Care Provider [...]
--- OUTSIDE RECORDS SUMMARY | 2024-12-08 10:02 | XMS_ITS | CCD ---
Author Organization [facility] CliniSymn Care Team Providers Care Dredge Hand Name Role Phone OWEN, RAYNA Attending Unavailable [...] Yary Valladares Unavailable GERTRUDE Valladares Attending Provider [phone] Wyatt Mann Primary Care Unavailable Yary Valladares [...] Unavailable Wyatt Mann MD Primary Care Provider [phone] Giana Aragon APRN Attending Provider Diana Calderon Attending Unavailable Allergies Allergy Classification Reported Allergen(s) Allergy Type Date of Onset Reaction(s) Facility (2 sources) No Known Medication Allergies; Translations: [No Known Medication Allergies] Propensity to adverse reactions (disorder) [facility] Repository Medications Current Medications Medication Drug Class(es) [...] cysto., # 2 tab(s), Refills(s) 0, Pharmacy: [facility]/pharmacy #[id number], 164, cm, 03/16/24 8:48:00 EST, Height/Length [...] procedure, # 1 tab(s), Refills(s) 0, Pharmacy: [facility]/pharmacy #[id number], 164, cm, 03/16/24 8:48:00 EST, Height/Length [...] 3 weeks, then 3x per week thereafter, [facility]/pharmacy #[id number], 164, cm, 03/16/24 8:48:00 EST, Height/Length [...] Locations R1: This test was performed at: [facility], [address] [place] [address], [address]- , [place], Normal [facility] Comment on above: Performed By: #### 2 [id number] #### [facility] [address] [place] [id number] Ambulatory Visit Summaryon 0 09-27-2024 Ambulatory Visit [...] signed up for this yet, please contact [employer] at [phone] to get signed up today. Language Information Language assistance services are available as needed. Normal [facility] Urology Office/Clinic Noteon 09-27-2024 Urology [...] cysto., # 2 tab(s), Refills(s) 0, Pharmacy: [facility]/pharmacy #[id number], 164, cm, 03/16/24 8:48:00 EST, Height/Length Dosing, 97.3, kg, 03/16/24 8:48:00 EST, Weight Dosing Body Mass Index (BMI) documented 3008F Current tobacco non-user 1036F Depression Screening Negative 3352F E&M of Est. Patient Low 20-29 Min 47641 Influenza immunization status assessed 1030F Medication list [...] Urnls Dip Stick Auto w/o Microscopy POC 42881 Follow-up With When Contact Information YANE GUAMAN PA-C, URL [address] [place] [address] [facility] (1) Additional Instructions: pending results [...] pH Urine Dipstick: 5.5 (09/27/24 11:23:00) Normal [facility] Comment on above: Result Comment: Elec tronically Signed By: DENIZ PATEL, YANE Zepeda\.br\Date and Time Signed: 09/27/24 11:56 EDT Main OR Intraoperative Recor don 05-04-2024 Main OR Intraoperative Record Main OR Intraoperative Record IntraOp Document Type FTURO Summary Primary Physician: Ji GAGNON MD Finalized Date/Time: 05/04/24 10:52:00 Pt. Name: GAVI MONTANEZ /Sex: 1950 Female Med Rec #: [id number] Physician: Ji GAGNON MD Financial #: [id number] Pt. 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 Name: FATMATA MONTANEZANETTDuane Amado./Sex: 1950 Female Med Rec #: [id number] Physician: Ji GAGNON MD Financial #: [id number] Pt. Type: O Room/Bed: / Admit/Disch: 05/04/24 [...] Complaints of Pain: No Skin Integrity Intact, [place], Warm, & Dry Vitals - EU Blood Pressure 138/79 Pulse 72 bpm Respirations 18 br/min SPO2 97 % Additional None RN Reviewed Yes Specimens Collected Last Modified By: Zoila Siddiqui 05/04/24 10:43:45 Finalized By: Zoila Siddiqui Document Signatures Signed By: Roberto MURDOCKTeresaOralia D 05/04/24 10:24 Zoila Siddiqui 05/04/24 10:43 Normal [facility] Operative Reporton Operative Report Operative Report Patient: [...] urine. The Urethra was dilated to: 30 Syriac w/ sounds. Devices Implanted: None. Removal: Cystoscope is removed, The patient tolerated it well. Postoperative Information Discharge: Patient is discharged home with antibiotic coverage, Follow up arranged. She is strongly encouraged to be compliant with her estradiol cream.. Normal [facility] Comment on above: Result Comment: Elec tronically [...] Follow-Up Appointments Friday 11:00 AM EST Where: [facility] Friday 10:15 AM EST Where: [facility] You Need to Schedule the Following Appointments Follow Up with [facility] When: Comments: For procedure as scheduled. Where: Medications What How Much When Why Instructions New ciprofloxacin (Cipro 500 mg Tab) See instructions Recurrent UTI Stricture of female urethra 1 tab po night prior to cysto. 1 tab po following cysto. Pickup at [facility]/pharmacy #[id number] New diazepam (Valium 5 mg Tab) 1 Tablets By Mouth Once Recurrent UTI Stricture of female urethra 1 hr prior to procedure Pickup at [facility]/pharmacy #[id number] New estradiol topical (Estrace 0.1 mg/ g Cream) See instructions Recurrent UTI Stricture of female urethra Refills: 6 apply a pea-sized amount vaginally and around the urethra nightly x 3 weeks, then 3x per week thereafter Pickup at [facility]/pharmacy #[id number] Unchanged alendronate (alendronate 70 mg Tab) [...] physician if questions or concerns Pharmacy Information [facility]/pharmacy #[id number]: [address] [place], [place] [id number] [phone] Allergies No Known Medication Allergies Problems Ongoing [...] the risk? (more content not included)... Normal [facility] Urology Office/Clinic Noteon 12-31-2024 Urology Office/Clinic Note [...] R-FQ 10/24/23 - A1c 5.4 02/02/24 - Flyer Maker 1.23 BUN 14 GFR 43 Review of [...] yes; avoids baths/hot tubs: yes; avoids scented OFFICE MANAGER products: yes PVR 0ml. Likely secondary to [...] cysto., # 2 tab(s), Refills(s) 0, Pharmacy: [facility]/pharmacy #[id number], 164, cm, 03/16/24 8:48:00 EST, Height/Length Dosing, 97.3, kg, 03/16/24 8:48:00 EST, Weight Dosing diazepam, 5 mg = 1 tab(s), Oral, Once, 1 hr prior to procedure, # 1 tab(s), Refills(s) 0, Pharmacy: [facility]/pharmacy #[id number], 164, cm, 03/16/24 8:48:00 EST, Height/Length Dosing, 97.3, kg, 03/16/24 8:48:00 EST, Weight Dosing estradiol topical, See Instructions, 42.5 gm, Refill(s) 6, apply a pea-sized amount vaginally and around the urethra nightly x 3 weeks, then 3x per week thereafter, [facility]/pharmacy #[id number], 164, cm, 03/16/24 8:48:00 EST, Height/Length Dosing, 97.3, kg, 03/16/24 8:48:00 EST,... [address]256 Measure Post Void residual urine and/or bladder [...] Urnls Dip Stick Auto w/o Microscopy POC 77125 2. Stricture of female urethra (N35.92: Unspecified urethral stricture, female) Sp cysto/UD w DLS in 2019. Marked improvement in urinary sx and UTI frequency until 2022. Will start estrogen cream and schedule cysto UD. Pt states last time was painful. Offered pre-procedure Valium. Risks/benefits discussed. Pt would like to do this. 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 The procedure risks, benefits, details, and treatment alternatives have been discussed with the patient. These include bleeding, infection, recurrent scar in over 50%, need for repeat dilation or other procedures, no sy (more content not included)... Normal [facility] Comment on above: Result Comment: Elec tronically [...] RESISTANT TO ALL B-LACTAM DRUGS. PERFORMED BY: [place] [address] PATHOLOGIST BUTTON INSPECTOR DEYANIRA ARCE M.D. [facility] Comment on above: Performed By: #### C UU #### [address] Quick Strepon 01-19-2023 S. pyogenes Org specific cx Ql (Throat) Negative [employer] Other Urinalysis - AUTOMATEDon Appearance (U) CLEAR [employer] Other Bilirubin Ql (U) Negative [employer] Other Color (U) YELLOW [employer] Other Glucose Ql (U) Negative [employer] Other Hemoglobin Ql (U) Negative [employer] Other Ketones Ql (U) Negative [employer] Other Leukocyte esterase Test strip Ql (U) SMALL [employer] Other Nitrite Ql (U) Negative [employer] Other pH (U) 5.0 [pH] [employer] Other Protein Ql (U) TRACE [employer]M [employer] Other Specific gravity (U) [Rel density] >=1.030 [employer] Other Urobilinogen (U) [Mass/Vol] 0.2 mg/dL [employer] Other Urinalysis - AUTOMATED [employer] Other Urine Cultureon 01-19-2023 Urine Culture >100,000 [employer] Other Bacteria identified Cx Nom (U) ORGANISM: [...] RESISTANT TO ALL B-LACTAM DRUGS. PERFORMED BY: [place] [address] PATHOLOGIST BUTTON INSPECTOR DEYANIRA ARCE M.D. Normal [facility] Comment on above: Performed By: #### C UU #### [address] XR DEXA BONE DENSITYon 06-14 XR [...] by: ALEXANDRA MARIA Date: 2022-06-14 15:17 Normal [facility] INSULINon 06-05-2022 Insulin 13.1 uIU/mL Normal 2.6-24.9 [facility] Comment on above: Performed By: #### I NSULIN #### [facility] [address] [place] [address] Dr. Stephon Breaux CBC AUTO DIFFon 06-04-2022 BASO # 0.1 103/ul Normal 0.0-0.1 [facility] Comment on above: Performed By: #### C BC #### [facility] [address] [place] [address] Dr. Stephon Breaux Basophils/100 WBC (Bld) 1.3 % Normal 0.2-2.0 [facility] Comment on above: Performed By: #### C BC #### [facility] [address] [place] [address] Dr. Stephon Breaux EO # 0.2 103/ul Normal 0.0-0.7 [facility] Comment on above: Performed By: #### C BC #### [facility] [address] [place] [address] Dr. Stephon Breaux Eosinophils/100 WBC (Bld) 4.4 % Normal 0.9-7.0 [facility] Comment on above: Performed By: #### C BC #### [facility] [address] [place] [address] Dr. Stephon Breaux Erythrocyte distribution width (RBC) [Ratio] 13.3 % Normal 11.0-15.0 [facility] Comment on above: Performed By: #### C BC #### [facility] [address] [place] [address] Dr. Stephon Breaux Hematocrit (Bld) [Volume fraction] 37.9 % Normal 36.0-48.0 [facility] Comment on above: Performed By: #### C BC #### [facility] [address] [place] [address] Dr. Stephon Breaux Hemoglobin (Bld) [Mass/Vol] 12.5 g/dL Normal 12.0-16.0 [facility] Comment on above: Performed By: #### C BC #### [facility] [address] [place] [address] Dr. Stephon Breaux IG # 0.00 10e3/ul Normal 0.00-0.03 [facility] Comment on above: Performed By: #### C BC #### [facility] [address] [place] [address] Dr. Stephon Breaux IG % 0.0 % Normal 0.0-0.5 [facility] Comment on above: Performed By: #### C BC #### [facility] [address] [place] [address] Dr. Stephon Breaux LYMPH # 1.9 103/ul Normal 1.2-3.8 [facility] Comment on above: Performed By: #### C BC #### [facility] [address] [place] [address] Dr. Stephon Breaux Lymphocytes/100 WBC (Bld) 38.6 % Normal 20.5-60.0 [facility] Comment on above: Performed By: #### C BC #### [facility] [address] [place] [address] Dr. Stephon Breaux MANUAL DIFF REQ NO Normal [facility] Comment on above: Performed By: #### C BC #### [facility] [address] [place] [address] Dr. Stephon Breaux MCH (RBC) [Entitic mass] 31.7 pg Normal 26.7-34.0 [facility] Comment on above: Performed By: #### C BC #### [facility] [address] [place] [address] Dr. Stephon Breaux MCHC (RBC) [Mass/Vol] 33.0 g/dL Normal 29.9-35.2 [facility] Comment on above: Performed By: #### C BC #### [facility] [address] [place] [address] Dr. Stephon Breaux MCV (RBC) [Entitic vol] 96.2 fL Normal 81.0-99.0 [facility] Comment on above: Performed By: #### C BC #### [facility] [address] [place] [address] Dr. Stephon Breaux MONO # 0.4 103/ul Normal 0.3-0.8 [facility] Comment on above: Performed By: #### C BC #### [facility] [address] [place] [address] Dr. Stephon Breaux Monocytes/100 WBC (Bld) 7.5 % Normal 1.7-12.0 [facility] Comment on above: Performed By: #### C BC #### [facility] [address] [place] [address] Dr. Stephon Breaux NEUT # 2.3 103/ul Normal 1.4-6.5 [facility] Comment on above: Performed By: #### C BC #### [facility] [address] [place] [address] Dr. Stephon Breaux Neutrophils/100 WBC (Bld) 48.2 % Normal 43.0-75.0 [facility] Comment on above: Performed By: #### C BC #### [facility] [address] [place] [address] Dr. Stephon Breaux Platelet mean volume (Bld) [Entitic vol] 9.4 fL Critically low 9.5-13.5 [facility] Comment on above: Performed By: #### C BC #### [facility] [address] [place] [address] Dr. Stephon Breaux PLT 230 103/ul Normal 150-450 [facility] Comment on above: Performed By: #### C BC #### [facility] [address] [place] [address] Dr. Stephon Breaux RBC 3.94 106/ul Critically low 4.20-5.40 [facility] Comment on above: Performed By: #### C BC #### [facility] [address] [place] [address] Dr. Stephon Breaux WBC 4.8 103/ul Normal 4.0-11.0 [facility] Comment on above: Performed By: #### C BC #### [facility] [address] [place] [address] Dr. Stephon Breaux FREE THYROXINE INDEX T7on FTI 2.94 Normal 1.30-4.50 [facility] Comment on above: Performed By: #### T SH, LIPID, T7, CMP #### [facility] [address] [place] [address] Dr. Stephon Breaux T3U 35.0 % Normal 30.0-39.0 [facility] Comment on above: Performed By: #### T SH, LIPID, T7, CMP #### [facility] [address] [place] [address] Dr. Stephon Breaux T4 [Mass/Vol] 8.40 ug/dL Normal 4.80-13.90 [facility] Comment on above: Performed By: #### T SH, LIPID, T7, CMP #### [facility] [address] [place] [address] Dr. Stephon Breaux GLYCOHEMOGLOBIN A1Con 2022 ADA RECOMMENDATION SEE BELOW Normal [facility] Comment on above: Result Comment: ADA RECOMMENDED LIMIT 4.0 - 6.0 ADA THERAPEUTIC TARGET < 7.0 ACTION SUGGESTED > 7.0 Performed By: #### A 1C #### [facility] [address] [address] [address] Stephon Breaux Glucose [Mass/Vol] 100 mg/dL Normal [facility] Comment on above: Performed By: #### A 1C #### [facility] [address] [place] [address] Dr. Stephon Breaux HbA1c (Bld) [Mass fraction] 5.1 % Normal 4.5-6.2 [facility] Comment on above: Performed By: #### A 1C #### [facility] [address] [place] [address] Dr. Stephon Breaux IRONon 06-04-2022 Iron [Mass/Vol] 89.0 ug/dL Normal 50.0-170.0 [facility] Comment on above: Performed By: #### I FANG #### [facility] [address] [place] [address] Dr. Stephon Breaux LIPID PROFILEon 06-04-2022 CHOL-HDL RATIO NORM SEE BELOW Normal [facility] Comment on above: Result Comment: 3.3 - 4.4 LOW RISK 4.4 - 7.1 AVERAGE RISK 7.1 - 11.0 MODERATE RISK >11.0 HIGH RISK Performed By: #### C BC #### [facility] [address] [place] [address] Dr. Stephon Breaux Cholesterol [Mass/Vol] 203 mg/dL Critically high <=200 [facility] Comment on above: Performed By: #### C BC #### [facility] [address] [place] [address] Dr. Stephon Breaux Cholesterol in HDL [Mass/Vol] 65 mg/dL Critically high 40-60 [facility] Comment on above: Performed By: #### C BC #### [facility] [address] [place] [address] Dr. Stephon Breaux Cholesterol in LDL [Mass/Vol] 112.6 mg/dL Normal [facility] Comment on above: Performed By: #### C BC #### [facility] [address] [place] [address] Dr. Stephon Breaux Cholesterol.total/Ch olesterol in HDL [Mass ratio] 3.1 {ratio} Normal [facility] Comment on above: Performed By: #### C BC #### [facility] [address] [place] [address] Dr. Stephon Breaux HDL NORMAL > or = 60 mg/dl - LOW CARDIOVASCULAR RISK <40 mg/dl - HIGH CARDIOVASCULAR RISK Normal [facility] Comment on above: Performed By: #### C BC #### [facility] [address] [place] [address] Dr. Stephon Breaux LDL CALC NORMAL SEE BELOW Normal [facility] Comment on above: Result Comment: <100 mg/dl OPTIMAL 100 - 129 mg/dl NEAR OR ABOVE OPTIMAL 130 - 159 mg/dl BORDERLINE HIGH 160 - 189 mg/dl HIGH >190 mg/dl VERY HIGH Performed By: #### C BC #### [facility] [address] [place] [address] Dr. Stephon Breaux Triglyceride [Mass/Vol] 127 mg/dL Normal <=150 [facility] Comment on above: Performed By: #### C BC #### [facility] [address] [place] [address] Dr. Stephon Breaux VLDL CALC 25.4 mg/dL Normal [facility] Comment on above: Performed By: #### C BC #### [facility] [address] [place] [address] Dr. Stephon Breaux PROF 14(COMP METB)on 023 Albumin [Mass/Vol] 3.4 g/dL Normal 3.4-5.0 [facility] Comment on above: Performed By: #### C BC #### [facility] [address] [place] [address] Dr. Stephon Breaux Albumin/Globulin [Mass ratio] 1.0 {ratio} Normal [facility] Comment on above: Performed By: #### C BC #### [facility] [address] [place] [address] Dr. Stephon Breaux ALP [Catalytic activity/Vol] 66 U/L Normal 46-116 [facility] Comment on above: Performed By: #### C BC #### [facility] [address] [address] [address] Stephon Breaux ALT [Catalytic activity/Vol] 17 U/L Normal 14-59 [facility] Comment on above: Performed By: #### C BC #### [facility] [address] [place] [address] Dr. Stephon Breaux Anion gap [Moles/Vol] 9.2 mmol/L Normal [facility] Comment on above: Performed By: #### C BC #### [facility] [address] [address] [address] Stephon Breaux AST [Catalytic activity/Vol] 17 U/L Normal 15-37 [facility] Comment on above: Performed By: #### C BC #### [facility] [address] [place] [address] Dr. Stephon Breaux Bilirubin [Mass/Vol] 0.4 mg/dL Normal 0.2-1.0 [facility] Comment on above: Performed By: #### C BC #### [facility] [address] [place] [address] Dr. Stephon Breaux Calcium [Mass/Vol] 9.1 mg/dL Normal 8.5-10.1 [facility] Comment on above: Performed By: #### C BC #### [facility] [address] [place] [address] Dr. Stephon Breaux Chloride [Moles/Vol] 108 mmol/L Critically high 98-107 [facility] Comment on above: Performed By: #### C BC #### [facility] [address] [place] [address] Dr. Stephon Breaux CO2 [Moles/Vol] 29.2 mmol/L Normal 21.0-32.0 [facility] Comment on above: Performed By: #### C BC #### [facility] [address] [place] [address] Dr. Stephon Breaux Creatinine [Mass/Vol] 0.84 mg/dL Normal 0.55-1.02 [facility] Comment on above: Performed By: #### C BC #### [facility] [address] [place] [address] Dr. Stephon Breaux EGFR-AF MOZAMBICAN >60 Normal >=60 [facility] Comment on above: Performed By: #### C BC #### [facility] [address] [address] [address] Stephon Breaux EGFR-NON AF MOZAMBICAN >60 Normal >=60 [facility] Comment on above: Performed By: #### C BC #### [facility] [address] [address] [address] Stephon Breaux Globulin (S) [Mass/Vol] 3.4 g/dL Normal [facility] Comment on above: Performed By: #### C BC #### [facility] [address] [address] [address] Stephon Breaux Glucose [Mass/Vol] 90 mg/dL Normal 74-106 [facility] Comment on above: Performed By: #### C BC #### [facility] [address] [place] [address] Dr. Stephon Breaux Potassium [Moles/Vol] 4.4 mmol/L Normal 3.5-5.1 [facility] Comment on above: Performed By: #### C BC #### [facility] [address] [place] [address] Dr. Stephon Breaux Protein [Mass/Vol] 6.8 g/dL Normal 6.4-8.2 [facility] Comment on above: Performed By: #### C BC #### [facility] [address] [address] [address] Stephon Breaux Sodium [Moles/Vol] 142 mmol/L Normal 136-145 [facility] Comment on above: Performed By: #### C BC #### [facility] [address] [address] [address] Stephon Breaux Urea nitrogen [Mass/Vol] 16.0 mg/dL Normal 7.0-18.0 [facility] Comment on above: Performed By: #### C BC #### [facility] [address] [address] [address] Stephon Breaux Urea nitrogen/Creatinine [Mass ratio] 19.0 mg/mg Normal [facility] Comment on above: Performed By: #### C BC #### [facility] [address] [place] [address] Dr. Stephon Breaux TSHon 06-04-2022 TSH 0.923 uIU/mL Normal 0.358-3.740 [facility] Comment on above: Performed By: #### C BC #### [facility] [address] [place] [address] Dr. Stephon Breaux CULTURE URINEon 01-10-2022 CULTURE URINE Culture Observations: LIGHT GROWTH OF MIXED GENITAL TIFFANIE. NO POTENTIAL PATHOGENS SEEN. Normal [facility] Comment on above: Performed By: #### U RCX #### [facility] [address] [place] [address] Dr. Stephon Breaux UA RANDOM W/MICROSCOPICon BACTERIA TRACE Abnormal NONE SEEN [facility] [facility] [place] Comment on above: Performed By: #### U AMIC #### [facility] [address] [place] [address] Dr. Stephon Breaux Bilirubin Ql (U) Negative Normal NEGATIVE [facility] Comment on above: Performed By: #### U AMIC #### [facility] [address] [place] [address] Dr. Stephon Breaux CAST NONE SEEN Normal NONE SEEN [facility] [place] Comment on above: Performed By: #### U AMIC #### [facility] [address] [place] [address] Dr. Stephon Breaux Clarity (U) CLEAR Normal CLEAR [facility] Comment on above: Performed By: #### U AMIC #### [facility] [address] [place] [address] Dr. Stephon Breaux Color (U) YELLOW Normal YELLOW [facility] Comment on above: Performed By: #### U AMIC #### [facility] [address] [place] [address] Dr. Stephon Breaux Crystals LM Nom (Urine sed) NONE SEEN Normal NONE SEEN [facility] [place] Comment on above: Performed By: #### U AMIC #### [facility] [address] [place] [address] Dr. Stephon Breaux Epithelial cells LM Ql (Urine sed) FEW Abnormal NONE SEEN /RARE [facility] Comment on above: Performed By: #### U AMIC #### [facility] [address] [address] [address] Stephon Breaux Glucose Ql (U) Negative Normal NEGATIVE [facility] Comment on above: Performed By: #### U AMIC #### [facility] [address] [address] [address] Stephon Breaux Hemoglobin Ql (U) Negative Normal NEGATIVE [facility] Comment on above: Performed By: #### U AMIC #### [facility] [address] [address] [address] Stephon Breaux Ketones Ql (U) Negative Normal NEGATIVE [facility] Comment on above: Performed By: #### U AMIC #### [facility] [address] [place] [address] Dr. Stephon Breaux LEUKOCYTES TRACE Abnormal NEGATIVE [facility] [place] Comment on above: Performed By: #### U AMIC #### [facility] [address] [address] [address] Stephon Breaux MUCOUS NONE SEEN Normal NONE SEEN [facility] Comment on above: Performed By: #### U AMIC #### [facility] [address] [address] [address] Stephon Breaux Nitrite Ql (U) Negative Normal NEGATIVE [facility] Comment on above: Performed By: #### U AMIC #### [facility] [address] [address] [address] Stephon Breaux pH (U) 5.5 [pH] Normal 5-9 [facility] Comment on above: Performed By: #### U AMIC #### [facility] [address] [address] [address] Stephon Breaux RBC NONE SEEN Abnormal 0-2 [facility] Comment on above: Performed By: #### U AMIC #### [facility] [address] [place] [address] Dr. Stephon Breaux SPEC GRAVITY >=1.030 Abnormal 1.005-<=1.025 [facility] Comment on above: Performed By: #### U AMIC #### [facility] [address] [address] [address] Stephon Breaux UA PROTEIN Negative Normal NEGATIVE/ TRACE [facility] Comment on above: Performed By: #### U AMIC #### [facility] [address] [address] [address] Stephon Breaux Urobilinogen Qn (U) 0.2 {Billy'U}/dL Normal 0.2 - 1. 0 [facility] [place] Comment on above: Performed By: #### U AMIC #### [facility] [address] [place] [address] Dr. Stephon Breaux WBC 2-5 Abnormal NONE SEEN [facility] [place] Comment on above: Performed By: #### U AMIC #### [facility] [address] [place] [address] Dr. Stephon Breaux CULTURE URINEon 12-26-2021 CULTURE [...] Trimethoprim/Sulfame thoxazole <=20 S F Normal [facility] Comment on above: Performed By: #### C BC #### [facility] [address] [place] [address] Dr. Stephon Breaux UA RANDOM W/MICROSCOPICon BACTERIA TRACE Abnormal NONE SEEN [facility] Comment on above: Performed By: #### U AMIC #### [facility] [address] [place] [address] Dr. Stephon Breaux Bilirubin Ql (U) Negative Normal NEGATIVE [facility] Comment on above: Performed By: #### U AMIC #### [facility] [address] [address] [address] Stephon Breaux CAST NONE SEEN Normal NONE SEEN [facility] Comment on above: Performed By: #### U AMIC #### [facility] [address] [address] [address] Stephon Breaux Clarity (U) CLEAR Normal CLEAR [facility] Comment on above: Performed By: #### U AMIC #### [facility] [address] [address] [address] Stephon Breaux Color (U) DK. ORANGE Abnormal YELLOW [facility] Comment on above: Performed By: #### U AMIC #### [facility] [address] [address] [address] Stephon Breaux Crystals LM Nom (Urine sed) NONE SEEN Normal NONE SEEN [facility] Comment on above: Performed By: #### U AMIC #### [facility] [address] [place] [address] Dr. Stephon Breaux Epithelial cells LM Ql (Urine sed) FEW Abnormal NONE SEEN /RARE [facility] Comment on above: Performed By: #### U AMIC #### [facility] [address] [address] [address] Stephon Breaux Glucose Ql (U) Negative Normal NEGATIVE [facility] Comment on above: Performed By: #### U AMIC #### [facility] [address] [address] [address] Stephon Breaux Hemoglobin Ql (U) SMALL Abnormal NEGATIVE [facility] Comment on above: Performed By: #### U AMIC #### [facility] [address] [address] [address] Stephon Breaux Ketones Ql (U) Negative Normal NEGATIVE [facility] Comment on above: Performed By: #### U AMIC #### [facility] [address] [address] [address] Stephon Breaux LEUKOCYTES MODERATE Abnormal NEGATIVE [facility] Comment on above: Performed By: #### U AMIC #### [facility] [address] [address] [address] Stephon Breaux MUCOUS NONE SEEN Normal NONE SEEN [facility] Comment on above: Performed By: #### U AMIC #### [facility] [address] [address] [address] Stephon Breaux Nitrite Ql (U) Negative Normal NEGATIVE [facility] Comment on above: Performed By: #### U AMIC #### [facility] [address] [address] [address] Stephon Breaux pH (U) 6.0 [pH] Normal 5-9 [facility] Comment on above: Performed By: #### U AMIC #### [facility] [address] [address] [address] Stephon Breaux RBC 2-5 Abnormal 0-2 [facility] [place] Comment on above: Performed By: #### U AMIC #### [facility] [address] [place] [address] Dr. Stephon Breaux SPEC GRAVITY >=1.030 Abnormal 1.005-<=1.025 [facility] Comment on above: Performed By: #### U AMIC #### [facility] [address] [address] [address] Stephon Breaux UA PROTEIN TRACE Normal NEGATIVE/ TRACE [facility] Comment on above: Performed By: #### U AMIC #### [facility] [address] [address] [address] Stephon Breaux Urobilinogen Qn (U) 0.2 {Billy'U}/dL Normal 0.2 - 1. 0 [facility] [place] Comment on above: Performed By: #### U AMIC #### [facility] [address] [address] [address] Stephon Breaux WBC 20-50 Abnormal NONE SEEN [facility] Comment on above: Performed By: #### U AMIC #### [facility] [address] [address] [address] Stephon Breaux Vital Signs Date Time Vital Sign Value Performing Clinician Facility 11-06-2024 11:53-0400 Body height 170.18 cm Wyatt Mann MD Work Phone: [facility] 11-06-2024 11:53-0400 Body mass index (BMI) [Ratio] 33.8 kg/m2 Wyatt Mann MD Work Phone: [facility] 11-06-2024 11:53-0400 Body temperature 96.8 [degF] Wyatt Mann MD Work Phone: [facility] 11-06-2024 11:53-0400 Body weight 97.97 kg Wyatt Mann MD Work Phone: [facility] 11-06-2024 11:53-0400 Diastolic blood pressure 63 mm[Hg] Wyatt Mann MD Work Phone: [facility] 11-06-2024 11:53-0400 Heart rate 71 /min Wyatt Mann MD Work Phone: [facility] 11-06-2024 11:53-0400 Respiratory rate 18 /min Wyatt Mann MD Work Phone: [facility] 11-06-2024 11:53-0400 SaO2% (BldA) [Mass fraction] 100 % Wyatt Mann MD Work Phone: [facility] 11-06-2024 11:53-0400 Systolic blood pressure 118 mm[Hg] Wyatt Mann MD Work Phone: [facility] 03-16-2024 08:40-0500 Blood Pressure Location YANE GUAMAN [facility] 03-16-2024 08:40-0500 Body temperature 98.6 [degF] YANE GUAMAN [facility] 03-16-2024 08:40-0500 Diastolic blood pressure 82 mm[Hg] YANE GUAMAN [facility] 03-16-2024 08:40-0500 Heart rate 87 /min YANE GUAMAN [facility] 03-16-2024 08:40-0500 Systolic blood pressure 122 mm[Hg] YANE GUAMAN [facility] 01-19-2023 10:50-0500 Body height 170.18 cm Yary Valladares Other [facility] Other 01-19-2023 10:50-0500 Body mass index (BMI) [Ratio] 30.1 kg/m2 Yary Valladares Other [facility] Other 01-19-2023 10:50-0500 Body temperature 97.4 [degF] Yary Valladares Other [facility] Other 01-19-2023 10:50-0500 Body weight 87.18 kg Yary Valladares Other [facility] Other 01-19-2023 10:50-0500 Respiratory rate 18 /min Yary Valladares Other [facility] Other 01-19-2023 10:50-0500 SaO2% (BldA) [Mass fraction] 95 % Yary Valladares Other [employer] Other Encounters Encounter Date Encounter Type Care Provider Facility Start: 11-06-2024 End: 11-06-2024 ambulatory Wyatt Mann MD Work Phone: [facility] Work Phone: Start: 11-06-2024 End: 11-06-2024 Patient encounter procedure Giana Carnes [facility] Work Phone: Start: 11-04-2024 ambulatory Diana Calderon Facility :[facility] Start: 09-27-2024 End: 09-27-2024 ambulatory YANE GUAMAN [facility] Start: 09-27-2024 End: 09-27-2024 Patient encounter procedure YANE GUAMAN [facility] Start: 08-30-2024 End: 08-30-2024 ambulatory YANE GUAMAN Facility:[facility] Start: 08-30-2024 End: 08-30-2024 Patient encounter procedure YANE GUAMAN [facility] Start: 05-04-2024 End: 05-04-2024 ambulatory Ji R CHELSI [facility] Start: 05-04-2024 End: 05-04-2024 Patient encounter procedure Ji R CHELSI [facility] Start: 03-16-2024 End: 03-16-2024 ambulatory YANE GUAMAN Facility:[facility] Start: 03-16-2024 End: 03-16-2024 Patient encounter procedure [facility] GUAMAN [facility] Start: 05-18-2023 End: 05-18-2023 ambulatory Rayna Muñoz Facility:[facility] Start: 01-23-2023 End: 01-23-2023 ambulatory Yary Valladares Other [facility] Other Start: 01-23-2023 Telephone encounter Yary Valladares [facility] [address] Start: 01-19-2023 Office outpatient vi sit 25 minutes Yary Valladares [facility] Start: 01-19-2023 End: 01-19-2023 ambulatory Wyatt Mann [facility] Work Phone: Start: 01-19-2023 End: 01-19-2023 Departed [employer] Yary Valladares Work Phone: [facility] [place] Work Phone: Start: 06-14-2022 End: 06-15-2022 ambulatory [...] identified in Urine by Culture Urine Culture [facility] Patient Education Low back pain in adults [facility] Work Phone: [facility] Immunizations Immunization Date Immunization Notes Care Provider Fa cility 01-15-2023 influenza virus vacc ine, unspecified formulation YANE GUAMAN [facility] 01-30-2022 influenza virus vacc ine, unspecified formulation YANE GUAMAN [facility] 05-10-2021 pneumococcal polysaccharide vaccine, 23 valent YANE GUAMAN [facility] 01-27-2021 influenza, unspecifi ed formulation YANE GUAMAN [facility] 01-27-2021 SARS-CoV-2 (COVID-19 ) mRNA BNT-162b2 vax YANE GUAMAN [facility] Comment on above: Result Comment: 2024: [id number] 12-28-2020 influenza virus vacc ine, unspecified formulation YANE GUAMAN [facility] 06-06-2020 SARS-CoV-2 (COVID-19 ) mRNA BNT-162b2 vax YANE GUAMAN [facility] 05-15-2020 SARS-CoV-2 (COVID-19 ) mRNA BNT-162b2 vax YANE GUAMAN [facility] 08-26-2019 pneumococcal conjuga te vaccine, 13 valent YANE GUAMAN [facility] Payers Date Payer Category Payer Medicare [id number] 2023 Unknown [id number] 2023 Self-pay [id number] 1959 Unknown [id number] 1952 Unknown [id number] 2.16.84 [id number] 1952 Unknown [id number] 2.16.84 [id number] 1952 Unknown [id number] 2.16.84 [id number] 1952 Unknown [id number] 2.16.84 [id number] 1952 Unknown [id number] 2.16.84 [id number] 1952 Unknown [id number] 2.16.8 [id number] 1952 Unknown [id number] 2.16.8 40.1.805417.3.579.2.727 1952 Unknown [id number] 2.16.8 [id number] 1952 Unknown [id number] 2.16.8 40.1.747790.3.579.2.727 1952 Unknown [id number] 2.16.8 40.1.777429.3.579.2.727 1952 Unknown [id number] 2.16.8 [id number] 1952 Unknown [id number] 2.16.8 [id number] Unknown [id number] Unknown [id number] 2.16.8 [id number] Unknown [id number] 2.16.8 [id number] Social History Date Type Detail Facility Unknown if ever smoked [facility] Work Phone: Sex Assigned At [facility] Start: 1950 Sex Assigned At Female F [facility] Start: 03-07-2018 End: 03-16-2024 Tobacco smoking status Never smoked tobacco (finding) [facility] Tobacco smoking status Never [facility] Sexual Orientation [facility] Start: 10-15-2013 Sex Female (finding) [facility] Functional Status Date Assessment Result Facility 05-04-2024 Functional Status N/A [facility] 03-16-2024 Functional Status N/A [facility] Clinical Notes 11-27-2021 to 07-14-2025 Note Date [...] provider. Document Revised: 10/01/2022 Document Reviewed: 10/01/2022 [employer] Patient Education 2023 [employer]. Follow Up Care 09/27/2024 10:39:38 With:DENIZ PATEL, YANE Zepeda, URL Address: [address] [place], [place] [address] [address] Business (1) When: Unknown Comments:pending results of imaging/testing, will call with next steps [facility] 09-27-2024 Note Patient Education Caregiving Antibiotic Medicine, [...] You have sig (more content not included)... [facility] 05-04-2024 Hospital Discharg e instructions Patient Education [...] Up Care 03/16/2024 09:32:57 With:Ji GAGNON Address: [address] [place] [address] [place] [address]- Business (1) When:09/01/2024 10:49:14 Comments:With Lurdes Guaman [facility] 05-04-2024 Note Patient Education Custom Cystoscopy [...] you have a fever over 100 degrees [facility] 03-16-2024 Hospital Discharg e instructions Patient Education [...] reconstructed. Follow these instructions at home: Take [id number] and prescription medicines only as told by [...] provider. Document Revised: 12/26/2022 Document Reviewed: 12/26/2022 [employer] Patient Education 2023 [employer]. Follow Up Care 02/17/2024 09:52:45 With:[facility] Address: When: Unknown Comments:For procedure as scheduled. [facility] 03-16-2024 Note Patient Education Urology Urethral [...] Follow these instructions at home: ??? Take [id number] and prescription medicines only as told by [...] provider. Document Revised: 12/26/2022 Document Reviewed: 12/26/2022 [employer] Patient Education ? 2023 [employer]. [facility] 01-19-2023 Evaluation note Encounter Date Diagnosis Assessment [...] condition Jan, Sore throat (ICD-10 - J02.9) [facility] Other 09-13-2022 NoteEXAMINATION: XR CHEST 2 V [...] authenticated by: ORTEGA HAHN Date: 2021-11-27 15:40[facility] App[facility]ments Appointment Date:05/03/2024 11:00:00 AM Scheduled Provider: Location:[facility] Appointment Type:Urology CALL PAT FT Appointment Date:05/04/2024 10:15:00 AM Scheduled Provider: Location:[facility] Appointment Type:Urology FT [facility] evaluation + Plan note Future Appointments Appointment Date:08/30/2024 09:40:00 AM Scheduled Provider:YANE GUAMAN PA-C Location:[facility] Appointment Type:URO Office Visit [facility] Evaluation noteNo assessment information available [facility] Work Phone: Evaluation noteNo InformationNortHelen [facility] [employer] Other Evaluation note* Diagnosis Onset Date Resolution Status Admit Date Low back pain acute October 11:42am [facility] Work Phone: History general Narrative - Reported* Type Description Date Medical History Depression Medical History Glaucoma Medical History Arthritis Medical History osteoporosis Surgical History vaginal lazering [facility] [employer] Other Hospital course Narrative No data available for this section [facility] Hospital Discharge instructions No data available for this section [facility] progress note No data available for this section [facility] reason for referral (narrative)No reason for referral information [facility]Day[facility] Work Phone: Summary Purpose Family History No [...] and content) DATE CREATED AUTHOR 06/22/2022 [facility] DATE CREATED AUTHOR AUTHOR'S ORGANIZ ATION 05/22/2023 [facility] DATE CREATED AUTHOR AUTHOR'S ORGANIZ ATION 10/03/2024 [facility] DATE CREATED AUTHOR AUTHOR'S ORGANIZ ATION 10/16/2024 [facility] DATE CREATED AUTHOR AUTHOR'S ORGANIZ ATION 11/06/2024 [facility] REASON FOR VISIT (unrecogniz ed section [...] BE BASED ON THE PRIMARY CLINICAL RECORDS. [facility] [employer] [facility]. provides no warranty or guarantee of the accuracy or completeness of information in this document.
== END 2024-12-08 09:50 | disposition home or self-care (01) ==
LOC: MRI 09:49
PROVIDERS: PCP Nurse Practitioner Family; Visit Provider Nurse Practitioner Family
DX: M54.16 Radiculopathy, lumbar region (principal); M51.369 Other intervertebral disc degeneration, lumbar region without mention of lumbar back pain or lower extremity pain
CPT/HCPCS: 72148